=== PATIENT | male | born 1945 | race Caucasian/White ===

== ENCOUNTER → 2016-12-27 | Outpatient (CLI) | payer OTHER, MEDICARE ==
[~2016-12-27] MED LIST: ASPI325T45 PO; LISI2.5T5 PO; SIMV20TA2 PO; TPRSR/100 PO
--- NOTE | 2016-12-27 09:59 | DIAGNOSTIC IMAGING REPORT ---
CT OF THE CHEST WITHOUT IV CONTRAST CLINICAL HISTORY: Left lower lung mass. Lung nodule. COMPARISON STUDY: Chest CT May 11, 2016. CT DOSE: 497.86 mGycm TECHNIQUE: Axial images of the chest were obtained without IV contrast. Images were reviewed in the axial, sagittal, and coronal planes. IV contrast was not administered for this examination. FINDINGS: No enlarged axillary, mediastinal or hilar lymph nodes are present. A left subclavian pacer/AICD is in place. Mild cardiomegaly is unchanged. Extensive coronary artery calcification. Left ventricular apical calcification is unchanged and suggests an old infarct. The central airways are patent. There are several calcified and noncalcified pleural plaques within the chest. There is mild pleural thickening within each hemithorax which is unchanged. There is trace bilateral pleural fluid. A 4.6 x 3 cm subpleural left lower lobe mass-like opacity with a swirling appearance of the bronchi and volume loss is unchanged since exam of April 16, 2015. This is consistent with round atelectasis. No new nodules are present. Scattered additional subpleural opacity suggest atelectasis. The appearance of the chest is unchanged. The bony thorax is unremarkable. Several suspected hepatic cysts are again noted. These are unchanged. There are punctate bilateral renal calculi. IMPRESSION: 1. No change in the left lower lobe subpleural opacity with associated volume loss and pleural thickening. This is consistent with round atelectasis. 2. Multiple calcified and noncalcified pleural plaques. Stable mild pleural thickening and trace bilateral pleural effusions. No change in appearance of the chest. Electronically signed by: Bandar Jules M.D. 12/27/2016 9:58 AM Dictated Date/Time: 12/27/2016 9:48 AM
== END | disposition home or self-care (01) ==
LOC: C.CTS 09:33
PROVIDERS: ATTEND Internal Medicine Pulmonary Disease
DX: R91.1 Solitary pulmonary nodule (principal)

== ENCOUNTER → 2017-03-28 | Outpatient (CLI) | payer OTHER, MEDICARE ==
--- NOTE | 2017-03-28 14:14 | DIAGNOSTIC IMAGING REPORT ---
CHEST 2 VIEWS ROUTINE CLINICAL HISTORY: COUGH SOB dyspnea COMPARISON STUDY: 01/20/2016 FINDINGS: Unipolar cardiac pacemaker/fibrillator. Mild emphysematous change. Chronic interstitial change. No focal infiltrate. IMPRESSION: Chronic and postoperative change. No acute process. Electronically signed by: Anthony Martin M.D. 03/28/2017 2:13 PM Dictated Date/Time: 03/28/2017 2:10 PM
== END | disposition home or self-care (01) ==
LOC: C.RAD1850 13:58
PROVIDERS: ATTEND Physician Assistant Medical
DX: R06.02 Shortness of breath (principal); R05 Cough

== ENCOUNTER → 2017-04-18 | Outpatient (CLI) | payer OTHER, MEDICARE ==
--- NOTE | 2017-04-18 08:35 | DIAGNOSTIC IMAGING REPORT ---
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 FINDINGS: Within the left parotid gland there is a 3.2 x 2.1 x 1.9 cm hypoechoic mass. This is stable to slightly increased in size compared to the prior study. There are few subcentimeter lymph nodes within the left neck. Normal left submandibular gland. There may be a second smaller lesion adjacent to the mass which measures 1.5 x 0.6 cm. However, this could represent an adjacent lymph node. IMPRESSION: 1. Stable to slight increase in size in the 3.2 x 2.1 x 1.9 cm left parotid gland mass. This was previously biopsied. 2. There is also a similar-appearing hypoechoic lesion adjacent to this mass which measures 1.5 x 0.6 cm. This could represent an adjacent lymph node. Electronically signed by: Wiley Pereyra M.D. 04/18/2017 8:34 AM Dictated Date/Time: 04/18/2017 8:29 AM
[2017-04-18 09:50] LABS: ALKALINE PHOSPHATASE 78 U/L (45-117); ALT/SGPT 18 U/L (12-78); AST/SGOT 15 U/L (15-37)
== END | disposition home or self-care (01) ==
LOC: C.ULTR 07:39
DX: D49.0 Neoplasm of unspecified behavior of digestive system (principal); R91.1 Solitary pulmonary nodule

== ENCOUNTER → 2017-06-13 | Outpatient (CLI) | payer OTHER, MEDICARE ==
--- NOTE | 2017-06-13 07:20 | DIAGNOSTIC IMAGING REPORT ---
CHEST 2 VIEWS ROUTINE CLINICAL HISTORY: I49.9,Z01.818 dyspnea COMPARISON STUDY: 03/28/2017 FINDINGS: Permanent unipolar cardiac pacemaker/fibrillator. Lead is in good position. Mild stable cardiomegaly. Mild stable emphysematous change. Trace pleural fluid both lung bases unchanged from the prior exam. Chronic fullness pulmonary vasculature. IMPRESSION: Chronic and postoperative change. Chronic pulmonary venous congestion. The above report was generated using voice recognition software. It may contain grammatical, syntax or spelling errors. Electronically signed by: Anthony Martin M.D. 06/13/2017 7:19 AM Dictated Date/Time: 06/13/2017 7:18 AM
[2017-06-13 09:39] LABS: HEMATOCRIT 43.5 % (42-52); MEAN CELL VOLUME 97.3 fL (80-100); MEAN CORPUSCULAR HEMOGLOBIN 34.2 pg (25-34); MEAN CORPUSCULAR HGB CONC 35.2 g/dl (32-36); MEAN PLATELET VOLUME 8.8 fL (7.4-10.4); PLATELET COUNT 350 K/uL (130-400); RED BLOOD COUNT 4.47 M/uL (4.7-6.1); WHITE BLOOD COUNT 7.01 K/uL (4.8-10.8)
[2017-06-13 09:47] LABS: PARTIAL THROMBOPLASTIN RATIO 1.2; PROTHROMBIN TIME (PATIENT) 10.7 SECONDS (9.0-12.0)
[2017-06-13 09:57] LABS: BLOOD UREA NITROGEN 8 mg/dl (7-18); BUN/CREATININE RATIO 8.5 (10-20); CALCIUM 8.8 mg/dl (8.5-10.1); CARBON DIOXIDE 27 mmol/L (21-32); CHLORIDE 99 mmol/L (98-107); CREATININE 0.89 mg/dl (0.60-1.40); GLUCOSE 92 mg/dl (70-99); POTASSIUM 4.6 mmol/L (3.5-5.1); SODIUM 132 mmol/L (136-145)
== END | disposition home or self-care (01) ==
LOC: C.RAD 06:56
PROVIDERS: ATTEND Internal Medicine Cardiovascular Disease
DX: Z01.818 Encounter for other preprocedural examination (principal); I49.9 Cardiac arrhythmia, unspecified

== ENCOUNTER → 2017-09-24 | Outpatient (CLI) | payer OTHER, MEDICARE | END | disposition home or self-care (01) | LOC: C.RDSM 10:45 | PROVIDERS: ATTEND Physical Medicine & Rehabilitation Sports Medicine | DX: M17.11 Unilateral primary osteoarthritis, right knee (principal) ==

== ENCOUNTER → 2017-10-09 | Outpatient (CLI) | payer OTHER, MEDICARE ==
[2017-10-09 09:39] LABS: BASO % 0.3 %; BASO ABS # 0.02 K/uL (0-0.2); COMPLETE YES; EOS % 3.9 %; HEMATOCRIT 44.9 % (42-52); IG% 0.1 %; LYMPH % 22.3 %; LYMPH ABS # 1.56 K/uL (1.2-3.4); MEAN CELL VOLUME 97.6 fL (80-100); MEAN CORPUSCULAR HEMOGLOBIN 34.6 pg (25-34); MEAN CORPUSCULAR HGB CONC 35.4 g/dl (32-36); MEAN PLATELET VOLUME 8.6 fL (7.4-10.4); MONO % 10.6 %; NEUT % 62.8 %; PLATELET COUNT 396 K/uL (130-400)
[2017-10-09 09:58] LABS: ALT/SGPT 21 U/L (12-78); BLOOD UREA NITROGEN 10 mg/dl (7-18); BUN/CREATININE RATIO 11.1 (10-20); CALCIUM 8.6 mg/dl (8.5-10.1); CARBON DIOXIDE 26 mmol/L (21-32); CHLORIDE 98 mmol/L (98-107); CHOLESTEROL 156 mg/dl (0-200); GLUCOSE 95 mg/dl (70-99); MAGNESIUM 2.4 mg/dl (1.8-2.4); POTASSIUM 4.2 mmol/L (3.5-5.1); SODIUM 131 mmol/L (136-145); TRIGLYCERIDES 62 mg/dl (0-150); URIC ACID 4.6 mg/dl (2.6-7.2); VERY LOW DENSITY LIPOPROT CALC 12 mg/dl
[2017-10-09 10:08] LABS: ALB/GLOB RATIO 0.9 (0.9-2); ALKALINE PHOSPHATASE 80 U/L (45-117); AST/SGOT 17 U/L (15-37); CHOLESTEROL/HDL RATIO 2.2; HDL CHOLESTEROL 70 mg/dl; LDL CHOLESTEROL CALCULATED 74 mg/dl
[2017-10-09 10:30] LABS: LYME DISEASE AB IGG NEG (NEG); LYME DISEASE AB IGM NEG (NEG)
== END | disposition home or self-care (01) ==
LOC: C.LAB 07:09
PROVIDERS: ATTEND Nurse Practitioner Family
DX: I70.90 Unspecified atherosclerosis (principal); I42.9 Cardiomyopathy, unspecified; J44.9 Chronic obstructive pulmonary disease, unspecified; M79.643 Pain in unspecified hand

== ENCOUNTER → 2017-11-09 | Outpatient (CLI) | payer OTHER, MEDICARE ==
--- NOTE | 2017-11-09 13:45 | DIAGNOSTIC IMAGING REPORT ---
L-SPINE MIN 4 VIEWS ROUTINE CLINICAL HISTORY: M54.5 Lumbar [id number] COMPARISON STUDY: No previous studies for comparison. FINDINGS: There are multilevel degenerative changes. There is multilevel disc space narrowing. There is prominent osteophytic spurring. There is narrowing of the AP diameter spinal canal and underlying spinal stenosis is suspected. An MRI could be obtained in follow-up as deemed clinically necessary. IMPRESSION: 1. Moderate multilevel degenerative changes with suspected underlying spinal stenosis. 2. No acute fractures or traumatic subluxations identified Electronically signed by: Mark Fernando M.D. 11/09/2017 1:44 PM Dictated Date/Time: 11/09/2017 1:43 PM
== END | disposition home or self-care (01) ==
LOC: C.RAD 13:06
PROVIDERS: ATTEND Family Medicine
DX: M54.5 Low back pain (principal)

== ENCOUNTER → 2017-12-13 | Outpatient (CLI) | payer OTHER, MEDICARE ==
[~2017-12-13] MED LIST changes: +ATEN100T PO; +AZITTAB PO; +DEXTTAB PO; +FLUT0.15 NAE; +FURO-85 PO; -LISI2.5T5 PO; +OPTIRAY 320 IV PRN; +PRED20TA PO; +SACU1TAB PO; -TPRSR/100 PO
--- NOTE | 2017-12-13 11:32 | DIAGNOSTIC IMAGING REPORT ---
CHEST CT WITH CONTRAST CT DOSE: 412.23 mGy.cm HISTORY: Follow-up study in a patient with lung nodule R91.1 Lung nodule < 6cm on [id number] TECHNIQUE: Multiaxial CT images of the chest were performed following the intravenous administration of contrast. A dose lowering technique was utilized adhering to the principles of ALARA. COMPARISON: Chest CT 12/27/2016, 04/16/2017, PET CT 04/24/2015. FINDINGS: No dominant thyroid nodule identified. There are multiple scattered nonenlarged mediastinal lymph nodes are seen throughout including a 7 mm right paratracheal lymph node and 7 mm AP window lymph node which appears unchanged. No pathologically enlarged lymph nodes by CT size criteria. Cardiomegaly with left subclavian pacer/AICD with single lead overlying the right ventricle. Coronary arterial disease. Moderate mixed plaquing of the thoracic aorta without aneurysm or dissection. Partially 50% luminal narrowing involves the mid right subclavian artery as seen on image 45 of series 4. No vessel occlusion identified. There is mild dilation of the main pulmonary artery which may reflect underlying pulmonary arterial hypertension. Bilateral calcified and noncalcified pleural plaques redemonstrated. There is a masslike opacity again seen involving the posterior basal segment left lower lobe which measures 3.5 x 2.2 cm, previously 4.6 x 3.0 cm. There is associated linear pleural parenchymal opacities with swirling appearance of the adjacent lung parenchyma and bronchi, unchanged. Multifocal subsegmental linear areas of subpleural reticulation are again seen compatible with areas of pleural-parenchymal scarring. Scattered bronchovascular distribution of groundglass and nodular opacities are noted within a multilobar distribution bilaterally, notably within the lingula as seen on image 170 series 4. Mild centrilobular emphysema. No pneumothorax or pleural effusion. 9 mm low attenuating lesion of the subserosal left hepatic lobe is unchanged suggesting hepatic cyst. No acute abnormality of the imaged upper abdomen. Soft tissues are unremarkable. Bones appear intact. IMPRESSION: 1. 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 Multifocal multilobar areas of subpleural subsegmental pleural-parenchymal scarring is noted bilaterally. 2. Pleural-based ovoid consolidation of the posterior basal segment left lower lobe compatible with round atelectasis has decreased in size from comparison. 3. Patchy multilobar bronchovascular distribution of groundglass and nodular opacities suggests mild bronchopneumonia. 4. Mild centrilobular emphysema. 5. Cardiomegaly. Electronically signed by: Rafiq Mckeon M.D. 12/13/2017 11:30 AM Dictated Date/Time: 12/13/2017 11:18 AM
== END | disposition home or self-care (01) ==
LOC: C.CTS 11:02
PROVIDERS: ATTEND Physician Assistant
DX: R91.1 Solitary pulmonary nodule (principal)

== ENCOUNTER → 2017-12-15 | Outpatient (CLI) | payer OTHER, MEDICARE ==
[~2017-12-15] MED LIST changes: -OPTIRAY 320 IV PRN
--- NOTE | 2017-12-15 13:45 | DIAGNOSTIC IMAGING REPORT ---
CHEST 2 VIEWS ROUTINE CLINICAL HISTORY: 72 years-old Male presenting with FEVER,COUGH. TECHNIQUE: PA and lateral views of the chest were obtained. COMPARISON: 06/13/2017. FINDINGS: Left subclavian implanted cardiac defibrillator with single lead to the right ventricular apex. Atherosclerosis of aortic arch. Cardiac silhouette top normal in size. Hazy bibasilar opacities not significant changed since prior exam. Small bilateral pleural effusions. No pneumothorax. No new focal opacity. Lungs are hyperinflated. Degenerative changes of the thoracic spine. IMPRESSION: 1. Emphysema. 2. Bibasilar atelectasis or scarring. 3. Small bilateral pleural effusions. 4. The multilobular groundglass nodular opacities seen on CT are not radiographically apparent. 5. Calcified pleural plaques implying prior asbestos exposure also more evident on CT. Electronically signed by: Que Mcdaniels M.D. 12/15/2017 1:44 PM Dictated Date/Time: 12/15/2017 1:42 PM
== END | disposition home or self-care (01) ==
LOC: C.RAD 13:07
PROVIDERS: ATTEND Internal Medicine
DX: R50.9 Fever, unspecified (principal); R05 Cough; R09.89 Other specified symptoms and signs involving the circulatory and respiratory systems

== ENCOUNTER 2017-12-16 20:42 | Inpatient (IN) | payer OTHER, MEDICARE ==
[~2017-12-16] VITALS: Ht 172.7 cm; Wt 80.4 kg
[~2017-12-16 20:42] MED LIST changes: -AZITTAB PO; -DEXTTAB PO; -PRED20TA PO
[2017-12-16] MEDS ORDERED: ALBUT/IPRATROP 3MG/0.5MG NEB 3 ML VIAL INH STA (21:11)
[2017-12-16] MEDS ORDERED: CEFTRIAXONE SOD INJ 1 GM ADDVIAL IV STA (21:11)
[2017-12-16 21:54] LABS: BASO % 0.2 %; BASO ABS # 0.01 K/uL (0-0.2); HEMATOCRIT 43.6 % (42-52); HEMOGLOBIN 15.9 g/dL (14.0-18.0); IG# 0.01 K/uL (0.00-0.02); LYMPH ABS # 0.43 K/uL (1.2-3.4); MEAN CORPUSCULAR HEMOGLOBIN 34.3 pg (25-34); MEAN CORPUSCULAR HGB CONC 36.5 g/dl (32-36); MEAN PLATELET VOLUME 8.6 fL (7.4-10.4); MONO % 3.3 %; NEUT % 89.3 %; NEUT ABS # 5.47 K/uL (1.4-6.5); PLATELET COUNT 263 K/uL (130-400); RED CELL DISTRIBUTION WIDTH CV 12.4 % (11.5-14.5); RED CELL DISTRIBUTION WIDTH SD 42.8 fL (36.4-46.3); WHITE BLOOD COUNT 6.12 K/uL (4.8-10.8)
--- NOTE | 2017-12-16 21:59 | DIAGNOSTIC IMAGING REPORT ---
CHEST ONE VIEW PORTABLE CLINICAL HISTORY: EVALUATE RESPIRATORY DISTRESS.DYSPNEA COMPARISON STUDY: 12/15/2017 FINDINGS: Moderate cardiomegaly. Increased pulmonary vasculature compared to the prior study. Diaphragms are smooth. Slight blunting lateral calcific angles. IMPRESSION: Developing congestive heart failure. The above report was generated using voice recognition software. It may contain grammatical, syntax or spelling errors. Electronically signed by: Anthony Martin M.D. 12/16/2017 9:58 PM Dictated Date/Time: 12/16/2017 9:57 PM
[2017-12-16 22:06] LABS: PTT PATIENT 31.3 SECONDS (21.0-31.0)
[2017-12-16] MEDS ORDERED: AZITTAB PO (22:06)
[2017-12-16] MEDS ORDERED: DEXTTAB PO (22:06)
[2017-12-16] MEDS ORDERED: PRED20TA PO (22:06)
[2017-12-16 22:10] LABS: ALBUMIN 3.4 gm/dl (3.4-5.0); ALT/SGPT 31 U/L (12-78); BLOOD UREA NITROGEN 9 mg/dl (7-18); CALCIUM 8.4 mg/dl (8.5-10.1); CARBON DIOXIDE 22 mmol/L (21-32); GLUCOSE 135 mg/dl (70-99); POTASSIUM 4.2 mmol/L (3.5-5.1); SODIUM 128 mmol/L (136-145)
[2017-12-16 22:15] LABS: ALKALINE PHOSPHATASE 94 U/L (45-117); AST/SGOT 31 U/L (15-37); TOTAL PROTEIN 7.1 gm/dl (6.4-8.2)
[2017-12-16 23:07] LABS: INFLUENZA A PCR Neg for Influ A (NEG); INFLUENZA B PCR Neg for Influ B (NEG)
[2017-12-16] MEDS ORDERED: ALBUTEROL HFA 8 GM INHALER INH ONE (23:15)
--- NOTE | 2017-12-16 23:53 | EMERGENCY ROOM VISIT NOTE ---
History Report prepared by Keenan: Camille Fuentes Under the Supervision of: Dr. Curt Ritter M.D. First contact with patient: 21:07 Chief Complaint: SHORTNESS OF BREATH Stated Complaint: SOB History of Present Illness The patient is a 72 year old male who presents to the Emergency Room with complaints of worsening SOB starting 4 days ago. His SOB worsens with walking and talking. He has relief of his SOB with lying still. He has had diarrhea for the past 3 days. He has been coughing. He has had chills. His neck is stiff in the back. He denies any fever, sore throat, or rhinorrhea. He is on aspirin. He is not on any other blood thinners. He did have a flu shot this season. His was sick last week with similar symptoms. The patient had a chest CT 3 days ago which was unremarkable. He went to the clinic yesterday and had a chest X-ray which did not show pneumonia. He had a nebulizer treatment which did not help. He was started on prednisone and a Z nilo. He denies any history of COPD or lung disease. He has not had pneumonia before. He denies any history of blood clots. He has a history of IL. He has a defibrillator in place. Source of History: patient Onset: 4 days ago Position: other (global) Quality: other (SOB) Timing: worsening Modifying Factors (Worsening): movement, other (talking) Modifying Factors (Relieving): rest Associated Symptoms: + chills, + cough, + neck pain, + diarrhea, No fevers, No sorethroat Review of Systems See HPI for pertinent positives & negatives. A total of 10 systems reviewed and were otherwise negative. Past Medical & Surgical Medical Problems: (1) Cardiac defibrillator in place (2) IL (myocardial infarction) Surgical Problems: (1) S/P coronary artery stent placement Family History FHx: heart disease Social History Smoking Status: Current Every Day Smoker Alcohol Use: occasionally Drug Use: none Marital Status: Housing Status: lives with family Occupation Status: employed Current/Historical Medications Scheduled Aspirin (Aspirin), 325 MG PO QAM Atenolol (Tenormin), 100 MG PO QPM Azithromycin (Zithromax Z-Nilo), 250 MG PO UD Furosemide (Lasix), 20 MG PO QAM Prednisone (Prednisone), 40 MG PO DAILY Sacubitril-Valsartan (Entresto 24-26 mg), 1 TAB PO QAM Simvastatin (Zocor), 20 MG PO QPM Scheduled PRN Dextromethorphan-Guaifenesin (Mucus Relief Dm), 1 TAB PO Q12 PRN for Cough Fluticasone Propionate (Nasal) (Flonase Allergy Relief), 2 SPRAYS MARIE QAM PRN for Nasal Congestion Allergies Coded Allergies: Morphine (Verified Allergy, Mild, UNKNOWN, 12/07/17) Alcohol (Verified Allergy, Unknown, SMELL OF TOPICAL ALCOHOL -EMOTIONAL RESPONSE, PTSD, 12/07/17) BRINGS [employer]IES [employer] [place] Clopidogrel (Verified Allergy, Unknown, RASH, 12/07/17) Physical Exam Vital Signs Date Time Temp Pulse Resp B/P (MAP) Pulse Ox O2 Delivery O2 Flow Rate FiO2 12/17/17 00:41 95 Nasal Cannula 2.0 12/16/17 23:49 85 20 107/60 90 Room Air 12/16/17 23:35 86 Room Air 12/16/17 22:45 77 12/16/17 22:17 89 20 122/63 94 Room Air 12/16/17 21:41 94 Room Air 12/16/17 20:44 37.0 78 20 156/79 90 Room Air Physical Exam GENERAL: Patient is in no acute distress. HEENT: No acute trauma, normocephalic atraumatic, mucous membranes moist, no nasal congestion, no scleral icterus. NECK: No stridor, no adenopathy, no meningismus, trachea is midline. LUNGS: Decreased breath sounds bilaterally. Wheezing bilaterally. Occasional crackles heard. Seems SOB with speaking. Wet cough noted. HEART: Without murmurs gallops or rubs, regular rate and rhythm. ABDOMEN: Soft, nontender, bowel sounds positive, no hernias, no peritonitis. EXTREMITIES: No cyanosis or edema, full range of motion of all the joints without pain or difficulty, no signs for acute trauma. NEUROLOGIC: Oriented x 3, no acute motor or sensory deficits, no focal weakness. SKIN: No rash, no jaundice, no diaphoresis. Medical Decision & Procedures ER Provider Diagnostic Interpretation: X-ray results as stated below per interpretation by me and the radiologist: CHEST ONE VIEW PORTABLE CLINICAL HISTORY: EVALUATE RESPIRATORY DISTRESS.DYSPNEA COMPARISON STUDY: 12/15/2017 FINDINGS: Moderate cardiomegaly. Increased pulmonary vasculature compared to the prior study. Diaphragms are smooth. Slight blunting lateral calcific angles. IMPRESSION: Developing congestive heart failure. The above report was generated using voice recognition software. It may contain grammatical, syntax or spelling errors. Electronically signed by: Anthony Martin M.D. 12/16/2017 9:58 PM Dictated Date/Time: 12/16/2017 9:57 PM Laboratory Results 12/16/17 21:30 Red Blood Count 4.64, Mean Corpuscular Volume 94.0, Mean Corpuscular Hemoglobin 34.3, Mean Corpuscular Hemoglobin Concent 36.5, Mean Platelet Volume 8.6, Neutrophils (%) (Auto) 89.3, Lymphocytes (%) (Auto) 7.0, Monocytes (%) (Auto) 3.3, Eosinophils (%) (Auto) 0.0, Basophils (%) (Auto) 0.2, Neutrophils # (Auto) 5.47, Lymphocytes # (Auto) 0.43, Monocytes # (Auto) 0.20, Eosinophils # (Auto) 0.00, Basophils # (Auto) 0.01 12/16/17 21:30 Test 12/16/17 21:30 12/16/17 22:00 White Blood Count 6.12 K/uL (4.8-10.8) Red Blood Count 4.64 M/uL (4.7-6.1) Hemoglobin 15.9 g/dL (14.0-18.0) Hematocrit 43.6 % (42-52) Mean Corpuscular Volume 94.0 fL (80-100) Mean Corpuscular Hemoglobin 34.3 pg (25-34) Mean Corpuscular Hemoglobin Concent 36.5 g/dl (32-36) Platelet Count 263 K/uL (130-400) Mean Platelet Volume 8.6 fL (7.4-10.4) Neutrophils (%) (Auto) 89.3 % Lymphocytes (%) (Auto) 7.0 % Monocytes (%) (Auto) 3.3 % Eosinophils (%) (Auto) 0.0 % Basophils (%) (Auto) 0.2 % Neutrophils # (Auto) 5.47 K/uL (1.4-6.5) Lymphocytes # (Auto) 0.43 K/uL (1.2-3.4) Monocytes # (Auto) 0.20 K/uL (0.11-0.59) Eosinophils # (Auto) 0.00 K/uL (0-0.5) Basophils # (Auto) 0.01 K/uL (0-0.2) RDW Standard Deviation 42.8 fL (36.4-46.3) RDW Coefficient of Variation 12.4 % (11.5-14.5) Immature Granulocyte % (Auto) 0.2 % Immature Granulocyte # (Auto) 0.01 K/uL (0.00-0.02) Prothrombin Time 10.2 SECONDS (9.0-12.0) Prothromb Time International Ratio 1.0 (0.9-1.1) Activated Partial Thromboplast Time 31.3 SECONDS (21.0-31.0) Partial Thromboplastin Ratio 1.2 Anion Gap 10.0 mmol/L (3-11) Est Creatinine Clear Calc Drug Dose 89.3 ml/min Estimated GFR () 104.2 Estimated GFR (Non- 89.9 BUN/Creatinine Ratio 11.8 (10-20) Calcium Level 8.4 mg/dl (8.5-10.1) Total Bilirubin 0.2 mg/dl (0.2-1) Aspartate Amino Transf (AST/SGOT) 31 U/L (15-37) Alanine Aminotransferase (ALT/SGPT) 31 U/L (12-78) Alkaline Phosphatase 94 U/L (45-117) Troponin I < 0.015 ng/ml (0-0.045) Pro-B-Type Natriuretic Peptide 565 pg/ml (0-900) Total Protein 7.1 gm/dl (6.4-8.2) Albumin 3.4 gm/dl (3.4-5.0) Globulin 3.7 gm/dl (2.5-4.0) Albumin/Globulin Ratio 0.9 (0.9-2) Influenza Type A (RT-PCR) Neg for Influ A (NEG) Influenza Type B (RT-PCR) Neg for Influ B (NEG) Laboratory results reviewed by me. Medications Administered Medications (Trade) Dose Ordered Sig/Candie Route Start Time Stop Time Status Last Admin Dose Admin Albuterol/ Ipratropium (Duoneb) 3 ml NOW STAT INH 12/16/17 21:11 2/11/18 21:15 DC 12/16/17 21:11 3 ML Ceftriaxone Sodium (Rocephin Inj) 1 gm NOW STAT IV 12/16/17 21:11 12/16/17 21:15 DC 12/16/17 21:11 1 GM Albuterol (Ventolin Hfa Inhaler) 2 puffs NOW ONCE INH 12/16/17 23:15 12/16/17 23:16 DC 12/16/17 23:43 2 PUFFS ECG Indication: SOB/dyspnea Rate (beats per minute): 75 Rhythm: normal sinus Findings: other (old septal infarct, no PVC, no ST elevation) Change: Patient's electrocardiogram interpreted by me. ED Course 2107: The patient was evaluated in room B5. A complete history and physical exam was performed. 2110: Rocephin Inj 1 gm IV, Duoneb 3 ml INH. 2315: Albuterol 2 puffs INH. 2336: Upon reexamination the patient is stable. I discussed results and treatment plan with the patient. He verbalizes agreement and understanding. The patient will be evaluated for further management. 4: I discussed the patient's case Dr. Jimenes, [facility] hospitalist. The patient will be evaluated for further management. Medical Decision Differential diagnoses considered include influenza, flu like illness, pneumonia , bronchitis, CHF, cardiac ischemia, anemia. There is no leukocytosis or concerning anemia. No significant electrolyte abnormality, kidney failure or hepatitis. Chest film shows some congestion, mild CHF was a concern of the radiologist. There was no pneumonia. BNP returned negative. EKG shows a sinus rhythm with an old septal infarct, no acute ischemia. Cardiac enzyme testing 1 is not consistent with acute cardiac injury. Influenza testing was negative. Blood cultures are pending. The patient presents dyspneic. He seemed short of breath with speaking. He received a DuoNeb, IV ceftriaxone and albuterol via MDI. He felt better but when walked around in this ED, his O2 saturation dropped to 85 percent and he felt quite dyspneic. The patient is not in any condition to be discharged. He is hypoxic with exertion. He likely has a flulike illness with a bronchitis. He has failed outpatient treatment with Zithromax and prednisone. I spoke to the patient and to the home health care case manager. The on-call hospitalist was consulted. Medication Reconcilliation Current Medication List: was personally reviewed by me Blood Pressure Screening Patient's blood pressure: Elevated blood pressure Blood pressure disposition: Elevated BP felt to be situational Consults Time Called: 2330 Consulting Physician: Dr. Jimenes [facility] hospitalist Returned Call: [phone] Discussed the patient's case. The patient will be evaluated for further management. Impression Primary Impression: Hypoxia Additional Impressions: SOB (shortness of breath) Acute bronchitis Scribe Attestation The scribe's documentation has been prepared under my direction and personally reviewed by me in its entirety. I confirm that the note above accurately reflects all work, treatment, procedures, and medical decision making performed by me. Departure Information Dispostion Being Evaluated By Hospitalist Referrals Aquilino Silver III, CRNP (PCP) Patient Instructions My [facility] Problem Qualifiers
[2017-12-17] VITALS (9 sets, daily range): BP systolic 91–143; BP diastolic 49–73; PULSE 68–78; TEMP 36.5–36.6; O2SAT 92–98; Ht 172.7 cm; Wt 80.4 kg
[2017-12-17] MEDS ORDERED: ALUMINUM/MAGNESIUM/SIMETH (MAALOX MAX) 30 ML UDC PO PRN (01:30)
[2017-12-17] MEDS ORDERED: ONDANSETRON INJ 2 MG/ML 2 ML VIAL IV PRN (01:30)
[2017-12-17] MEDS ORDERED: MAGNESIUM HYDROXIDE SUSP 30 ML UDC PO PRN (01:30)
[2017-12-17] MEDS ORDERED: ACETAMINOPHEN 325 MG TAB PO PRN (01:30)
[2017-12-17] MEDS ORDERED: POLYETHYLENE (MIRALAX) 17 GM PACK PO PRN (01:30)
[2017-12-17] MEDS ORDERED: LEVOFLOXACIN / D5W 500 MG in PREMIXED IN D5W 100 ML IV SCH (03:00)
[2017-12-17] MEDS: METHYLPREDNISOLONE IV 40 MG in SYRINGE 0 ML IV SCH ×4 (03:07→20:16)
[2017-12-17] MEDS: ALBUT/IPRATROP 3MG/0.5MG NEB 3 ML VIAL INH SCH ×4 (07:39→19:42)
--- NOTE | 2017-12-17 08:08 | History and Physical ---
History & Physical Date & Time of Service: Dec 17, 2017 at 01:53 Chief Complaint: SOB Primary Care Physician: Aquilino Silver III, CRNP History of Present Illness Source: patient, family, clinic records, hospital records 68 yo M with h/o History Factor 5 Leiden , COPD , Cardiomyopathy presenting with increasing SOB, cough. On 12/13 he saw [facility] Setter ( ERIN Daugherty) for f/u appt. He had A CT showing patch y multilobar ground glass opacities. He was given nebulizer at office, did not feel better. He was given prescription for montelukast . He saw his PCP 2 days ago, and was treated for probable COPD exacerbation, started on Prednisone, Azithromycin. Currently complains of worsening SOB x 5 day, productive cough, generalized weakness, diarrhea x 3 days.Yesterday he was started on Z-pack, prednisone, has had 2 doses of each. no Chest pain, abdominal pain, n.v, fever, rhinorrhea, + chills. He did receive flu vaccine this year. 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 Home Medications Scheduled Aspirin (Aspirin), 325 MG PO QAM Atenolol (Tenormin), 100 MG PO QPM Azithromycin (Zithromax Z-Nilo), 250 MG PO UD Furosemide (Lasix), 20 MG PO QAM Prednisone (Prednisone), 40 MG PO DAILY Sacubitril-Valsartan (Entresto 24-26 mg), 1 TAB PO QAM Simvastatin (Zocor), 20 MG PO QPM Scheduled PRN Dextromethorphan-Guaifenesin (Mucus Relief Dm), 1 TAB PO Q12 PRN for Cough Fluticasone Propionate (Nasal) (Flonase Allergy Relief), 2 SPRAYS MARIE QAM PRN for Nasal Congestion Review of Systems Constitutional: + weakness Respiratory: + cough, + shortness of breath Cardiovascular: No chest pain, No palpitations Abdomen: No pain, No nausea, No vomiting Genitourinary - Male: No dysuria, No urinary frequency, No urinary urgency Integumentary: No rash, No itch Physical Exam Vital Signs Date Time Temp Pulse Resp B/P (MAP) Pulse Ox O2 Delivery O2 Flow Rate FiO2 12/17/17 00:41 95 Nasal Cannula 2.0 12/16/17 23:49 85 20 107/60 90 Room Air 12/16/17 23:35 86 Room Air 12/16/17 22:45 77 12/16/17 22:17 89 20 122/63 94 Room Air 12/16/17 21:41 94 Room Air 12/16/17 20:44 37.0 78 20 156/79 90 Room Air GENERAL: alert, no distress EYE EXAM: normal conjunctiva, PERRL and EOM's grossly intact OROPHARYNX: no exudate, no erythema, lips, buccal mucosa, and tongue normal and mucous membranes are moist NECK: supple, no nuchal rigidity, no adenopathy, non-tender LUNGS: scattered wheeze, rhonchi HEART: no murmurs, S1 normal and S2 normal ABDOMEN: abdomen soft, non-tender, normo-active bowel sounds, no masses, no rebound or guarding. UPPER EXTREMITIES: upper extremities are grossly normal. LOWER EXTREMITIES: No pitting edema. NEURO EXAM: AOx3, cranial nerves II-XII grossly intact, normal speech, Diagnostics Laboratory Results Results Past 24 Hours Test 12/16/17 21:30 12/16/17 22:00 Range/Units White Blood Count 6.12 4.8-10.8 K/uL Red Blood Count 4.64 4.7-6.1 M/uL Hemoglobin 15.9 14.0-18.0 g/dL Hematocrit 43.6 42-52 % Mean Corpuscular Volume 94.0 80-100 fL Mean Corpuscular Hemoglobin 34.3 25-34 pg Mean Corpuscular Hemoglobin Concent 36.5 32-36 g/dl Platelet Count 263 130-400 K/uL Mean Platelet Volume 8.6 7.4-10.4 fL Neutrophils (%) (Auto) 89.3 % Lymphocytes (%) (Auto) 7.0 % Monocytes (%) (Auto) 3.3 % Eosinophils (%) (Auto) 0.0 % Basophils (%) (Auto) 0.2 % Neutrophils # (Auto) 5.47 1.4-6.5 K/uL Lymphocytes # (Auto) 0.43 1.2-3.4 K/uL Monocytes # (Auto) 0.20 0.11-0.59 K/uL Eosinophils # (Auto) 0.00 0-0.5 K/uL Basophils # (Auto) 0.01 0-0.2 K/uL RDW Standard Deviation 42.8 36.4-46.3 fL RDW Coefficient of Variation 12.4 11.5-14.5 % Immature Granulocyte % (Auto) 0.2 % Immature Granulocyte # (Auto) 0.01 0.00-0.02 K/uL Prothrombin Time 10.2 9.0-12.0 SECONDS Prothromb Time International Ratio 1.0 0.9-1.1 Activated Partial Thromboplast Time 31.3 21.0-31.0 SECONDS Partial Thromboplastin Ratio 1.2 Sodium Level 128 136-145 mmol/L Potassium Level 4.2 3.5-5.1 mmol/L Chloride Level 96 98-107 mmol/L Carbon Dioxide Level 22 21-32 mmol/L Anion Gap 10.0 3-11 mmol/L Blood Urea Nitrogen 9 7-18 mg/dl Creatinine 0.80 0.60-1.40 mg/dl Est Creatinine Clear Calc Drug Dose 89.3 ml/min Estimated GFR () 104.2 Estimated GFR (Non- 89.9 BUN/Creatinine Ratio 11.8 10-20 Random Glucose 135 70-99 mg/dl Calcium Level 8.4 8.5-10.1 mg/dl Total Bilirubin 0.2 0.2-1 mg/dl Aspartate Amino Transf (AST/SGOT) 31 15-37 U/L Alanine Aminotransferase (ALT/SGPT) 31 12-78 U/L Alkaline Phosphatase 94 45-117 U/L Troponin I < 0.015 0-0.045 ng/ml Pro-B-Type Natriuretic Peptide 565 0-900 pg/ml Total Protein 7.1 6.4-8.2 gm/dl Albumin 3.4 3.4-5.0 gm/dl Globulin 3.7 2.5-4.0 gm/dl Albumin/Globulin Ratio 0.9 0.9-2 Influenza Type A (RT-PCR) Neg for Influ A NEG Influenza Type B (RT-PCR) Neg for Influ B NEG Microbiology Results 12/16/17 Blood Culture, Received Pending 12/16/17 Blood Culture, Received Pending Diagnostic Radiology CHEST ONE VIEW PORTABLE CLINICAL HISTORY: EVALUATE RESPIRATORY DISTRESS.DYSPNEA COMPARISON STUDY: 12/15/2017 FINDINGS: Moderate cardiomegaly. Increased pulmonary vasculature compared to the prior study. Diaphragms are smooth. Slight blunting lateral calcific angles. IMPRESSION: Developing congestive heart failure. Impression Assessment and Plan 68 yo M with h/o History Factor 5 Leiden , COPD , Cardiomyopathy presenting with increasing SOB, cough presenting after failure of outpatient treatment for COPD exacerbation with Prednisone, Azithromycin arriving in Acute Hypoxic Respiratory failure. Dyspnea, Cough, COPD , Acute Hypoxic Respiratory failure -s/p failure of outpatient treatment for COPD exacerbation with Prednisone, Azithromycin - given Albuterol in ED, showed improved in oxygen saturation, now on 2L - While CXR read as CHF by radiology , subjective findings in addition to exam findings suggest a more COPD and/or Pneumonia picture - Start IV Solumedrol 40 q6, Duonebs - Start Ceftriaxone , Levaquin -Cough: Start Guaifenesin, Benzonatate - Follow up Procalcitonin to rule out Pneumonia - Flu swab negative - F/u Sputum cx Cardiomyopathy, HTN, HLD - CM appears stable, Bp controlled - no evidence of fluid overload on exam despite CXR read as above - Restart home Atenolol , Sacubitril-Valsartan, ASA, Simvastatin History of Factor 5 Leiden , DV Prophylaxis - Lovenox Code Status - Full Resus Level of Care Med/Surg Resuscitation Status FULL RESUSCITATION VTE Prophylaxis VTE Risk Assessment Done? Y/N: Yes Risk Level: Moderate Given or contraindicated: Enoxaparin (Lovenox)SQ Social Service Consult None Apply Resident Tracking Resident Involvement: Resident Care Provided Care Provided: Adult Hospital Medicine
[2017-12-17] MEDS: ENOXAPARIN 40 MG/0.4 ML SYR SQ SCH (08:27)
[2017-12-17] MEDS: ASPIRIN 325 MG ECTAB PO SCH (08:28)
[2017-12-17] MEDS: SACUBITRIL-VALSARTAN 24-26 MG TAB PO SCH (08:28)
[2017-12-17] MEDS: GUAIFENESIN 600 MG TABCR PO SCH ×2 (08:28→20:18)
[2017-12-17] MEDS: BENZONATATE 100MG CAP PO PRN ×2 (08:28→16:55)
[2017-12-17 09:32] LABS: BASO % 0.3 %; BASO ABS # 0.01 K/uL (0-0.2); HEMATOCRIT 40.2 % (42-52); HEMOGLOBIN 14.7 g/dL (14.0-18.0); LYMPH % 12.1 %; LYMPH ABS # 0.44 K/uL (1.2-3.4); MEAN CELL VOLUME 93.7 fL (80-100); MEAN CORPUSCULAR HEMOGLOBIN 34.3 pg (25-34); MEAN CORPUSCULAR HGB CONC 36.6 g/dl (32-36); MEAN PLATELET VOLUME 8.4 fL (7.4-10.4); MONO ABS # 0.11 K/uL (0.11-0.59); NEUT % 84.6 %; NEUT ABS # 3.07 K/uL (1.4-6.5); PLATELET COUNT 257 K/uL (130-400); RED CELL DISTRIBUTION WIDTH CV 12.4 % (11.5-14.5); RED CELL DISTRIBUTION WIDTH SD 42.3 fL (36.4-46.3); WHITE BLOOD COUNT 3.63 K/uL (4.8-10.8)
[2017-12-17 10:02] LABS: CALCIUM 8.4 mg/dl (8.5-10.1); CREATININE 0.86 mg/dl (0.60-1.40); POTASSIUM 4.2 mmol/L (3.5-5.1)
[2017-12-17] MEDS: HYDROCODONE/HOMATROPINE SYRUP 5MG/1.5MG 5ML UDP PO PRN (16:53)
[2017-12-17] MEDS: DICLOFENAC SOD 1% GEL 100 GM TUBE EXT SCH ×2 (17:12→20:17)
[2017-12-17] MEDS: SIMVASTATIN 20 MG TAB PO SCH (20:18)
[2017-12-17] MEDS ORDERED: CEFTRIAXONE SOD INJ 1 GM in DEXTROSE 5% ADD-VANTAGE 50ML 50 ML IV SCH (21:00)
--- NOTE | 2017-12-17 23:39 | Family Medicine Progress Note ---
Progress Note Date of Service Dec 17, 2017. Subjective Pt evaluation today including: conversation w/ patient, physical exam, chart review, lab review, review of studies Pain: No pain reported this morning Voiding: no voiding problems, no incontinence Patient states that shortness of breath is improved from last night but still having mild dyspnea. Now can go 20-30 minutes without coughing. Constitutional: No fever, No chills, No sweats, No fatigue Respiratory: + cough, + sputum, + wheezing, + shortness of breath Cardiovascular: No chest pain, No palpitations Abdomen: No pain, No nausea, No vomiting, No diarrhea Medications Current Inpatient Medications Medications (Trade) Dose Ordered Sig/Candie Route Start Time Stop Time Status Last Admin Dose Admin Enoxaparin Sodium (Lovenox Inj) 40 mg Q24H SQ 12/17/17 08:00 01/16/18 07:59 12/17/17 08:27 40 MG Acetaminophen (Tylenol Tab) 650 mg Q4H PRN PO 12/17/17 01:30 01/16/18 01:29 Al Hydrox/Mg Hydrox/Simethicone (Maalox Max Susp) 15 ml Q4H PRN PO 12/17/17 01:30 01/16/18 01:29 Magnesium Hydroxide (Milk Of Magnesia Susp) 30 ml Q6H PRN PO 12/17/17 01:30 01/16/18 01:29 Polyethylene (Miralax Powder Packet) 17 gm DAILY PRN PO 12/17/17 01:30 01/16/18 01:29 Ondansetron HCl (Zofran Inj) 4 mg Q6H PRN IV 12/17/17 01:30 01/16/18 01:29 Aspirin (Ecotrin Tab) 325 mg QAM PO 12/17/17 08:00 01/16/18 08:59 12/17/17 08:28 325 MG Atenolol (Tenormin Tab) 100 mg QPM PO 12/17/17 21:00 01/16/18 20:59 12/17/17 20:19 100 MG Sacubitril/ Valsartan (Entresto 24-26 Mg) 1 tab QAM PO 12/17/17 08:00 01/16/18 08:59 12/17/17 08:28 1 TAB Simvastatin (Zocor Tab) 20 mg QPM PO 12/17/17 21:00 01/16/18 20:59 12/17/17 20:18 20 MG Albuterol/ Ipratropium (Duoneb) 3 ml QIDR INH 12/17/17 08:00 01/16/18 07:59 12/17/17 19:42 3 ML Guaifenesin (Mucinex Contr Rel Tab) 600 mg Q12 PO 12/17/17 09:00 01/16/18 08:59 12/17/17 20:18 600 MG Ceftriaxone Sodium 1 gm/ Dextrose 50 ml @ 100 mls/hr Q24H IV 12/17/17 21:00 12/22/17 21:29 12/17/17 20:17 100 MLS/HR Benzonatate (Tessalon Perles Cap) 100 mg 3XDQ4 PRN PO 12/17/17 02:00 01/16/18 01:59 12/17/17 16:55 100 MG Methylprednisolone Sodium Succinate 40 mg/Syringe 0.64 ml @ 1.5 mls/min Q6H IV 12/17/17 03:00 01/16/18 02:59 12/17/17 20:16 1.5 MLS/MIN Diclofenac Sodium (Voltaren 1% Top Gel) 1 appln TID EXT 12/17/17 20:00 01/16/18 19:59 12/17/17 20:17 1 APPLN Hydrocodone Bit/ Homatropine Methylb (Hycodan Syrup) 5 ml BID PRN PO 12/17/17 15:45 12/31/17 15:44 12/17/17 16:53 5 ML Objective Vital Signs Date Time Temp Pulse Resp B/P (MAP) Pulse Ox O2 Delivery O2 Flow Rate FiO2 12/17/17 20:15 71 128/71 (90) 12/17/17 19:42 72 16 93 Room Air 12/17/17 16:00 Room Air 12/17/17 15:32 70 16 94 Room Air 12/17/17 11:14 77 16 92 Room Air 12/17/17 08:00 97 Nasal Cannula 2.0 12/17/17 07:42 71 16 97 Nasal Cannula 2.0 12/17/17 07:18 36.6 76 20 122/68 (86) 95 Nasal Cannula 2.0 12/17/17 02:50 36.5 78 18 143/73 98 Nasal Cannula 2.0 12/17/17 02:04 72 12/17/17 01:40 70 16 129/64 96 Nasal Cannula 2.0 12/17/17 00:41 95 Nasal Cannula 2.0 12/16/17 23:49 85 20 107/60 90 Room Air Physical Exam General Appearance: WD/WN, no apparent distress Eyes: normal inspection, sclerae normal Neck: supple, no carotid bruits Respiratory/Chest: chest non-tender, no respiratory distress, + crackles, + wheezing Cardiovascular: regular rate, rhythm, no edema, no gallop Abdomen: non tender, soft Extremities: non-tender, no pedal edema Neurologic/Psychiatric: alert, normal mood/affect, oriented x 3 Laboratory Results Results Past 24 Hours Test 12/17/17 09:19 Range/Units White Blood Count 3.63 4.8-10.8 K/uL Red Blood Count 4.29 4.7-6.1 M/uL Hemoglobin 14.7 14.0-18.0 g/dL Hematocrit 40.2 42-52 % Mean Corpuscular Volume 93.7 80-100 fL Mean Corpuscular Hemoglobin 34.3 25-34 pg Mean Corpuscular Hemoglobin Concent 36.6 32-36 g/dl Platelet Count 257 130-400 K/uL Mean Platelet Volume 8.4 7.4-10.4 fL Neutrophils (%) (Auto) 84.6 % Lymphocytes (%) (Auto) 12.1 % Monocytes (%) (Auto) 3.0 % Eosinophils (%) (Auto) 0.0 % Basophils (%) (Auto) 0.3 % Neutrophils # (Auto) 3.07 1.4-6.5 K/uL Lymphocytes # (Auto) 0.44 1.2-3.4 K/uL Monocytes # (Auto) 0.11 0.11-0.59 K/uL Eosinophils # (Auto) 0.00 0-0.5 K/uL Basophils # (Auto) 0.01 0-0.2 K/uL RDW Standard Deviation 42.3 36.4-46.3 fL RDW Coefficient of Variation 12.4 11.5-14.5 % Immature Granulocyte % (Auto) 0.0 % Immature Granulocyte # (Auto) 0.00 0.00-0.02 K/uL Sodium Level 126 136-145 mmol/L Potassium Level 4.2 3.5-5.1 mmol/L Chloride Level 95 98-107 mmol/L Carbon Dioxide Level 21 21-32 mmol/L Anion Gap 10.0 3-11 mmol/L Blood Urea Nitrogen 10 7-18 mg/dl Creatinine 0.86 0.60-1.40 mg/dl Est Creatinine Clear Calc Drug Dose 76.2 ml/min Estimated GFR () 101.1 Estimated GFR (Non- 87.2 BUN/Creatinine Ratio 11.6 10-20 Random Glucose 160 70-99 mg/dl Calcium Level 8.4 8.5-10.1 mg/dl Assessment and Plan 68 yo M with h/o History Factor 5 Leiden , COPD , Cardiomyopathy presenting with increasing SOB, cough presenting after failure of outpatient treatment for COPD exacerbation with Prednisone, Azithromycin arriving in Acute Hypoxic Respiratory failure. Acute Hypoxic Respiratory Failure 2/2 COPD Exacerbation - Narrow antibiotic regimen to Levaquin --> Received dose of Rocephin in the ED - Outpatient treatment failure with Prednisone and Azithromycin - Solumedrol IV 40mg q6h - Duonebs - Mucinex - Hycodan - Mucinex, Tessalon Pearls - Flu Swab Negative - Sputum and Blood Cultures pending - CXR: No infiltrates Muscle Strain - Secondary to cough - Voltaren Gel - Tylenol as needed Alcohol Abuse - Patient reports drinking 6 beers per day - Ativan as needed with withdrawal symptoms - Thiamine, Folic Acid, Multivitamin qAM Cardiomyopathy, HTN, HLD - CM appears stable, BP controlled - No evidence of fluid overload on exam - Restart home Atenolol, Sacubitril-Valsartan, ASA, Simvastatin History of Factor 5 Leiden - Lovenox Code Status - Full Resuscitation
[2017-12-18] VITALS (11 sets, daily range): BP systolic 103–121; BP diastolic 61–71; PULSE 65–83; TEMP 36.3–36.9; O2SAT 91–97
[2017-12-18] MEDS: IBUPROFEN 200 MG TAB PO PRN ×3 (00:43→14:49)
[2017-12-18] MEDS: METHYLPREDNISOLONE IV 40 MG in SYRINGE 0 ML IV SCH ×3 (02:47→20:07)
[2017-12-18 06:40] LABS: BASO % 0.1 %; BASO ABS # 0.01 K/uL (0-0.2); HEMATOCRIT 39.6 % (42-52); HEMOGLOBIN 14.4 g/dL (14.0-18.0); IG# 0.02 K/uL (0.00-0.02); LYMPH % 7.3 %; LYMPH ABS # 0.81 K/uL (1.2-3.4); MEAN CELL VOLUME 93.4 fL (80-100); MEAN CORPUSCULAR HGB CONC 36.4 g/dl (32-36); MEAN PLATELET VOLUME 8.7 fL (7.4-10.4); MONO % 4.4 %; MONO ABS # 0.49 K/uL (0.11-0.59); NEUT ABS # 9.81 K/uL (1.4-6.5); PLATELET COUNT 269 K/uL (130-400); RED CELL DISTRIBUTION WIDTH CV 12.3 % (11.5-14.5); RED CELL DISTRIBUTION WIDTH SD 41.4 fL (36.4-46.3); WHITE BLOOD COUNT 11.14 K/uL (4.8-10.8)
[2017-12-18 07:09] LABS: CALCIUM 8.4 mg/dl (8.5-10.1); CREATININE 1.03 mg/dl (0.60-1.40); POTASSIUM 4.9 mmol/L (3.5-5.1)
--- NOTE | 2017-12-18 07:27 | Clinical Documentation Query ---
CLINICAL DOCUMENTATION QUERY 68 yo M with h/o History Factor 5 Leiden , COPD , Cardiomyopathy presenting with increasing SOB, cough presenting after failure of outpatient treatment for COPD exacerbation with Prednisone, Azithromycin arriving in Acute Hypoxic Respiratory failure. Initial Na 128 trending down to 126. In your clinical opinion is this patient being managed for: ( x ) Hyponatremia ( ) Not Agree ( ) Other explanation of clinical findings (Please Explain) ( ) Unable to determine (Please Define) ( ) Need to Discuss The medical record reflects the following clinical findings, treatment, and risk factors. Clinical Indicators: As above Treatment: Comprehensive metabolic panel Risk Factors: COPD, acute respiratory failure, pneumonia, age Please clarify and document your clinical opinion in the progress notes and discharge summary. Terms such as "probable", "suspected", "likely", "questionable", "possible", or "still to be ruled out" are acceptable. IF IN AGREEMENT, YOU MUST DOCUMENT ABOVE DIAGNOSTIC STATEMENT IN DAILY PROGRESS NOTES AND DISCHARGE SUMMARY. This document is not part of the patient's record. Thank You, Kylee Yuan RN [phone]
[2017-12-18] MEDS: ALBUT/IPRATROP 3MG/0.5MG NEB 3 ML VIAL INH SCH ×4 (07:34→19:38)
[2017-12-18] MEDS: MULTIVITAMIN TAB PO SCH (08:59)
[2017-12-18] MEDS: THIAMINE HCL 100 MG TAB PO SCH (09:00)
[2017-12-18] MEDS: ASPIRIN 325 MG ECTAB PO SCH (09:00)
[2017-12-18] MEDS: GUAIFENESIN 600 MG TABCR PO SCH ×2 (09:01→20:08)
[2017-12-18] MEDS: SACUBITRIL-VALSARTAN 24-26 MG TAB PO SCH (09:01)
[2017-12-18] MEDS: ENOXAPARIN 40 MG/0.4 ML SYR SQ SCH (09:01)
[2017-12-18] MEDS: DICLOFENAC SOD 1% GEL 100 GM TUBE EXT SCH ×3 (09:03→20:06)
[2017-12-18] MEDS: HYDROCODONE/HOMATROPINE SYRUP 5MG/1.5MG 5ML UDP PO PRN (09:05)
[2017-12-18] MEDS ORDERED: OPTIRAY 320 IV PRN (11:00)
[2017-12-18 11:29] LABS: ALBUMIN 3.2 gm/dl (3.4-5.0); ALT/SGPT 26 U/L (12-78); BLOOD UREA NITROGEN 17 mg/dl (7-18); CALCIUM 8.4 mg/dl (8.5-10.1); CARBON DIOXIDE 24 mmol/L (21-32); CREATININE 1.22 mg/dl (0.60-1.40); GLUCOSE 159 mg/dl (70-99); LIPASE 242 U/L (73-393); POTASSIUM 4.1 mmol/L (3.5-5.1); SODIUM 128 mmol/L (136-145)
[2017-12-18 11:33] LABS: ALKALINE PHOSPHATASE 76 U/L (45-117); AST/SGOT 31 U/L (15-37); TOTAL PROTEIN 6.7 gm/dl (6.4-8.2)
[2017-12-18] MEDS: BENZONATATE 100MG CAP PO PRN ×2 (12:01→20:09)
--- NOTE | 2017-12-18 13:12 | DIAGNOSTIC IMAGING REPORT ---
CT OF THE ABDOMEN AND PELVIS WITH CONTRAST CLINICAL HISTORY: Epigastric pain. History of alcohol use. Evaluate for pancreatitis. COMPARISON STUDY: PET/CT April 26, 2015 and abdominal ultrasound March 07, 2014. TECHNIQUE: Following IV administration of 117 mL of Optiray-320, axial images of the abdomen and pelvis were obtained from the lung bases to the proximal femurs. Images were reviewed in the axial, sagittal, and coronal planes. IV contrast was administered without complication. A dose lowering technique was utilized adhering to the principles of ALARA. CT DOSE: 429.58 mGy.cm FINDINGS: Visualized portions of the lower chest demonstrate multiple calcified pleural plaques as well as trace bilateral pleural effusions which are unchanged since PET/CT of April 26, 2015. These are likely chronic. Subpleural left lower lobe opacity is unchanged and likely reflects round atelectasis. A small hiatal hernia is present. There is mild cardiomegaly. There is evidence for an old left ventricular apical infarct with wall calcification. Pacer leads are partially imaged. No pneumatosis, free air or portal venous gas is present. A few hepatic cysts are unchanged. The spleen, adrenal glands, kidneys and pancreas are normal. There is no peripancreatic infiltration. There is no hydronephrosis. The caliber and wall thickness of small and large bowel are normal. There is no ascites. There is extensive atherosclerotic plaque of the abdominal aorta. There is no aneurysmal dilatation. No suspicious osseous lesions are present. IMPRESSION: 1. No acute process within the abdomen or pelvis. 2. Normal CT appearance of the pancreas. 3. Trace bilateral chronic pleural effusions and left lower lobe airspace opacity which is unchanged since prior PET/CT and is consistent with round atelectasis. 4. 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 Electronically signed by: Bandar Jules M.D. 12/18/2017 1:11 PM Dictated Date/Time: 12/18/2017 12:54 PM
[2017-12-18] MEDS ORDERED: BENZONATATE 100MG CAP PO ONE (14:30)
[2017-12-18] MEDS: SIMVASTATIN 20 MG TAB PO SCH (20:08)
[2017-12-18] MEDS: ACETAMINOPHEN 500 MG TAB PO SCH (21:11)
--- NOTE | 2017-12-18 22:25 | Family Medicine Progress Note ---
Progress Note Date of Service Dec 18, 2017. Subjective Pt evaluation today including: conversation w/ patient, physical exam, chart review, lab review, review of studies Pain: Patient complains of 3/10 abdominal pain at rest Voiding: no voiding problems, no incontinence Patient resting comfortably in bed this morning with no acute complaints overnight. The patient states he has continued epigastric/ abdominal wall pain that initially occurred after coughing. The pain is currently a 3-4/10 at rest this morning prior to receiving Voltaren gel and Ibuprofen. The pain is reproducible to touch and worsened with coughing. He has began wearing an abdominal binder that provides relief. He states that his presenting complaint of shortness of breath and cough has significantly improved. Additional Comments: See HPI for pertinent positives and negatives. A total of ten systems were reviewed and were otherwise negative. Medications Current Inpatient Medications Medications (Trade) Dose Ordered Sig/Candie Route Start Time Stop Time Status Last Admin Dose Admin Enoxaparin Sodium (Lovenox Inj) 40 mg Q24H SQ 12/17/17 08:00 01/16/18 07:59 12/18/17 09:01 40 MG Al Hydrox/Mg Hydrox/Simethicone (Maalox Max Susp) 15 ml Q4H PRN PO 12/17/17 01:30 01/16/18 01:29 Magnesium Hydroxide (Milk Of Magnesia Susp) 30 ml Q6H PRN PO 12/17/17 01:30 01/16/18 01:29 Polyethylene (Miralax Powder Packet) 17 gm DAILY PRN PO 12/17/17 01:30 01/16/18 01:29 Ondansetron HCl (Zofran Inj) 4 mg Q6H PRN IV 12/17/17 01:30 01/16/18 01:29 Aspirin (Ecotrin Tab) 325 mg QAM PO 12/17/17 08:00 01/16/18 08:59 12/18/17 09:00 325 MG Atenolol (Tenormin Tab) 100 mg QPM PO 12/17/17 21:00 01/16/18 20:59 12/18/17 20:09 100 MG Sacubitril/ Valsartan (Entresto 24-26 Mg) 1 tab QAM PO 12/17/17 08:00 01/16/18 08:59 12/18/17 09:01 1 TAB Simvastatin (Zocor Tab) 20 mg QPM PO 12/17/17 21:00 01/16/18 20:59 12/18/17 20:08 20 MG Albuterol/ Ipratropium (Duoneb) 3 ml QIDR INH 12/17/17 08:00 01/16/18 07:59 12/18/17 19:38 3 ML Guaifenesin (Mucinex Contr Rel Tab) 600 mg Q12 PO 12/17/17 09:00 01/16/18 08:59 12/18/17 20:08 600 MG Diclofenac Sodium (Voltaren 1% Top Gel) 1 appln TID EXT 12/17/17 20:00 01/16/18 19:59 12/18/17 20:06 1 APPLN Hydrocodone Bit/ Homatropine Methylb (Hycodan Syrup) 5 ml BID PRN PO 12/17/17 15:45 12/31/17 15:44 12/18/17 09:05 5 ML Ibuprofen (Advil Tab) 400 mg QID PRN PO 12/18/17 00:00 01/17/18 00:00 12/18/17 14:49 400 MG Thiamine HCl (Vitamin B-1 Tab) 100 mg QAM PO 12/18/17 08:00 01/17/18 07:59 12/18/17 09:00 100 MG Folic Acid (Folvite Tab) 1 mg QAM PO 12/18/17 08:00 01/17/18 07:59 12/18/17 08:59 1 MG Multivitamins (Multivitamin Tab) 1 tab QAM PO 12/18/17 08:00 01/17/18 07:59 12/18/17 08:59 1 TAB Methylprednisolone Sodium Succinate 40 mg/Syringe 0.64 ml @ 1.5 mls/min BID IV 12/18/17 20:00 01/16/18 02:59 12/18/17 20:07 1.5 MLS/MIN Ioversol (Optiray 320) 125 ml UD PRN IV 12/18/17 11:00 12/22/17 10:59 Acetaminophen (Tylenol Tab) 1,000 mg Q8 PO 12/18/17 22:00 01/17/18 21:59 12/18/17 21:11 1,000 MG Benzonatate (Tessalon Perles Cap) 200 mg TID PRN PO 12/18/17 20:00 01/16/18 01:59 12/18/17 20:09 200 MG Objective Vital Signs Date Time Temp Pulse Resp B/P (MAP) Pulse Ox O2 Delivery O2 Flow Rate FiO2 12/18/17 20:11 74 19 108/64 (79) 93 Room Air 12/18/17 19:38 68 16 92 Room Air 12/18/17 16:00 92 Room Air 12/18/17 15:41 36.3 65 18 103/63 (76) 92 Room Air 12/18/17 14:54 91 12/18/17 14:53 65 14 92 Room Air 12/18/17 11:35 79 14 91 Room Air 12/18/17 08:00 92 Room Air 12/18/17 07:39 74 14 93 Room Air 12/18/17 07:17 36.9 71 20 121/71 (88) 91 Room Air 12/18/17 00:00 Room Air 12/17/17 23:15 36.6 68 20 91/49 (63) 95 Room Air Physical Exam General Appearance: WD/WN, no apparent distress Eyes: normal inspection, sclerae normal Respiratory/Chest: no respiratory distress, no accessory muscle use, + wheezing Cardiovascular: regular rate, rhythm, no edema, no gallop Abdomen: normal bowel sounds, soft, + pertinent finding (Pain over the epigastric region below the lowest rib, tenderness to palpation, no visible hematoma, no palpable masses or hernias.) Neurologic/Psychiatric: alert, normal mood/affect, oriented x 3 Laboratory Results Results Past 24 Hours Test 12/18/17 05:58 12/18/17 10:55 Range/Units White Blood Count 11.14 4.8-10.8 K/uL Red Blood Count 4.24 4.7-6.1 M/uL Hemoglobin 14.4 14.0-18.0 g/dL Hematocrit 39.6 42-52 % Mean Corpuscular Volume 93.4 80-100 fL Mean Corpuscular Hemoglobin 34.0 25-34 pg Mean Corpuscular Hemoglobin Concent 36.4 32-36 g/dl Platelet Count 269 130-400 K/uL Mean Platelet Volume 8.7 7.4-10.4 fL Neutrophils (%) (Auto) 88.0 % Lymphocytes (%) (Auto) 7.3 % Monocytes (%) (Auto) 4.4 % Eosinophils (%) (Auto) 0.0 % Basophils (%) (Auto) 0.1 % Neutrophils # (Auto) 9.81 1.4-6.5 K/uL Lymphocytes # (Auto) 0.81 1.2-3.4 K/uL Monocytes # (Auto) 0.49 0.11-0.59 K/uL Eosinophils # (Auto) 0.00 0-0.5 K/uL Basophils # (Auto) 0.01 0-0.2 K/uL RDW Standard Deviation 41.4 36.4-46.3 fL RDW Coefficient of Variation 12.3 11.5-14.5 % Immature Granulocyte % (Auto) 0.2 % Immature Granulocyte # (Auto) 0.02 0.00-0.02 K/uL Sodium Level 128 128 136-145 mmol/L Potassium Level 4.9 4.1 3.5-5.1 mmol/L Chloride Level 97 95 98-107 mmol/L Carbon Dioxide Level 25 24 21-32 mmol/L Anion Gap 6.0 9.0 3-11 mmol/L Blood Urea Nitrogen 17 17 7-18 mg/dl Creatinine 1.03 1.22 0.60-1.40 mg/dl Est Creatinine Clear Calc Drug Dose 63.6 53.7 ml/min Estimated GFR () 84.3 68.7 Estimated GFR (Non- 72.7 59.3 BUN/Creatinine Ratio 16.3 14.3 10-20 Random Glucose 133 159 70-99 mg/dl Calcium Level 8.4 8.4 8.5-10.1 mg/dl Procalcitonin < 0.05 0-0.5 ng/ml Total Bilirubin 0.2 0.2-1 mg/dl Direct Bilirubin < 0.1 0-0.2 mg/dl Aspartate Amino Transf (AST/SGOT) 31 15-37 U/L Alanine Aminotransferase (ALT/SGPT) 26 12-78 U/L Alkaline Phosphatase 76 45-117 U/L Total Protein 6.7 6.4-8.2 gm/dl Albumin 3.2 3.4-5.0 gm/dl Amylase Level 69 25-115 U/L Lipase 242 73-393 U/L Assessment and Plan 68 yo M with h/o History Factor 5 Leiden , COPD , Cardiomyopathy presenting with increasing SOB, cough presenting after failure of outpatient treatment for COPD exacerbation with Prednisone, Azithromycin arriving in Acute Hypoxic Respiratory failure. Acute Hypoxic Respiratory Failure 2/2 COPD Exacerbation - Significant improvement in respiratory status --> No oxygen requirement at this time - [facility] Day #2--> Received dose of Rocephin in the ED - Outpatient treatment failure with Prednisone and Azithromycin - Solumedrol IV 40mg q6h --> Plan to transition to PO Prednisone tomorrow - Duonebs - Mucinex - Hycodan - Mucinex, Tessalon Pearls - Flu Swab Negative - Sputum and Blood Cultures pending - CXR: No infiltrates Muscle Strain - Secondary to cough - Benzonatate to help with cough - Voltaren Gel - Ibuprofen as needed - Abdominal Binder - Evaluated for other differentials including Pancreatitis, Lipase Negative - Reproducible to touch and denies any complaints of chest pain Alcohol Abuse - Patient reports drinking 6 beers per day - Ativan as needed with withdrawal symptoms - Thiamine, Folic Acid, Multivitamin qAM Cardiomyopathy, HTN, HLD - CM appears stable, BP controlled - No evidence of fluid overload on exam - Continue home Atenolol, Sacubitril-Valsartan, ASA, Simvastatin History of Factor 5 Leiden - Lovenox Code Status - Full Resuscitation Resident Tracking Resident Involvement: Resident Care Provided Care Provided: Adult Hospital Medicine
[2017-12-19] VITALS (10 sets, daily range): BP systolic 117–143; BP diastolic 62–75; PULSE 63–80; TEMP 36.4–36.7; O2SAT 92–96
[2017-12-19] MEDS: ACETAMINOPHEN 500 MG TAB PO SCH ×3 (05:34→22:14)
[2017-12-19 06:44] LABS: BASO % 0.1 %; BASO ABS # 0.01 K/uL (0-0.2); HEMATOCRIT 38.6 % (42-52); HEMOGLOBIN 14.1 g/dL (14.0-18.0); IG# 0.05 K/uL (0.00-0.02); LYMPH % 6.6 %; LYMPH ABS # 1.14 K/uL (1.2-3.4); MEAN CORPUSCULAR HGB CONC 36.5 g/dl (32-36); MEAN PLATELET VOLUME 8.8 fL (7.4-10.4); MONO % 4.5 %; MONO ABS # 0.78 K/uL (0.11-0.59); NEUT % 88.5 %; NEUT ABS # 15.31 K/uL (1.4-6.5); PLATELET COUNT 280 K/uL (130-400); RED CELL DISTRIBUTION WIDTH CV 12.4 % (11.5-14.5); RED CELL DISTRIBUTION WIDTH SD 42.2 fL (36.4-46.3); WHITE BLOOD COUNT 17.29 K/uL (4.8-10.8)
[2017-12-19] MEDS: ALBUT/IPRATROP 3MG/0.5MG NEB 3 ML VIAL INH SCH ×4 (07:05→18:43)
[2017-12-19 07:21] LABS: CALCIUM 8.3 mg/dl (8.5-10.1); CREATININE 0.97 mg/dl (0.60-1.40); POTASSIUM 4.6 mmol/L (3.5-5.1)
[2017-12-19] MEDS: BENZONATATE 100MG CAP PO PRN ×3 (08:17→20:07)
[2017-12-19] MEDS: SACUBITRIL-VALSARTAN 24-26 MG TAB PO SCH (08:18)
[2017-12-19] MEDS: GUAIFENESIN 600 MG TABCR PO SCH ×2 (08:18→20:06)
[2017-12-19] MEDS: MULTIVITAMIN TAB PO SCH (08:18)
[2017-12-19] MEDS: DICLOFENAC SOD 1% GEL 100 GM TUBE EXT SCH ×3 (08:18→20:06)
[2017-12-19] MEDS: THIAMINE HCL 100 MG TAB PO SCH (08:18)
[2017-12-19] MEDS: ASPIRIN 325 MG ECTAB PO SCH (08:19)
[2017-12-19] MEDS: METHYLPREDNISOLONE IV 40 MG in SYRINGE 0 ML IV SCH ×2 (08:20→20:06)
[2017-12-19] MEDS: ENOXAPARIN 40 MG/0.4 ML SYR SQ SCH (08:20)
--- NOTE | 2017-12-19 18:28 | Family Medicine Progress Note ---
Progress Note Date of Service Dec 19, 2017. Subjective Pt evaluation today including: conversation w/ patient, conversation w/ family , physical exam, chart review, lab review, review of studies Pain: 4/10 pain with cough Voiding: no voiding problems, no incontinence Patient resting comfortably in bed this morning with no acute complaints. He states that his pain has improved significantly overnight after adding a heating pad to his pain regimen. He also has been having coughing fits as well that appear to have prolonged. He is not short of breath at this time. Constitutional: + fatigue, No fever, No chills, No sweats Respiratory: + cough, + sputum, + wheezing, No shortness of breath Cardiovascular: No chest pain, No palpitations Abdomen: No pain, No nausea, No vomiting, No diarrhea, No constipation Musculoskeletal: + problem reported (Abdominal wall discomfort over left epigastric region) Medications Current Inpatient Medications Medications (Trade) Dose Ordered Sig/Candie Route Start Time Stop Time Status Last Admin Dose Admin Enoxaparin Sodium (Lovenox Inj) 40 mg Q24H SQ 12/17/17 08:00 01/16/18 07:59 12/19/17 08:20 40 MG Al Hydrox/Mg Hydrox/Simethicone (Maalox Max Susp) 15 ml Q4H PRN PO 12/17/17 01:30 01/16/18 01:29 Magnesium Hydroxide (Milk Of Magnesia Susp) 30 ml Q6H PRN PO 12/17/17 01:30 01/16/18 01:29 Polyethylene (Miralax Powder Packet) 17 gm DAILY PRN PO 12/17/17 01:30 01/16/18 01:29 Ondansetron HCl (Zofran Inj) 4 mg Q6H PRN IV 12/17/17 01:30 01/16/18 01:29 Aspirin (Ecotrin Tab) 325 mg QAM PO 12/17/17 08:00 01/16/18 08:59 12/19/17 08:19 325 MG Atenolol (Tenormin Tab) 100 mg QPM PO 12/17/17 21:00 01/16/18 20:59 12/18/17 20:09 100 MG Sacubitril/ Valsartan (Entresto 24-26 Mg) 1 tab QAM PO 12/17/17 08:00 01/16/18 08:59 12/19/17 08:18 1 TAB Simvastatin (Zocor Tab) 20 mg QPM PO 12/17/17 21:00 01/16/18 20:59 12/18/17 20:08 20 MG Albuterol/ Ipratropium (Duoneb) 3 ml QIDR INH 12/17/17 08:00 01/16/18 07:59 12/19/17 14:31 3 ML Guaifenesin (Mucinex Contr Rel Tab) 600 mg Q12 PO 12/17/17 09:00 01/16/18 08:59 12/19/17 08:18 600 MG Diclofenac Sodium (Voltaren 1% Top Gel) 1 appln TID EXT 12/17/17 20:00 01/16/18 19:59 12/19/17 14:20 1 APPLN Hydrocodone Bit/ Homatropine Methylb (Hycodan Syrup) 5 ml BID PRN PO 12/17/17 15:45 12/31/17 15:44 12/18/17 09:05 5 ML Ibuprofen (Advil Tab) 400 mg QID PRN PO 12/18/17 00:00 01/17/18 00:00 12/18/17 14:49 400 MG Thiamine HCl (Vitamin B-1 Tab) 100 mg QAM PO 12/18/17 08:00 01/17/18 07:59 12/19/17 08:18 100 MG Folic Acid (Folvite Tab) 1 mg QAM PO 12/18/17 08:00 01/17/18 07:59 12/19/17 08:18 1 MG Multivitamins (Multivitamin Tab) 1 tab QAM PO 12/18/17 08:00 01/17/18 07:59 12/19/17 08:18 1 TAB Methylprednisolone Sodium Succinate 40 mg/Syringe 0.64 ml @ 1.5 mls/min BID IV 12/18/17 20:00 01/16/18 02:59 12/19/17 08:20 1.5 MLS/MIN Ioversol (Optiray 320) 125 ml UD PRN IV 12/18/17 11:00 12/22/17 10:59 Acetaminophen (Tylenol Tab) 1,000 mg Q8 PO 12/18/17 22:00 01/17/18 21:59 12/19/17 14:22 1,000 MG Benzonatate (Tessalon Perles Cap) 200 mg TID PRN PO 12/18/17 20:00 01/16/18 01:59 12/19/17 14:27 200 MG Objective Vital Signs Date Time Temp Pulse Resp B/P (MAP) Pulse Ox O2 Delivery O2 Flow Rate FiO2 12/19/17 16:00 95 Room Air 12/19/17 15:40 36.5 75 18 143/75 (97) 95 12/19/17 14:31 80 16 95 Room Air 12/19/17 11:24 63 16 93 Room Air 12/19/17 08:25 92 Room Air 12/19/17 08:16 36.4 74 17 118/72 (87) 92 Room Air 12/19/17 08:00 96 Room Air 12/19/17 07:05 71 16 92 Room Air 12/19/17 00:00 Room Air 12/18/17 23:00 36.8 83 20 108/61 (77) 96 Room Air 12/18/17 20:11 74 19 108/64 (79) 93 Room Air 12/18/17 19:38 68 16 92 Room Air Physical Exam General Appearance: WD/WN, no apparent distress Eyes: normal inspection, sclerae normal Neck: supple, no carotid bruits Respiratory/Chest: no respiratory distress, no accessory muscle use, + crackles , + wheezing, + pertinent finding (Mild tenderness to palpation inferior to left 12th rib) Cardiovascular: regular rate, rhythm, no edema, no gallop Abdomen: normal bowel sounds, non tender, soft Neurologic/Psychiatric: alert, normal mood/affect, oriented x 3 Laboratory Results Results Past 24 Hours Test 12/19/17 06:16 Range/Units White Blood Count 17.29 4.8-10.8 K/uL Red Blood Count 4.15 4.7-6.1 M/uL Hemoglobin 14.1 14.0-18.0 g/dL Hematocrit 38.6 42-52 % Mean Corpuscular Volume 93.0 80-100 fL Mean Corpuscular Hemoglobin 34.0 25-34 pg Mean Corpuscular Hemoglobin Concent 36.5 32-36 g/dl Platelet Count 280 130-400 K/uL Mean Platelet Volume 8.8 7.4-10.4 fL Neutrophils (%) (Auto) 88.5 % Lymphocytes (%) (Auto) 6.6 % Monocytes (%) (Auto) 4.5 % Eosinophils (%) (Auto) 0.0 % Basophils (%) (Auto) 0.1 % Neutrophils # (Auto) 15.31 1.4-6.5 K/uL Lymphocytes # (Auto) 1.14 1.2-3.4 K/uL Monocytes # (Auto) 0.78 0.11-0.59 K/uL Eosinophils # (Auto) 0.00 0-0.5 K/uL Basophils # (Auto) 0.01 0-0.2 K/uL RDW Standard Deviation 42.2 36.4-46.3 fL RDW Coefficient of Variation 12.4 11.5-14.5 % Immature Granulocyte % (Auto) 0.3 % Immature Granulocyte # (Auto) 0.05 0.00-0.02 K/uL Sodium Level 127 136-145 mmol/L Potassium Level 4.6 3.5-5.1 mmol/L Chloride Level 96 98-107 mmol/L Carbon Dioxide Level 23 21-32 mmol/L Anion Gap 8.0 3-11 mmol/L Blood Urea Nitrogen 17 7-18 mg/dl Creatinine 0.97 0.60-1.40 mg/dl Est Creatinine Clear Calc Drug Dose 67.6 ml/min Estimated GFR () 90.7 Estimated GFR (Non- 78.2 BUN/Creatinine Ratio 17.0 10-20 Random Glucose 131 70-99 mg/dl Calcium Level 8.3 8.5-10.1 mg/dl Assessment and Plan 68 yo M with h/o History Factor 5 Leiden , COPD , Cardiomyopathy presenting with increasing SOB, cough presenting after failure of outpatient treatment for COPD exacerbation with Prednisone, Azithromycin arriving in Acute Hypoxic Respiratory failure. Acute Hypoxic Respiratory Failure 2/2 COPD Exacerbation - aquin Day #3--> Received dose of Rocephin in the ED - Outpatient treatment failure with Prednisone and Azithromycin - Prednisone 40mg PO Daily - Start Flonase - Duonebs - Mucinex - Hycodan - Mucinex, Tessalon Pearls - Flu Swab Negative - Sputum and Blood Cultures pending - CXR: No infiltrates - Follow up with Pulmonology on Discharge Muscle Strain - Secondary to cough - Heating Pad - Benzonatate to help with cough - Voltaren Gel - Ibuprofen as needed - Abdominal Binder - Evaluated for other differentials including Pancreatitis, Lipase Negative - Reproducible to touch and denies any complaints of chest pain Alcohol Abuse - Patient reports drinking 6 beers per day - Ativan as needed with withdrawal symptoms - Thiamine, Folic Acid, Multivitamin qAM Cardiomyopathy, HTN, HLD - CM appears stable, BP controlled - No evidence of fluid overload on exam - Continue home Atenolol, Sacubitril-Valsartan, ASA, Simvastatin History of Factor 5 Leiden - Lovenox Tobacco Use - Smoking Cessation Counselling Code Status - Full Resuscitation Resident Tracking Resident Involvement: Resident Care Provided Care Provided: Adult Hospital Medicine
[2017-12-19] MEDS: SIMVASTATIN 20 MG TAB PO SCH (20:07)
[2017-12-19] MEDS: FLUTICASONE PROPIONATE NA SPR 16 GM BTL NAE SCH (20:33)
[2017-12-20] MEDS: ACETAMINOPHEN 500 MG TAB PO SCH ×2 (05:25→15:15)
[2017-12-20 07:13] LABS: BASO % 0.1 %; BASO ABS # 0.01 K/uL (0-0.2); HEMATOCRIT 40.1 % (42-52); HEMOGLOBIN 14.5 g/dL (14.0-18.0); IG# 0.06 K/uL (0.00-0.02); LYMPH % 8.6 %; LYMPH ABS # 1.31 K/uL (1.2-3.4); MEAN CELL VOLUME 92.8 fL (80-100); MEAN CORPUSCULAR HEMOGLOBIN 33.6 pg (25-34); MEAN CORPUSCULAR HGB CONC 36.2 g/dl (32-36); MEAN PLATELET VOLUME 8.6 fL (7.4-10.4); MONO ABS # 0.45 K/uL (0.11-0.59); NEUT % 87.9 %; NEUT ABS # 13.33 K/uL (1.4-6.5); PLATELET COUNT 293 K/uL (130-400); RED CELL DISTRIBUTION WIDTH CV 12.4 % (11.5-14.5); RED CELL DISTRIBUTION WIDTH SD 42.4 fL (36.4-46.3); WHITE BLOOD COUNT 15.16 K/uL (4.8-10.8)
[2017-12-20 07:20] VITALS: BP 130/66; PULSE 75; TEMP 36.7; O2SAT 94
[2017-12-20 07:31] VITALS: PULSE 64; O2SAT 92
[2017-12-20] MEDS: ALBUT/IPRATROP 3MG/0.5MG NEB 3 ML VIAL INH SCH ×3 (07:31→15:50)
[2017-12-20 07:43] LABS: CALCIUM 8.3 mg/dl (8.5-10.1); CREATININE 0.93 mg/dl (0.60-1.40); POTASSIUM 4.6 mmol/L (3.5-5.1)
[2017-12-20 08:00] VITALS: O2SAT 96
[2017-12-20] MEDS: ENOXAPARIN 40 MG/0.4 ML SYR SQ SCH (08:45)
[2017-12-20] MEDS: THIAMINE HCL 100 MG TAB PO SCH (08:45)
[2017-12-20] MEDS: ASPIRIN 325 MG ECTAB PO SCH (08:46)
[2017-12-20] MEDS: SACUBITRIL-VALSARTAN 24-26 MG TAB PO SCH (08:46)
[2017-12-20] MEDS: MULTIVITAMIN TAB PO SCH (08:47)
[2017-12-20] MEDS: FLUTICASONE PROPIONATE NA SPR 16 GM BTL NAE SCH (08:47)
[2017-12-20] MEDS: GUAIFENESIN 600 MG TABCR PO SCH (08:48)
[2017-12-20] MEDS: DICLOFENAC SOD 1% GEL 100 GM TUBE EXT SCH ×2 (08:49→14:00)
[2017-12-20 11:46] VITALS: PULSE 76; O2SAT 91
[2017-12-20] MEDS ORDERED: SYMIN/8045 INH (14:03)
[2017-12-20] MEDS ORDERED: DICL1GEL12 TOP (14:03)
[2017-12-20] MEDS ORDERED: IPRA1AER2 INH (14:03)
[2017-12-20] MEDS ORDERED: LEVO1TAB35 PO (14:03)
[2017-12-20] MEDS ORDERED: PRED10TA PO (14:03)
--- NOTE | 2017-12-20 14:55 | Discharge Instructions ---
Discharge Instructions Date of Service Dec 20, 2017. Admission Reason for Admission: Acute Respiratory Failure With Hypoxia Discharge Discharge Diagnosis / Problem: COPD Exacerbation Discharge Goals Goal(s): Decrease discomfort, Improve function, Therapeutic intervention Activity Recommendations Activity Limitations: as noted below Lifting Limitations: gradually increase as tolerated Exercise/Sports Limitations: gradually increase as tolerated May Resume Sexual Activity: when tolerated Shower/Bathe: no limitations Driving or Machine Use: no limitations . Instructions / Follow-Up Instructions / Follow-Up You were treated in the hospital for cough and shortness of breath and treated with antibiotics, nebulizers and steroids. While your cough improved, you also developed a muscle strain and required pain control. On discharge your breathing has improved significantly and your pain has been much better controlled. - AT YOUR NEXT FAMILY DOCTORS APPOINTMENT PLEASE RECHECK YOUR SODIUM LEVEL Your Sodium level was low in the hospital and after further evaluation it appears that it is related to your chronic alcohol use. It is recommended that you abstain from Alcohol due to this condition in addition to other health risks including liver disease, esophageal disease, risk of falls, and other harmful medical conditions. It is also recommended that you stop smoking to prevent recurrent lung infections and progression of your ongoing lung disease. Medications - Continue all you previous home medications as prescribed - Levaquin 750mg Tablet - Take 1 tablet every morning for 3 days, your first dose being tomorrow morning - this is an antibiotic - Prednisone 10mg Tablet - Take 4 tablets every morning for the next 2 days ( Sunday and Sunday), Take 3 tablets every morning for the following 3 days ( Sunday, Sunday, and Sunday), Take 2 tablets every morning for the following 3 days (Sunday, , and Sunday) and take 1 tablet every morning for the following 3 days (Sunday, Sunday, and Sunday). Make sure to take with food as this can be hard on your stomach --> This medication is a steroid for your cough - Combivent Respimat - 1 Puff inhaled 4 times per day --> This inhaler is to help with your cough and shortness of breath - Symbicort Inhaler - 2 puffs inhaled twice daily --> This inhaler is to help with your cough and shortness of breath - Voltaren Gel --> Place Gel 4 times per day over the painful area where your muscle spasm occurred - Ibuprofen(Motrin, Advil) may be used for fever or pain. Use 600mg every six hours as needed. Take with food. Avoid using more than 2400mg in a 24 hour period. Do not use 2400mg per day for more than three consecutive days without physician direction. Prolonged inappropriate use can lead to stomach upset or ulcers. Follow Up Appointments: - Follow up with your primary physician in 2-3 days for a recheck of your current condition. - Follow up with Thor Snyder in the next 1-2 weeks - we will make an appointment for you but if you do not hear from his office in the next 2-3 days please give them a call Rest and drink plenty of fluids as tolerated. Continue current medications. Avoid strenuous activities and anything that worsens your pain. Resume normal activities once your symptoms resolve. Return to the ER immediately for worsening or persistent chest pain, abdominal pain, vomiting, fevers, chest pains, difficulty breathing, worsening of your condition, or as needed. Current Hospital Diet Patient's current hospital diet: Regular Diet, AHA Diet (Heart Healthy) Discharge Diet Recommended Diet: AHA Diet (Heart Healthy) Pending Studies Studies pending at discharge: no Laboratory Results Hemoglobin A1c Test 12/07/17 14:41 Range/Units Estimated Average Glucose 123 mg/dl Hemoglobin A1c 5.9 H 4.5-5.6 % Lipid Panel Test 10/09/17 07:12 Range/Units Triglycerides Level 62 0-150 mg/dl Cholesterol Level 156 0-200 mg/dl HDL Cholesterol 70 mg/dl Cholesterol/HDL Ratio 2.2 LDL Cholesterol, Calculated 74 mg/dl Medical Emergencies . Who to Call and When: Medical Emergencies: If at any time you feel your situation is an emergency, please call 911 immediately. . Non-Emergent Contact Non-Emergency issues call your: Primary Care Provider . . "Provider Documentation" section prepared by Miky Fam. . VTE Core Measure Inpt VTE Proph given/why not?: Enoxaparin (Lovenox)SQ
[2017-12-20 15:25] VITALS: BP 122/70; PULSE 79; TEMP 36.7; O2SAT 92
[2017-12-20 15:29] VITALS: BP 122/70; PULSE 79; TEMP 36.7; O2SAT 92
[2017-12-20] MEDS ORDERED: BENZ1CAP90 PO (15:30)
--- NOTE | 2017-12-20 19:32 | Discharge Summary ---
Discharge Summary Date of Service Dec 20, 2017. Discharge Summary Admission Date: Dec 17, 2017 at 01:51 Discharge Date: Dec 20, 2017 Discharge Disposition: Home Principal Diagnosis: COPD Exacerbation Problems/Secondary Diagnoses: Asthma, Alcoholism, Hypertension, Factor V Leiden Medication Reconciliation New Medications: Benzonatate (Tessalon Perles) 200 Mg Cap 200 MG PO TID for 6 Days, #20 CAP Budesonide/Formoterol Fumarate (Symbicort 80/4.5 Inhaler) Aero 2 PUFFS INH BID for 30 Days, #1 INHALER Diclofenac Sodium (Topical) (Voltaren 1% Top Gel) 1 % Gel 4 GM TOP QID for 4 Days, #20 GM Ipratropium-Albuterol (Combivent Respimat) 1 Aer Aer 1 PUFFS INH QID for 30 Days, #1 INHALER Levofloxacin (Levaquin) 750 Mg Tab 750 MG PO DAILY for 3 Days, #3 TAB Prednisone (Prednisone) 10 Mg Tab 10 MG PO DIRECTED for 11 Days, #26 TAB 4 tablets daily for 2 days, then 3 tablets daily for 3 days, 2 tablets daily for 3 days, 1 tablet daily for 3 days Continued Medications: Aspirin (Aspirin) 325 Mg Tab 325 MG PO QAM Atenolol (Tenormin) 100 Mg Tab 100 MG PO QPM, TAB Dextromethorphan-Guaifenesin (Mucus Relief Dm) 1 Tab Tab 1 TAB PO Q12 PRN for Cough Fluticasone Propionate (Nasal) (Flonase Allergy Relief) 50 Mcg/Act Spr 2 SPRAYS MARIE QAM PRN for Nasal Congestion Furosemide (Lasix) 20 Mg Tab 20 MG PO QAM, TAB Sacubitril-Valsartan (Entresto 24-26 mg) 1 Tab Tab 1 TAB PO QAM Simvastatin (Zocor) 20 Mg Tab 20 MG PO QPM Discontinued Medications: Azithromycin (Zithromax Z-Nilo) 250 Mg Tab 250 MG PO UD, #1 PKT PRESCRIBED 12/15/2017, TAKE 2 TABLETS DAY ONE THEN 1 TABLET DAILY UNTIL GONE Prednisone (Prednisone) 20 Mg Tab 40 MG PO DAILY for 5 Days, #10 TAB PRESCRIBED 12/15/2017, TAKE DIRECTED FOR 5 DAYS Discharge Exam Review of Systems: Constitutional: No fever, No chills ENT: No sore throat Respiratory: + cough, + sputum, + wheezing, No shortness of breath Cardiovascular: + chest pain, No palpitations (Upper abdominal/ Lower chest wall muscle strain secondary to cough) Abdomen: No pain, No nausea, No vomiting, No diarrhea, No constipation Musculoskeletal: + muscle pain Physical Exam: General Appearance: WD/WN, no apparent distress Eyes: normal inspection, sclerae normal Neck: supple, no carotid bruits Respiratory/Chest: chest non-tender, no respiratory distress, no accessory muscle use, + crackles, + wheezing Cardiovascular: regular rate, rhythm, no edema, no gallop Abdomen / GI: normal bowel sounds, non tender, soft Extremities: no calf tenderness, no pedal edema Neurologic/Psychiatric: alert, normal reflexes, oriented x 3 Hospital Course 68 yo M with h/o History Factor 5 Leiden , COPD , Cardiomyopathy presenting with increasing SOB, cough presenting after failure of outpatient treatment for COPD exacerbation with Prednisone, Azithromycin arriving in Acute Hypoxic Respiratory failure. Acute Hypoxic Respiratory Failure 2/2 COPD Exacerbation - Day #3 --> Received dose of Rocephin in the ED - Outpatient treatment failure with Prednisone and Azithromycin - Prednisone 40mg PO Daily --> Will taper by 10mg every 3 days - Prescribe Combivent and Symbicort - Start Flonase - Duonebs - Mucinex - Hycodan - Tessalon Pearls - Flu Swab Negative - Sputum and Blood Cultures pending - CXR: No infiltrates - Follow up with Pulmonology on Discharge Muscle Strain - Secondary to cough - Heating Pad - Benzonatate to help with cough - Voltaren Gel - Ibuprofen as needed - Abdominal Binder - Evaluated for other differentials including Pancreatitis, Lipase Negative - CT abdomen shows no acute abnormalities - Reproducible to touch and denies any complaints of chest pain Alcohol Abuse --> No withdrawal symptoms during admission - Patient reports drinking 6 beers per day - Ativan as needed with withdrawal symptoms - Thiamine, Folic Acid, Multivitamin qAM Cardiomyopathy, HTN, HLD - CM appears stable, BP controlled - No evidence of fluid overload on exam - Continue home Atenolol, Sacubitril-Valsartan, ASA, Simvastatin History of Factor 5 Leiden - Lovenox Tobacco Use - Smoking Cessation Counselling Code Status - Full Resuscitation Total Time Spent: Greater than 30 minutes This includes examination of the patient, discharge planning, medication reconciliation, and communication with other providers. Discharge Instructions Please refer to the electronic Patient Visit Report (Discharge Instructions) for additional information. Additional Copies To Aquilino Silver III, CRNP Resident Tracking Resident Involvement: Resident Care Provided Care Provided: [facility]
== END 2017-12-20 15:30 | disposition home or self-care (01) | DRG 189 ==
LOC: C.EDB 20:43 → EEVIPCON 12-17 01:51 → C.MS4W 12-17 01:51 → ENRESERV 12-17 02:09
PROVIDERS: ADMIT Hospitalist; ATTEND Hospitalist
DX: J96.01 Acute respiratory failure with hypoxia (principal); I42.9 Cardiomyopathy, unspecified; D68.51 Activated protein C resistance; J44.1 Chronic obstructive pulmonary disease with (acute) exacerbation; F10.230 Alcohol dependence with withdrawal, uncomplicated; S39.001A Unspecified injury of muscle, fascia and tendon of abdomen, initial encounter; Z95.810 Presence of automatic (implantable) cardiac defibrillator; I25.2 Old myocardial infarction; Z95.5 Presence of coronary angioplasty implant and graft; F17.200 Nicotine dependence, unspecified, uncomplicated; Z88.5 Allergy status to narcotic agent; Z88.8 Allergy status to other drugs, medicaments and biological substances; I11.0 Hypertensive heart disease with heart failure; E78.5 Hyperlipidemia, unspecified; X58.XXXA Exposure to other specified factors, initial encounter; Y92.009 Unspecified place in unspecified non-institutional (private) residence as the place of occurrence of the external cause

== ENCOUNTER 2018-01-21 04:51 | Inpatient (IN) | payer OTHER, MEDICARE ==
[2017-12-07 13:22] VITALS: BMI 28.0
--- NOTE | 2017-12-07 14:11 | PAT Medication Instructions ---
Service Date Dec 07, 2017. Current Home Medication List Aspirin (Aspirin), 325 MG PO QAM Atenolol (Tenormin), 100 MG PO QPM Fluticasone Propionate (Nasal) (Flonase Allergy Relief), 2 SPRAYS INTNAS QAM Furosemide (Lasix), 20 MG PO QAM Sacubitril-Valsartan (Entresto 24-26 mg), 1 TAB PO QAM Simvastatin (Zocor), 20 MG PO QPM Medication Instructions For Your Scheduled Surgery - Check with surgeon and machine filler shredder for instructions: Aspirin (Aspirin), 325 MG PO QAM - Hold the following medications the morning of surgery: Furosemide (Lasix), 20 MG PO QAM Sacubitril-Valsartan (Entresto 24-26 mg), 1 TAB PO QAM - Take the following medications the morning of surgery with a sip of water: Fluticasone Propionate (Nasal) (Flonase Allergy Relief), 2 SPRAYS INTNAS QAM - Take the following medications as scheduled the night before surgery: Simvastatin (Zocor), 20 MG PO QPM Atenolol (Tenormin), 100 MG PO QPM If you have any questions please call us at [phone] or [phone] or [phone]
[2017-12-07 15:19] LABS: BASO % 0.4 %; BASO ABS # 0.03 K/uL (0-0.2); EOS % 3.3 %; EOS ABS # 0.27 K/uL (0-0.5); HEMATOCRIT 43.7 % (42-52); HEMOGLOBIN 15.5 g/dL (14.0-18.0); IG# 0.02 K/uL (0.00-0.02); LYMPH ABS # 2.02 K/uL (1.2-3.4); MEAN CELL VOLUME 96.3 fL (80-100); MEAN CORPUSCULAR HEMOGLOBIN 34.1 pg (25-34); MEAN CORPUSCULAR HGB CONC 35.5 g/dl (32-36); MEAN PLATELET VOLUME 8.5 fL (7.4-10.4); MONO % 8.2 %; MONO ABS # 0.66 K/uL (0.11-0.59); NEUT % 62.9 %; NEUT ABS # 5.07 K/uL (1.4-6.5); PLATELET COUNT 320 K/uL (130-400); RED CELL DISTRIBUTION WIDTH CV 12.5 % (11.5-14.5); RED CELL DISTRIBUTION WIDTH SD 43.7 fL (36.4-46.3); WHITE BLOOD COUNT 8.07 K/uL (4.8-10.8)
[2017-12-07 15:29] LABS: ALBUMIN 3.3 gm/dl (3.4-5.0); CALCIUM 8.7 mg/dl (8.5-10.1); CREATININE 1.01 mg/dl (0.60-1.40); POTASSIUM 4.2 mmol/L (3.5-5.1)
[2017-12-07 15:35] LABS: PTT PATIENT 29.7 SECONDS (21.0-31.0)
[2017-12-07 15:41] LABS: HEMOGLOBIN A1C 5.9 % (4.5-5.6)
--- NOTE | 2018-01-20 22:32 | HISTORY & PHYSICAL EXAMINATION ---
DATE OF ADMISSION: 01/21/2018 CHIEF COMPLAINT: Chronic right knee pain. HISTORY OF PRESENT ILLNESS: This is a 72-year-old male patient of Dr. Tarango'sly complaining of chronic right knee pain, longstanding, now progressively getting worse. The patient has failed conservative treatment including anti-inflammatories, intraarticular injections and the use of a brace. The pain is increasing with weightbearing activities and his pain does interfere with his activities of daily living. PAST MEDICAL HISTORY: Heart attack in the year 1999, coronary artery disease. He has factor V Leiden and blood disorder. He has sciatica. SOCIAL HISTORY: Lifelong smoker. Occasional drinker. PAST SURGICAL HISTORY: Back surgery, stent placement and defibrillation. FAMILY HISTORY: Noncontributory. REVIEW OF SYSTEMS: The patient complains of chronic right knee pain, otherwise denies any shortness of breath, chest pain, nausea, vomiting or any other joint complaints. MEDICATIONS: Atenolol 100 mg daily, simvastatin 20 mg daily, nitroglycerin 0.4 mg sublingual tablet as needed, furosemide 20 mg daily, Flonase allergy 50 mcg 2 sprays nasally daily, Entresto 24/26 mg daily, and aspirin 325 mg enteric coated daily. ALLERGIES: INCLUDE MORPHINE AND PLAVIX. PHYSICAL EXAMINATION: GENERAL: Well-developed, well-nourished 72-year-old male in no acute distress. He is alert and oriented x3 and pleasant. HEENT: Normocephalic, atraumatic. Extraocular motions are intact. Pupils are equal and reactive to light. HEART: Regular rate and rhythm, no murmurs are appreciated. LUNGS: Clear. ABDOMEN: Soft and nontender. Bowel sounds present. EXTREMITIES: Right knee: He has medial joint line tenderness with a varus deformity. He has a limited range of motion of 0-125. The patient has a mild effusion. He has crepitation with passive range of motion. He has 5/5 strength. NEUROLOGIC: Neurovascularly he is intact in his right lower extremity. DIAGNOSES: Right knee end-stage osteoarthritis, coronary artery disease status post an myocardial infarction in 1999, factor V Leiden, blood disorder. PLAN: The patient was advised of his diagnosis. Indications, risks, benefits, postop course have all been reviewed. The patient wished to proceed with a right total knee arthroplasty. Necessary consent forms, preoperative testing and clearances will be obtained.
[~2018-01-21] VITALS: Ht 172.7 cm; Wt 83.0 kg
[2018-01-21] VITALS (10 sets, daily range): BP systolic 92–145; BP diastolic 42–77; PULSE 78–98; TEMP 36.5–36.8; O2SAT 93–98; Ht 172.7 cm; Wt 83.0 kg
[~2018-01-21 04:51] MED LIST changes: +ACETAMINOPHEN 500 MG TAB PO SCH; +CEFAZOLIN 2000MG IV PUSH 15 ML IV SCH; +CeleBREX 200 MG CAP PO SCH; +DEXAMETHASONE 4 MG TAB PO SCH; +DEXTTAB PO; +DICL1GEL12 TOP; +FAMOTIDINE 20 MG TAB PO SCH; +GABAPENTIN 300 MG CAP PO SCH; +LACTATED RINGER'S 1000ML 1,000 ML IV SCH; +LACTATED RINGER'S 1000ML 500 ML IV SCH; +METOCLOPRAMIDE HCL 10 MG TAB PO SCH; +ROPIVACAINE 5MG/ML 30 ML 150 MG, BUPIVACAINE 0.5% MPF INJ 30 ML, EpINEphrine HCL INJ 0.... INFIL SCH; +TRANEXAMIC ACID INJ 1,000 MG x 2 Bags IV SCH
[2018-01-21] MEDS ORDERED: symbicort INH (05:38)
[2018-01-21] MEDS ORDERED: DEXAMETHASONE 4 MG TAB PO SCH (06:00)
[2018-01-21] MEDS ORDERED: FAMOTIDINE 20 MG TAB PO SCH (06:00)
[2018-01-21] MEDS ORDERED: CeleBREX 200 MG CAP PO SCH (06:00)
[2018-01-21] MEDS ORDERED: ROPIVACAINE 5MG/ML 30 ML 150 MG, BUPIVACAINE 0.5% MPF INJ 30 ML, EpINEphrine HCL INJ 0.... INFIL SCH ×8 (06:00)
[2018-01-21] MEDS ORDERED: CEFAZOLIN 2000MG IV PUSH 15 ML IV SCH (06:00)
[2018-01-21] MEDS ORDERED: TRANEXAMIC ACID INJ 1,000 MG x 2 Bags IV SCH ×2 (06:00)
[2018-01-21] MEDS ORDERED: METOCLOPRAMIDE HCL 10 MG TAB PO SCH (06:00)
[2018-01-21] MEDS ORDERED: LACTATED RINGER'S 1000ML 500 ML IV SCH (06:00)
[2018-01-21] MEDS ORDERED: ACETAMINOPHEN 500 MG TAB PO SCH (06:00)
[2018-01-21] MEDS ORDERED: LACTATED RINGER'S 1000ML 1,000 ML IV SCH (06:00)
[2018-01-21] MEDS ORDERED: GABAPENTIN 300 MG CAP PO SCH (06:00)
[2018-01-21] MEDS ORDERED: BUPIVACAINE 0.5 % 5 MG/1 ML PF 10ML VIAL ONE (06:22)
[2018-01-21] MEDS ORDERED: BUPIVACAINE 0.25% 30 ML VIAL ONE (06:23)
[2018-01-21] MEDS ORDERED: BACITRACIN 50000 UNIT VIAL ONE (06:41)
[2018-01-21] MEDS ORDERED: ORTHO JOINT ANESTHETIC ONE (06:41)
[2018-01-21] MEDS ORDERED: POVIDONE-IODINE OP SOLN 30 ML BTL ONE (06:41)
[2018-01-21] MEDS ORDERED: MIDAZOLAM HCL 1 MG/ML 2ML VIAL ONE ×2 (06:42→07:50)
[2018-01-21] MEDS ORDERED: NURSING VERBAL MED ORDER STA (06:59)
--- NOTE | 2018-01-21 07:00 | History & Physical Bridge Note ---
H&P Re-Evaluation Bridge Note: I have examined the patient, reviewed the History & Physical and in the interval since the performance of the History & Physical I have noted the following changes of clinical significance: No changes noted
[2018-01-21] MEDS ORDERED: PHENYLEPHRINE 100MCG/ML 5ML SYR ONE (07:26)
[2018-01-21] MEDS ORDERED: EpHEDrine SULFATE 50MG/5ML SYR ONE (07:26)
[2018-01-21] MEDS ORDERED: PROPOFOL IV EMULSION 10 MG/ML 20 ML VIAL IV ONE (07:26)
[2018-01-21] MEDS ORDERED: LIDOCAINE HCL 2% 2 ML VIAL (20MG/ML) ONE (07:26)
[2018-01-21] MEDS ORDERED: NURSING VERBAL MED ORDER ONE ×2 (07:30→16:30)
[2018-01-21] MEDS ORDERED: PHENYLEPHRINE HCL INJ 10 MG/ML VIAL ONE (07:44)
[2018-01-21] MEDS ORDERED: SODIUM CHLORIDE 0.9% INJ 10 ML VIAL ONE (07:50)
[2018-01-21] MEDS ORDERED: KETAMINE HCL INJ 50 MG/ML 10 ML VIAL ONE (07:51)
[2018-01-21] MEDS ORDERED: ATROPINE SULFATE 0.1 MG/ML 5ML SYR IV PRN (08:30)
[2018-01-21] MEDS ORDERED: ONDANSETRON INJ 2 MG/ML 2 ML VIAL IV PRN ×2 (08:30→09:15)
[2018-01-21] MEDS ORDERED: HYDROmorphone INJ 2 MG/ML SYR/VIAL IV PRN (08:30)
[2018-01-21] MEDS ORDERED: EpHEDrine SULFATE INJ 50 MG/ML AMP IV PRN (08:30)
[2018-01-21] MEDS ORDERED: KETOROLAC TROMETHAMINE 30 MG/ML VIAL IV. PRN (08:30)
--- NOTE | 2018-01-21 09:00 | [facility] Post Operative Brief Note ---
Immediate Operative Summary Operative Date Jan 21, 2018. Pre-Operative Diagnosis Right knee end-stage osteoarthritis Post-Operative Diagnosis Right knee end-stage osteoarthritis Procedure(s) Performed Right Total Knee Arthroplasty Cemented Surgeon Dr Tarango Tower Helper Surgeon(s) Anthony Frost PA-C Estimated Blood Loss 3cc Findings Consistent with Post-Op Diagnosis Specimens As Per Surgeon A. Right Knee Bone and Tissue Drains 2 hemovac Anesthesia Type MAC Spinal Regional Complication(s) none Disposition Disposition: Recovery Room / PACU
[2018-01-21] MEDS ORDERED: BISACODYL 10 MG SUPP PR PRN (09:15)
[2018-01-21] MEDS ORDERED: SOD PHOSPHATE/SOD BIPHOSPHATE ENEMA 132 ML BTL PR PRN (09:15)
[2018-01-21] MEDS ORDERED: METOCLOPRAMIDE HCL INJ 5 MG/ML 2 ML VIAL IV PRN (09:15)
[2018-01-21] MEDS ORDERED: HYDROmorphone INJ 0.5 MG/0.5 ML SYR IV PRN (09:15)
[2018-01-21] MEDS ORDERED: FLUTICASONE PROPIONATE NA SPR 16 GM BTL NAE PRN (09:15)
[2018-01-21] MEDS ORDERED: ZOLPIDEM TARTRATE 5 MG TAB PO PRN (09:15)
[2018-01-21] MEDS ORDERED: MAGNESIUM HYDROXIDE SUSP 30 ML UDC PO PRN (09:15)
[2018-01-21] MEDS ORDERED: OXYCODONE HCL IR 5 MG TAB (IMMEDIATE RELEASE) PO PRN (09:15)
[2018-01-21] MEDS ORDERED: TRAMADOL HCL 50 MG TAB PO PRN (09:15)
[2018-01-21] MEDS: PHENYLEPHRINE 100MCG/ML 5ML SYR IV PRN ×2 (09:25→09:35)
[2018-01-21] MEDS ORDERED: NITROGLYCERIN 0.4 MG SL PER TAB CHARGE SL PRN (09:30)
--- NOTE | 2018-01-21 10:34 | DIAGNOSTIC IMAGING REPORT ---
RIGHT KNEE 2 VIEWS History: Right total knee arthroplasty. Degenerative arthritis. Postop. FINDINGS: The patient is status post a right total knee arthroplasty. The hardware is intact. No fracture or dislocation. Skin quentin and surgical drains are in place. IMPRESSION: Right total knee arthroplasty. No evidence for hardware complication. Electronically signed by: Wiley Pereyra M.D. 01/21/2018 10:33 AM Dictated Date/Time: 01/21/2018 10:33 AM
[2018-01-21] MEDS: D5W AND 1/2NSS + 20MEQ KCL 1,000 ML IV SCH ×2 (11:22→20:57)
--- NOTE | 2018-01-21 11:44 | Anesthesiology Progress Note ---
Anesthesia Post Op Note Date & Time Jan 21, 2018 at 11:43 Vital Signs Pain Intensity: 0 Vital Signs Past 12 Hours Date Time Temp Pulse Resp B/P (MAP) Pulse Ox O2 Delivery O2 Flow Rate FiO2 01/21/18 11:08 98 16 100/58 (72) 97 2.0 01/21/18 10:40 36.7 91 16 92/53 (66) 97 Nasal Cannula 2.0 01/21/18 10:40 97 Nasal Cannula 2.0 01/21/18 10:40 96 Nasal Cannula 2.0 01/21/18 10:30 36.5 94 14 93/53 97 Nasal Cannula 2 01/21/18 10:20 94 16 100/55 98 Nasal Cannula 2 01/21/18 10:10 92 18 98/55 99 Nasal Cannula 2 01/21/18 10:00 93 17 96/59 99 Nasal Cannula 2 01/21/18 09:50 92 17 108/59 98 Nasal Cannula 2 01/21/18 09:40 94 17 102/64 96 Nasal Cannula 2 01/21/18 09:30 90 17 108/59 100 Nasal Cannula 2 01/21/18 09:20 83 17 86/52 98 Nasal Cannula 2 01/21/18 09:14 36.5 90 15 71/44 94 Nasal Cannula 2 01/21/18 06:08 36.8 80 20 145/77 97 Room Air 01/21/18 05:44 36.8 80 20 145/77 (99) 97 Room Air Notes Mental Status: alert / awake / arousable, participated in evaluation Pt Amnestic to Procedure: Yes Nausea / Vomiting: adequately controlled Pain: adequately controlled Airway Patency, RR, SpO2: stable & adequate BP & HR: stable & adequate Hydration State: stable & adequate Anesthetic Complications: no major complications apparent
--- NOTE | 2018-01-21 11:58 | Medical Consult ---
History General Date of Service: Jan 21, 2018. Stated Complaint: Right Knee Degenerative Joint Disease HPI The patient is a 72 year old male who presents to [facility] with complaints of Right Knee Degenerative Joint Disease. The patient's primary care provider is Aquilino Silver III, CRNP. This pt was seen post operatively for medical problems of HTN, BLOWER INSULATOR( EF 25%) with AICD, COPD who currently smokes. he is doing well, good pain control we did discuss smoking, nicotine patch and his current daily alcohol use. Review of Systems Constitutional: denies: chills, diaphoresis, fever ENT: denies: ear pain, loss of hearing Cardiovascular: denies: chest pain, chest pressure Respiratory: denies: cough, orthopnea, shortness of breath Gastrointestinal: denies: constipation, diarrhea, nausea Genitourinary - Male: denies: dysuria, hematuria, hesitancy Musculoskeletal: reports: arthralgias, back pain, denies: no symptoms Integumentary: denies: no symptoms, rash Neurologic: denies: headache, dizziness, general weakness Psychiatric: denies: anxiety, depression Past Medical History Past Medical History: Medical Problems: (1) Acute respiratory failure with hypoxia (2) Cardiac defibrillator in place (3) EF 25% (4) NV (myocardial infarction) (5) Right knee DJD (6) COPD Surgical Problems: (1) S/P coronary artery stent placement Family History FHx: heart disease Parent: Heart Disease Social History Hx Tobacco Use In Past Year?: Yes (long sweets- 1 pack daily) Smoking Status: Current Every Day Smoker Marital status: Occupational Status: employed Immunizations History of Influenza Vaccine: Unknown History of Tetanus Vaccine?: Unknown History of Pneumococcal: Unknown History of Hepatitis B Vaccine: Unknown History of MDRO History of MDRO: No Allergies Coded Allergies: Morphine (Verified Allergy, Mild, UNKNOWN, 01/21/18) Clopidogrel (Verified Allergy, Unknown, RASH, 01/21/18) Uncoded Allergies: 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 Current Medications Reported Home Medications Medications Dose Route/Sig Max Daily Dose Days Date Category [symbicort] 2 Puff INH BID 01/21/18 Reported Voltaren 1% Top Gel (Diclofenac Sodium (Topical)) 1 % Gel 4 Gm TOP QID 4 12/20/17 Rx Mucus Relief Dm (Dextromethorphan-Guaifenesin) 1 Tab Tab 1 Tab PO Q12 PRN 12/16/17 Reported Flonase Allergy Relief (Fluticasone Propionate (Nasal)) 50 Mcg/Act Spr 2 Sprays MARIE QAM PRN 12/07/17 Reported Entresto 24-26 mg (Sacubitril-Valsartan) 1 Tab Tab 1 Tab PO QAM 12/07/17 Reported Lasix (Furosemide) 20 Mg Tab 20 Mg PO QAM 12/07/17 Reported Tenormin (Atenolol) 100 Mg Tab 100 Mg PO QPM 12/07/17 Reported Aspirin 325 Mg Tab 325 Mg PO QAM 03/06/14 Reported Zocor (Simvastatin) 20 Mg Tab 20 Mg PO QPM 09/11/09 Reported Physical Physical Exam Vital Signs: Date Time Temp Pulse Resp B/P (MAP) Pulse Ox O2 Delivery O2 Flow Rate FiO2 01/21/18 11:30 36.8 89 19 119/70 (86) 98 01/21/18 11:08 98 16 100/58 (72) 97 2.0 01/21/18 10:40 36.7 91 16 92/53 (66) 97 Nasal Cannula 2.0 01/21/18 10:40 97 Nasal Cannula 2.0 01/21/18 10:40 96 Nasal Cannula 2.0 01/21/18 10:30 36.5 94 14 93/53 97 Nasal Cannula 2 01/21/18 10:20 94 16 100/55 98 Nasal Cannula 2 01/21/18 10:10 92 18 98/55 99 Nasal Cannula 2 01/21/18 10:00 93 17 96/59 99 Nasal Cannula 2 01/21/18 09:50 92 17 108/59 98 Nasal Cannula 2 01/21/18 09:40 94 17 102/64 96 Nasal Cannula 2 01/21/18 09:30 90 17 108/59 100 Nasal Cannula 2 01/21/18 09:20 83 17 86/52 98 Nasal Cannula 2 01/21/18 09:14 36.5 90 15 71/44 94 Nasal Cannula 2 01/21/18 06:08 36.8 80 20 145/77 97 Room Air 01/21/18 05:44 36.8 80 20 145/77 (99) 97 Room Air General Appearance: WELL-APPEARING, WD/WN Head: NORMOCEPHALIC, ATRAUMATIC Neck: NO TENDERNESS, SUPPLE Respiratory: BREATH SOUNDS NORMAL, CLEAR TO AUSCULTATION, CLEAR TO PERCUSSION Cardiovasular: REGULAR RATE/RHYTHM, NORMAL S1S2 Abdomen: NON TENDER, NORMAL BOWEL SOUNDS, NO REBOUND Back: NORMAL INSPECTION, NO MIDLINE TENDERNESS, NO CVA TENDERNESS Upper Extremities: NO EDEMA, NORMAL ROM Neuro: ALERT, ORIENTED x 3 Diagnostics EKG Interpretation: NORMAL EKG (reviewed from 2013) Impression Assessment and Plan 72 M s/p R TKA CAD pt will be continued on atenolol and statin( zocor is low dose) Chronic Diastolic heart failure,last EF is low, will limit post op fluid administration to 1.5L, continue outpt lasix po, entresto COPD, is clinically stable, will continue symbicort and singulair DVT prevention, history of family factor 5 leiden, was transitioned to xarelto pre op and surgery will continue post op DVT Prophylaxis other
[2018-01-21] MEDS: NICOTINE 14 MG/24 HR TDSY TD SCH (12:41)
[2018-01-21] MEDS: ACETAMINOPHEN 500 MG TAB PO SCH ×2 (13:33→20:57)
[2018-01-21] MEDS: CEFAZOLIN IV 2,000 MG in SYRINGE 0 ML IV SCH ×2 (13:33→21:04)
--- NOTE | 2018-01-21 15:15 | OPERATIVE REPORT ---
DATE OF OPERATION: 01/21/2018 INDICATION FOR PROCEDURE: The patient is a 72-year-old male who presents with chronic progressive osteoarthritis in his right knee. He failed conservative management. He has a varus knee, [id number] medial compartment. PREOPERATIVE DIAGNOSIS: Osteoarthritis, right knee. POSTOPERATIVE DIAGNOSIS: Same. PROCEDURE: Right total knee arthroplasty. SURGEON: Dr. Tarango. KETTLE COORDINATOR: Anthony Frost PA-C. ANESTHESIA: Spinal sedation, adductor nerve block. OPERATIVE PROCEDURE: The patient was taken to the operating room, anesthetized under anesthesia as dictated. Pneumatic tourniquet was placed on his right upper thigh. Right lower extremity exam demonstrated he had a varus knee. No instability and knee had full range of motion. His right lower extremity was prepped and draped with ChloraPrep in usual sterile fashion. His leg was elevated, exsanguinated with Esmarch bandage. Pneumatic tourniquet was raised to 300 mmHg. An anterior incision made across the right knee. Skin incised sharply, subcutaneous flaps were elevated. He had some prepatellar bursitis that was resected. Incision was made through medial retinaculum and extended up in the mid third of the quadriceps tendon and extended down to the medial tibial tubercle. Intra-articular findings demonstrated that he had arthritis mainly in the medial compartment, which was bone on bone. He did have some moderate patellofemoral DJD. I used the [employer] triathlon total knee arthroplasty system for the procedure. We used conventional instrumentation. The knee was exposed by excising the patellar fat pad, excising the menisci, cruciate ligaments and the fat pad over the anterior femur for placement of the anterior flange of the component in that area. Lateral synovial bands were released. The femur was exposed. The intramedullary drill hole was drilled into the femoral canal. Distal femoral cutting block was adjusted to resect a 5-degree valgus cut at standard distal resection. The femur was then sized for a size 6 femoral component. The 4-in-1 cutting blocks were placed in 3 degrees of external rotation to match the epicondylar axis. The anterior, posterior and chamfer cuts were made. Then the knee was extended and subperiosteal peel lateral release was performed around the patella. Patella width was measured and width was reproduced using a freehand cut technique and a 36 x 10 mm patella. The excess lateral facet was bevelled off to prevent any impingement. All osteophytes were removed. Drill holes were made for the patellar component. Attention was taken to the tibia, which was subluxed and retractors placed and an external tibial cutting guide was adjusted to make a perpendicular cut to the long axis of the tibia below the most efficient medial side. The ligaments were balanced in extension and flexion. The tibia was exposed and this was sized for a 6 tibial component as well. The trial was externally rotated in line with the tibial tubercle, pinned in position. The punch for the stem was used. Then, the notch cutting device was used centered in appropriate position and the notch cutting devices were used to make a notch cut with the saw and osteotome. Then, the femoral trial was inserted and we used an 11-mm insert, which gave balanced ligaments through full range of motion and the patella tracked centrally. The trials were removed. The anesthetic cocktail was injected per protocol. The knee was copiously irrigated with pulsatile lavage antibiotic solution with bacitracin. The bony surfaces were dried appropriately. The final components were cemented. We used Simplex G cement. The final components were the triathlon size 6 posterior stabilized right femoral component, the size 6 tibial primary base plate, the 6 x 11 mm posterior stabilized X3 polyethylene insert for the tibia and the X3 symmetrical patella. While cement cured, the Betadine soak was used per protocol. The knee was copiously irrigated with pulsatile lavage antibiotic solution with bacitracin. Two drains bilaterally were connected to the Hemovac. Quadriceps tendon and medial retinaculum were closed with interrupted [id number] #1 Vicryl sutures. Subcutaneous tissues closed with interrupted 2-0 Vicryl sutures, skin closed with quentin. Silverlon sterile dressing was applied. The patient tolerated the procedure well. Anthony Frost PA-C, was my social human services assistants and functioned as social human services assistants for the entire procedure. He assisted in patient positioning, prepping, draping, leg positioning, soft tissue retraction, instrument management and performed the fascial, subcutaneous and skin closure and will participate in postoperative care of the patient. I attest to the content of the Intraoperative Record and any orders documented therein. Any exception s are noted below.
[2018-01-21] MEDS ORDERED: BEER 1 CAN PO SCH (17:00)
[2018-01-21] MEDS: DOCUSATE SODIUM 100 MG CAP PO SCH (20:56)
[2018-01-21] MEDS ORDERED: SENNA 8.6 MG TAB PO SCH (21:00)
[2018-01-21] MEDS ORDERED: SIMVASTATIN 20 MG TAB PO SCH (21:00)
[2018-01-21] MEDS: BUDESONIDE/FORMOTEROL FUMARATE 80/4.5 60 PUFFS/INHALER INH SCH (21:30)
[2018-01-22 00:05] VITALS: BP 116/66; PULSE 84; TEMP 36.6; O2SAT 97
[2018-01-22 03:15] VITALS: BP 102/60; PULSE 76; TEMP 36.6; O2SAT 96
[2018-01-22] MEDS: ACETAMINOPHEN 500 MG TAB PO SCH ×2 (05:46→14:45)
[2018-01-22 07:07] LABS: HEMATOCRIT 31.8 % (42-52); HEMOGLOBIN 11.1 g/dL (14.0-18.0); MEAN CELL VOLUME 94.4 fL (80-100); MEAN CORPUSCULAR HEMOGLOBIN 32.9 pg (25-34); MEAN CORPUSCULAR HGB CONC 34.9 g/dl (32-36); MEAN PLATELET VOLUME 8.2 fL (7.4-10.4); PLATELET COUNT 346 K/uL (130-400); RED CELL DISTRIBUTION WIDTH CV 12.5 % (11.5-14.5); RED CELL DISTRIBUTION WIDTH SD 43.1 fL (36.4-46.3); WHITE BLOOD COUNT 22.37 K/uL (4.8-10.8)
[2018-01-22 07:20] VITALS: BP 128/73; PULSE 69; TEMP 36.7; O2SAT 99
[2018-01-22 07:34] LABS: CALCIUM 8.1 mg/dl (8.5-10.1); CREATININE 0.95 mg/dl (0.60-1.40); POTASSIUM 4.8 mmol/L (3.5-5.1)
--- NOTE | 2018-01-22 07:57 | Anesthesiology Progress Note ---
Anesthesia Post Op Note Date & Time Jan 22, 2018 at 07:57 Vital Signs Pain Intensity: 0.0 Vital Signs Past 12 Hours Date Time Temp Pulse Resp B/P (MAP) Pulse Ox O2 Delivery O2 Flow Rate FiO2 01/22/18 07:20 36.7 69 16 128/73 (91) 99 Room Air 01/22/18 03:15 36.6 76 17 102/60 (74) 96 Room Air 01/22/18 00:05 36.6 84 16 116/66 (83) 97 Room Air 01/22/18 00:05 97 Room Air 01/21/18 23:13 36.6 88 16 96/42 (60) 97 Room Air 01/21/18 20:37 36.6 92 18 128/74 (92) 98 Room Air Notes Mental Status: alert / awake / arousable, participated in evaluation Pt Amnestic to Procedure: Yes Nausea / Vomiting: adequately controlled Pain: adequately controlled Airway Patency, RR, SpO2: stable & adequate BP & HR: stable & adequate Hydration State: stable & adequate Neuraxial Anesthesia: sensory block resolved Anesthetic Complications: no major complications apparent
--- NOTE | 2018-01-22 07:59 | Orthopedic Progress Note ---
Orthopedic Progress Note Date of Service Jan 22, 2018. Subjective Post OP Day: 1 Reports: feeling well, pain controlled w PO medications, Denies: complaints, chest pain, SOB, nausea / vomiting, light headedness, calf pain Additional Notes: Hemevac output 150cc Objective calves soft nontender, N/V intact, capillary refill less than 2 sec., dressing C /D/I, A&O x3, toes mobile Date Time Temp Pulse Resp B/P (MAP) Pulse Ox O2 Delivery O2 Flow Rate FiO2 01/22/18 07:20 36.7 69 16 128/73 (91) 99 Room Air 01/22/18 03:15 36.6 76 17 102/60 (74) 96 Room Air 01/22/18 00:05 36.6 84 16 116/66 (83) 97 Room Air 01/22/18 00:05 97 Room Air 01/21/18 23:13 36.6 88 16 96/42 (60) 97 Room Air 01/21/18 20:37 36.6 92 18 128/74 (92) 98 Room Air 01/21/18 15:19 36.5 78 18 110/67 (81) 97 Room Air 01/21/18 15:00 Room Air 01/21/18 13:41 36.5 90 16 105/62 (76) 95 Room Air 01/21/18 12:35 83 16 102/61 (75) 93 Room Air 01/21/18 11:30 36.8 89 19 119/70 (86) 98 01/21/18 11:08 98 16 100/58 (72) 97 2.0 01/21/18 10:40 36.7 91 16 92/53 (66) 97 Nasal Cannula 2.0 01/21/18 10:40 97 Nasal Cannula 2.0 01/21/18 10:40 96 Nasal Cannula 2.0 01/21/18 10:30 36.5 94 14 93/53 97 Nasal Cannula 2 01/21/18 10:20 94 16 100/55 98 Nasal Cannula 2 01/21/18 10:10 92 18 98/55 99 Nasal Cannula 2 01/21/18 10:00 93 17 96/59 99 Nasal Cannula 2 01/21/18 09:50 92 17 108/59 98 Nasal Cannula 2 01/21/18 09:40 94 17 102/64 96 Nasal Cannula 2 01/21/18 09:30 90 17 108/59 100 Nasal Cannula 2 01/21/18 09:20 83 17 86/52 98 Nasal Cannula 2 01/21/18 09:14 36.5 90 15 71/44 94 Nasal Cannula 2 Laboratory Results 24 Hours: Test 01/22/18 06:12 Hematocrit 31.8 % Hemoglobin 11.1 g/dL Assessment & Plan Assessment: POD #1, Right TKA Plan: PT/ OT DVT proph- Xarelto D/C planning- Home w OPPT As per medicine Inhouse Planning Pain Management: Ultram, Morphine, PO Tylenol, Oxy IR DVT Prophylaxis: TEDs, SCDs, Xarelto Discharge Planning Discharge Planning: home with oppt Pain Management: PO Tylenol, Oxy IR DVT Prophylaxis: TEDs, Xarelto Therapy: Physical Therapy, Occupational Therapy
[2018-01-22] MEDS ORDERED: XRL10 PO (08:03)
[2018-01-22] MEDS ORDERED: RXC5 PO (08:03)
[2018-01-22] MEDS ORDERED: ACET-24 PO (08:03)
--- NOTE | 2018-01-22 08:04 | Discharge Instructions ---
Discharge Instructions Date of Service Jan 22, 2018. Admission Reason for Admission: Right Knee Degenerative Joint Disease Discharge Discharge Diagnosis / Problem: Right TKA Discharge Goals Goal(s): Improve function Activity Recommendations Activity Limitations: as noted below . Instructions / Follow-Up Instructions / Follow-Up ACTIVITY RECOMMENDATIONS: SELF CARE INSTRUCTIONS AFTER TOTAL KNEE REPLACEMENT A. You may need to continue a physical therapy program after discharge from the hospital. There are several options available to you. Your doctor will assist you in selecting the best one for you. 1. An out-patient facility 2 to 3 times a week for therapy or home therapy. 2. Continue working on all exercises taught to you in the hospital. Your goals should be to increase bending of your knee to 90 degrees and beyond and to fully straighten your knee. B. You may progress at your own pace from walking with a walker or crutches to a cane; then to no assistive devices. C. Make walking a part of your daily routine. Be up as much as comfortable with rest periods throughout the day. Rest with leg elevation is very important. Use the ice wrap frequently for the first 3-4 weeks. D. There are no restrictions on activities. 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 E. Wear the long elastic stockings (KEENAN hose) 20 hours a day for 2 weeks after surgery. They can be removed several times a day for laundering and for a bath. F. You may shower, no tub baths until cleared by your doctor. SPECIAL CARE INSTRUCTIONS: VERY IMPORTANT TO READ AND REVIEW A. There are a few signs you need to watch for after you are home. Call [facility] if you notice any of the followin. Increased severe knee pain. Some pain is expected especially when you exercise. 2. Increased swelling in your leg or knee; pain or swelling of the calf muscle in either lower leg. 3. Any fluid drainage from the incision. 4. Shortness of breath or chest pain. B. Please call [facility] at if you have any concerns or questions about your operation or recovery. The doctor or his nurse will return your call promptly. C. You must take antibiotics before dental work, bladder, bowel or other surgery. Your doctor will provide you with a permanent care to carry describing this precaution. IMPORTANT: * REMEMBER TO TAKE ASPIRIN, 81 MG, TWICE DAILY FOR 4 WEEKS UNLESS OTHERWISE DIRECTED. THIS IS YOUR BLOOD THINNER. * HIGH RISK PATIENTS MAY BE PRESCRIBED A STRONGER BLOOD THINNER. THIS WILL BE PROVIDED AT DISCHARGE. * CALL IF INCREASED PAIN, REDNESS, DRAINAGE OR FEVER GREATER THAT 101. * WEAR KEENAN HOSE 20 HOURS PER DAY FOR 2 WEEKS. * YOU MAY HAVE A LARGE BAND-AID LIKE DRESSING (SILVERON). THIS WILL REMAIN ON YOUR INCISION FOR 7 DAYS, THEN CAN BE REMOVED. IF INCISION IS LEAKING THROUGH DRESSING, CALL THE OFFICE . FOLLOW UP VISIT: If appointment is not already scheduled: Please call [facility] to make a follow-up appointment for 2 weeks after your surgery at . Current Hospital Diet Patient's current hospital diet: AHA Diet (Heart Healthy) Discharge Diet Recommended Diet: Regular Diet Procedures Procedures Performed: Right Total Knee Arthroplasty Cemented Pending Studies Studies pending at discharge: no Laboratory Results Hemoglobin A1c Test 12/07/17 14:41 Range/Units Estimated Average Glucose 123 mg/dl Hemoglobin A1c 5.9 H 4.5-5.6 % Medical Emergencies . Who to Call and When: Medical Emergencies: If at any time you feel your situation is an emergency, please call 911 immediately. . Non-Emergent Contact Non-Emergency issues call your: Primary Care Provider . "Provider Documentation" section prepared by Anthony Frost. .
--- NOTE | 2018-01-22 08:11 | Clinical Documentation Query ---
CLINICAL DOCUMENTATION QUERY Dr. LEVINE, In your clinical opinion is this patient being managed for: See written reply on exact same query ( ) Acute blood loss anemia ( ) Not Agree ( ) Other explanation of clinical findings (Please Explain) ( ) Unable to determine (Please Define) ( ) Need to Discuss The medical record reflects the following clinical findings, treatment, and risk factors. Clinical Indicators: 72 yo male presenting with R knee DJD for a R TKA. Baseline Hgb 15.5, Hct 43.7 dropping to Hgb 11.1, Hct 31.8. EBL of 3cc with additional hemovac drainage of 820cc thus far Treatment: serial CBC's Risk Factors: R TKA with hemovac drainage Please clarify and document your clinical opinion in the progress notes and discharge summary. Terms such as "probable", "suspected", "likely", "questionable", "possible", or "still to be ruled out" are acceptable. IF IN AGREEMENT, YOU MUST DOCUMENT ABOVE DIAGNOSTIC STATEMENT IN DAILY PROGRESS NOTES AND DISCHARGE SUMMARY. This document is not part of the patient's record. Thank You, Karla Macario, DENEEN [phone]
--- NOTE | 2018-01-22 08:12 | Clinical Documentation Query ---
CLINICAL DOCUMENTATION QUERY Dr. VICK, In your clinical opinion is this patient being managed for: ( ) Acute blood loss anemia ( ) Not Agree ( ) Other explanation of clinical findings (Please Explain) ( ) Unable to determine (Please Define) ( ) Need to Discuss The medical record reflects the following clinical findings, treatment, and risk factors. Clinical Indicators: 72 yo male presenting with R knee DJD for a R TKA. Baseline Hgb 15.5, Hct 43.7 dropping to Hgb 11.1, Hct 31.8. EBL of 3cc with additional hemovac drainage of 820cc thus far Treatment: serial CBC's Risk Factors: R TKA with hemovac drainage Please clarify and document your clinical opinion in the progress notes and discharge summary. Terms such as "probable", "suspected", "likely", "questionable", "possible", or "still to be ruled out" are acceptable. IF IN AGREEMENT, YOU MUST DOCUMENT ABOVE DIAGNOSTIC STATEMENT IN DAILY PROGRESS NOTES AND DISCHARGE SUMMARY. This document is not part of the patient's record. Thank You, Karla Macario, DENEEN [phone]
[2018-01-22] MEDS: BUDESONIDE/FORMOTEROL FUMARATE 80/4.5 60 PUFFS/INHALER INH SCH (08:57)
[2018-01-22] MEDS: NICOTINE 14 MG/24 HR TDSY TD SCH (08:59)
[2018-01-22] MEDS: DOCUSATE SODIUM 100 MG CAP PO SCH (08:59)
[2018-01-22] MEDS ORDERED: FUROSEMIDE 20 MG TAB PO SCH (09:00)
[2018-01-22] MEDS ORDERED: PANTOprazole SOD 40 MG TAB PO SCH (09:00)
[2018-01-22] MEDS ORDERED: RIVAROXABAN 10 MG TAB PO SCH (09:00)
[2018-01-22] MEDS ORDERED: MULTIVITAMIN TAB PO SCH (09:00)
[2018-01-22] MEDS ORDERED: SACUBITRIL-VALSARTAN 24-26 MG TAB PO SCH (09:00)
[2018-01-22] MEDS ORDERED: MONTELUKAST SOD 10 MG TAB PO SCH (09:00)
[2018-01-22 13:03] VITALS: BP 128/73; PULSE 69; TEMP 36.7; O2SAT 99
== END 2018-01-22 15:45 | disposition home or self-care (01) | DRG 470 ==
LOC: C.ACU 04:51 → EEVIPCON 04:51 → C.3E 06:50 → ENRESERV 09:37
PROVIDERS: ADMIT Orthopaedic Surgery Sports Medicine; ATTEND Orthopaedic Surgery Sports Medicine
PROC: 0SRC0JZ Replacement of Right Knee Joint with Synthetic Substitute, Open Approach (ICD-10-PCS; principal; 2018-01-21 07:00)
DX: M17.11 Unilateral primary osteoarthritis, right knee (principal); D68.51 Activated protein C resistance; I50.32 Chronic diastolic (congestive) heart failure; I25.10 Atherosclerotic heart disease of native coronary artery without angina pectoris; M54.30 Sciatica, unspecified side; F17.200 Nicotine dependence, unspecified, uncomplicated; I10 Essential (primary) hypertension; J44.9 Chronic obstructive pulmonary disease, unspecified; Z88.5 Allergy status to narcotic agent; Z79.82 Long term (current) use of aspirin; Z95.810 Presence of automatic (implantable) cardiac defibrillator; I25.2 Old myocardial infarction

== ENCOUNTER 2022-03-02 03:19 | Inpatient (IN) ==
[2022-03-02] MEDS ORDERED: ALBUT/IPRATROP 3MG/0.5MG NEB 3 ML VIAL NEB STA (03:32)
[2022-03-02] MEDS ORDERED: methylPREDNISolone 125 MG/2 ML VIAL IV STA (03:32)
--- NOTE | 2022-03-02 03:35 | Emergency Department Note ---
Impression & Plan Hypoxia DC ED Provider Note HPI: The patient is a 76-year-old male with history of coronary artery disease, history of CHF with reduced ejection fraction 30% on echo in 2019, COPD, presents the emergency department with a chief complaint of shortness of breath that has worsened over the past several hours. Per patient, he has developed worsening shortness of breath over the past several days although this did acutely worsen just over the past several hours. He denies any chest pain. On arrival here to the ED he is noted to have oxygen saturations in the 80s on room air and is in moderate respiratory distress. He was taken immediately to his ED room, placed on nasal cannula oxygen at 5 L with good improvement to 97%. His work of breathing is now improved. Per report, patient states that his recently tested positive for COVID, patient was tested for COVID yesterday and upon chart review this test did return positive. According to the patient's d aughter at the bedside he has been fully vaccinated against COVID-19. ROS: -Pulmonary: Respiratory distress/increased work of breathing, recent COVID-19 positive status *10 point review systems was conducted and is otherwise negative unless stated above *Outpatient medications and allergy history reviewed PE: General: Alert, moderate increased work of breathing HEENT: Normocephalic, atraumatic Eyes: Extraocular eye movement is intact, no scleral erythema Pulmonary: Diminished air movement bilaterally, bilateral expiratory wheezing Cardio: Regular rate and rhythm GI: Abdomen is soft, nontender : No suprapubic tenderness MSK: No evidence of trauma or malformation of the extremities, no edema Skin: No evidence of rash Neuro: Alert, no focal deficits Psychiatric: Cooperative color television console monitor: - An order was placed for continuous cardiac monitoring - Patient was noted to be in sinus rhythm with rate of 100 Chest x-ray: Reviewed by myself, shows viral pattern of pneumonia EKG: Rate: 95 Rhythm: Atrial flutter with variable AV block Intervals: Within normal limits ST changes: No ST elevation Time: 0516 Medical Decision Making: The patient is a 76-year-old male with history of congestive heart failure with reduced ejection fraction, status post pacemaker, history of COPD, presents the emergency department in respiratory distress, noted to be recently positive for COVID-19. On my assessment the patient does have diminished breath sounds, wheezing, he was placed on nasal cannula oxygen with good improvement, placed on DuoNeb breathing treatment and given IV Solu-Medrol shortly after arrival. IV was established, lab work obtained, patient was placed on a athletic monitor. Chest x-ray shows a viral pattern of pneumonia, COVID-19 test is noted to be positive from yesterday therefore not repeated. Venous blood gas does not show any evidence of significant hypercarbia, pH is slightly acidotic at 7.34. Patient's lab work is otherwise largely unremarkable, no critical electrolyte abnormalities are noted, high-sensitivity troponin is slightly elevated in the 30s. Patient denies any chest pain. EKG shows atrial flutter pattern with controlled rate. Patient does have a history of paroxysmal atrial fibrillation and he is anticoagulated on apixaban. Given the patient's hypoxia, will admit to the hospitalist service for further management of COVID-19 pneumonia, hypoxia, wheezing/COPD exacerbation. Case was discussed with the on-call hospitalist, Dr. Mattson, and the patient was admitted in improved condition for further care. * CRITICAL CARE TIME: 35 minutes -Management of hypoxia with oxygen saturations less than 90% on room air requiring supplemental oxygen for stabilization, time spent at the bedside, in terpretation of diagnostic studies, discussion with other healthcare providers and arrangement of admission Diagnosis: 1. Hypoxia 2. COVID-19 pneumonia 3. COPD exacerbation/wheezing 4. History of CHF with reduced ejection fraction 5. Elevated high-sensitivity troponin level Disposition: Admission Anthony Liu DO Emergency Medicine Past Med/Surg History Medical History (Updated 03/02/22 @ 04:57 by Kranthi Mtz MD) CAD (coronary artery disease) s/p multiple cardiac stents (most recent 15+ years ago) Cough Factor V Leiden diagnosed due to family history- no personal hx of blood clots/bleeding iss ues History of heart attack 1999 Hyperlipidemia Nasal congestion Pacemaker PPM/ICD- Implanted 2008/[employer]/last check 06/2019 per patient Prostate cancer Surgical History History of appendectomy History of cardiac cath 1999 History of colonoscopy History of tonsillectomy History of total right knee replacement Previous back surgery Lumbar spine surgery Family History (Updated 02/21/22 @ 10:51 by SIA Bay III) Mother , in her 60s of unknown cause Alzheimer disease Father , in his 70s Prostate cancer Cardiac disease Glaucoma Alzheimer disease Brother Heart transplant recipient Brother No problems noted. Brother No problems noted. Brother No problems noted. Sister No problems noted. Sister No problems noted. Daughter No problems noted. Daughter No problems noted. 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 Feels Safe at Home: Yes Childhood Exposure to Second-Hand Smoke: Yes caffeine: Yes (3 mugs/day) during the past year weight has: remained stable Dental Care, Regularly: Yes Physical Activity Frequency: Does not Exercise Seatbelt Use: always Sunscreen Use: No Assistive Devices: Hearing Aid - Bilateral Allergies Allergies Allergy/AdvReac Type Severity Reaction Status Date / Time morphine Allergy Intermediate Swelling Verified 02/21/22 13:03 clopidogrel Allergy Unknown Unknown Verified 02/21/22 13:03 reaction fluticasone furoate AdvReac Intermediate Pain Verified 02/21/22 13:03 [From Trelegy Ellipta] behind the eyes umeclidinium AdvReac Intermediate Pain Verified 02/21/22 13:03 [From Trelegy Ellipta] behind the eyes vilanterol AdvReac Intermediate Pain Verified 02/21/22 13:03 [From Trelegy Ellipta] behind the eyes 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 (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 Allergy Severe SHORTNESS Uncoded 02/21/22 13:03 BASED) OF BREATH - SEE NOTES Home Meds Home Medications Medication Instructions Recorded Confirmed furosemide 20 mg tablet 20 mg PO QAM 06/13/19 02/21/22 sacubitril 24 mg-valsartan 26 mg 1 tab PO BID 06/13/19 02/21/22 tablet (Entresto) aspirin 81 mg chewable tablet 81 mg PO DAILY 08/12/19 02/21/22 nitroglycerin 0.4 mg sublingual 0.4 mg SL Q5M PRN 10/13/19 02/21/22 tablet atorvastatin 80 mg tablet 40 mg PO DAILY tab 10/27/19 02/21/22 atenolol 100 mg tablet 50 mg PO QAM tab 11/10/19 02/21/22 ibuprofen 200 mg tablet (Advil) 200 mg PO Q6H PRN 09/01/20 02/21/22 cholecalciferol (vitamin D3) 25 25 mcg PO DAILY 08/17/21 02/21/22 mcg (1,000 unit) capsule empagliflozin 10 mg tablet 10 mg PO DAILY 08/17/21 02/21/22 (Jardiance) budesonide-formoterol HFA 160 2 puff INHALATION BID 02/21/22 02/21/22 mcg-4.5 mcg/actuation aerosol inhaler (Symbicort) Previous Rx's Medication Instructions Recorded tamsulosin 0.4 mg capsule 0.4 mg PO DAILY #30 cap 07/27/20 apixaban 5 mg tablet 5 mg PO BID #60 tab 03/14/21 tadalafil 10 mg tablet (Cialis) 10 mg PO DAILY PRN #30 tab 04/22/21 ipratropium bromide 21 mcg (0.03 2 spray INTRANASAL BID #30 ml 07/15/21 %) nasal spray levalbuterol tartrate 45 2 inh INHALATION Q6H #15 g 08/17/21 mcg/actuation aerosol inhaler B6 0.85 mg-folic 200 1 tab PO DAILY #360 tab 02/21/22 [id number] oral chewable tablet (Neuriva Plus) Results & Data (ED) Vital Signs Vital Signs - 24 hr 03/02/22 03:30 03/02/22 03:33 03/02/22 03:34 Temperature 36.1 C L 36.1 C L Temperature Source Temporal Artery Scan Oral Pulse Rate 112 H 103 H Pulse Rate [Apical] 105 H Pulse Rhythm Regular Pulse Rhythm [Apical] Regular Pulse Strength [Apical] Normal Respiratory Rate 26 H 22 Respiratory Effort / Characteristics Labored Spontaneous Labored Respiratory Depth Normal Normal Respiratory Pattern Tachypnea Regular Blood Pressure 134/73 Blood Pressure [Right Arm] 128/108 H Blood Pressure Mean 93 Blood Pressure Mean [Right Arm] 114 Blood Pressure Position Sitting Blood Pressure Position [Right Arm] Lying Pulse Oximetry 83 L 83 L 99 Oxygen Delivery Method Room Air Oxymask Nasal Cannula Oxygen Flow Rate 0 6 Sepsis Recent Fever Within 48 Hours No Sepsis New/Unexplained Change in Mental Status N/A Sepsis Action Taken by Nursing Physician Notified Oxygen Flow Rate - Titration 4 Pulse Oximetry Post Tiitration 90 Laboratory Data Result diagrams: 03/02/22 04:15 03/02/22 04:15 Lab Results 03/02/22 03/02/22 03/02/22 Range/Units 04:15 04:15 04:15 WBC 9.20 (4.8-10.8) K/uL RBC 4.49 L (4.7-6.1) M/uL Hgb 16.3 (14.0-18.0) g/dL Hct 45.6 (42-52) % MCV 101.6 H (80-100) fL MCH 36.3 H (25-34) pg MCHC 35.7 (32-36) g/dL RDW Std Deviation 48.0 H (36.4-46.3) fL RDW Coeff of Marlyn 12.8 (11.5-14.5) % Plt Count 255 (130-400) K/uL MPV 8.8 (7.4-10.4) fL Immature Gran % (Auto) 0.2 % Neut % (Auto) 82.4 % Lymph % (Auto) 7.5 % Whitfield % (Auto) 9.2 % Eos % (Auto) 0.5 % Baso % (Auto) 0.2 % Neut # (Auto) 7.57 H (1.4-6.5) K/uL Lymph # (Auto) 0.69 L (1.2-3.4) K/uL Whitfield # (Auto) 0.85 H (0.11-0.59) K/uL Eos # (Auto) 0.05 (0-0.5) K/uL Baso # (Auto) 0.02 (0-0.2) K/uL Immature Gran # (Auto) 0.02 (0.00-0.02) K/uL PT 11.4 (9.0-12.0) Seconds INR 1.1 (0.9-1.1) APTT 37.4 H (21.0-31.0) Seconds PTT Ratio 1.4 VBG pH (7.36-7.41) VBG pCO2 (38-50) mmHg VBG pO2 mmHg VBG HCO3 mmol/L VBG O2 Saturation % VBG Base Excess mEq/L Sodium (136-145) mmol/L Potassium (3.5-5.1) mmol/L Chloride (98-107) mmol/L Carbon Dioxide (21-32) mmol/L Anion Gap (3-11) BUN (6-23) mg/dl Creatinine (0.6-1.4) mg/dl Est Cr Clr Drug Dosing ml/min Est GFR ( Amer) ml/min Est GFR (Non-Af Amer) ml/min BUN/Creatinine Ratio (10-20) Glucose (70-99(Fasting)) mg/dl Calcium (8.5-10.1) mg/dl Total Bilirubin (0.2-1.0) mg/dl AST (13-39) U/L ALT (7-52) U/L Alkaline Phosphatase (34-104) U/L Troponin I High Sens (0-20) pg/ml B-Natriuretic Peptide 979 H (0-100) pg/ml Total Protein (6.0-8.3) gm/dl Albumin (3.4-5.0) gm/dl Globulin (2.5-4.0) gm/dl Albumin/Globulin Ratio (0.9-2) 03/02/22 03/02/22 03/02/22 Range/Units 04:15 04:15 04:15 WBC (4.8-10.8) K/uL RBC (4.7-6.1) M/uL Hgb (14.0-18.0) g/dL Hct (42-52) % MCV (80-100) fL MCH (25-34) pg MCHC (32-36) g/dL RDW Std Deviation (36.4-46.3) fL RDW Coeff of Marlyn (11.5-14.5) % Plt Count (130-400) K/uL MPV (7.4-10.4) fL Immature Gran % (Auto) % Neut % (Auto) % Lymph % (Auto) % Whitfield % (Auto) % Eos % (Auto) % Baso % (Auto) % Neut # (Auto) (1.4-6.5) K/uL Lymph # (Auto) (1.2-3.4) K/uL Whitfield # (Auto) (0.11-0.59) K/uL Eos # (Auto) (0-0.5) K/uL Baso # (Auto) (0-0.2) K/uL Immature Gran # (Auto) (0.00-0.02) K/uL PT (9.0-12.0) Seconds INR (0.9-1.1) APTT (21.0-31.0) Seconds PTT Ratio VBG pH 7.34 L (7.36-7.41) VBG pCO2 48 (38-50) mmHg VBG pO2 20 mmHg VBG HCO3 25 mmol/L VBG O2 Saturation < 60.0 % VBG Base Excess -1.5 mEq/L Sodium 129 L (136-145) mmol/L Potassium 4.8 (3.5-5.1) mmol/L Chloride 100 (98-107) mmol/L Carbon Dioxide 24 (21-32) mmol/L Anion Gap 5 (3-11) BUN 11 (6-23) mg/dl Creatinine 0.68 (0.6-1.4) mg/dl Est Cr Clr Drug Dosing 90.8 ml/min Est GFR ( Amer) 108.3 ml/min Est GFR (Non-Af Amer) 93.4 ml/min BUN/Creatinine Ratio 16.2 (10-20) Glucose 112 H (70-99(Fasting)) mg/dl Calcium 8.9 (8.5-10.1) mg/dl Total Bilirubin 0.7 (0.2-1.0) mg/dl AST 29 (13-39) U/L ALT 21 (7-52) U/L Alkaline Phosphatase 90 (34-104) U/L Troponin I High Sens 32.4 H (0-20) pg/ml B-Natriuretic Peptide (0-100) pg/ml Total Protein 6.4 (6.0-8.3) gm/dl Albumin 3.7 (3.4-5.0) gm/dl Globulin 2.7 (2.5-4.0) gm/dl Albumin/Globulin Ratio 1.4 (0.9-2) Administered Medications Discontinued Medications Albuterol (Albut/Ipratrop 3mg/0.5mg Neb 3 Ml Vial) 3 ml NEB NOW STA; Protocol Stop: 03/02/22 03:33 Last Admin: 03/02/22 03:46 Dose: 3 ml Documented by: [id number] Methylprednisolone (Methylprednisolone 125 Mg/2 Ml Vial) 125 mg IV NOW STA Stop: 03/02/22 03:33 Last Admin: 03/02/22 03:47 Dose: 125 mg Documented by: [id number] Discharge Plan Visit Data Chief Complaint: Shortness of Breath/Dyspnea Stated Complaint: SOB ED Provider: Anthony Liu Discharge Problem: Hypoxia Forms Stand Alone Forms: [facility] Prescriptions Prescriptions: No Action aspirin 81 mg tablet,chewable 81 mg PO DAILY RF: 0 nitroglycerin 0.4 mg tablet, sublingual 0.4 mg SL Q5M PRNRF: 0 tamsulosin 0.4 mg capsule 0.4 mg PO DAILY Qty: 30 RF: 5 apixaban 5 mg tablet 5 mg PO BID Qty: 60 RF: 2 tadalafil [Cialis] 10 mg tablet 10 mg PO DAILY PRN (Reason: sexual activity) Qty: 30 RF: 0 ipratropium bromide 21 mcg (0.03 %) spray,non-aerosol 2 spray intranasal BID Qty: 30 RF: 5 ibuprofen [Advil] 200 mg tablet 200 mg PO Q6H PRNRF: 0 Neuriva Plus 0.85 mg-200 mcg-1.2 mcg tablet,chewable 1 tab PO DAILY Qty: 360 RF: 12 budesonide-formoterol [Symbicort] 160-4.5 mcg/actuation HFA aerosol inhaler 2 puff inhalation BID RF: 0 atorvastatin 80 mg tablet 40 mg PO DAILY RF: 0 Entresto 24-26 mg tablet 1 tab PO BID RF: 0 furosemide 20 mg tablet 20 mg PO QAM RF: 0 atenolol 100 mg tablet 50 mg PO QAM RF: 0 Jardiance 10 mg tablet 10 mg PO DAILY RF: 0 cholecalciferol (vitamin D3) 25 mcg (1,000 unit) capsule 25 mcg PO DAILY RF: 0 levalbuterol tartrate 45 mcg/actuation HFA aerosol inhaler 2 inh inhalation Q6H Qty: 15 RF: 5 Referrals Referrals: Aquilino Silver III, CRNP [Primary Care Provider] -
[2022-03-02 04:40] LABS: Basophils # (auto) 0.02 K/uL (0-0.2); Basophils % (auto) 0.2 %; Eosinophils # (auto) 0.05 K/uL (0-0.5); Eosinophils % (auto) 0.5 %; Hematocrit (blood only) 45.6 % (42-52); Hemoglobin 16.3 g/dL (14.0-18.0); Immature Granulocytes # (auto) 0.02 K/uL (0.00-0.02); Immature Granulocytes % (auto) 0.2 %; Lymphocytes # (auto) 0.69 K/uL (1.2-3.4); Lymphocytes % (auto) 7.5 %; Mean Corpuscular Hemoglobin 36.3 pg (25-34); Mean Corpuscular Hgb Conc 35.7 g/dL (32-36); Mean Corpuscular Volume 101.6 fL (80-100); Mean Platelet Volume 8.8 fL (7.4-10.4); Monocytes # (auto) 0.85 K/uL (0.11-0.59); Monocytes % (auto) 9.2 %; Neutrophils # (auto) 7.57 K/uL (1.4-6.5); Neutrophils % (auto) 82.4 %; Platelet Count 255 K/uL (130-400); RDW Coefficient of Variation 12.8 % (11.5-14.5); Red Blood Count 4.49 M/uL (4.7-6.1)
[2022-03-02 04:41] LABS: Base Excess VBG -1.5 mEq/L; HCO3 VBG 25 mmol/L; PCO2 VBG 48 mmHg (38-50); PO2 VBG 20 mmHg; pH VBG 7.34 (7.36-7.41)
[2022-03-02 04:42] LABS: Oxygen Saturation VBG < 60.0 %
[2022-03-02 04:51] LABS: INR 1.1 (0.9-1.1); Partial Thromboplastin Ratio 1.4; Partial Thromboplastin Time 37.4 Seconds (21.0-31.0); Prothrombin Time 11.4 Seconds (9.0-12.0)
--- NOTE | 2022-03-02 04:58 | History & Physical Report ---
Date of Service March 02, 2022 Assessment & Plan (1) COVID-19: Plan: This is a 76-year-old male with a notable history of COPD, CAD status post stenting in mid LAD in July 2000, ischemic HFrEF (EF 34% on stress testing 06/2020) with anteroapical wall motion abnormality status post Medtronic ICD placement, factor V Leiden, paroxysmal atrial fibrillation on Eliquis, parotid neoplasm, lung nodule, neurocognitive disorder who presented to [facility] for evaluation of shortness of breath, subsequently found to have acute hypoxic respiratory failure - suspected to be secondary to a positive COVID-19 test and findings on CXR concerning for bacterial superinfection in the R lung. 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 (many overlapping treatments regardless) Initiate COVID treatment: Dexamethasone 6 mg X 10 days, remdesivir per protocol Given present concerns for bacterial superinfection: Initiate Zosyn, vancomycin, azithromycin until clinical picture is clarified DuoNebs every 6 hours scheduled; decrease as needed Flutter valve ordered Obtain chest CT to clarify clinical picture Check CRP, procal, MRSA swab Consider pulmonary consultation to aid with advanced therapies (such as Tocilizumab/baricitinib) and other monoclonal options, if needed Maintain SPO2 between 88-92% in context of known COPD history -- increase O2 requirement as needed to HFNC Continue checking CMP with ongoing remdesivir therapy (2) Pneumonia: Plan: Suspect secondary to COVID-19 and possible bacterial superinfection Therapies as outlined above (3) CAD (coronary artery disease): Plan: History of CAD requiring mid LAD stenting in July 2000, complicated by ischemic HFrEF (EF 34% on stress testing 06/2020)continue aspirin, atorvastatin, atenolol, nitroglycerin as needed (4) Hyponatremia: Plan: On review of patient's record, he has a long-term history of hyponatremia ranging from [id number] On arrival, patient noted to have sodium 129 without other appreciable electrolyte abnormalities We will continue to monitor while here. If dropping, will obtain urine studies, can consider gentle rehydration. (5) Chronic congestive heart failure: Plan: CAD status post stenting in mid LAD in July 2000, ischemic HFrEF (EF 34% on stress testing 06/2020) with anteroapical wall motion abnormality status post Medtronic ICD placement Follows with [facility] cardiology Continue Entresto, Lasix, atenolol, aspirin, atorvastatin ; hold empagliflozin for now Appears euvolemic on exam at present. Gentle hydration if needed. Status post ICD placement (6) COPD, moderate: Plan: Patient with known and extensive history of COPD, tobacco use --follows with [facility] pulmonology (last visit 08/23/2021) Lower suspicion that COPD exacerbation is contributing to active presentation; however, on many cross covering therapies like steroids and duo nebs Continue Trelegy while here Hold home levalbuterol CAROL with scheduled duo nebs; can resume as appropriate DuoNebs/albuterol as needed Per pulmonology note, patient not interested in quitting smoking. Continued cessation will be required when appropriate here. Patient would likely benefit from pulmonary rehab following this stay (7) Atrial flutter: Plan: Has a known history of paroxysmal atrial fibrillation, however has reportedly been in sinus rhythm and recent history/as detailed in most recent cardiology note On arrival here, noted to have atrial flutter with variable AV conduction -- suspect due to physiologic stress of underlying illness at present Continue atenolol Continue apixaban Monitor on telemetry Maintain electrolytes - K>4, Mg > 2 Lopressor 5 mg IV as needed for rates over 110 (8) Factor V Leiden: Plan: Per daughter and review of chart, patient has reported history of factor V Leiden based on family history; however, he personally does not have any history of blood clots. It is possible that he may be a carrier, however do not have more information at this time Continue anticoagulation: Apixaban 5 mg twice daily Plan: CODE: Full code, confirmed by daughter at bedside DISPO: PCU, COVID Precautions PPX: Continue home therapeutic Eliquis - 5mg b.i.d. Diet: History of Present Illness Primary Care Provider: Aquilino Silver, EDGAR, SIA This is a 76-year-old male with a notable history of COPD, CAD status post stenting in mid LAD in July 2000, ischemic HFrEF (EF 34% on stress testing 06/2020) with anteroapical wall motion abnormality status post Medtronic ICD p lacement, paroxysmal atrial fibrillation, parotid neoplasm, lung nodule, neurocognitive disorder who presented to [facility] for evaluation of shortness of breath. History is provided by daughter given patient's hard of hearing and absence of hearing aids. Patient reportedly started feeling ill approximately 2-3 days ago. He progressively developed shortness of breath. He has had intermittent coughing and loss of appetite. No report of significant fevers, nausea, or vomiting. Patient's reportedly tested positive for COVID-19 on Sunday and was mildly symptomatic. He has received 3 COVID vaccines. In the ED, patient was found to be normotensive 130/70, tachycardic 112, respiratory rate 26 with oxygen saturation 83% on room air, temperature 36.1. He was put on 6 L nasal cannula and subsequently improved his oxygen saturation. His labs reveal a white count of 9.2 with neutrophilic predominance and relative lymphopenia, platelet 255, VBG demonstrating mild acidosis 7.34/PCO2 48/02 20/HCO3 25. Chest x-ray obtained in the ED demonstrates diffuse opacities within both the right and left lungs, with notable prominence within the right lower lobe, concerning for a mixed viral and possibly overlying bacterial PNA. In the ED, patient had EKG obtained that demonstrated atrial flutter with high- normal ventricular rate. He was given albuterol and methyl prednisolone 125mg x 1. 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 Severe SHORTNESS Uncoded 03/02/22 06:27 BASED) OF BREATH - SEE NOTES Home Medications Medication Instructions Recorded Confirmed Type furosemide 20 mg tablet 20 mg PO QAM 06/13/19 03/02/22 History sacubitril 24 mg-valsartan 26 mg 1 tab PO BID 06/13/19 03/02/22 History tablet (Entresto) nitroglycerin 0.4 mg sublingual 0.4 mg SL Q5M PRN 10/13/19 03/02/22 History tablet atorvastatin 80 mg tablet 40 mg PO HS tab 10/27/19 03/02/22 History atenolol 100 mg tablet 50 mg PO HS tab 11/10/19 03/02/22 History ibuprofen 200 mg tablet (Advil) 200 mg PO Q6H PRN 09/01/20 03/02/22 History apixaban 5 mg tablet 5 mg PO BID #60 tab 03/14/21 03/02/22 Rx tadalafil 10 mg tablet (Cialis) 10 mg PO DAILY PRN #30 tab 04/22/21 03/02/22 Rx ipratropium bromide 21 mcg (0.03 2 spray INTRANASAL BID #30 ml 07/15/21 03/02/22 Rx %) nasal spray cholecalciferol (vitamin D3) 25 25 mcg PO QAM 08/17/21 03/02/22 History mcg (1,000 unit) capsule empagliflozin 10 mg tablet 10 mg PO QAM 08/17/21 03/02/22 History (Jardiance) budesonide-formoterol HFA 160 2 puff INHALATION BID 02/21/22 03/02/22 History mcg-4.5 mcg/actuation aerosol inhaler (Symbicort) B6 0.85 mg-folic 200 1 tab PO QAM 03/02/22 03/02/22 History [id number] oral chewable tablet (Neuriva Plus) aspirin 81 mg tablet,delayed 81 mg PO QAM 03/02/22 03/02/22 History release tamsulosin 0.4 mg capsule 0.4 mg PO HS 03/02/22 03/02/22 History Past Med/Surg History Medical History (Updated 03/02/22 @ 06:09 by Kranthi Mtz MD) CAD (coronary artery disease) s/p multiple cardiac stents (most recent 15+ years ago) Cough Factor V Leiden diagnosed due to family history- no personal hx of blood clots/bleeding issues History of heart attack 1999 Hyperlipidemia Nasal congestion Pacemaker PPM/ICD- Implanted 2008/Medtronic/last check 06/2019 per patient Prostate cancer Surgical History History of appendectomy History of cardiac cath 1999 History of colonoscopy History of tonsillectomy History of total right knee replacement Previous back surgery Lumbar spine surgery Family History (Updated 02/21/22 @ 10:51 by SIA Bay III) Mother , in her 60s of unknown cause Alzheimer disease Father , in his 70s Prostate cancer Cardiac disease Glaucoma Alzheimer disease Brother Heart transplant recipient Brother No problems noted. Brother No problems noted. Brother No problems noted. Sister No problems noted. Sister No problems noted. Daughter No problems noted. Daughter No problems noted. Social History Smoking Status: Unknown if ever smoked Tobacco Type: Cigarettes and Cigars Age Started Using Tobacco: 21; Cigarettes Per Day: 1PPD; Second Hand Exposure: Yes; Do You Dip or Chew Tobacco: No; Tobacco Cessation Education Requested by Patient: No Hx Alcohol Use: Yes Alcohol type: beer Alcohol Intake Frequency: 4 or More x per/Week Hx Substance Use: No Preferred Language: Frisian Communication Ability: Effective Communication Ability Comment: difficult to hear Visual Impairment: No Limitations Hearing Ability: Normal Gallery Director Required: No Beliefs That Will Affect Care: None marital status: Current Living Situation: Spouse current occupational status: retired current occupation: [employer] Other Information That Helps Us Care for You: No Feels Safe at Home: Yes Safety Concerns: Feels Safe At This Time Childhood Exposure to Second-Hand Smoke: Yes caffeine: Yes (3 mugs/day) during the past year weight has: remained stable Dental Care, Regularly: Yes Physical Activity Frequency: Does not Exercise Seatbelt Use: always Sunscreen Use: No Assistive Devices: Glasses and Hearing Aid - Bilateral Assistive Devices Comment: glasses for reading, forgot hearing aids at home Review of Systems Review of Systems: as per HPI Physical Exam Physical Exam: General: Ill and tired appearing 76-year-old gentleman lying back in his hospital bed upon my arrival. He is easily alert, but is hard of hearing. HEENT: NCAT. - Eyes - Sclera are white, anicteric, and without injection. PERRL. - Mouth - MMM with no tonsillar edema or exudates. - Neck - supple and without LAD. No JVD. Cardiac: High-normal rate with irregular rhythm; S1 and S2 present with no murmurs, rubs, or gallops. Pulmonary: Mildly increased respiratory effort with symmetric expansion of chest. No use of accessory muscles. Lungs demonstrating diminished lung sounds in the bases bilaterally with scattered rhonchi throughout the right lower lung funk Abdominal: Normoactive bowel sounds. Abdomen was soft, nondistended, and non- tender to palpation. Extremities: Upper and lower extremities are warm and well perfused. No significant peripheral edema Results & Data Results & Data ([facility]) Vital Signs (Past 12 Hours) Vital Signs Temp Pulse Pulse Resp BP BP Pulse Ox 03/02/22 03:34 36.1 C L 103 H 105 H 22 128/108 H 99 03/02/22 03:33 83 L 03/02/22 03:30 36.1 C L 112 H 26 H 134/73 83 L Supervising Physician Co-Signing Physician Notes Attending addendum: I have physically seen this patient, have supervised the medical residents activities, and agree with the H&P unless as otherwise noted. Assessment and Plan: Acute respiratory failure with hypoxia/secondary bacterial pneumonia/COVID-19 infection/COPD- Symptom prodrome followed by an acute worsening of symptoms suggest an underlying mild COVID-19 infection with the development of acute secondary bacterial infection Initial Decadron 10 mg IV, followed by 6 mg IV daily Remdesivir IV per protocol Vancomycin IV per protocol Zosyn 4.5 g IV every 8 hours Azithromycin 500 mg IV daily Duonebs every 4 hours while awake and every 2 hours when necessary. Vitamin D 5000 international units p.o. daily Zinc sulfate 220 mg p.o. daily Oxygen, titrate to keep pulse ox 89-92% Tobacco cessation counseling Consult pulmonology. Patient's daughter had questions about use of antibody treatments that we discussed CAD/LAD stenting/HFrEF/status post AICD placement- Continue aspirin, atorvastatin, atenolol, Entresto, and as needed nitroglycerin sublingual Hyponatremia- Sodium 129 upon admission, with range 126-133 Follow serially Remaining orders and notations as noted Resident Activity Tracking Resident Involvement: Resident Care Provided Care Provided: Adult [facility]
[2022-03-02 05:00] LABS: Albumin Globulin Ratio 1.4 (0.9-2); Albumin Level 3.7 gm/dl (3.4-5.0); BUN Creatinine Ratio 16.2 (10-20); Bilirubin,Total 0.7 mg/dl (0.2-1.0); Calcium 8.9 mg/dl (8.5-10.1); Creatinine Clr Calc Pharmacy 90.8 ml/min; Est GFR (African American) 108.3 ml/min; Est GFR (Non-African American) 93.4 ml/min; Globulin 2.7 gm/dl (2.5-4.0); Potassium 4.8 mmol/L (3.5-5.1); Total Protein 6.4 gm/dl (6.0-8.3)
[2022-03-02] MEDS ORDERED: ACETAMINOPHEN 325 MG TAB PO PRN (05:14)
[2022-03-02] MEDS ORDERED: REMDESIVIR 200 MG in SODIUM CHLORIDE 0.9% 210 ML IV STA (05:31)
[2022-03-02] MEDS ORDERED: DEXTROSE 50% 50 ML SYRINGE IV PRN (05:33)
[2022-03-02] MEDS ORDERED: DC ALL PREVIOUSLY ORDERED DIABETES MEDS ONE (05:33)
[2022-03-02] MEDS ORDERED: GLUCOSE 40% GEL 15 GM TUBE PO PRN (05:33)
[2022-03-02] MEDS ORDERED: GLUCOSE 10 TABS/TUBE PO PRN (05:33)
[2022-03-02] MEDS ORDERED: CARBOHYDRATES FOR HYPOGLYCEMIA PO PRN (05:33)
[2022-03-02] MEDS ORDERED: GLUCAGON FOR INJ 1 MG VIAL SQ PRN (05:33)
[2022-03-02] MEDS ORDERED: INSULIN ASPART PER UNIT SC SCH (07:30)
--- NOTE | 2022-03-02 08:08 | XRay Report ---
XR chest 1V portable CLINICAL HISTORY: Dyspnea. COMPARISON STUDY: Chest radiograph August 22, 2019. FINDINGS: Left subclavian pacer/AICD is in place. There is no pneumothorax. There are trace bilateral pleural effusions. Cardiac megaly is noted. Interlobular septal thickening is noted. Perihilar and b ibasilar opacities are present. IMPRESSION: 1. Interstitial thickening consistent with interstitial pulmonary edema. Perihilar and bibasilar opac ities could reflect alveolar pulmonary edema or superimposed infectious process. 2. Trace bilateral pleural effusions. 3. Cardiomegaly. ACT 112: Negative or not required by law. Electronically signed by: Bandar Jules M.D. 03/02/2022 8:07 AM
--- NOTE | 2022-03-02 08:20 | CT Scan Report ---
CT OF THE CHEST WITHOUT IV CONTRAST CLINICAL HISTORY: hypoxia, COVID pos, suspect bacterial superinfex COMPARISON STUDY: Chest CT December 2017. Chest radiograph performed earlier today. CT DOSE: 368.13 mGy.cm TECHNIQUE: Axial images of the chest were obtained without IV contrast. Images were reviewed in the axial, sagittal, and coronal planes. IV contrast was not administered for this examination. Automat ed exposure control was utilized for the study. A dose lowering technique was utilized adhering to t he principles of ALARA. FINDINGS: A left subclavian pacer/AICD is in place. Moderate cardiomegaly is noted. Evidence for old left ventricular infarct is noted. There is no pericardial effusion. Trace bilateral pleural effusio ns. There is no pneumothorax. Calcified and noncalcified pleural plaques are again noted. 4 cm round masslike subpleural opacity within left lower lobe on axial image 190 of 331 is similar to chest CT F ebruary 2018. Subpleural right lower lobe opacity is unchanged. The findings favor round atelectasis. Interlobular septal thickening is noted. There is patchy airspace opacity within the posterior segme nt of the right upper lobe and superior segment of the right lower lobe. Moderate emphysema is presen t. Mildly enlarged mediastinal and right hilar lymph nodes are present. Index subcarinal lymph node m easures 1.5 cm in short axis diameter. These are slightly increased in size compared to prior CT. No acute fracture or suspicious lesion within the visualized bony thorax. Small bilateral renal calculi are incidentally noted. IMPRESSION: 1. Interlobular septal thickening consistent with interstitial pulmonary edema. Groundglass opacity w ithin the posterior segment of the right upper lobe and superior segment of the right lower lobe coul d reflect a superimposed infectious process or alveolar pulmonary edema. Trace bilateral pleural effu sions. 2. Moderate emphysema. 3. Mildly enlarged mediastinal and right hilar lymph nodes. These are likely reactive or related to p ulmonary edema. A follow-up chest CT in 6 months is recommended. 4. Subpleural left lower lobe opacity which is similar to prior exam. This represents round atelectas is. 5. 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 ACT 112: Negative or not required by law. Electronically signed by: Bandar Jules M.D. 03/02/2022 8:18 AM
[2022-03-02] MEDS ORDERED: NITROGLYCERIN SL 0.4 MG/TAB TAB SL PRN (08:44)
[2022-03-02] MEDS ORDERED: ALBUT/IPRATROP 3MG/0.5MG NEB 3 ML VIAL NEB SCH (08:44)
[2022-03-02] MEDS ORDERED: VANCOMYCIN CONSULT ACTIVE PRN (08:44)
[2022-03-02] MEDS ORDERED: PIPERACILL/TAZOBAC CONSULT ACTIVE PRN (08:44)
[2022-03-02] MEDS ORDERED: [UNRECOGNIZED DRUG - OTHER] PO SCH (09:00)
[2022-03-02] MEDS ORDERED: PIPERACILLIN/TAZOBACTAM 4.5 GM in DEXTROSE 5% 100 ML IV ONE (09:30)
[2022-03-02] MEDS ORDERED: VANCOMYCIN HCL 1,750 MG in SODIUM CHLORIDE 0.9% 500 ML IV ONE (10:00)
[2022-03-02] MEDS: TAMSULOSIN HCL 0.4 MG CAP PO SCH (10:11)
[2022-03-02] MEDS: CHOLECALCIFEROL 1,000 UNITS 25 MCG TAB PO SCH (10:11)
[2022-03-02] MEDS: FUROSEMIDE 20 MG TAB PO SCH (10:11)
[2022-03-02] MEDS: ATENOLOL 50 MG TABLET PO SCH (10:11)
[2022-03-02] MEDS: dexAMETHasone 6 MG in SYRINGE 0 ML IV SCH (10:11)
[2022-03-02] MEDS: ATORVASTATIN 40 MG TAB PO SCH (10:11)
[2022-03-02] MEDS: ASPIRIN 81 MG CHEW PO SCH (10:11)
[2022-03-02] MEDS: VALSARTAN/SACUBITRIL 26/24MG TAB PO SCH ×2 (10:11→20:44)
[2022-03-02] MEDS: AZITHROMYCIN 500 MG in DEXTROSE 5% 250 ML IV SCH (10:45)
[2022-03-02] MEDS: FLUTICASONE/VILANTEROL 100/25MCG 14 PUFFS/INHALER INH SCH (11:48)
[2022-03-02] MEDS: ALBUT/IPRATROP 3MG/0.5MG NEB 3 ML VIAL NEB SCH ×2 (13:42→19:36)
--- NOTE | 2022-03-02 14:28 | Pharmacy Report ---
Pharmacy Vanc AUC Short Note - Date of Service March 02, 2022 - Assessment & Plan Assessment * Mr Almeida is a 76 year old M receiving Vancomycin/Zosyn for treatment of COVID-19 with superimposed bacterial pneumonia. * Pertinent microbiologic data includes: MRSA Nasal Swab (ordered, but not yet collected) * PMH significant for COPD, CAD s/p stenting, HF, current smoker * Patient received one dose of Remdesivir in the ED. He is currently receiving IV dexamethasone daily. Plan Vancomycin * AUC/RIP is the preferred PK/PD target for vancomycin * AUC guided dosing is effective and associated with decreased risk of nephrotoxicity compared to traditional trough targets * Vancomycin 1750mg IV x1 dose, then: * Vanc 1gm IV q12h * This regimen is expected to produce a trough level of ~15.7 mcg/mL and is predicted to achieve target AUC/RIP of 400-600 mg/L.hr. It may be associated with an 11% risk of nephrotoxicity * Will check a vancomycin level closer to steady-state. Zosyn 4.5gm IV x1 dose, then 3.375gm IV q8h Azithromycin 500mg IV daily Pharmacy will continue to follow and will adjust dose/frequency as necessary. Thank you.
[2022-03-02] MEDS ORDERED: IPRATROPIUM BROMIDE NASAL SPRAY 0.06% 15ML NAE ONE (14:30)
[2022-03-02 15:36] LABS: Influenza A virus by PCR Negative (Neg); Influenza B virus by PCR Negative (Neg); RSV by PCR Negative (Neg)
[2022-03-02 15:46] LABS: SARS CoV2 RNA(COVID-19) InHosp POSITIVE (Negative)
[2022-03-02] MEDS: PIPERACILLIN/TAZOBACTAM 3.375 GM in DEXTROSE 5% 100 ML IV SCH (16:50)
[2022-03-02] MEDS ORDERED: VANCOMYCIN HCL 1,000 MG in SODIUM CHLORIDE 0.9% 250 ML IV SCH (20:00)
--- NOTE | 2022-03-02 20:36 | Communication Note ---
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 Still has a cough. No significant dyspnea. Notes that he was feeling much worse earlier in the day and yesterday, is a little worried because he notes that at the beginning of his course of illness he felt bad, then better than bad again. Really does not feel too bad right now. Later called to update. Answered all questions the best my ability. Tried to update daughter as wellbut the only contact information in the chart is her office which is currently closed Vitals noted, in general he is sitting up on the side of the bed playing solitaire in a hooded sweatshirt looking fairly bored off oxygen and in no distress. He does have occasional coughing fits of a deep dry cough. Cardio is distant without rubs murmurs or gallops. Lungs are quiet but clear without rales rhonchi or wheezes no accessory muscle use good effort. Skin without rashes pallor or icterus. Neuro without focal deficits. COVID-pneumoniaquestion of secondary bacterial overgrowthwas hypoxichence initiation of remdesivir and dexamethasonebut appears to be improving nicely. Continue for now. With the question of secondary bacterial overgrowthfollow into tomorrow, his CT was very reassuring to me. Repeat inflammatory markers in the morning but if things are continuing to look predominantly viral, can consider discontinuation of antibiotics. Alcohol dependencewife notes that he drinks 5-6 beers a night, and had concerns about alcohol withdrawalshe noted that whenever he is been in the hospital b efore he has been given a beer1 was ordered to protect against withdrawal. improving
[2022-03-02] MEDS: APIXABAN 5 MG TABLET PO SCH (20:44)
[2022-03-02] MEDS: IPRATROPIUM BROMIDE NASAL SPRAY 0.06% 15ML NAE SCH (20:45)
[2022-03-02] MEDS ORDERED: BEER 1 CAN PO SCH (21:00)
--- NOTE | 2022-03-02 23:21 | Electrocardiogram Report ---
Test Reason : Blood Pressure : / mmHG Vent. Rate : 095 BPM Atrial Rate : 357 BPM P-R Int : 000 ms QRS Dur : 088 ms QT Int : 376 ms P-R-T Axes : 244 005 016 degrees QTc Int : 472 ms Poor data quality, interpretation may be adversely affected Atrial fibrillation with premature ventricular or aberrantly conducted complexes Abnormal ECG When compared with ECG of 22-AUG-2019 14:42, Atrial fibrillation has replaced Sinus rhythm Questionable change in QRS axis Confirmed by Jorge A Mahmood ([id number]) on 03/02/2022 11:21:06 PM Referred By: REFERRED SELF Confirmed By:Jorge A Mahmood
[2022-03-03] MEDS: ALBUT/IPRATROP 3MG/0.5MG NEB 3 ML VIAL NEB SCH ×3 (00:23→13:10)
[2022-03-03] MEDS: PIPERACILLIN/TAZOBACTAM 3.375 GM in DEXTROSE 5% 100 ML IV SCH ×2 (00:30→08:37)
--- NOTE | 2022-03-03 02:17 | Billing Data ---
Date of Service March 03, 2022 Coding Level of Care Code 91628 Initial Inpt Care Lvl 3
[2022-03-03] MEDS ORDERED: METOPROLOL TARTRATE 1 MG/ML VIAL IV STA (04:00)
[2022-03-03 05:19] LABS: Appearance Urine Clear (Clear); Bacteria Urine Automated Negative (Negative); Bilirubin Urine Negative (Negative); Blood Urine Trace (Negative); Cast Urine Automated 0 /lpf (0-5); Color Urine Yellow; Glucose Urine UA 3+ (Negative); Ketones Urine 1+ (Negative); Leukocyte Esterase Urine Negative (Negative); Nitrite Urine Negative (Negative); Protein Urine Negative (Negative); RBC Urine Automated 0-4 /hpf (0-4); Specific Gravity Urine 1.027 (1.000-1.030); Urobilinogen Urine Negative (Negative)
[2022-03-03 08:06] LABS: Hematocrit (blood only) 41.1 % (42-52); Hemoglobin 14.2 g/dL (14.0-18.0); Immature Granulocytes # (auto) 0.02 K/uL (0.00-0.02); Immature Granulocytes % (auto) 0.1 %; Lymphocytes # (auto) 0.58 K/uL (1.2-3.4); Lymphocytes % (auto) 3.4 %; Mean Corpuscular Hemoglobin 35.9 pg (25-34); Mean Corpuscular Hgb Conc 34.5 g/dL (32-36); Mean Corpuscular Volume 104.1 fL (80-100); Mean Platelet Volume 8.8 fL (7.4-10.4); Monocytes # (auto) 0.75 K/uL (0.11-0.59); Monocytes % (auto) 4.5 %; Neutrophils # (auto) 15.49 K/uL (1.4-6.5); Platelet Count 268 K/uL (130-400); RDW Coefficient of Variation 12.9 % (11.5-14.5); RDW Standard Deviation 49.3 fL (36.4-46.3); Red Blood Count 3.95 M/uL (4.7-6.1); White Blood Count 16.84 K/uL (4.8-10.8)
[2022-03-03] MEDS: VALSARTAN/SACUBITRIL 26/24MG TAB PO SCH ×2 (08:08→20:58)
[2022-03-03] MEDS: CHOLECALCIFEROL 1,000 UNITS 25 MCG TAB PO SCH (08:09)
[2022-03-03] MEDS: MULTIVITAMIN TAB PO SCH (08:09)
[2022-03-03] MEDS: ASPIRIN 81 MG CHEW PO SCH (08:09)
[2022-03-03] MEDS: ATORVASTATIN 40 MG TAB PO SCH (08:09)
[2022-03-03] MEDS: FOLIC ACID 1 MG TAB PO SCH (08:09)
[2022-03-03] MEDS: THIAMINE HCL 100 MG TAB PO SCH (08:09)
[2022-03-03] MEDS: APIXABAN 5 MG TABLET PO SCH ×2 (08:09→20:58)
[2022-03-03] MEDS: ATENOLOL 50 MG TABLET PO SCH (08:09)
[2022-03-03] MEDS: FLUTICASONE/VILANTEROL 100/25MCG 14 PUFFS/INHALER INH SCH (08:10)
[2022-03-03] MEDS: TAMSULOSIN HCL 0.4 MG CAP PO SCH (08:10)
[2022-03-03] MEDS: IPRATROPIUM BROMIDE NASAL SPRAY 0.06% 15ML NAE SCH ×2 (08:10→20:58)
[2022-03-03] MEDS: FUROSEMIDE 20 MG TAB PO SCH (08:10)
[2022-03-03 08:15] LABS: Albumin Globulin Ratio 1.4 (0.9-2); Albumin Level 3.4 gm/dl (3.4-5.0); BUN Creatinine Ratio 18.6 (10-20); Bilirubin,Total 0.7 mg/dl (0.2-1.0); C Reactive Protein 8.68 mg/dl (0-0.5); Calcium 8.5 mg/dl (8.5-10.1); Creatinine Clr Calc Pharmacy 63.7 ml/min; Est GFR (African American) 88.1 ml/min; Est GFR (Non-African American) 76.1 ml/min; Globulin 2.5 gm/dl (2.5-4.0); Potassium 4.7 mmol/L (3.5-5.1); Total Protein 5.9 gm/dl (6.0-8.3)
[2022-03-03 08:35] LABS: Estimated Average Glucose 126 mg/dl
[2022-03-03] MEDS: dexAMETHasone 6 MG in SYRINGE 0 ML IV SCH (08:37)
[2022-03-03] MEDS ORDERED: IPRATROPIUM BROMIDE/ALBUTEROL respimat INH INH SCH (09:00)
[2022-03-03] MEDS ORDERED: ATENOLOL 25 MG TABLET PO ONE (09:00)
--- NOTE | 2022-03-03 09:46 | Hospitalist Progress Note ---
Date of Service March 03, 2022 Assessment & Plan (1) COVID-19: Plan: This is a 76-year-old male with a notable history of COPD, CAD status post stenting in mid LAD in July 2000, ischemic HFrEF (EF 34% on stress testing 06/2020) with anteroapical wall motion abnormality status post Medtronic ICD placement, factor V Leiden, paroxysmal atrial fibrillation on Eliquis; admitted for COVID-19 pneumonia in the initial setting of hypoxic respiratory failure. COVID-19 Pneumonia: -continue Dexamethasone 6 mg X 10 days, remdesivir per protocol -limited concerns for underlying bacterial super-infection as such will discontinue Zosyn -Continue azithromycin for COPD exacerbation benefits -continue pulm toilet with DuoNebs every 6 hours scheduled, and flutter valve -Maintain SPO2 between 88-92% in context of known COPD history -- increase O2 requirement as needed -Continue checking CMP with ongoing remdesivir therapy Acute Hypoxic Respiratory Failure (resolved) -Patient presenting with progressive shortness of breath after recently testing positive for COVID-19 -History is complicated by ischemic HFrEF, moderate COPD (follows with [facility] pul[place]ology) -Chest x-ray is concerning for mixed viral and bacterial superinfectionrelated pneumonia -Clinical examination is not consistent at this time with volume overload Hyponatremia: - On review of patient's record, he has a long-term history of hyponatremia ranging from [id number] - On arrival, patient noted to have sodium 129 without other appreciable electrolyte abnormalities H/o Congestive Heart Failure - CAD status post stenting in mid LAD in July 2000, ischemic HFrEF (EF 34% on stress testing 06/2020) with anteroapical wall motion abnormality status post Medtronic ICD placement - Follows with [facility] cardiology - Continue Entresto, Lasix, atenolol, aspirin, atorvastatin ; hold empagliflozin for now - Appears euvolemic on exam at present. Gentle hydration if needed. - Status post ICD placement COPD: - Patient with known and extensive history of COPD, tobacco use - Continue Trelegy while here - Hold home levalbuterol CAROL with scheduled duo nebs; can resume as appropriate - DuoNebs/albuterol as needed - Per pulmonology note, patient not interested in quitting smoking. Continued cessation will be required when appropriate here. - Patient has Pulmonology outpatient appointment on 03/[address] Ruff Atrial Flutter: - Has a known history of paroxysmal atrial fibrillation, however has reportedly been in sinus rhythm and recent history/as detailed in most recent cardiology note - suspect that his tachycardia is continuation of response to current physiologic stressors - Continue atenolol 50mg daily - Continue apixaban - Lopressor 5 mg IV as needed for rates over 110 Coronary Artery Disease: History of CAD requiring mid LAD stenting in July 2000, complicated by ischemic HFrEF (EF 34% on stress testing 06/2020)continue aspirin, atorvastatin, atenolol, nitroglycerin as needed Factor V Leiden: - Per daughter and review of chart, patient has reported history of factor V Le iden based on family history - he personally does not have any history of blood clots, so therefore may be a carrier - Continue anticoagulation: Apixaban 5 mg twice daily Diet: Heart healthy CODE: Full code DVT PPX: Continue home therapeutic Eliquis - 5mg b.i.d. (2) Pneumonia: (3) CAD (coronary artery disease): (4) Hyponatremia: (5) Chronic congestive heart failure: (6) COPD, moderate: (7) Atrial flutter: (8) Factor V Leiden: Admission and Anticipated Discharge Date Admission Date: March 02, 2022 Supervising Physician Co-Signing Physician Notes I personally examined the patient and verified all mathis points of history and exam, discussed case, and agree with decision making with Dr Schofield feeling better. still coughing but not as bad. desaturates and gets some dyspnea on exertion but overall doing better vitals noted nad heent nc at mmm lungs better air entry but maybe faint wheeze now, no accessory muscles no conversational dyspnea good effort. HR controlled. no focal neuro deficits COVID pneumonia/COPD exac -highly doubt secondary bacterial given CT findings and repeatedly reassurring procal -hypoxia has improved- fortunately more than a classic covid pneumonia, really is behaving more as a COPD exacerbation caused by covid -pulmonary toilet, decadron, zithromax EtOH abuse -beer to prevent withdrawal afib/RVR -rates doing better - almost certainly reactive to physiologic stress, continue beta blockers, and follow -anticoagulated Subjective Pt feels much improved this morning, overnight had a point when he was asleep that his oxygen concentrations dropped into the 80s but they quickly bounced up after he woke up and he did not require any supplemental oxygen after that time. Additionally had time this morning where he felt fatigued as he was up an walkin g around that resolved as he got back to sitting down and has been feeling well since that time. Called family to discuss, was able to speak with patient's and patient's daughter provided them with updates on his current condition and continued improvement. Review of Systems Review of Systems: All systems reviewed & are unremarkable except as noted in Subjective Physical Exam Constitutional: WD/WN, vitals as above Eyes: PERRL, conjunctivae normal, anicteric sclerae Respiratory: normal respiratory effort, lungs clear to auscultation Auscultation: + wheezes (b/l upper lobes); no crackles, no rales and no rhonchi (coarse along bibasilar lung funk) Cardiovascular: Rate/Rhythm: regular rate and regular rhythm Heart Sounds: no gallop, no murmur and no cardiac rub Vessels: normal peripheral pulses; no JVD Gastrointestinal (Abdomen): Inspection/Auscultation: normal bowel sounds; abdomen not distended Percussion/Palpation: abdomen soft; abdomen nontender and no guarding Skin: no rashes, warm and dry Neurologic: PERRL, EOMI, accommodation nl, no face palsy, no dysarthria CN's II-XI intact bilaterally and moves all extremities Psychiatric: Orientation: alert and oriented x 3 Results & Data Results & Data ([facility]) Vital Signs (Past 12 Hours) Vital Signs Temp Pulse Pulse Pulse Resp BP BP 03/03/22 08:18 36.5 C 125 H 16 100/63 03/03/22 07:32 74 20 03/03/22 05:29 36.7 C 116 H 16 112/80 03/03/22 04:00 132 H 03/03/22 00:23 18 03/03/22 00:00 60 03/02/22 23:51 36.7 C 103 H 16 111/68 Pulse Ox 03/03/22 08:18 88 L 03/03/22 07:32 94 03/03/22 05:29 98 03/03/22 04:00 03/03/22 00:23 95 03/03/22 00:00 03/02/22 23:51 93 Laboratory Results 03/03/22 03/03/22 03/03/22 Range/Units Unknown 07:34 07:34 WBC 16.84 H (4.8-10.8) K/uL RBC 3.95 L (4.7-6.1) M/uL Hgb 14.2 (14.0-18.0) g/dL Hct 41.1 L (42-52) % MCV 104.1 H (80-100) fL MCH 35.9 H (25-34) pg MCHC 34.5 (32-36) g/dL RDW Std Deviation 49.3 H (36.4-46.3) fL RDW Coeff of Marlyn 12.9 (11.5-14.5) % Plt Count 268 (130-400) K/uL MPV 8.8 (7.4-10.4) fL Immature Gran % (Auto) 0.1 % Neut % (Auto) 92.0 % Lymph % (Auto) 3.4 % Lipscomb % (Auto) 4.5 % Eos % (Auto) 0.0 % Baso % (Auto) 0.0 % Neut # (Auto) 15.49 H (1.4-6.5) K/uL Lymph # (Auto) 0.58 L (1.2-3.4) K/uL Lipscomb # (Auto) 0.75 H (0.11-0.59) K/uL Eos # (Auto) 0.00 (0-0.5) K/uL Baso # (Auto) 0.00 (0-0.2) K/uL Immature Gran # (Auto) 0.02 (0.00-0.02) K/uL Sodium (136-145) mmol/L Potassium (3.5-5.1) mmol/L Chloride (98-107) mmol/L Carbon Dioxide (21-32) mmol/L Anion Gap (3-11) BUN (6-23) mg/dl Creatinine (0.6-1.4) mg/dl Est Cr Clr Drug Dosing ml/min Est GFR ( Amer) ml/min Est GFR (Non-Af Amer) ml/min BUN/Creatinine Ratio (10-20) Glucose (70-99(Fasting)) mg/dl Estimat Average Glucose 126 mg/dl Hemoglobin A1c 6.0 H (4.5-5.6) % Calcium (8.5-10.1) mg/dl Total Bilirubin (0.2-1.0) mg/dl AST (13-39) U/L ALT (7-52) U/L Alkaline Phosphatase (34-104) U/L C-Reactive Protein (0-0.5) mg/dl Total Protein (6.0-8.3) gm/dl Albumin (3.4-5.0) gm/dl Globulin (2.5-4.0) gm/dl Albumin/Globulin Ratio (0.9-2) Procalcitonin (0-0.5) ng/ml Urine Color Yellow Urine Appearance Clear (Clear) Urine pH 5.0 (4.5-7.5) Ur Specific [place] 1.027 (1.000-1.030) Urine Protein Negative (Negative) Urine Glucose (UA) 3+ H (Negative) Urine Ketones 1+ H (Negative) Urine Blood Trace H (Negative) Urine Nitrite Negative (Negative) Urine Bilirubin Negative (Negative) Urine Urobilinogen Negative (Negative) Ur Leukocyte Esterase Negative (Negative) Urine WBC (Auto) 1-5 (0-5) /hpf Urine RBC (Auto) 0-4 (0-4) /hpf U Hyaline Cast (Auto) 0 (0-5) /lpf U Epithel Cells (Auto) 5-10 H (0-5) /lpf Urine Bacteria (Auto) Negative (Negative) 03/03/22 03/03/22 Range/Units 07:34 07:34 WBC (4.8-10.8) K/uL RBC (4.7-6.1) M/uL Hgb (14.0-18.0) g/dL Hct (42-52) % MCV (80-100) fL MCH (25-34) pg MCHC (32-36) g/dL RDW Std Deviation (36.4-46.3) fL RDW Coeff of Marlyn (11.5-14.5) % Plt Count (130-400) K/uL MPV (7.4-10.4) fL Immature Gran % (Auto) % Neut % (Auto) % Lymph % (Auto) % [place]comb % (Auto) % Eos % (Auto) % Baso % (Auto) % Neut # (Auto) (1.4-6.5) K/uL Lymph # (Auto) (1.2-3.4) K/uL [place]comb # (Auto) (0.11-0.59) K/uL Eos # (Auto) (0-0.5) K/uL Baso # (Auto) (0-0.2) K/uL Immature Gran # (Auto) (0.00-0.02) K/uL Sodium 128 L (136-145) mmol/L Potassium 4.7 (3.5-5.1) mmol/L Chloride 100 (98-107) mmol/L Carbon Dioxide 20 L (21-32) mmol/L Anion Gap 8 (3-11) BUN 18 (6-23) mg/dl Creatinine 0.97 (0.6-1.4) mg/dl Est Cr Clr Drug Dosing 63.7 ml/min Est GFR ( Amer) 88.1 ml/min Est GFR (Non-Af Amer) 76.1 ml/min BUN/Creatinine Ratio 18.6 (10-20) Glucose 139 H (70-99(Fasting)) mg/dl Estimat Average Glucose mg/dl Hemoglobin A1c (4.5-5.6) % Calcium 8.5 (8.5-10.1) mg/dl Total Bilirubin 0.7 (0.2-1.0) mg/dl AST 16 (13-39) U/L ALT 16 (7-52) U/L Alkaline Phosphatase 67 (34-104) U/L C-Reactive Protein 8.68 H (0-0.5) mg/dl Total Protein 5.9 L (6.0-8.3) gm/dl Albumin 3.4 (3.4-5.0) gm/dl Globulin 2.5 (2.5-4.0) gm/dl Albumin/Globulin Ratio 1.4 (0.9-2) Procalcitonin < 0.05 (0-0.5) ng/ml Urine Color Urine Appearance (Clear) Urine pH (4.5-7.5) Ur Specific [place] (1.000-1.030) Urine Protein (Negative) Urine Glucose (UA) (Negative) Urine Ketones (Negative) Urine Blood (Negative) Urine Nitrite (Negative) Urine Bilirubin (Negative) Urine Urobilinogen (Negative) Ur Leukocyte Esterase (Negative) Urine WBC (Auto) (0-5) /hpf Urine RBC (Auto) (0-4) /hpf U Hyaline Cast (Auto) (0-5) /lpf U Epithel Cells (Auto) (0-5) /lpf Urine Bacteria (Auto) (Negative) Medications Administered Current Inpatient Medications Acetaminophen (Acetaminophen 325 Mg Tab) 650 mg PO Q4H PRN PRN Reason: Pain or Fever Stop: 04/01/22 05:13 Albuterol (Albuterol Hfa 8 Gm Inhaler) 1 puffs INH QIDR CAROL Stop: 04/02/22 10:59 Last Admin: 03/03/22 15:40 Dose: 1 puffs Documented by: Albuterol (Albut/Ipratrop 3mg/0.5mg Neb 3 Ml Vial) 3 ml NEB Q6R PRN; Protocol PRN Reason: Shortness Of Breath Or Wheezing Stop: 04/01/22 13:27 Apixaban (Apixaban 5 Mg Tablet) 5 mg PO BID [facility] Stop: 04/01/22 20:59 Last Admin: 03/03/22 08:09 Dose: 5 mg Documented by: Aspirin (Aspirin 81 Mg Chew) 81 mg PO DAILY [facility] Stop: 04/01/22 08:59 Last Admin: 03/03/22 08:09 Dose: 81 mg Documented by: Atenolol (Atenolol 50 Mg Tablet) 50 mg PO QAM [facility] Stop: 04/01/22 08:59 Last Admin: 03/03/22 08:09 Dose: 50 mg Documented by: Atorvastatin Calcium (Atorvastatin 40 Mg Tab) 40 mg PO DAILY [facility] Stop: 04/01/22 08:59 Last Admin: 03/03/22 08:09 Dose: 40 mg Documented by: Dextrose (Dextrose 50% 50 Ml Syringe) 25 - 50 ml IV UD PRN; Protocol PRN Reason: Hypoglycemia Protocol Stop: 04/01/22 05:32 Fluticasone/Vilanterol (Fluticasone/Vilanterol 100/25mcg 14 Puffs/Inhaler) 1 puffs INH DAILY CAROL; Protocol Stop: 04/01/22 10:29 Last Admin: 03/03/22 08:10 Dose: 1 puffs Documented by: Folic Acid (Folic Acid 1 Mg Tab) 1 mg PO QAM [facility] Stop: 04/02/22 08:59 Last Admin: 03/03/22 08:09 Dose: 1 mg Documented by: Furosemide (Furosemide 20 Mg Tab) 20 mg PO QAM CAROL Stop: 04/01/22 08:59 Last Admin: 03/03/22 08:10 Dose: 20 mg Documented by: Glucagon (Glucagon For Inj 1 Mg Vial) 1 mg SQ UD PRN; Protocol PRN Reason: Hypoglycemia Protocol Stop: 04/01/22 05:32 Glucose (Glucose 10 Tabs/Tube) 4 - 8 tabs PO UD PRN; Protocol PRN Reason: Hypoglycemia Protocol Stop: 04/01/22 05:32 Glucose (Glucose 40% Gel 15 Gm Tube) 15 - 30 gm PO UD PRN; Protocol PRN Reason: Hypoglycemia Protocol Stop: 04/01/22 05:32 Azithromycin 500 mg/ Dextrose 255 mls @ 127.5 mls/hr IV Q24H CAROL Stop: 03/09/22 10:59 Last Infusion: 03/03/22 13:47 Dose: Infused Documented by: Dexamethasone 6 mg/ Syringe 1.5 mls @ 1 mls/min IV DAILY CAROL Stop: 04/01/22 09:14 Last Admin: 03/03/22 08:37 Dose: 1 mls/min Documented by: Ipratropium Page (Ipratropium Page Nasal [place] 0.06% 15ml) 1 sprays MARIE BID [facility] Stop: 04/01/22 20:59 Last Admin: 03/03/22 08:10 Dose: 1 sprays Documented by: Ipratropium Page (Ipratropium Page Hfa Inhaler) 1 puffs INH QIDR [facility] Stop: 04/02/22 10:59 Last Admin: 03/03/22 15:41 Dose: 1 puffs Documented by: Melatonin (Melatonin 3 Mg Tab) 3 mg PO HS PRN PRN Reason: Sleep Stop: 04/01/22 23:46 Last Admin: 03/03/22 00:00 Dose: 3 mg Documented by: Miscellaneous (Carbohydrates For Hypoglycemia ) 15 - 30 gm PO UD PRN PRN Reason: Hypoglycemia Protocol Stop: 04/01/22 05:32 Multivitamins (Multivitamin Tab) 1 tab PO QAM [facility] Stop: 04/02/22 08:59 Last Admin: 03/03/22 08:09 Dose: 1 tab Documented by: Nitroglycerin (Nitroglycerin Sl 0.4 Mg/Tab Tab) 0.4 mg SL Q5M PRN PRN Reason: chest pain Stop: 04/01/22 08:43 Non-Formulary Medication (Beer 1 Can) 1 can PO ACHS [facility] Stop: 04/02/22 11:29 Last Admin: 03/03/22 17:12 Dose: 1 can Documented by: Sacubitril/Valsartan (Valsartan/Sacubitril 26/24mg Tab) 1 tab PO BID CAROL Stop: 04/01/22 08:59 Last Admin: 03/03/22 08:08 Dose: 1 tab Documented by: Tamsulosin HCl (Tamsulosin Hcl 0.4 Mg Cap) 0.4 mg PO DAILY CAROL Stop: 04/01/22 08:59 Last Admin: 03/03/22 08:10 Dose: 0.4 mg Documented by: Thiamine HCl (Thiamine Hcl 100 Mg Tab) 100 mg PO QAM CAROL Stop: 04/02/22 08:59 Last Admin: 03/03/22 08:09 Dose: 100 mg Documented by: Vitamin D (Cholecalciferol 1,000 Units 25 Mcg Tab) 1,000 units PO DAILY CAROL Stop: 04/01/22 08:59 Last Admin: 03/03/22 08:09 Dose: 1,000 units Documented by: Resident Activity Tracking Resident Involvement: Resident Care Provided Care Provided: Adult Hospital Medicine
[2022-03-03] MEDS: AZITHROMYCIN 500 MG in DEXTROSE 5% 250 ML IV SCH (11:46)
[2022-03-03] MEDS: BEER 1 CAN PO SCH ×3 (11:46→20:58)
[2022-03-03] MEDS: ALBUTEROL HFA 8 GM INHALER INH SCH ×3 (12:59→19:43)
[2022-03-03] MEDS: IPRATROPIUM BROMIDE HFA INHALER INH SCH ×3 (13:00→19:43)
[2022-03-03] MEDS ORDERED: ALBUT/IPRATROP 3MG/0.5MG NEB 3 ML VIAL NEB PRN (13:28)
--- NOTE | 2022-03-03 17:07 | Billing Data ---
Date of Service March 03, 2022 Coding Level of Care Code 58087 Subseq Hosp Care Lvl 3
[2022-03-03] MEDS: MELATONIN 3 MG TAB PO PRN ×2 (20:57)
[2022-03-04 07:04] LABS: Hematocrit (blood only) 44.5 % (42-52); Hemoglobin 15.6 g/dL (14.0-18.0); Immature Granulocytes # (auto) 0.07 K/uL (0.00-0.02); Immature Granulocytes % (auto) 0.4 %; Lymphocytes # (auto) 0.64 K/uL (1.2-3.4); Lymphocytes % (auto) 3.9 %; Mean Corpuscular Hemoglobin 35.9 pg (25-34); Mean Corpuscular Hgb Conc 35.1 g/dL (32-36); Mean Corpuscular Volume 102.3 fL (80-100); Mean Platelet Volume 8.8 fL (7.4-10.4); Monocytes # (auto) 0.96 K/uL (0.11-0.59); Monocytes % (auto) 5.9 %; Neutrophils # (auto) 14.67 K/uL (1.4-6.5); Neutrophils % (auto) 89.8 %; Platelet Count 273 K/uL (130-400); RDW Standard Deviation 48.9 fL (36.4-46.3); Red Blood Count 4.35 M/uL (4.7-6.1); White Blood Count 16.34 K/uL (4.8-10.8)
[2022-03-04] MEDS: IPRATROPIUM BROMIDE HFA INHALER INH SCH ×2 (07:16→11:24)
[2022-03-04] MEDS: ALBUTEROL HFA 8 GM INHALER INH SCH ×2 (07:16→11:25)
[2022-03-04 08:04] LABS: Albumin Globulin Ratio 1.4 (0.9-2); Albumin Level 3.7 gm/dl (3.4-5.0); BUN Creatinine Ratio 23.1 (10-20); Bilirubin,Total 0.7 mg/dl (0.2-1.0); Creatinine Clr Calc Pharmacy 79.2 ml/min; Est GFR (African American) 102.3 ml/min; Est GFR (Non-African American) 88.3 ml/min; Globulin 2.7 gm/dl (2.5-4.0); Potassium 4.9 mmol/L (3.5-5.1); Total Protein 6.4 gm/dl (6.0-8.3)
[2022-03-04] MEDS: APIXABAN 5 MG TABLET PO SCH ×2 (08:48→21:29)
[2022-03-04] MEDS: THIAMINE HCL 100 MG TAB PO SCH (08:49)
[2022-03-04] MEDS: MULTIVITAMIN TAB PO SCH (08:49)
[2022-03-04] MEDS: ASPIRIN 81 MG CHEW PO SCH (08:49)
[2022-03-04] MEDS: FOLIC ACID 1 MG TAB PO SCH (08:49)
[2022-03-04] MEDS: CHOLECALCIFEROL 1,000 UNITS 25 MCG TAB PO SCH (08:49)
[2022-03-04] MEDS: TAMSULOSIN HCL 0.4 MG CAP PO SCH (08:49)
[2022-03-04] MEDS: ATORVASTATIN 40 MG TAB PO SCH (08:49)
[2022-03-04] MEDS: ATENOLOL 50 MG TABLET PO SCH ×2 (08:49→21:30)
[2022-03-04] MEDS: VALSARTAN/SACUBITRIL 26/24MG TAB PO SCH ×2 (08:49→21:29)
[2022-03-04] MEDS: FLUTICASONE/VILANTEROL 100/25MCG 14 PUFFS/INHALER INH SCH (08:50)
[2022-03-04] MEDS: BEER 1 CAN PO SCH ×4 (08:50→21:30)
[2022-03-04] MEDS: FUROSEMIDE 20 MG TAB PO SCH (08:50)
[2022-03-04] MEDS: IPRATROPIUM BROMIDE NASAL SPRAY 0.06% 15ML NAE SCH ×2 (08:51→21:30)
[2022-03-04] MEDS: dexAMETHasone 6 MG in SYRINGE 0 ML IV SCH (09:03)
[2022-03-04] MEDS ORDERED: ATENOLOL 25 MG TABLET PO STA (11:19)
[2022-03-04] MEDS: AZITHROMYCIN 500 MG in DEXTROSE 5% 250 ML IV SCH (12:26)
[2022-03-04] MEDS ORDERED: ALBUTEROL HFA 8 GM INHALER INH PRN (14:30)
[2022-03-04] MEDS ORDERED: IPRATROPIUM BROMIDE HFA INHALER INH PRN (14:30)
--- NOTE | 2022-03-04 15:10 | Hospitalist Progress Note ---
Date of Service March 04, 2022 Assessment & Plan (1) COVID-19: Plan: This is a 76-year-old male with a notable history of COPD, CAD status post stenting in mid LAD in July 2000, ischemic HFrEF (EF 34% on stress testing 06/2020) with anteroapical wall motion abnormality status post Medtronic ICD placement, factor V Leiden, paroxysmal atrial fibrillation on Eliquis; admitted for COVID-19 pneumonia in the initial setting of hypoxic respiratory failure. COVID-19 Pneumonia: -Dexamethasone 6 mg X 10 days, remdesivir per protocol -limited concerns for bacterial super-infection as procal negative; Zosyn discontinued -Continue azithromycin for anti-inflammatory benefit -continue pulm toilet with DuoNebs every 6 hours scheduled, and flutter valve -Maintain SPO2 between 88-92% in context of known COPD history ; O2 sats remained at goal with ambulation -isolation precautions Acute Hypoxic Respiratory Failure (resolved) - likely due to acute covid 19 illness - no evidence of volume overload on exam Hyponatremia: - On review of patient's record, he has a long-term history of hyponatremia ranging from [id number] - On arrival, patient noted to have sodium 129 without other appreciable electrolyte abnormalities - Na up to 131 H/o Congestive Heart Failure - CAD status post stenting in mid LAD in July 2000, ischemic HFrEF (EF 34% on stress testing 06/2020) with anteroapical wall motion abnormality status post Medtronic ICD placement - Follows with [facility] cardiology - Continue Entresto, Lasix, atenolol. It is unclear why he is not on metoprolol or carvedilol rather than atenolol COPD: - Continue home Trelegy inhaler - Hold home levalbuterol as he is getting scheduled duo nebs; can resume as appropriate - current smoker; per pulmonology note, patient not interested in quitting smoking. Continued motivational interviewing will be required when appropriate here. - Patient has Pulmonology outpatient appointment arranged on 03/[address] Bernadette Nur with RVR: - Has a known history of paroxysmal atrial fibrillation, however has reportedly been in sinus rhythm and recent history/as detailed in most recent cardiology note - Continue apixaban for reduction in stroke risk - suspect that his tachycardia is continuation of response to current physiologic stressors vs. underlying poor rate control. - Increase home dose atenolol from 50mg daily to BID for added rate control - Lopressor 5 mg IV as needed for rates over 110 Coronary Artery Disease: History of CAD requiring mid LAD stenting in July 2000 - continue aspirin, atorvastatin, atenolol, nitroglycerin as needed Factor V Leiden: - patient has reported history of factor V Leiden - he personally does not have any history of blood clots, so therefore may be a carrier - Continue anticoagulation: Apixaban 5 mg twice daily Prediabetes: - hold home jardiance - A1c 6.0 during hospitalization - carb consistent diet Alcohol use disorder - continue folate + thiamine - 1 beer ordered ACHS here to prevent withdrawal Diet: Heart healthy CODE: Full code DVT PPX: Continue home therapeutic Eliquis - 5mg b.i.d. Dispo: [facility] (2) Pneumonia: (3) CAD (coronary artery disease): (4) Hyponatremia: (5) Chronic congestive heart failure: (6) COPD, moderate: (7) Atrial flutter: (8) Factor V Leiden: Admission and Anticipated Discharge Date Admission Date: March 02, 2022 Supervising Physician Co-Signing Physician Notes I personally examined the patient and verified all mathis points of history and exam, discussed case, and agree with decision making with Dr Armando Still notes dyspnea on exertion. Notes that it is better than yesterday, but still fairly bad. Of note he desaturated on exertion yesterday but does not today. Tried to call daughter to updatecontact number listed in the chart is her office, contact number given to me by Dr. Schofield goes to a cell phonebut unfortunately went to voicemail which was not yet set up. Called patient's and updated extensively. vitals noted nad heent nc at mmm breathing unlabored, no accessory muscles no conversational dyspnea good effort. HR slightly fast. no focal neuro deficits COVID pneumonia/COPD exac -highly doubt secondary bacterial given CT findings and repeatedly reassuring procalcitonin -hypoxia has improved- fortunately more than a classic covid pneumonia, really is behaving more as a COPD exacerbation caused by covid -Continue pulmonary toilet, decadron, zithromax -Does show improvement. Discussed with patient quite frankly that with COVID we have seen a prolonged phase with dyspnea on exertion/desaturation on exertion, and the fact that while he still has dyspnea on exertion his desaturation has improved is extremely reassuring Tachycardia (A. fib/RVR) -While he has a physiologic response to being ill with COVID/COPD exacerbation as the nidus for the tachycardia, it seems inappropriately elevated relative to his degree of recoveryto that respect I suspect it is at this point functionally a mild degree of RVRincrease atenolol -Anticoagulated EtOH abuse -Continue beer to prevent withdrawal Subjective no acute events overnight. patient says he feels much better. Review of Systems Review of Systems: All systems reviewed & are unremarkable except as noted in HPI & below Physical Exam Constitutional: WD/WN, vitals as above cooperative; no acute distress Eyes: + anicteric sclerae ENMT: external ear and nose normal, oropharynx normal Neck: normal visual inspection and trachea midline Respiratory: normal respiratory effort, lungs clear to auscultation Cardiovascular: RRR, no murmur, no edema Heart Sounds: normal S1 and normal S2 Gastrointestinal (Abdomen): normal bowel sounds, soft, nontender, no hepatosplenomegaly Musculoskeletal: Head/Neck/Chest: normocephalic and head atraumatic Skin: no rashes, warm and dry Neurologic: moves all extremities Psychiatric: A+Ox3, euthymic affect Results & Data Results & Data ([facility]) Vital Signs (Past 12 Hours) Vital Signs Temp Pulse Pulse Pulse Resp BP BP 03/04/22 12:33 37.0 C 107 H 18 105/74 03/04/22 11:26 91 H 18 03/04/22 10:03 118 H 03/04/22 07:46 36.6 C 108 H 20 118/82 03/04/22 07:19 115 H 18 03/04/22 04:05 36.7 C 114 H 18 108/70 Pulse Ox 03/04/22 12:33 98 03/04/22 11:26 91 03/04/22 10:03 03/04/22 07:46 92 03/04/22 07:19 96 03/04/22 04:05 94
--- NOTE | 2022-03-04 18:24 | Billing Data ---
Date of Service March 04, 2022 Coding Level of Care Code 51125 Subseq Hosp Care Lvl 3
[2022-03-05] MEDS: dexAMETHasone 6 MG in SYRINGE 0 ML IV SCH (07:57)
[2022-03-05] MEDS: FLUTICASONE/VILANTEROL 100/25MCG 14 PUFFS/INHALER INH SCH (07:57)
[2022-03-05] MEDS: ATENOLOL 50 MG TABLET PO SCH (07:58)
[2022-03-05] MEDS: APIXABAN 5 MG TABLET PO SCH (07:58)
[2022-03-05] MEDS: VALSARTAN/SACUBITRIL 26/24MG TAB PO SCH (07:58)
[2022-03-05] MEDS: IPRATROPIUM BROMIDE NASAL SPRAY 0.06% 15ML NAE SCH (07:58)
[2022-03-05] MEDS: CHOLECALCIFEROL 1,000 UNITS 25 MCG TAB PO SCH (07:59)
[2022-03-05] MEDS: THIAMINE HCL 100 MG TAB PO SCH (07:59)
[2022-03-05] MEDS: ASPIRIN 81 MG CHEW PO SCH (07:59)
[2022-03-05] MEDS: ATORVASTATIN 40 MG TAB PO SCH (07:59)
[2022-03-05] MEDS: FUROSEMIDE 20 MG TAB PO SCH (07:59)
[2022-03-05] MEDS: FOLIC ACID 1 MG TAB PO SCH (07:59)
[2022-03-05] MEDS: MULTIVITAMIN TAB PO SCH (07:59)
[2022-03-05] MEDS: TAMSULOSIN HCL 0.4 MG CAP PO SCH (07:59)
[2022-03-05] MEDS ORDERED: METOPROLOL TARTRATE 25 MG TAB PO STA (09:43)
[2022-03-05 09:51] VITALS: O2SAT 94
--- NOTE | 2022-03-05 11:00 | Discharge Summary ---
Date of Service March 05, 2022 Admission HPI Per Admitting Provider This is a 76-year-old male with a notable history of COPD, CAD status post stenting in mid LAD in July 2000, ischemic HFrEF (EF 34% on stress testing 06/2020) with anteroapical wall motion abnormality status post Medtronic ICD placement, paroxysmal atrial fibrillation, parotid neoplasm, lung nodule, neurocognitive disorder who presented to [facility] for evaluation of shortness of breath. History is provided by daughter given patient's hard of hearing and absence of hearing aids. Patient reportedly started feeling ill approximately 2-3 days ago. He progressively developed shortness of breath. He has had intermittent coughing and loss of appetite. No report of significant fevers, nausea, or vomiting. Patient's reportedly tested positive for COVID-19 on Sunday and was mildly symptomatic. He has received 3 COVID vaccines. In the ED, patient was found to be normotensive 130/70, tachycardic 112, respiratory rate 26 with oxygen saturation 83% on room air, temperature 36.1. He was put on 6 L nasal cannula and subsequently improved his oxygen saturation. His labs reveal a white count of 9.2 with neutrophilic predominance and relative lymphopenia, platelet 255, VBG demonstrating mild acidosis 7.34/PCO2 48/02 20/HCO3 25. Chest x-ray obtained in the ED demonstrates diffuse opacities within both the right and left lungs, with notable prominence within the right lower lobe, concerning for a mixed viral and possibly overlying bacterial PNA. In the ED, patient had EKG obtained that demonstrated atrial flutter with high- normal ventricular rate. He was given albuterol and methyl prednisolone 125mg x 1. Admission Exam Per Admitting Provider General: Ill and tired appearing 76-year-old gentleman lying back in his hospital bed upon my arrival. He is easily alert, but is hard of hearing. HEENT: NCAT. - Eyes - Sclera are white, anicteric, and without injection. PERRL. - Mouth - MMM with no tonsillar edema or exudates. - Neck - supple and without LAD. No JVD. Cardiac: High-normal rate with irregular rhythm; S1 and S2 present with no murmurs, rubs, or gallops. Pulmonary: Mildly increased respiratory effort with symmetric expansion of chest. No use of accessory muscles. Lungs demonstrating diminished lung sounds in the bases bilaterally with scattered rhonchi throughout the right lower lung funk Abdominal: Normoactive bowel sounds. Abdomen was soft, nondistended, and non-t guy to palpation. Extremities: Upper and lower extremities are warm and well perfused. No significant peripheral edema Principal Diagnosis COVID-19 Discharge Exam Constitutional WD/WN, vitals as above cooperative; no acute distress Eyes + anicteric sclerae ENMT external ear and nose normal, oropharynx normal Neck normal visual inspection and trachea midline Respiratory normal respiratory effort, lungs clear to auscultation normal respiratory effort; no respiratory distress and no labored breathing Auscultation: + wheezes (on expiration ); no crackles, no rales and no rhonchi Cardiovascular RRR, no murmur, no edema Rate/Rhythm: + tachycardic; + abnormal rhythm Heart Sounds: normal S1 and normal S2 Extremities: no pedal edema Gastrointestinal (Abdomen) normal bowel sounds, soft, nontender, no hepatosplenomegaly Musculoskeletal Head/Neck/Chest: normocephalic and head atraumatic Skin no rashes, warm and dry Neurologic moves all extremities Psychiatric A+Ox3, euthymic affect Discharge Data Allergies Allergy/AdvReac Type Severity Reaction Status Date / Time morphine Allergy Intermediate Swelling Verified 03/02/22 06:27 clopidogrel Allergy Unknown Unknown Verified 03/02/22 06:27 reaction fluticasone furoate AdvReac Intermediate Pain Verified 03/02/22 06:27 [From Trelegy Ellipta] behind the eyes umeclidinium AdvReac Intermediate Pain Verified 03/02/22 06:27 [From Trelegy Ellipta] behind the eyes vilanterol AdvReac Intermediate Pain Verified 03/02/22 06:27 [From Trelegy Ellipta] behind the eyes 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 (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 Allergy Severe SHORTNESS Uncoded 03/02/22 06:27 BASED) OF BREATH - SEE NOTES Consultations 03/02/22 05:05 ED Decision to Admit Stat Ordered Studies 03/02/22 05:31 CT chest diagnostic wo con Urgent Hospital Course (1) COVID-19: This is a 76-year-old male with a notable history of COPD, CAD status post stenting in mid LAD in July 2000, ischemic HFrEF (EF 34% on stress testing 06/2020) with anteroapical wall motion abnormality status post Medtronic ICD placement, factor V Leiden, paroxysmal atrial fibrillation on Eliquis; admitted for COVID-19 pneumonia in the initial setting of hypoxic respiratory failure. COVID-19 Pneumonia: - tested positive on admission despite being fully immunized (ie two booster doses). Patient initially required supplemental O2 but was breathing well on room air by the time of discharge. - he was placed on isolation and started on Dexamethasone 6 mg, Duo-Nebs and Remdesivir per protocol. He was given a script for Dexamethasone 6mg daily for 6 days to complete 10 day steroid course upon discharge. - initially there were concerns for a bacterial super-infection, however empiric antibiotics were stopped when his procal returned negative. Azithromycin was given for 3 days for pulmonary anti-inflammatory benefit Acute Hypoxic Respiratory Failure (resolved by discharge) - likely due to acute covid 19 illness - no evidence of volume overload on exam Hyponatremia: - On review of patient's record, he has a long-term history of hyponatremia ranging from [id number] - On arrival, patient noted to have sodium 129 without other appreciable electrolyte abnormalities - Na up to 131 by discharge H/o Congestive Heart Failure - CAD status post stenting in mid LAD in July 2000, ischemic HFrEF (EF 34% on stress testing 06/2020) with anteroapical wall motion abnormality status post Medtronic ICD placement - Follows with [facility] cardiology and outside cafe associate Dr. Witt - Continue NoemistBlanca price, beta terra. Patient been on atenolol - but this was changed to metoprolol succinate 100mg daily upon discharge. COPD: - Continue home Trelegy and levalbuterol inhalers - current smoker; per pulmonology note, patient not interested in quitting smoking. Continued motivational interviewing will be required when appropriate here. - Patient has Pulmonology outpatient appointment arranged on 03/[address] Fleming Atrial Flutter with RVR: - Has a known history of paroxysmal atrial fibrillation and presented with elevated HR while inpatient - initially his tachycardia was thought to be due to current physiologic stress of COVID 19 illness, however persistent elevated HR became more concerning for underlying poor rate control. - His atenolol dose was initially increased from 50mg once daily to BID. However upon discharge, his beta blockade was changed to Metoprolol Succinate 100mg qam. - Continue apixaban for reduction in stroke risk Outpatient items to do: Please assess rate control on metoprolol succinate and adjust dose as necessary Coronary Artery Disease: History of CAD requiring mid LAD stenting in July 2000 - continue aspirin, atorvastatin, metoprolol, nitroglycerin as needed Factor V Leiden: - patient has reported history of factor V Leiden - he personally does not have any history of blood clots, so therefore may be a carrier - Continue anticoagulation: Apixaban 5 mg twice daily Prediabetes: - A1c 6.0 during hospitalization - continue home dose Jardiance - diabetic diet Alcohol use disorder - patient was ordered beers while inpatient to prevent withdrawal - recommend discussion of cessation/cutting back upon discharge (2) Pneumonia: (3) CAD (coronary artery disease): (4) Hyponatremia: (5) Chronic congestive heart failure: (6) COPD, moderate: (7) Atrial flutter: (8) Factor V Leiden: Total Time Total Time Spent Total Time Spent (In Minutes): see attending attestation Discharge Plan Discharge Items Patient Disposition: Home - Self-Care Reason For Visit: COVID, SECONDARY BACTERIAL PNA Discharge Diagnosis: Covid 19 Activity: Resume your previous activity Non-emergency contact: Primary Care Provider Call non-emergency contact if: your symptoms worsen Follow-up/Referrals: Aquilino Silver III, CRNP [Primary Care Provider] - Diet: Carb Consistent or DM2 and Heart Healthy Addtl Attending Provider Instructions: You were admitted to [facility] for evaluation of shortness of breath. On arrival, you tested positive for covid 19. Initially you required supplemental oxygen to maintain normal levels - however you were breathing well on your own by the time of your discharge. You were treated with IV steroids, Remdesivir (anti-viral agent designed to treat covid 19), and an antibiotic. Please continue Dexamethasone 6mg for the next 6 days after discharge starting on 03/06/22. While you were in the hospital, your heart rate was elevated about 100bpm. This is known as "Tachycardia." We would like to change one of your heart medications. Please discontinue atenolol and start taking metoprolol succinate 100mg once daily. A script was sent to your pharmacy for the metoprolol. Please follow up both with your primary care doctor and also your cafe associate, Dr. Delatorre after this hospital stay. Pending Studies at Discharge: No Stand-Alone Forms: My [facility] NewsFixed, Smoking Cessation Medications and DC Order Prescriptions: New dexamethasone 6 mg tablet 6 mg PO DAILY 6 Days Qty: 6 RF: 0 metoprolol succinate 100 mg tablet extended release 24 hr 100 mg PO DAILY 30 Days Qty: 30 RF: 0 Continued nitroglycerin 0.4 mg tablet, sublingual 0.4 mg SL Q5M PRN (Reason: Chest Pain) RF: 0 apixaban 5 mg tablet 5 mg PO BID Qty: 60 RF: 2 tadalafil [Cialis] 10 mg tablet 10 mg PO DAILY PRN (Reason: sexual activity) Qty: 30 RF: 0 ipratropium bromide 21 mcg (0.03 %) spray,non-aerosol 2 spray intranasal BID Qty: 30 RF: 5 ibuprofen [Advil] 200 mg tablet 200 mg PO Q6H PRN (Reason: Pain) RF: 0 budesonide-formoterol [Symbicort] 160-4.5 mcg/actuation HFA aerosol inhaler 2 puff inhalation BID RF: 0 atorvastatin 80 mg tablet 40 mg PO HS RF: 0 Entresto 24-26 mg tablet 1 tab PO BID RF: 0 furosemide 20 mg tablet 20 mg PO QAM RF: 0 Jardiance 10 mg tablet 10 mg PO QAM RF: 0 cholecalciferol (vitamin D3) 25 mcg (1,000 unit) capsule 25 mcg PO QAM RF: 0 aspirin 81 mg Tablet,Delayed Release (Dr/Ec) 81 mg PO QAM RF: 0 tamsulosin 0.4 mg capsule 0.4 mg PO HS RF: 0 Neuriva Plus 0.85 mg-200 mcg-1.2 mcg tablet,chewable 1 tab PO QAM RF: 0 Discontinued atenolol 100 mg tablet 50 mg PO HS RF: 0 Discharge Orders: Discharge Order (Routine); Ordered 03/05/22 Ordered By: Yaneth Bonilla/Other Patient Handouts: Prediabetes Admission Data Admit Date/Time: 03/02/22 05:16 Attending Provider: Kranthi Alcala Admit Provider: Kranthi Mtz Primary Care Provider: Aquilino Silver III Other Providers: Kavon Jimenes Other Interventions: Discharge Summary Assessment (RN) Last Done: 03/05/22 14:18 Supervising Physician Co-Signing Physician Notes I personally examined the patient and verified all mathis points of history and exam, discussed case, and agree with decision making with Dr Armando watson better, hr better, really wants to go home. updated dtr prior to seeing him, called later after dc - she noted after walking in driveway pulse ox was 98%, HR was 129 but slowed quickly with rest. vitals noted nad heent nc at mmm breathing unlabored, no accessory muscles no conversational dyspnea good effort. HR better. no focal neuro deficits COVID pneumonia/COPD exac -highly doubt secondary bacterial given CT findings and repeatedly reassuring procalcitonin -hypoxia has improved- fortunately more than a classic covid pneumonia, really is behaving more as a COPD exacerbation caused by covid - and improved -stable for home - finish steroids. Tachycardia (A. fib/RVR) -did much better with switch to metoprololwill send home on this instead. Is anticoagulated EtOH abuse -While admitted was on beer to prevent withdrawal -Thiamine and folate for home Resident Activity Tracking Resident Involvement: Resident Care Provided Care Provided: Adult Hospital Medicine
[2022-03-05] MEDS: BEER 1 CAN PO SCH ×2 (11:23→11:24)
[2022-03-05] MEDS: AZITHROMYCIN 500 MG in DEXTROSE 5% 250 ML IV SCH (11:24)
[2022-03-05 11:54] VITALS: BP 118/73; TEMP 98.1
[2022-03-05 14:22] VITALS: PULSE 108
--- NOTE | 2022-03-05 16:52 | Billing Data ---
Date of Service March 05, 2022 Coding Level of Care Code D/C DAY MANAGEMENT <30 MINS
== END 2022-03-05 15:21 | disposition home or self-care (01) | DRG 177 ==
LOC: ED 03:19 → 2S 05:16 → SUATTDRO 05:16 → 2S 08:36

== ENCOUNTER 2022-03-16 07:17 | Inpatient (IN) ==
[2022-03-16] MEDS ORDERED: SODIUM CHLORIDE 0.9% 500 ML IV STA (07:47)
[2022-03-16] MEDS ORDERED: dexAMETHasone**PF** 10 MG/ML VIAL IV ONE (07:47)
[2022-03-16] MEDS ORDERED: METOPROLOL TARTRATE 1 MG/ML VIAL IV STA (07:48)
[2022-03-16] MEDS ORDERED: ALBUT/IPRATROP 3MG/0.5MG NEB 3 ML VIAL NEB ONE (07:51)
[2022-03-16 08:11] LABS: Basophils # (auto) 0.01 K/uL (0-0.2); Basophils % (auto) 0.1 %; Eosinophils # (auto) 0.02 K/uL (0-0.5); Eosinophils % (auto) 0.1 %; Hemoglobin 14.9 g/dL (14.0-18.0); Immature Granulocytes # (auto) 0.08 K/uL (0.00-0.02); Immature Granulocytes % (auto) 0.5 %; Lymphocytes # (auto) 1.04 K/uL (1.2-3.4); Lymphocytes % (auto) 6.4 %; Mean Corpuscular Hemoglobin 36.3 pg (25-34); Mean Corpuscular Hgb Conc 35.5 g/dL (32-36); Mean Corpuscular Volume 102.2 fL (80-100); Mean Platelet Volume 8.7 fL (7.4-10.4); Monocytes # (auto) 0.89 K/uL (0.11-0.59); Monocytes % (auto) 5.5 %; Neutrophils # (auto) 14.11 K/uL (1.4-6.5); Neutrophils % (auto) 87.4 %; Platelet Count 293 K/uL (130-400); RDW Coefficient of Variation 12.5 % (11.5-14.5); Red Blood Count 4.11 M/uL (4.7-6.1); White Blood Count 16.15 K/uL (4.8-10.8)
[2022-03-16 08:27] LABS: INR 1.1 (0.9-1.1); Partial Thromboplastin Ratio 1.3; Partial Thromboplastin Time 34.4 Seconds (21.0-31.0); Prothrombin Time 11.7 Seconds (9.0-12.0)
[2022-03-16 08:27] LABS: Base Excess VBG -4.8 mEq/L; HCO3 VBG 21 mmol/L; PCO2 VBG 42 mmHg (38-50); PO2 VBG 25 mmHg; pH VBG 7.32 (7.36-7.41)
[2022-03-16 08:33] LABS: Oxygen Saturation VBG < 60.0 %
[2022-03-16 08:41] LABS: Albumin Globulin Ratio 1.3 (0.9-2); Albumin Level 3.5 gm/dl (3.4-5.0); Calcium 8.7 mg/dl (8.5-10.1); Creatinine Clr Calc Pharmacy 82.3 ml/min; Est GFR (Non-African American) 89.7 ml/min; Globulin 2.7 gm/dl (2.5-4.0); Magnesium 2.2 mg/dl (1.7-2.4); Potassium 4.3 mmol/L (3.5-5.1); Total Protein 6.2 gm/dl (6.0-8.3)
--- NOTE | 2022-03-16 09:01 | XRay Report ---
SINGLE VIEW CHEST CLINICAL HISTORY: Dyspnea. FINDINGS: An AP, portable, upright chest radiograph is compared to study dated 03/02/2022 and correlat ed with chest CT dated 03/02/2022. A single lead cardiac AICD is unchanged in position and partially o bscures the left upper chest. The heart is enlarged noting atherosclerotic calcification of the thora cic aorta. There is pulmonary vascular congestion and interstitial edema. Images and edematous change is noted. There are small pleural effusions with bibasilar consolidation. No pneumothorax is seen. T he skeletal structures are osteopenic. The bony thorax is grossly intact. IMPRESSION: 1. Cardiomegaly and AICD with evidence of congestive failure and pulmonary edema. 2. Emphysema. 3. Small pleural effusions with bibasilar consolidation. ACT 112: Negative or not required by law. Electronically signed by: Curt Foy M.D. 03/16/2022 8:59 AM
[2022-03-16 09:10] LABS: Troponin I High Sensitivity 537.3 pg/ml (0-20)
[2022-03-16] MEDS ORDERED: Heparin IV Adult Wt-Based Low-Dose *NO* Bolus Protocol IV ONE (09:11)
[2022-03-16] MEDS ORDERED: ASPIRIN 81 MG CHEW PO STA (09:11)
[2022-03-16] MEDS ORDERED: FUROSEMIDE 40 MG/4 ML VIAL IV ONE (09:12)
[2022-03-16] MEDS ORDERED: dilTIAZem HCl 5 MG/ML 5 ML VIAL IV STA (09:14)
[2022-03-16] MEDS ORDERED: STAT IV Infusion **Titration per Protocol STA ×2 (09:14→11:18)
[2022-03-16] MEDS ORDERED: dilTIAZem HCL 125 MG in DEXTROSE 5% 100 ML IV SCH (09:15)
--- NOTE | 2022-03-16 09:29 | Emergency Department Note ---
Impression & Plan Atrial fibrillation with rapid ventricular response, Congestive heart failure, Respiratory failure with hypoxia, COVID-19 ED Provider Note CHIEF COMPLAINT: Shortness of breath, confusion HISTORY OF PRESENT ILLNESS: This 76-year-old male patient presents to the emergency department with via EMS. Patient was recently admitted to the hospital 2 weeks ago with diagnosed with COVID. Patient was recently discharged and noticed him to be confused today. He entered the room and stated he did not know where he was. He was unable to answer questions appropriately. called 911 and the patient was noted to be hypoxic into the 80s. He did recover with supplemental oxygen and DuoNeb treatments. Patient seems to be answering questions a bit more reliably at this time. He does have a history of alcohol dependency, atrial fibrillation, cardiomyopathy and a pacemaker. There is no known fall or head injury recently. Patient is chronically anticoagulated. REVIEW OF SYSTEMS: A review of systems was performed with positives and pertinent negatives listed in the history of present illness. 10 systems were reviewed and are otherwise negative. ALLERGIES: see below MEDICATIONS: see below PMH: see below SOCIAL HISTORY: see below DDx: Infection, hypoglycemia, electrolyte abnormalities, overdose, toxicologic, cardiac sources, intracerebral event, neurologic, trauma, as well as other pathologies. PHYSICAL EXAM: Vital signs reviewed. General: Chronically ill-appearing 76-year-old male HEENT: No scleral icterus, PERRLA, neck supple. Atraumatic. Cardiovascular: Tachycardic and irregular rhythm, no extra sounds. Pulmonary: Coarse breath sounds to auscultation bilaterally, increased work of breathing on nasal cannula oxygen-> bipap in ED Abdomen: Soft, nontender, nondistended, positive bowel sounds. Musculoskeletal: Atraumatic, no peripheral edema. Neuro: Answers most questions appropriately, speech is mumbled but interpretable on bipap Skin: Warm, dry, no rash EMERGENCY DEPARTMENT COURSE/MDM: This patient was evaluated and appeared to be ill but in no distress. IV access was obtained and laboratory work was drawn. The patient was on nasal cannula oxygen and saturating well however he had significant increased work of breathing and is in a rapid atrial fibrillation. Patient was placed on BiPAP. He was given a 5 mg IV metoprolol bolus which did significantly drop his blood pressure. Patient was noted to be in pulmonary edema on chest x-ray. Once his blood pressure had recovered slightly, Cardizem drip was started. CT imaging of the head and chest was performed due to his history of factor V Leiden. Please see read below. There is no evidence of intracranial hemorrhage or PE. Patient was medicated with IV Lasix. Hospitalist service was consulted for admission. There was some discussion of discontinuing the Cardizem drip due to his EF of 30% on his last echo 2 years ago. The hospitalist PA would be consulting with cardiology at this time and further orders have been deferred to their care. Patient and are aware of the plan and agreed. Patient is still testing positive for COVID-19. MONITORING: An order for cardiac monitoring was placed and the patient is noted to be in a rapid atrial fibrillation at 113 beats per minute. RADIOLOGY: See below EKG: Atrial fibrillation with RVR at [address] and T wave abnormalities. QTc is 382. Poor quality baseline for interpretation. When compared to March 02, 2022, T wave inversions are now evident in the anterior lateral leads. DISPOSITION: Admit I have personally spent 40 minutes of critical care time in the direct management of this patient. This was a life/limb threatening event. This 40 minutes is in excess of all separately billable procedures. Past Med/Surg History Medical History Acute on chronic systolic CHF (congestive heart failure) Alcohol abuse CAD (coronary artery disease) Cardiac defibrillator in place Cardiomyopathy Cough Factor V Leiden diagnosed due to family history- no personal hx of blood clots/bleeding issues History of heart attack 1999 Hyperlipidemia Hyponatremia IA (myocardial infarction) Nasal congestion Pacemaker PPM/ICD- Implanted 2008/[employer]/last check 06/2019 per patient Paroxysmal atrial fibrillation Prostate cancer Tobacco abuse Surgical History History of appendectomy History of cardiac cath 1999 History of colonoscopy History of tonsillectomy History of total right knee replacement Previous back surgery Lumbar spine surgery S/P coronary artery stent placement Family History Mother , in her 60s of unknown cause Alzheimer disease Father , in his 70s Prostate cancer Cardiac disease Glaucoma Alzheimer disease Brother Heart transplant recipient Brother No problems noted. Brother No problems noted. Brother No problems noted. Sister No problems noted. Sister No problems noted. Daughter No problems noted. Daughter No problems noted. 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 Feels Safe at Home: Yes Childhood Exposure to Second-Hand Smoke: Yes caffeine: Yes (3 mugs/day) during the past year weight has: remained stable Dental Care, Regularly: Yes Physical Activity Frequency: Does not Exercise Seatbelt Use: always Sunscreen Use: No Assistive Devices: Hearing Aid - Bilateral Allergies Allergies Allergy/AdvReac Type Severity Reaction Status Date / Time morphine Allergy Intermediate Swelling Verified 03/02/22 06:27 clopidogrel Allergy Unknown Unknown Verified 03/02/22 06:27 reaction fluticasone furoate AdvReac Intermediate Pain Verified 03/02/22 06:27 [From Trelegy Ellipta] behind the eyes umeclidinium AdvReac Intermediate Pain Verified 03/02/22 06:27 [From Trelegy Ellipta] behind the eyes vilanterol AdvReac Intermediate Pain Verified 03/02/22 06:27 [From Trelegy Ellipta] behind the eyes HAND BIOMEDICAL EQUIPMENT TECH (ALCOHOL Allergy Severe SHORTNESS Uncoded 03/02/22 06:27 BASED) OF BREATH - SEE NOTES Home Meds Home Medications Medication Instructions Recorded Confirmed furosemide 20 mg tablet 20 mg PO QAM 06/13/19 03/02/22 sacubitril 24 mg-valsartan 26 mg 1 tab PO BID 06/13/19 03/02/22 tablet (Entresto) nitroglycerin 0.4 mg sublingual 0.4 mg SL Q5M PRN 10/13/19 03/02/22 tablet atorvastatin 80 mg tablet 40 mg PO HS tab 10/27/19 03/02/22 ibuprofen 200 mg tablet (Advil) 200 mg PO Q6H PRN 10/28/20 04/28/22 cholecalciferol (vitamin D3) 25 25 mcg PO QAM 08/17/21 03/02/22 mcg (1,000 unit) capsule empagliflozin 10 mg tablet 10 mg PO QAM 08/17/21 03/02/22 (Jardiance) budesonide-formoterol HFA 160 2 puff INHALATION BID 02/21/22 03/02/22 mcg-4.5 mcg/actuation aerosol inhaler (Symbicort) B6 0.85 mg-folic 200 1 tab PO QAM 03/02/22 03/02/22 [id number] oral chewable tablet (Neuriva Plus) aspirin 81 mg tablet,delayed 81 mg PO QAM 03/02/22 03/02/22 release tamsulosin 0.4 mg capsule 0.4 mg PO HS 03/02/22 03/02/22 Previous Rx's Medication Instructions Recorded apixaban 5 mg tablet 5 mg PO BID #60 tab 03/14/21 tadalafil 10 mg tablet (Cialis) 10 mg PO DAILY PRN #30 tab 04/22/21 ipratropium bromide 21 mcg (0.03 2 spray INTRANASAL BID #30 ml 07/15/21 %) nasal spray folic acid 1 mg tablet 1 mg PO DAILY #30 tab 03/05/22 metoprolol succinate 100 mg 100 mg PO DAILY 30 Days #30 tab 03/05/22 tablet,extended release 24 hr thiamine HCl (vitamin B1) 100 mg 100 mg PO DAILY #30 tab 03/05/22 tablet Results & Data (ED) Vital Signs Vital Signs - 24 hr 03/16/22 07:28 03/16/22 07:45 03/16/22 07:47 Temperature 37.1 C 37.1 C Temperature Source Oral Oral Pulse Rate 103 H Pulse Rate [Right Finger] 119 H Pulse Rhythm Irregular Pulse Rhythm [Right Finger] Irregular Pulse Strength Normal Pulse Strength [Right Finger] Normal Respiratory Rate 26 H 26 H Respiratory Effort / Characteristics Accessory Muscle Use Accessory Muscle Use Respiratory Depth Shallow Shallow Respiratory Pattern Tachypnea Tachypnea Blood Pressure 113/67 Blood Pressure [Right Arm] 113/67 Blood Pressure Mean 82 Blood Pressure Mean [Right Arm] 82 Blood Pressure Position Lying Blood Pressure Position [Right Arm] Lying Pulse Oximetry 97 95 Oxygen Delivery Method Nasal Cannula Nasal Cannula Nasal Cannula Oxygen Flow Rate 3 3 2 Fraction of Inspired Oxygen Sepsis Recent Fever Within 48 Hours No Sepsis New/Unexplained Change in Mental Status No Sepsis Action Taken by Nursing Physician Notified Pulse Oximetry Post Tiitration 92 03/16/22 07:50 03/16/22 08:03 03/16/22 08:12 Temperature Temperature Source Pulse Rate 116 H 105 H Pulse Rate [Right Finger] 105 H Pulse Rhythm Irregular Pulse Rhythm [Right Finger] Pulse Strength Pulse Strength [Right Finger] Respiratory Rate 26 H 21 21 Respiratory Effort / Characteristics Spontaneous Spontaneous Respiratory Depth Normal Respiratory Pattern Regular Blood Pressure Blood Pressure [Right Arm] Blood Pressure Mean Blood Pressure Mean [Right Arm] Blood Pressure Position Blood Pressure Position [Right Arm] Pulse Oximetry 97 100 100 Oxygen Delivery Method Nasal Cannula BiPAP Oxygen Flow Rate 3 Fraction of Inspired Oxygen 25 25 Sepsis Recent Fever Within 48 Hours Sepsis New/Unexplained Change in Mental Status Sepsis Action Taken by Nursing Pulse Oximetry Post Tiitration 03/16/22 08:22 03/16/22 08:39 03/16/22 09:00 Temperature Temperature Source Pulse Rate Pulse Rate [Right Finger] 112 H 115 H 132 H Pulse Rhythm Pulse Rhythm [Right Finger] Irregular Irregular Irregular Pulse Strength Pulse Strength [Right Finger] Normal Normal Normal Respiratory Rate 21 12 17 Respiratory Effort / Characteristics Non-Labored Spontaneous Non-Labored Spontaneous Non-Labored Spontaneous Respiratory Depth Normal Normal Normal Respiratory Pattern Blood Pressure Blood Pressure [Right Arm] 102/62 117/72 95/61 L Blood Pressure Mean Blood Pressure Mean [Right Arm] 75 87 72 Blood Pressure Position Blood Pressure Position [Right Arm] Lying Lying Lying Pulse Oximetry 98 100 99 Oxygen Delivery Method BiPAP BiPAP BiPAP Oxygen Flow Rate Fraction of Inspired Oxygen Sepsis Recent Fever Within 48 Hours Sepsis New/Unexplained Change in Mental Status Sepsis Action Taken by Nursing Pulse Oximetry Post Tiitration Home Medications Current Medication List: was personally reviewed by me Laboratory Data Attestation: I reviewed the patient's lab results. Result diagrams: 03/24/22 05:47 03/24/22 05:47 Lab Results 03/16/22 03/16/22 03/16/22 Range/Units 07:36 07:36 07:36 WBC 16.15 H (4.8-10.8) K/uL RBC 4.11 L (4.7-6.1) M/uL Hgb 14.9 (14.0-18.0) g/dL Hct 42.0 (42-52) % MCV 102.2 H (80-100) fL MCH 36.3 H (25-34) pg MCHC 35.5 (32-36) g/dL RDW Std Deviation 47.0 H (36.4-46.3) fL RDW Coeff of Marlyn 12.5 (11.5-14.5) % Plt Count 293 (130-400) K/uL MPV 8.7 (7.4-10.4) fL Immature Gran % (Auto) 0.5 % Neut % (Auto) 87.4 % Lymph % (Auto) 6.4 % Levy % (Auto) 5.5 % Eos % (Auto) 0.1 % Baso % (Auto) 0.1 % Neut # (Auto) 14.11 H (1.4-6.5) K/uL Lymph # (Auto) 1.04 L (1.2-3.4) K/uL Levy # (Auto) 0.89 H (0.11-0.59) K/uL Eos # (Auto) 0.02 (0-0.5) K/uL Baso # (Auto) 0.01 (0-0.2) K/uL Immature Gran # (Auto) 0.08 H (0.00-0.02) K/uL PT 11.7 (9.0-12.0) Seconds INR 1.1 (0.9-1.1) APTT 34.4 H (21.0-31.0) Seconds PTT Ratio 1.3 VBG pH (7.36-7.41) VBG pCO2 (38-50) mmHg VBG pO2 mmHg VBG HCO3 mmol/L VBG O2 Saturation % VBG Base Excess mEq/L Barometric Pressure mm/Hg Sodium 129 L (136-145) mmol/L Potassium 4.3 (3.5-5.1) mmol/L Chloride 97 L (98-107) mmol/L Carbon Dioxide 23 (21-32) mmol/L Anion Gap 9 (3-11) BUN 15 (6-23) mg/dl Creatinine 0.75 (0.6-1.4) mg/dl Est Cr Clr Drug Dosing 82.3 ml/min Est GFR ( Amer) 104.0 ml/min Est GFR (Non-Af Amer) 89.7 ml/min BUN/Creatinine Ratio 20.0 (10-20) Glucose 92 (70-99(Fasting)) mg/dl Lactate (0.4-2.0) mmol/L Calcium 8.7 (8.5-10.1) mg/dl Magnesium 2.2 (1.7-2.4) mg/dl Total Bilirubin 2.0 H (0.2-1.0) mg/dl AST 57 H (13-39) U/L ALT 66 H (7-52) U/L Alkaline Phosphatase 68 (34-104) U/L Troponin I High Sens 537.3 H* D (0-20) pg/ml Total Protein 6.2 (6.0-8.3) gm/dl Albumin 3.5 (3.4-5.0) gm/dl Globulin 2.7 (2.5-4.0) gm/dl Albumin/Globulin Ratio 1.3 (0.9-2) Ethyl Alcohol mg/dL (<10.0) mg/dl SARS-CoV-2 (PCR) (Negative) Influenza Type A (PCR) (Neg) Influenza Type B (PCR) (Neg) RSV (RT-PCR) (Neg) 03/16/22 03/16/22 03/16/22 Range/Units 07:36 08:01 08:01 WBC (4.8-10.8) K/uL RBC (4.7-6.1) M/uL Hgb (14.0-18.0) g/dL Hct (42-52) % MCV (80-100) fL MCH (25-34) pg MCHC (32-36) g/dL RDW Std Deviation (36.4-46.3) fL RDW Coeff of Marlyn (11.5-14.5) % Plt Count (130-400) K/uL MPV (7.4-10.4) fL Immature Gran % (Auto) % Neut % (Auto) % Lymph % (Auto) % Levy % (Auto) % Eos % (Auto) % Baso % (Auto) % Neut # (Auto) (1.4-6.5) K/uL Lymph # (Auto) (1.2-3.4) K/uL Levy # (Auto) (0.11-0.59) K/uL Eos # (Auto) (0-0.5) K/uL Baso # (Auto) (0-0.2) K/uL Immature Gran # (Auto) (0.00-0.02) K/uL PT (9.0-12.0) Seconds INR (0.9-1.1) APTT (21.0-31.0) Seconds PTT Ratio VBG pH 7.32 L (7.36-7.41) VBG pCO2 42 (38-50) mmHg VBG pO2 25 mmHg VBG HCO3 21 mmol/L VBG O2 Saturation < 60.0 % VBG Base Excess -4.8 mEq/L Barometric Pressure 739.6 mm/Hg Sodium (136-145) mmol/L Potassium (3.5-5.1) mmol/L Chloride (98-107) mmol/L Carbon Dioxide (21-32) mmol/L Anion Gap (3-11) BUN (6-23) mg/dl Creatinine (0.6-1.4) mg/dl Est Cr Clr Drug Dosing ml/min Est GFR ( Amer) ml/min Est GFR (Non-Af Amer) ml/min BUN/Creatinine Ratio (10-20) Glucose (70-99(Fasting)) mg/dl Lactate 0.9 (0.4-2.0) mmol/L Calcium (8.5-10.1) mg/dl Magnesium (1.7-2.4) mg/dl Total Bilirubin (0.2-1.0) mg/dl AST (13-39) U/L ALT (7-52) U/L Alkaline Phosphatase (34-104) U/L Troponin I High Sens (0-20) pg/ml Total Protein (6.0-8.3) gm/dl Albumin (3.4-5.0) gm/dl Globulin (2.5-4.0) gm/dl Albumin/Globulin Ratio (0.9-2) Ethyl Alcohol mg/dL < 10.0 (<10.0) mg/dl SARS-CoV-2 (PCR) (Negative) Influenza Type A (PCR) (Neg) Influenza Type B (PCR) (Neg) RSV (RT-PCR) (Neg) 03/16/22 Range/Units 08:13 WBC (4.8-10.8) K/uL RBC (4.7-6.1) M/uL Hgb (14.0-18.0) g/dL Hct (42-52) % MCV (80-100) fL MCH (25-34) pg MCHC (32-36) g/dL RDW Std Deviation (36.4-46.3) fL RDW Coeff of Marlyn (11.5-14.5) % Plt Count (130-400) K/uL MPV (7.4-10.4) fL Immature Gran % (Auto) % Neut % (Auto) % Lymph % (Auto) % Levy % (Auto) % Eos % (Auto) % Baso % (Auto) % Neut # (Auto) (1.4-6.5) K/uL Lymph # (Auto) (1.2-3.4) K/uL Levy # (Auto) (0.11-0.59) K/uL Eos # (Auto) (0-0.5) K/uL Baso # (Auto) (0-0.2) K/uL Immature Gran # (Auto) (0.00-0.02) K/uL PT (9.0-12.0) Seconds INR (0.9-1.1) APTT (21.0-31.0) Seconds PTT Ratio VBG pH (7.36-7.41) VBG pCO2 (38-50) mmHg VBG pO2 mmHg VBG HCO3 mmol/L VBG O2 Saturation % VBG Base Excess mEq/L Barometric Pressure mm/Hg Sodium (136-145) mmol/L Potassium (3.5-5.1) mmol/L Chloride (98-107) mmol/L Carbon Dioxide (21-32) mmol/L Anion Gap (3-11) BUN (6-23) mg/dl Creatinine (0.6-1.4) mg/dl Est Cr Clr Drug Dosing ml/min Est GFR ( Amer) ml/min Est GFR (Non-Af Amer) ml/min BUN/Creatinine Ratio (10-20) Glucose (70-99(Fasting)) mg/dl Lactate (0.4-2.0) mmol/L Calcium (8.5-10.1) mg/dl Magnesium (1.7-2.4) mg/dl Total Bilirubin (0.2-1.0) mg/dl AST (13-39) U/L ALT (7-52) U/L Alkaline Phosphatase (34-104) U/L Troponin I High Sens (0-20) pg/ml Total Protein (6.0-8.3) gm/dl Albumin (3.4-5.0) gm/dl Globulin (2.5-4.0) gm/dl Albumin/Globulin Ratio (0.9-2) Ethyl Alcohol mg/dL (<10.0) mg/dl SARS-CoV-2 (PCR) POSITIVE A* (Negative) Influenza Type A (PCR) Negative (Neg) Influenza Type B (PCR) Negative (Neg) RSV (RT-PCR) Negative (Neg) Administered Medications Amiodar[facility] ([facility] 200 Mg Tab) [facility]: 04/17/22 16:59 Last Admin: 03/23/22 17:55 Dose: 400 mg Documented by: [id number] Admin: 03/23/22 08:21 Dose: 400 mg Documented by: [id number] Admin: 03/22/22 18:03 Dose: 400 mg Documented by: [id number] Admin: 03/22/22 08:05 Dose: 400 mg Documented by: [id number] Admin: 03/21/22 16:41 Dose: 400 mg Documented by: [id number] Admin: 03/21/22 07:27 Dose: 400 mg Documented by: [id number] Admin: 03/20/22 18:48 Dose: 400 mg Documented by: [id number] Admin: 03/20/22 08:11 Dose: 400 mg Documented by: [id number] Admin: 03/19/22 15:59 Dose: 400 mg Documented by: [id number] Admin: 03/19/22 09:46 Dose: 400 mg Documented by: [id number] Admin: 03/18/22 17:10 Dose: 400 mg Documented by: [id number] Aspirin (Aspirin 81 Mg Ectab) [facility]: 04/16/22 08:59 Last Admin: 03/23/22 08:21 Dose: 81 mg Documented by: [id number] Admin: 03/22/22 08:05 Dose: 81 mg Documented by: [id number] Admin: 03/21/22 09:50 Dose: 81 mg Documented by: [id number] Admin: 03/20/22 08:11 Dose: 81 mg Documented by: [id number] Admin: 03/19/22 09:48 Dose: 81 mg Documented by: [id number] Admin: 03/18/22 08:21 Dose: 81 mg Documented by: [id number] Admin: 03/17/22 09:25 Dose: 81 mg Documented by: [id number] Benzonatate (Benzonatate 100 Mg Capsule) 100 mg PO TID CAROL Stop: 04/17/22 13:01 Last Admin: 03/23/22 20:31 Dose: 100 mg Documented by: [id number] Admin: 03/23/22 13:19 Dose: Not Given Documented by: [id number] Admin: 03/23/22 08:22 Dose: 100 mg Documented by: [id number] Admin: 03/22/22 20:34 Dose: 100 mg Documented by: [id number] Admin: 03/22/22 14:27 Dose: 100 mg Documented by: [id number] Admin: 03/22/22 08:05 Dose: 100 mg Documented by: [id number] Admin: 03/21/22 20:45 Dose: 100 mg Documented by: [id number] Admin: 03/21/22 14:21 Dose: 100 mg Documented by: [id number] Admin: 03/21/22 09:50 Dose: 100 mg Documented by: [id number] Admin: 03/20/22 20:25 Dose: 100 mg Documented by: [id number] Admin: 03/20/22 15:11 Dose: 100 mg Documented by: [id number] Admin: 03/20/22 08:08 Dose: 100 mg Documented by: [id number] Admin: 03/19/22 22:15 Dose: 100 mg Documented by: [id number] Admin: 03/19/22 14:11 Dose: 100 mg Documented by: [id number] Admin: 03/19/22 09:49 Dose: 100 mg Documented by: [id number] Admin: 03/18/22 20:09 Dose: 100 mg Documented by: [id number] Admin: 03/18/22 13:08 Dose: 100 mg Documented by: [id number] Digoxin (Digoxin 0.125 Mg Tab) 0.125 mg PO DAILY CAROL Stop: 04/22/22 10:14 Last Admin: 03/23/22 11:25 Dose: 0.125 mg Documented by: [id number] Fluticasone/Vilanterol (Fluticasone/Vilanterol 200/25mcg 14 Puffs/Inhaler) 1 puffs INH DAILY CAROL Stop: 04/16/22 08:59 Last Admin: 03/23/22 08:22 Dose: 1 puffs Documented by: [id number] Admin: 03/22/22 10:46 Dose: 1 puffs Documented by: [id number] Admin: 03/21/22 09:51 Dose: 1 puffs Documented by: [id number] Admin: 03/20/22 08:12 Dose: 1 puffs Documented by: [id number] Admin: 03/19/22 09:50 Dose: 1 puffs Documented by: [id number] Admin: 03/18/22 08:22 Dose: 1 puffs Documented by: [id number] Admin: 03/17/22 09:27 Dose: 1 puffs Documented by: [id number] Folic Acid (Folic Acid 1 Mg Tab) 1 mg PO QAM CAROL Stop: 04/16/22 08:59 Last Admin: 03/23/22 08:23 Dose: 1 mg Documented by: [id number] Admin: 03/22/22 08:05 Dose: 1 mg Documented by: [id number] Admin: 03/21/22 09:51 Dose: 1 mg Documented by: [id number] Admin: 03/20/22 08:11 Dose: 1 mg Documented by: [id number] Admin: 03/19/22 09:51 Dose: 1 mg Documented by: [id number] Admin: 03/18/22 08:22 Dose: 1 mg Documented by: [id number] Admin: 03/17/22 09:27 Dose: 1 mg Documented by: [id number] Furosemide (Furosemide 40 Mg/4 Ml Vial) 40 mg IV TID CAROL Stop: 04/21/22 13:59 Last Admin: 03/23/22 20:30 Dose: 40 mg Documented by: [id number] Admin: 03/23/22 13:19 Dose: 40 mg Documented by: [id number] Admin: 03/23/22 08:23 Dose: 40 mg Documented by: [id number] Admin: 03/22/22 20:37 Dose: 40 mg Documented by: [id number] Admin: 03/22/22 14:27 Dose: 40 mg Documented by: [id number] Guaifenesin (Guaifenesin 600 Mg Tabcr) 600 mg PO Q12 [facility]OL Stop: 04/19/22 20:59 Last Admin: 03/23/22 20:32 Dose: 600 mg Documented by: [id number] Admin: 03/23/22 08:24 Dose: 600 mg Documented by: [id number] Admin: 03/22/22 20:36 Dose: 600 mg Documented by: [id number] Admin: 03/22/22 08:05 Dose: 600 mg Documented by: [id number] Admin: 03/21/22 20:46 Dose: 600 mg Documented by: [id number] Admin: 03/21/22 09:51 Dose: 600 mg Documented by: [id number] Admin: 03/20/22 20:26 Dose: 600 mg Documented by: [id number] Piperacillin Sod/Tazobactam (Sod 3.375 gm/ Dextrose) 115 mls @ 28.75 mls/hr IV Q8H [facility]; Protocol Stop: 03/28/22 00:00 Last Infusion: 03/24/22 03:15 Dose: 0 mls/hr Documented by: [id number] Admin: 03/23/22 23:07 Dose: 28.8 mls/hr Documented by: [id number] Infusion: 03/23/22 19:30 Dose: 0 mls/hr Documented by: [id number] Admin: 03/23/22 15:27 Dose: 28.8 mls/hr Documented by: [id number] Infusion: 03/23/22 12:42 Dose: 0 mls/hr Documented by: [id number] Admin: 03/23/22 08:14 Dose: 28.8 mls/hr Documented by: [id number] Infusion: 03/23/22 05:31 Dose: 0 mls/hr Documented by: [id number] Admin: 03/23/22 00:53 Dose: 28.8 mls/hr Documented by: [id number] Infusion: 03/22/22 22:19 Dose: 0 mls/hr Documented by: [id number] Admin: 03/22/22 18:02 Dose: 28.8 mls/hr Documented by: [id number] Infusion: 03/22/22 12:56 Dose: 0 mls/hr Documented by: [id number] Admin: 03/22/22 08:40 Dose: 28.8 mls/hr Documented by: [id number] Infusion: 03/22/22 04:34 Dose: 0 mls/hr Documented by: [id number] Admin: 03/21/22 23:57 Dose: 28.8 mls/hr Documented by: [id number] Infusion: 03/21/22 20:27 Dose: 0 mls/hr Documented by: [id number] Admin: 03/21/22 15:04 Dose: 28.8 mls/hr Documented by: [id number] Infusion: 03/21/22 11:29 Dose: 0 mls/hr Documented by: [id number] Admin: 03/21/22 07:26 Dose: 28.8 mls/hr Documented by: [id number] Infusion: 03/21/22 04:06 Dose: 0 mls/hr Documented by: [id number] Admin: 03/21/22 00:21 Dose: 28.8 mls/hr Documented by: [id number] Ipratropium [place] (Ipratropium [place] Neb Soln 0.02% 2.5 Ml Vial) 0.5 mg INH Q6R PRN PRN Reason: Wheezing Stop: 04/19/22 12:59 Last Admin: 03/22/22 05:42 Dose: 0.5 mg Documented by: [id number] Levalbuterol HCl (Levalbuterol Hcl 0.63 Mg/3 Ml Neb) 0.63 mg NEB Q6R PRN PRN Reason: Wheezing Stop: 04/19/22 12:59 Last Admin: 03/22/22 05:43 Dose: 0.63 mg Documented by: [id number] Metoprolol Succinate (Metoprolol Succ 50mg Ext Rel Tab) 100 mg PO QAM CAROL Stop: 04/16/22 08:59 Last Admin: 03/17/22 09:27 Dose: 100 mg Documented by: [id number] Metoprolol Tartrate (Metoprolol Tartrate 25 Mg Tab) 25 mg PO BID CAROL Stop: 04/19/22 20:59 Last Admin: 03/23/22 20:30 Dose: 25 mg Documented by: [id number] Admin: 03/23/22 08:38 Dose: Not Given Documented by: [id number] Admin: 03/22/22 20:37 Dose: 25 mg Documented by: [id number] Admin: 03/22/22 08:05 Dose: 25 mg Documented by: [id number] Admin: 03/21/22 20:46 Dose: 25 mg Documented by: [id number] Admin: 03/21/22 09:52 Dose: 25 mg Documented by: [id number] Admin: 03/20/22 20:25 Dose: 25 mg Documented by: [id number] Miscellaneous (Remove Nicoderm Patch) 1 ea N/A DAILY@[id number] [facility] Stop: 04/18/22 08:58 Last Admin: 03/23/22 08:25 Dose: Not Given Documented by: [id number] Admin: 03/22/22 08:05 Dose: 1 ea Documented by: [id number] Admin: 03/21/22 07:28 Dose: Not Given Documented by: [id number] Admin: 03/20/22 08:17 Dose: Not Given Documented by: [id number] Admin: 03/19/22 09:47 Dose: Not Given Documented by: [id number] Nicotine (Nicotine 21 Mg/24 Hr Tdsy) 21 mg TD QAM [facility] Stop: 04/17/22 13:29 Last Admin: 03/23/22 08:25 Dose: Not Given Documented by: [id number] Admin: 03/22/22 08:05 Dose: 21 mg Documented by: [id number] Admin: 03/21/22 09:53 Dose: Not Given Documented by: [id number] Admin: 03/20/22 08:17 Dose: Not Given Documented by: [id number] Admin: 03/19/22 09:51 Dose: Not Given Documented by: [id number] Admin: 03/18/22 15:34 Dose: Not Given Documented by: [id number] Non-Formulary Medication (Beer 1 Can) 1 can PO AC [facility] Stop: 04/15/22 22:29 Last Admin: 03/23/22 18:29 Dose: 1 can Documented by: [id number] Admin: 03/23/22 11:28 Dose: 1 can Documented by: [id number] Admin: 03/23/22 08:20 Dose: 1 can Documented by: [id number] Admin: 03/22/22 16:50 Dose: 1 can Documented by: [id number] Admin: 03/22/22 12:56 Dose: Not Given Documented by: [id number] Admin: 03/22/22 07:40 Dose: Not Given Documented by: [id number] Admin: 03/21/22 16:04 Dose: 1 can Documented by: [id number] Admin: 03/21/22 11:20 Dose: 1 can Documented by: [id number] Admin: 03/21/22 07:23 Dose: 1 can Documented by: [id number] Admin: 03/20/22 20:24 Dose: 1 can Documented by: [id number] Admin: 03/20/22 12:22 Dose: 1 can Documented by: [id number] Admin: 03/20/22 08:12 Dose: 1 can Documented by: [id number] Admin: 03/19/22 15:59 Dose: 1 can Documented by: [id number] Admin: 03/19/22 11:34 Dose: 1 can Documented by: [id number] Admin: 03/19/22 07:22 Dose: 1 can Documented by: [id number] Admin: 03/18/22 17:09 Dose: 1 can Documented by: [id number] Admin: 03/18/22 12:06 Dose: 1 can Documented by: [id number] Admin: 03/18/22 07:34 Dose: 1 can Documented by: [id number] Admin: 03/17/22 16:42 Dose: 1 can Documented by: [id number] Admin: 03/17/22 13:12 Dose: 1 can Documented by: [id number] Admin: 03/17/22 08:29 Dose: 1 can Documented by: [id number] Admin: 03/16/22 22:34 Dose: 1 can Documented by: [id number] Spironolactone (Sp[facility]actone 25 Mg Tab) [facility] Stop: 04/16/22 08:59 Last Admin: 03/18/22 08:23 Dose: 25 mg Documented by: [id number] Admin: 03/17/22 09:28 Dose: 25 mg Documented by: [id number] Tamsulosin HCl (Tamsulosin Hcl 0.4 Mg Cap) 0.4 mg PO [facility] Stop: 04/15/22 20:59 Last Admin: 03/23/22 20:31 Dose: 0.4 mg Documented by: [id number] Admin: 03/22/22 20:36 Dose: 0.4 mg Documented by: [id number] Admin: 03/21/22 20:45 Dose: 0.4 mg Documented by: [id number] Admin: 03/20/22 23:16 Dose: 0.4 mg Documented by: [id number] Admin: 03/17/22 21:37 Dose: 0.4 mg Documented by: [id number] Admin: 03/16/22 20:43 Dose: 0.4 mg Documented by: [id number] Thiamine HCl (Thiamine Hcl 100 Mg Tab) 100 mg PO QAM CAROL Stop: 04/16/22 08:59 Last Admin: 03/23/22 08:26 Dose: 100 mg Documented by: [id number] Admin: 03/22/22 08:05 Dose: 100 mg Documented by: [id number] Admin: 03/21/22 09:52 Dose: 100 mg Documented by: [id number] Admin: 03/20/22 08:11 Dose: 100 mg Documented by: [id number] Admin: 03/19/22 09:52 Dose: 100 mg Documented by: [id number] Admin: 03/18/22 08:23 Dose: 100 mg Documented by: [id number] Admin: 03/17/22 09:29 Dose: 100 mg Documented by: [id number] Discontinued Medications Albuterol (Albut/Ipratrop 3mg/0.5mg Neb 3 Ml Vial) 12 ml NEB ONE ONE; Protocol Stop: 03/16/22 07:52 Last Admin: 03/16/22 08:00 Dose: 12 ml Documented by: [id number] Albuterol (Albut/Ipratrop 3mg/0.5mg Neb 3 Ml Vial) 3 ml NEB NOW STA; Protocol Stop: 03/20/22 17:05 Last Admin: 03/20/22 17:08 Dose: 3 ml Documented by: [id number] Amiodarone HCl (Amiodarone Iv Bolus & Drip) 1 ea IV NOW STA; Protocol Stop: 03/16/22 11:19 Last Admin: 03/16/22 14:46 Dose: Not Given Documented by: [id number] Apixaban (Apixaban 5 Mg Tablet) 5 mg PO BID [facility] Stop: 04/16/22 08:59 Last Admin: 03/23/22 08:21 Dose: 5 mg Documented by: [id number] Admin: 03/22/22 20:36 Dose: 5 mg Documented by: [id number] Admin: 03/22/22 08:05 Dose: 5 mg Documented by: [id number] Admin: 03/21/22 20:44 Dose: 5 mg Documented by: [id number] Admin: 03/21/22 09:49 Dose: 5 mg Documented by: [id number] Admin: 03/20/22 20:26 Dose: 5 mg Documented by: [id number] Admin: 03/20/22 08:08 Dose: 5 mg Documented by: [id number] Admin: 03/19/22 22:15 Dose: 5 mg Documented by: [id number] Admin: 03/19/22 09:48 Dose: 5 mg Documented by: [id number] Admin: 03/18/22 20:10 Dose: 5 mg Documented by: [id number] Admin: 03/18/22 08:20 Dose: 5 mg Documented by: [id number] Admin: 03/17/22 21:34 Dose: 5 mg Documented by: [id number] Admin: 03/17/22 09:25 Dose: 5 mg Documented by: [id number] Aspirin (Aspirin 81 Mg Chew) 324 mg PO NOW STA Stop: 03/16/22 09:12 Last Admin: 03/16/22 09:26 Dose: 324 mg Documented by: [id number] Atorvastatin Calcium (Atorvastatin 40 Mg Tab) 40 mg PO HS CAROL Stop: 04/15/22 20:59 Last Admin: 03/17/22 21:37 Dose: 40 mg Documented by: [id number] Admin: 03/16/22 20:43 Dose: 40 mg Documented by: [id number] Cefdinir (Cefdinir 300 Mg Cap) 300 mg PO BID [facility] Stop: 03/27/22 08:59 Last Admin: 03/20/22 08:11 Dose: 300 mg Documented by: [id number] Dexamethasone Sodium Phosphate (DexamethasonePf 10 Mg/Ml Vial) 6 mg IV NOW ONE Stop: 03/16/22 07:48 Last Admin: 03/16/22 08:14 Dose: 6 mg Documented by: [id number] Diltiazem HCl (Diltiazem Hcl 5 Mg/Ml 5 Ml Vial) 10 mg IV NOW STA Stop: 03/16/22 09:15 Last Admin: 03/16/22 09:26 Dose: 10 mg Documented by: [id number] Cosigned by: [id number] Furosemide (Furosemide 40 Mg/4 Ml Vial) 40 mg IV ONE ONE Stop: 03/16/22 09:13 Last Admin: 03/16/22 11:16 Dose: 40 mg Documented by: [id number] Furosemide (Furosemide 40 Mg/4 Ml Vial) 40 mg IV ONE ONE Stop: 03/17/22 10:42 Last Admin: 03/17/22 11:22 Dose: Not Given Documented by: [id number] Furosemide (Furosemide Inj 20 Mg/2 Ml Vial) 20 mg IV ONE ONE Stop: 03/18/22 14:16 Last Admin: 03/18/22 15:35 Dose: 20 mg Documented by: [id number] Furosemide (Furosemide 40 Mg/4 Ml Vial) 40 mg IV ONE ONE Stop: 03/20/22 16:22 Last Admin: 03/20/22 16:28 Dose: 40 mg Documented by: [id number] Furosemide (Furosemide 40 Mg/4 Ml Vial) 40 mg IV ONE ONE Stop: 03/20/22 18:07 Last Admin: 03/20/22 18:19 Dose: 40 mg Documented by: [id number] Furosemide (Furosemide 40 Mg/4 Ml Vial) 40 mg IV ONE ONE Stop: 03/22/22 05:58 Last Admin: 03/22/22 06:03 Dose: 40 mg Documented by: [id number] Heparin Sodium/Dextrose (Heparin Iv Adult Wt-Based Low-Dose *No* Bolus Protocol) 1 ea IV ONE ONE; Protocol Stop: 03/16/22 09:12 Last Admin: 03/16/22 09:41 Dose: 1 ea Documented by: [id number] Sodium Chloride (Nss) 500 mls @ 999 mls/hr IV .Q31M STA Stop: 03/16/22 08:17 Last Infusion: 03/16/22 13:50 Dose: 0 mls/hr Documented by: [id number] Admin: 03/16/22 08:00 Dose: 999 mls/hr Documented by: [id number] Heparin Sodium/Dextrose (Heparin Sodium/Dextrose) 25,000 units in 500 mls @ 18 mls/hr IV .Q24H CAROL; Protocol Stop: 03/17/22 10:00 Last Titration: 03/17/22 10:26 Dose: 0 units/hr, 0 mls/hr Documented by: [id number] Cosigned by: [id number] Admin: 03/17/22 09:24 Dose: Not Given Documented by: [id number] Titration: 03/16/22 20:20 Dose: 900 units/hr, 18 mls/hr Documented by: [id number] Cosigned by: [id number] Titration: 03/16/22 19:02 Dose: 900 units/hr, 18 mls/hr Documented by: [id number] Cosigned by: [id number] Titration: 03/16/22 14:06 Dose: 900 units/hr, 18 mls/hr Documented by: [id number] Cosigned by: [id number] Admin: 03/16/22 10:23 Dose: 900 units/hr, 18 mls/hr Documented by: [id number] Cosigned by: [id number] Diltiazem HCl 125 mg/ Dextrose 125 mls @ 5 mls/hr IV .Q24H CAROL; Protocol Stop: 04/15/22 09:14 Last Titration: 03/16/22 14:05 Dose: 0 mg/hr, 0 mls/hr Documented by: [id number] Cosigned by: [id number] Admin: 03/16/22 10:24 Dose: 5 mg/hr, 5 mls/hr Documented by: [id number] Cosigned by: [id number] Amiodarone HCl/Dextrose (Nexterone / D5w) 360 mg in 200 mls @ 33.333 mls/hr IV .Q6H CAROL Stop: 03/16/22 20:39 Last Infusion: 03/17/22 07:17 Dose: 0 mg/min, 0 mls/hr Documented by: [id number] Cosigned by: [id number] Admin: 03/16/22 14:40 Dose: 1 mg/min, 33.3 mls/hr Documented by: [id number] Cosigned by: [id number] Amiodarone HCl/Dextrose (Nexterone / D5w) 360 mg in 200 mls @ 16.667 mls/hr IV .Q12H CAROL Stop: 04/15/22 18:14 Last Admin: 03/18/22 10:29 Dose: Not Given Documented by: [id number] Infusion: 03/18/22 10:17 Dose: 0 mg/min, 0 mls/hr Documented by: [id number] Cosigned by: [id number] Admin: 03/17/22 21:24 Dose: 0.5 mg/min, 16.7 mls/hr Documented by: [id number] Cosigned by: [id number] Infusion: 03/17/22 21:19 Dose: 0.5 mg/min, 16.7 mls/hr Documented by: [id number] Cosigned by: [id number] Admin: 03/17/22 09:20 Dose: 0.5 mg/min, 16.7 mls/hr Documented by: [id number] Cosigned by: [id number] Infusion: 03/17/22 08:40 Dose: 0.5 mg/min, 16.7 mls/hr Documented by: [id number] Cosigned by: [id number] Admin: 03/16/22 20:41 Dose: 0.5 mg/min, 16.7 mls/hr Documented by: [id number] Cosigned by: [id number] Amiodarone HCl/Dextrose (Nexterone / D5w) 360 mg in 200 mls @ 33.333 mls/hr IV ONE ONE Stop: 03/16/22 18:49 Last Admin: 03/16/22 14:51 Dose: Not Given Documented by: [id number] Amiodarone HCl/Dextrose (Nexterone / D5w) 150 mg in 100 mls @ 600 mls/hr IV NOW STA Stop: 03/16/22 14:10 Last Infusion: 03/16/22 14:45 Dose: 0 mls/hr Documented by: [id number] Cosigned by: [id number] Admin: 03/16/22 14:26 Dose: 600 mls/hr Documented by: [id number] Cosigned by: [id number] Piperacillin Sod/Tazobactam (Sod 4.5 gm/ Dextrose) 120 mls @ 30 mls/hr IV Q8H CAROL; Protocol Stop: 03/20/22 02:00 Last Infusion: 03/20/22 05:00 Dose: 0 mls/hr Documented by: [id number] Admin: 03/20/22 00:53 Dose: 30 mls/hr Documented by: [id number] Infusion: 03/19/22 20:00 Dose: 0 mls/hr Documented by: [id number] Admin: 03/19/22 15:58 Dose: 30 mls/hr Documented by: [id number] Infusion: 03/19/22 11:29 Dose: 0 mls/hr Documented by: [id number] Admin: 03/19/22 07:22 Dose: 30 mls/hr Documented by: [id number] Infusion: 03/19/22 04:04 Dose: 0 mls/hr Documented by: [id number] Admin: 03/19/22 00:02 Dose: 30 mls/hr Documented by: [id number] Infusion: 03/18/22 18:29 Dose: 0 mls/hr Documented by: [id number] Admin: 03/18/22 15:37 Dose: 30 mls/hr Documented by: [id number] Digoxin 500 mcg/ Syringe 2 mls @ 2 mls/min IV ONE ONE Stop: 03/18/22 09:08 Last Admin: 03/18/22 10:14 Dose: 2 mls/min Documented by: [id number] Digoxin 250 mcg/ Syringe 10 mls @ 2 mls/min IV Q6H CAROL Stop: 03/18/22 21:04 Last Admin: 03/18/22 20:10 Dose: 2 mls/min Documented by: [id number] Admin: 03/18/22 15:36 Dose: 2 mls/min Documented by: [id number] Piperacillin Sod/Tazobactam (Sod 4.5 gm/ Dextrose) 120 mls @ 200 mls/hr IV NOW ONE; Protocol Stop: 03/18/22 09:50 Last Infusion: 03/18/22 11:13 Dose: 0 mls/hr Documented by: [id number] Admin: 03/18/22 10:15 Dose: 200 mls/hr Documented by: [id number] Methylprednisolone 125 mg/ (Syringe) 2 mls @ 1.5 mls/min IV NOW STA Stop: 03/20/22 09:50 Last Admin: 03/20/22 10:37 Dose: 1.5 mls/min Documented by: [id number] Piperacillin Sod/Tazobactam (Sod 4.5 gm/ Dextrose) 120 mls @ 240 mls/hr IV NOW ONE; Protocol Stop: 03/20/22 18:14 Last Infusion: 03/20/22 19:20 Dose: 0 mls/hr Documented by: [id number] Admin: 03/20/22 18:19 Dose: 240 mls/hr Documented by: [id number] Ioversol (Optiray 320 125ml) 120 ml IV ONCE ONE Stop: 03/16/22 10:02 Last Admin: 03/16/22 10:02 Dose: 120 ml Documented by: [id number] Ipratropium [place] (Ipratropium [place] Neb Soln 0.02% 2.5 Ml Vial) 0.5 mg INH Q6R CARLO Stop: 04/19/22 12:59 Last Admin: 03/21/22 13:02 Dose: 0.5 mg Documented by: [id number] Admin: 03/21/22 07:08 Dose: 0.5 mg Documented by: [id number] Admin: 03/21/22 00:10 Dose: 0.5 mg Documented by: [id number] Admin: 03/20/22 19:38 Dose: 0.5 mg Documented by: [id number] Admin: 03/20/22 15:14 Dose: 0.5 mg Documented by: [id number] Admin: 03/20/22 13:36 Dose: Not Given Documented by: [id number] Levalbuterol HCl (Levalbuterol Hcl 0.63 Mg/3 Ml Neb) 0.63 mg NEB Q6R CAROL Stop: 04/19/22 12:59 Last Admin: 03/21/22 13:02 Dose: 0.63 mg Documented by: [id number] Admin: 03/21/22 07:08 Dose: 0.63 mg Documented by: [id number] Admin: 03/21/22 00:10 Dose: 0.63 mg Documented by: [id number] Admin: 03/20/22 19:39 Dose: 0.63 mg Documented by: [id number] Admin: 03/20/22 15:14 Dose: 0.63 mg Documented by: [id number] Admin: 03/20/22 13:36 Dose: Not Given Documented by: [id number] Metoprolol Tartrate (Metoprolol Tartrate 1 Mg/Ml Vial) 5 mg IV NOW STA Stop: 03/16/22 07:49 Last Admin: 03/16/22 08:01 Dose: 5 mg Documented by: [id number] Metoprolol Tartrate (Metoprolol Tartrate 25 Mg Tab) 12.5 mg PO BID [facility] Stop: 04/18/22 11:29 Last Admin: 03/20/22 08:09 Dose: 12.5 mg Documented by: [id number] Admin: 03/19/22 22:15 Dose: 12.5 mg Documented by: [id number] Admin: 03/19/22 12:15 Dose: 12.5 mg Documented by: [id number] Metoprolol Tartrate (Metoprolol Tartrate 25 Mg Tab) 12.5 mg PO ONE ONE Stop: 03/20/22 10:01 Last Admin: 03/20/22 10:36 Dose: 12.5 mg Documented by: [id number] Miscellaneous (Stat Iv Infusion Titration Per Protocol) 1 ea N/A NOW STA Stop: 03/16/22 09:15 Last Admin: 03/16/22 13:56 Dose: Not Given Documented by: [id number] Miscellaneous (Stat Iv Infusion Titration Per Protocol) 1 ea N/A NOW STA Stop: 03/16/22 11:19 Last Admin: 03/16/22 14:50 Dose: Not Given Documented by: [id number] Miscellaneous (Stop Order) 1 ea N/A ONE ONE Stop: 03/17/22 09:01 Last Admin: 03/17/22 09:24 Dose: 1 ea Documented by: [id number] Nitroglycerin (Nitroglycerin 2% Ointment 30gm Tube) 0.5 inch EXT Q6H [facility] Stop: 04/19/22 17:29 Last Admin: 03/21/22 05:39 Dose: 0.5 inch Documented by: [id number] Admin: 03/21/22 00:18 Dose: 0.5 inch Documented by: [id number] Admin: 03/20/22 18:17 Dose: 0.5 inch Documented by: [id number] Sacubitril/Valsartan (Valsartan/Sacubitril 26/24mg Tab) 1 tab PO BID [facility] Stop: 04/15/22 20:59 Last Admin: 03/17/22 09:29 Dose: 1 tab Documented by: [id number] Admin: 03/16/22 20:43 Dose: 1 tab Documented by: [id number] Sodium Chloride (Sodium Chloride 1 Gm Tablet) 1 gm PO BID [facility] Stop: 03/19/22 09:01 Last Admin: 03/19/22 09:51 Dose: 1 gm Documented by: [id number] Admin: 03/18/22 20:11 Dose: 1 gm Documented by: [id number] Admin: 03/18/22 10:14 Dose: 1 gm Documented by: [id number] Imaging Data Radiologist's Impression: Chest X-Ray 03/16/22 07:47 SINGLE VIEW CHEST CLINICAL HISTORY: Dyspnea. FINDINGS: An AP, portable, upright chest radiograph is compared to study dated 03/02/2022 and correlated with chest CT dated 03/02/2022. A single lead cardiac AICD is unchanged in position and partially obscures the left upper chest. The heart is enlarged noting atherosclerotic calcification of the thoracic aorta. There is pulmonary vascular congestion and interstitial edema. Images and edematous change is noted. There are small pleural effusions with bibasilar consolidation. No pneumothorax is seen. The skeletal structures are osteopenic. The bony thorax is grossly intact. IMPRESSION: 1. Cardiomegaly and AICD with evidence of congestive failure and pulmonary edema. 2. Emphysema. 3. Small pleural effusions with bibasilar consolidation. ACT 112: Negative or not required by law. Electronically signed by: Curt Foy M.D. 03/16/2022 8:[address] head/brain wo con CLINICAL HISTORY: 76 years-old Male with AMS. Acutely altered mental status TECHNIQUE: Multiple axial CT images of the head were obtained without contrast. A dose lowering technique was utilized adhering to the principles of ALARA. CT DOSE: 1277.12 mGycm COMPARISON: Head CT 09/11/2009 FINDINGS: No acute intracranial hemorrhage, midline shift, intracranial mass, hydroc ephalus, territorial ischemia or abnormal extra-axial collection. Motion degraded exam. Involutional changes with white matter hypodensities suggestive of chronic microvascular ischemic disease. Cerebral vascular calcifications. Encephalomalacia of the bilateral temporal parietal and left frontal lobes are new from the prior study. Senescent calcifications of the lentiform nuclei. The head is only partially imaged, superior portion is outside the [id number]. The calvarium is intact. The paranasal sinuses, mastoid air cells, and middle ear cavities are clear. IMPRESSION: 1. Limited exam as above. No acute intracranial abnormality identified. 2. 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 ACT 112: Negative or not required by law. The above report was generated using voice recognition software. It may contain grammatical, syntax or spelling errors. Electronically signed by: Miky Mckeon M.D. 03/16/2022 10:20 AM Dictated:03/16/22 1012 Transcribed: 03/16/[address] ANGIOGRAM OF THE CHEST CLINICAL HISTORY: Dyspnea. COMPARISON STUDY: Chest x-ray dated 03/16/2022. Chest CT dated 03/02/2022. TECHNIQUE: Following the IV administration of 120 cc of Optiray 320, CT angiogram of the chest was performed from the upper abdomen to the thoracic inlet utilizing the pulmonary embolus protocol. Images are reviewed in the axial, sagittal, and coronal planes. 3-D MIPS images are created and assessed. IV contrast was administered without complication. A dose lowering technique was utilized adhering to the principles of ALARA. The examination is degraded by motion artifact. There is streak artifact from the arms which could not be elevated above the chest. CT DOSE: 579.05 mGycm FINDINGS: Thyroid: Imaged portions of the thyroid gland are normal in size and atte nuation. Thoracic aorta: The thoracic aorta is normal in caliber and demonstrates standard 3-vessel arch anatomy. No dissection is seen. Pulmonary vasculature: The pulmonary trunk is normal in caliber. There are no filling defects identified in main, lobar, or segmental pulmonary branches to suggest pulmonary embolus. Heart: A cardiac pacemaker is present in the left chest wall. The heart is en larged and without pericardial effusion. The coronary arteries are densely calcified. Lungs and pleural spaces: Calcified pleural plaques are seen bilaterally, right greater than left. This suggests asbestos related pleural disease. There are trace pleural effusions with dependent scarring/atelectasis. A 4.6 cm focus of round atelectasis is again seen at the left lung base measuring 105. A 2.2 cm focus of round atelectasis is seen in the left lower lobe on image #142. There is diffuse intralobular septal thickening. Mild groundglass change is seen throughout both lungs and likely represents pulmonary edema. The trachea and central airways appear clear. Diffuse peribronchial thickening is observed Mediastinum: There are numerous mildly enlarged mediastinal lymph nodes which measure up to 11 mm in short axis. Rhonda: Mildly enlarged hilar nodes measure up to 12 mm in short axis. Axillae: There is no axillary lymphadenopathy. Upper abdomen: There is a small hiatal hernia. Partially visualized upper abdominal viscera is otherwise grossly unremarkable. Skeletal structures: The skeletal structures are osteopenic. Degenerative changes noted in the shoulders and thoracic spine. No lytic or blastic bony lesions are seen. Soft tissues: There is mild body wall edema. IMPRESSION: 1. There is no evidence of pulmonary embolus in the main, lobar, or segmental pulmonary arteries. 2. Cardiomegaly and cardiac pacemaker with evidence of congestive failure. 3. Trace pleural effusions. 4. Mild patchy groundglass change likely represents pulmonary edema. Correlate clinically for evidence of a superimposed infectious/inflammatory pneumonitis. 5. 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 6. Mildly enlarged mediastinal and hilar nodes are nonspecific and may be reactive. 7. Additional findings as above. ACT 112: Negative or not required by law. Electronically signed by: Curt Foy M.D. 03/16/2022 10:25 AM Dictated:03/16/22 1008 Transcribed: 03/16/22 1008 Blood Pressure Blood Pressure Findings: Low blood pressure Blood Pressure Disposition: further management by hospitalist Discharge Plan Visit Data Chief Complaint: Shortness of Breath/Dyspnea Stated Complaint: SOB ED Provider: Michelle Ralph Discharge Problem: Atrial fibrillation with rapid ventricular response, Congestive heart failure, Respiratory failure with hypoxia, COVID-19 Patient Disposition: Admitted As Inpatient Discharge Instructions Interventions: ED Discharge Assessment Last Done: 03/16/22 11:37 Discharge Problem: Congestive heart failure Qualifiers: Heart failure type: unspecified Heart failure chronicity: acute on chronic Qualified Code(s): I50.9 - Heart failure, unspecified Respiratory failure with hypoxia Qualifiers: Chronicity: acute on chronic Qualified Code(s): J96.21 - Acute and chronic respiratory failure with hypoxia
[2022-03-16 09:55] LABS: Influenza A virus by PCR Negative (Neg); Influenza B virus by PCR Negative (Neg); RSV by PCR Negative (Neg)
[2022-03-16] MEDS ORDERED: OPTIRAY 320 125ml IV ONE (10:01)
[2022-03-16 10:20] LABS: SARS CoV2 RNA(COVID-19) InHosp POSITIVE (Negative)
--- NOTE | 2022-03-16 10:22 | CT Scan Report ---
CT head/brain wo con CLINICAL HISTORY: 76 years-old Male with AMS. Acutely altered mental status TECHNIQUE: Multiple axial CT images of the head were obtained without contrast. A dose lowering tech nique was utilized adhering to the principles of ALARA. CT DOSE: 1277.12 mGycm COMPARISON: Head CT 09/11/2009 FINDINGS: No acute intracranial hemorrhage, midline shift, intracranial mass, hydrocephalus, territorial ischem ia or abnormal extra-axial collection. Motion degraded exam. Involutional changes with white matter h ypodensities suggestive of chronic microvascular ischemic disease. Cerebral vascular calcifications. Encephalomalacia of the bilateral temporal parietal and left frontal lobes are new from the prior geeta dy. Senescent calcifications of the lentiform nuclei. The head is only partially imaged, superior por tion is outside the [id number]. The calvarium is intact. The paranasal sinuses, mastoid air cells, and middle ear cavities are clear . IMPRESSION: 1. Limited exam as above. No acute intracranial abnormality identified. 2. 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 ACT 112: Negative or not required by law. The above report was generated using voice recognition software. It may contain grammatical, syntax o r spelling errors. Electronically signed by: Miky Mckeon M.D. 03/16/2022 10:20 AM
[2022-03-16] MEDS: HEPARIN SODIUM/DEXTROSE 25,000 UNITS/500 ML BAG IV SCH (10:23)
--- NOTE | 2022-03-16 10:26 | CT Scan Report ---
CT ANGIOGRAM OF THE CHEST CLINICAL HISTORY: Dyspnea. COMPARISON STUDY: Chest x-ray dated 03/16/2022. Chest CT dated 03/02/2022. TECHNIQUE: Following the IV administration of 120 cc of Optiray 320, CT angiogram of the chest was pe rformed from the upper abdomen to the thoracic inlet utilizing the pulmonary embolus protocol. Images are reviewed in the axial, sagittal, and coronal planes. 3-D MIPS images are created and assessed. I V contrast was administered without complication. A dose lowering technique was utilized adhering to the principles of ALARA. The examination is degraded by motion artifact. There is streak artifact fr om the arms which could not be elevated above the chest. CT DOSE: 579.05 mGycm FINDINGS: Thyroid: Imaged portions of the thyroid gland are normal in size and attenuation. Thoracic aorta: The thoracic aorta is normal in caliber and demonstrates standard 3-vessel arch anato my. No dissection is seen. Pulmonary vasculature: The pulmonary trunk is normal in caliber. There are no filling defects identif ied in main, lobar, or segmental pulmonary branches to suggest pulmonary embolus. Heart: A cardiac pacemaker is present in the left chest wall. The heart is enlarged and without peric ardial effusion. The coronary arteries are densely calcified. Lungs and pleural spaces: Calcified pleural plaques are seen bilaterally, right greater than left. Th is suggests asbestos related pleural disease. There are trace pleural effusions with dependent scarri ng/atelectasis. A 4.6 cm focus of round atelectasis is again seen at the left lung base measuring 105 . A 2.2 cm focus of round atelectasis is seen in the left lower lobe on image #142. There is diffuse intralobular septal thickening. Mild groundglass change is seen throughout both lungs and likely repr esents pulmonary edema. The trachea and central airways appear clear. Diffuse peribronchial thickenin g is observed Mediastinum: There are numerous mildly enlarged mediastinal lymph nodes which measure up to 11 mm in short axis. Rhonda: Mildly enlarged hilar nodes measure up to 12 mm in short axis. Axillae: There is no axillary lymphadenopathy. Upper abdomen: There is a small hiatal hernia. Partially visualized upper abdominal viscera is otherw ise grossly unremarkable. Skeletal structures: The skeletal structures are osteopenic. Degenerative changes noted in the should ers and thoracic spine. No lytic or blastic bony lesions are seen. Soft tissues: There is mild body wall edema. IMPRESSION: 1. There is no evidence of pulmonary embolus in the main, lobar, or segmental pulmonary arteries. 2. Cardiomegaly and cardiac pacemaker with evidence of congestive failure. 3. Trace pleural effusions. 4. Mild patchy groundglass change likely represents pulmonary edema. Correlate clinically for evidenc e of a superimposed infectious/inflammatory pneumonitis. 5. 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 6. Mildly enlarged mediastinal and hilar nodes are nonspecific and may be reactive. 7. Additional findings as above. ACT 112: Negative or not required by law. Electronically signed by: Curt Foy M.D. 03/16/2022 10:25 AM
[2022-03-16] MEDS ORDERED: AMIODARONE IV BOLUS & DRIP IV STA (11:18)
[2022-03-16] MEDS ORDERED: AMIODARONE / D5W 150 MG/100 ML BAG IV STA ×2 (11:18→14:01)
--- NOTE | 2022-03-16 11:24 | History & Physical Report ---
Date of Service March 16, 2022 Assessment & Plan (1) Atrial fibrillation with RVR: Plan: - Full admit to PCU - Diltiazem gtt not indicated it patient's with known systolic dysfunction, thus stopped - Will initiate Amiodarone with bolus and gtt per protocol to achieve HR control - Maintain ACT, currently on Heparin gtt, will transition back to Eliquis or switch to Lovenox (1mg/kg) q12h this evening - Hold oral Metoprolol for now - Update echo - Cardiology consulted, d/w Dr. Mahmood who agreed with utilizing Amio, appreciate assistance (2) Acute on chronic systolic CHF (congestive heart failure): Plan: - Last echo from 2019, EF 30-35% - Update echo - Currently on BiPAP which will provide benefit of mobilizing fluid via increased intrathoracic pressure - Diurese as able, dose of IV Lasix 40mg x1 given in ED, will monitor response - Currently NPO d/t BiPAP mask, can order diet and transition off BiPAP when more awake/alert - Fluid restrict at 1800 cc per day, monitor I/O q shift and daily weights - Will resume Entresto when able (3) Hypoxia: Plan: - Due to volume overload d/t a/c systolic chf - Diurese, BiPAP - Transition to NC when more awake/alert (4) Elevated troponin: Plan: - Suspect type II NSTEMI - Currently on Heparin, which will leave for now but transition to Lovenox tonight - Cardiology consulted, appreciate recommendations - Update echo - Resume ASA, statin when off BiPAP (5) Leukocytosis: Plan: - Uncertain etiology, no obvious PNA or UTI - No PE - ?Reactive v residual from recent steroid use (6) COVID-19: Plan: - First positive 03/02, vaxx'd and boosted x2 - Does NOT need airborne isolation per infection control, but does need private room until he has been 21 days from date of first positive test * This was discussed with Kelsi Quiroga (7) Hyponatremia: Plan: - Chronic and within baseline range of 126-133, suspect could be related to his chronic ETOH use - Currently could be dilutional d/t hypervolemia (8) Emphysema lung: Plan: - chronic, does not appear to have an acute exacerbation at this time (9) Alcohol abuse: Plan: - Could be what tripped him into rapid afib - Per , drinks 6-8 beers every night - Usually 2 beers/night ordered when requires hospitalization - Can consider this when patient is more awake/alert (10) Transaminitis: Plan: - Repeat labs in AM - Could consider RUQ ultrasound Plan: Admit VTE covered w/ Heparin gtt and can transition to Lovenox this evening Repeat labs in AM Patient's requests full code status Above to be d/w Dr. Hamilton with additional orders as warranted. History of Present Illness Chief Complaint: confusion and low O2 Primary Care Provider: Aquilino Silver III, SIA Mr. Almeida is a 76 yo WM with a pmhx of CAD and [employer] s/p stenting over 15 years ago and a last documented LVEF of 30-35% (via echo and stress test), as well as COPD, chronic systolic CHF, paroxysmal afib on chronic ACT with Eliquis, factor V Leiden mutation, alcohol dependency, and prostate cancer who presented to the ER via EMS due to confusion. Onset of symptoms, per patient's , was around 0700 this morning when patient told his that he was confused and didn't know where he was. She subsequently immediately called EMS. Pt was recently hospitalized here at [facility] 03/02-03/05 for COVID pneumonia and respiratory failure. He returned home with his on 03/05 and completed a course of steroids as well as Zithromax. Pt had been doing well up until this morning. His has been frequently checking his pulse ox at home and it has been above 90%. Upon EMS arrival, pt was noted to have a pulse ox in the 80's. He was placed on supplemental O2 and was treated with Duoneb(s) prehospital. When he arrived in ED, pt was noted to be in rapid afib with HR in the 130s. BP 110s systolic. He was medicated with a dose of IV Lopressor 5mg x1 with a drop in HR into the 80s but also respective drop in systolic BP into the 90s. WBC elevated at 16 with neutrophil predominance. Na 129, of which he has a long standing history of chronic hyponatremia ranging 126-133. HR rebounded back up into the 120s, and ER ordered Diltiazem bolus and gtt. HS troponin also came back elevated at 537. Pt placed on BiPAP and dose of Lasix ordered. CTA chest and CT head ordered-- no PE or obvious evidence of PNA noted on chest. Findings c/w CHF. CT head w/o acute findings. COVID test is positive but date of first positive was 03/02 and pt has been fully vaccinated and boosted x2. Pt has been referred to hospitalists for admission for further evaluation and treatment. Allergies Allergy/AdvReac Type Severity Reaction Status Date / Time morphine Allergy Intermediate Swelling Verified 03/02/22 06:27 clopidogrel Allergy Unknown Unknown Verified 03/02/22 06:27 reaction fluticasone furoate AdvReac Intermediate Pain Verified 03/02/22 06:27 [From Trelegy Ellipta] behind the eyes umeclidinium AdvReac Intermediate Pain Verified 03/02/22 06:27 [From Trelegy Ellipta] behind the eyes vilanterol AdvReac Intermediate Pain Verified 03/02/22 06:27 [From Trelegy Ellipta] behind the eyes HAND EMBLEM DRAWER IN (ALCOHOL Allergy Severe SHORTNESS Uncoded 03/02/22 06:27 BASED) OF BREATH - SEE NOTES Home Medications Medication Instructions Recorded Confirmed Type furosemide 20 mg tablet 20 mg PO QAM 06/13/19 03/02/22 History sacubitril 24 mg-valsartan 26 mg 1 tab PO BID 06/13/19 03/02/22 History tablet (Entresto) nitroglycerin 0.4 mg sublingual 0.4 mg SL Q5M PRN 10/13/19 03/02/22 History tablet atorvastatin 80 mg tablet 40 mg PO HS tab 10/27/19 03/02/22 History ibuprofen 200 mg tablet (Advil) 200 mg PO Q6H PRN 09/01/20 03/02/22 History apixaban 5 mg tablet 5 mg PO BID #60 tab 03/14/21 03/02/22 Rx tadalafil 10 mg tablet (Cialis) 10 mg PO DAILY PRN #30 tab 04/22/21 03/02/22 Rx ipratropium bromide 21 mcg (0.03 2 spray INTRANASAL BID #30 ml 07/15/21 03/02/22 Rx %) nasal spray cholecalciferol (vitamin D3) 25 25 mcg PO QAM 08/17/21 03/02/22 History mcg (1,000 unit) capsule empagliflozin 10 mg tablet 10 mg PO QAM 08/17/21 03/02/22 History (Jardiance) budesonide-formoterol HFA 160 2 puff INHALATION BID 02/21/22 03/02/22 History mcg-4.5 mcg/actuation aerosol inhaler (Symbicort) B6 0.85 mg-folic 200 1 tab PO QAM 03/02/22 03/02/22 History [id number] oral chewable tablet (Neuriva Plus) aspirin 81 mg tablet,delayed 81 mg PO QAM 03/02/22 03/02/22 History release tamsulosin 0.4 mg capsule 0.4 mg PO HS 03/02/22 03/02/22 History folic acid 1 mg tablet 1 mg PO DAILY #30 tab 03/05/22 Rx metoprolol succinate 100 mg 100 mg PO DAILY 30 Days #30 tab 03/05/22 Rx tablet,extended release 24 hr thiamine HCl (vitamin B1) 100 mg 100 mg PO DAILY #30 tab 03/05/22 Rx tablet Past Med/Surg History Medical History (Updated 03/17/22 @ 00:08 by Vijaya Evans) Acute on chronic systolic CHF (congestive heart failure) Alcohol abuse CAD (coronary artery disease) Cardiac defibrillator in place Cardiomyopathy Cough Factor V Leiden diagnosed due to family history- no personal hx of blood clots/bleeding issues History of heart attack 1999 Hyperlipidemia Hyponatremia [place] (myocardial infarction) Nasal congestion Pacemaker PPM/ICD- Implanted 2008/[employer]/last check 06/2019 per patient Paroxysmal atrial fibrillation Prostate cancer Tobacco abuse Surgical History (Updated 03/16/22 @ 17:55 by Jorge A Mahmood MD) History of appendectomy History of cardiac cath 1999 History of colonoscopy History of tonsillectomy History of total right knee replacement Previous back surgery Lumbar spine surgery S/P coronary artery stent placement Family History (Updated 02/21/22 @ 10:51 by SIA Bay III) Mother , in her 60s of unknown cause Alzheimer disease Father , in his 70s Prostate cancer Cardiac disease Glaucoma Alzheimer disease Brother Heart transplant recipient Brother No problems noted. Brother No problems noted. Brother No problems noted. Sister No problems noted. Sister No problems noted. Daughter No problems noted. Daughter No problems noted. Social History Smoking Status: Current every day smoker Tobacco Type: Cigars Age Started Using Tobacco: 21; Cigarettes Per Day: 1PPD; Second Hand Exposure: No; Do You Dip or Chew Tobacco: No; Tobacco Cessation Education Requested by Patient: No Hx Alcohol Use: Yes Alcohol type: beer Alcohol Intake Frequency: 4 or More x per/Week Hx Substance Use: No Preferred Language: Cuban Communication Ability: Effective Visual Impairment: No Limitations Hearing Ability: Normal Return To Vendor Required: No Beliefs That Will Affect Care: None marital status: Current Living Situation: Spouse current occupational status: retired current occupation: [employer] Other Information That Helps Us Care for You: No Feels Safe at Home: Yes Childhood Exposure to Second-Hand Smoke: Yes caffeine: Yes (3 mugs/day) during the past year weight has: remained stable Dental Care, Regularly: Yes Physical Activity Frequency: Does not Exercise Seatbelt Use: always Sunscreen Use: No Assistive Devices: Hearing Aid - Bilateral Review of Systems Review of Systems: Unobtainable at this time as pt is confused Physical Exam Physical Exam: GENERAL: 76 yo well-developed, well-nourished elderly WM. NAD. LUNGS: Difficult to assess but diminished in bases CARDIOVASCULAR: Irregular rate and rhythm ABDOMEN: Soft, non-tender and non-distended. BS normal x 4 quad. EXTREMITIES: No edema. Non-tender. Peripheral pulses +2/4. NEUROLOGIC: Responds but is confused PSYCHIATRIC: Cooperative. SKIN: Warm, dry, intact. No rashes or lesions. Results & Data Results & Data ([facility]) Vital Signs (Past 12 Hours) Vital Signs Temp Pulse Pulse Resp BP BP Pulse Ox 03/16/22 10:30 134 H 19 107/92 94 03/16/22 10:15 138 H 22 99 03/16/22 09:34 122 H 22 101/68 95 03/16/22 09:00 132 H 17 95/61 L 99 03/16/22 08:39 115 H 12 117/72 100 03/16/22 08:22 112 H 21 102/62 98 03/16/22 08:12 105 H 21 100 03/16/22 08:03 105 H 21 100 03/16/22 07:50 116 H 26 H 97 03/16/22 07:45 37.1 C 119 H 26 H 113/67 95 05/12/22 07:28 37.1 C 103 H 26 H 113/67 97 Laboratory Results 03/16/22 07:36 03/16/22 07:36 TB=2.0, AST=57, ALT=66 HS yctc=739.3 VBG: pH=7.32, pCO2=42, pO2=25, HCO3=21 Diagnostic Findings Chest CTA 03/16/22 07:47 CT ANGIOGRAM OF THE CHEST CLINICAL HISTORY: Dyspnea. COMPARISON STUDY: Chest x-ray dated 03/16/2022. Chest CT dated 03/02/2022. TECHNIQUE: Following the IV administration of 120 cc of Optiray 320, CT angiogram of the chest was performed from the upper abdomen to the thoracic inlet utilizing the pulmonary embolus protocol. Images are reviewed in the axial, sagittal, and coronal planes. 3-D MIPS images are created and assessed. IV contrast was administered without complication. A dose lowering technique was utilized adhering to the principles of ALARA. The examination is degraded by motion artifact. There is streak artifact from the arms which could not be elevated above the chest. CT DOSE: 579.05 mGycm FINDINGS: Thyroid: Imaged portions of the thyroid gland are normal in size and attenuation. Thoracic aorta: The thoracic aorta is normal in caliber and demonstrates standa rd 3-vessel arch anatomy. No dissection is seen. Pulmonary vasculature: The pulmonary trunk is normal in caliber. There are no filling defects identified in main, lobar, or segmental pulmonary branches to suggest pulmonary embolus. Heart: A cardiac pacemaker is present in the left chest wall. The heart is enlarged and without pericardial effusion. The coronary arteries are densely calcified. Lungs and pleural spaces: Calcified pleural plaques are seen bilaterally, right greater than left. This suggests asbestos related pleural disease. There are trace pleural effusions with dependent scarring/atelectasis. A 4.6 cm focus of round atelectasis is again seen at the left lung base measuring 105. A 2.2 cm focus of round atelectasis is seen in the left lower lobe on image #142. There is diffuse intralobular septal thickening. Mild groundglass change is seen throughout both lungs and likely represents pulmonary edema. The trachea and central airways appear clear. Diffuse peribronchial thickening is observed Mediastinum: There are numerous mildly enlarged mediastinal lymph nodes which measure up to 11 mm in short axis. Rhonda: Mildly enlarged hilar nodes measure up to 12 mm in short axis. Axillae: There is no axillary lymphadenopathy. Upper abdomen: There is a small hiatal hernia. Partially visualized upper abdominal viscera is otherwise grossly unremarkable. Skeletal structures: The skeletal structures are osteopenic. Degenerative changes noted in the shoulders and thoracic spine. No lytic or blastic bony lesions are seen. Soft tissues: There is mild body wall edema. IMPRESSION: 1. There is no evidence of pulmonary embolus in the main, lobar, or segmental pu lmonary arteries. 2. Cardiomegaly and cardiac pacemaker with evidence of congestive failure. 3. Trace pleural effusions. 4. Mild patchy groundglass change likely represents pulmonary edema. Correlate clinically for evidence of a superimposed infectious/inflammatory pneumonitis. 5. 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 6. Mildly enlarged mediastinal and hilar nodes are nonspecific and may be reactive. 7. Additional findings as above. ACT 112: Negative or not required by law. Electronically signed by: Curt Foy M.D. 03/16/2022 10:25 AM Chest X-Ray 03/16/22 07:47 SINGLE VIEW CHEST CLINICAL HISTORY: Dyspnea. FINDINGS: An AP, portable, upright chest radiograph is compared to study dated 03/02/2022 and correlated with chest CT dated 03/02/2022. A single lead cardiac AICD is unchanged in position and partially obscures the left upper chest. The heart is enlarged noting atherosclerotic calcification of the thoracic aorta. There is pulmonary vascular congestion and interstitial edema. Images and edematous change is noted. There are small pleural effusions with bibasilar consolidation. No pneumothorax is seen. The skeletal structures are osteopenic. The bony thorax is grossly intact. IMPRESSION: 1. Cardiomegaly and AICD with evidence of congestive failure and pulmonary edema. 2. Emphysema. 3. Small pleural effusions with bibasilar consolidation. ACT 112: Negative or not required by law. Electronically signed by: Curt Foy M.D. 03/16/2022 8:[address] 03/16/22 09:29 CT head/brain wo con CLINICAL HISTORY: 76 years-old Male with AMS. Acutely altered mental status TECHNIQUE: Multiple axial CT images of the head were obtained without contrast. A dose lowering technique was utilized adhering to the principles of ALARA. CT DOSE: 1277.12 mGycm COMPARISON: Head CT 09/11/2009 FINDINGS: No acute intracranial hemorrhage, midline shift, intracranial mass, hydrocephalus, territorial ischemia or abnormal extra-axial collection. Motion degraded exam. Involutional changes with white matter hypodensities suggestive of chronic microvascular ischemic disease. Cerebral vascular calcifications. Encephalomalacia of the bilateral temporal parietal and left frontal lobes are new from the prior study. Senescent calcifications of the lentiform nuclei. The head is only partially imaged, superior portion is outside the [id number]. The calvarium is intact. The paranasal sinuses, mastoid air cells, and middle ear cavities are clear. IMPRESSION: 1. Limited exam as above. No acute intracranial abnormality identified. 2. 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 ACT 112: Negative or not required by law. The above report was generated using voice recognition software. It may contain grammatical, syntax or spelling errors. Electronically signed by: Miky Mckeon M.D. 03/16/2022 10:20 AM ECG Additional Comments: Afib w/ rvr 120s w/ occasional PVC Code Status & VTE Plan VTE Prophylaxis Plan VTE Prophylaxis will be ordered: Yes Supervising Physician Co-Signing Physician Notes Pt seen and examined, case discussed with JULIA Justin. Subjective limited by sedation/BiPAP. On revisit patient more alert, reports he feels "fine I guess "endorses some shortness of breath coming in, none at rest. Thompson in place. Without questions or concerns. Heart rate irregular and mildly tachycardic, symmetrical chest rise with diminished lung sounds and crackles at the bases . history ofCAD and distant PCI, HFrEF 35% w/ ICD, COPD, PAfib on Eliquis, FVL, EtoH abuse, recent COVID19 who presents w/ confusion, afib RVR, and AoC CHF. Initial Cardizem discontinued as contraindicated with rEF. Amio load + bolus as above, fluid management as above w/ lasix. COntinue 40mg daily, follow I$O and Cr. Trop elevated wiuthout chest pain, suspect demand ischemia, EKG Afib RVR. TTE pending. Eliquis --> heparin as noted. Cardiology consulted, case discussed w/ cardiology by PA on admission. AoC HFrEF 35% - ICD in place - Entresto, MTP succinate 100mg daily - +Spironolactone 25mg - Lasix 40mg daily, follow uop and net weight. Continue diuresis - ASA daily Afib RVR - tx acute HF as above - Dilt gtt discontinued, amiodarone load + drip - MTP 5mg IV PRN if needed for rate - Continue heparin gtt EtoH Dependency - No interest in quitting - Ordered for 1 beer AC to prevent withdrawal - Thiamine daily PG Care Time/CCT Total # of Minutes Spent Total Time Spent with Patient: Total time spent is greater than 50% in coordination of care (as documented) at patient's floor/unit and/or counseling patient: Coding Level of Care Code 91179 Initial Inpt Care Lvl 3 Diagnoses Atrial fibrillation with RVR I48.91 Leukocytosis D72.829 Elevated troponin R77.8 COVID-19 U07.1 Hyponatremia E87.1 Emphysema lung J43.9 Acute on chronic systolic CHF (congestive heart failure) I50.23 Hypoxia R09.02 Alcohol abuse F10.10 Transaminitis R74.01
[2022-03-16 11:52] LABS: Appearance Urine Clear (Clear); Bacteria Urine Automated Negative (Negative); Bilirubin Urine Negative (Negative); Blood Urine 2+ (Negative); Cast Urine Automated 0 /lpf (0-5); Color Urine Yellow; Glucose Urine UA 3+ (Negative); Ketones Urine 3+ (Negative); Leukocyte Esterase Urine Negative (Negative); Nitrite Urine Negative (Negative); Protein Urine Negative (Negative); Specific Gravity Urine > 1.045 (1.000-1.030); Urobilinogen Urine Negative (Negative)
[2022-03-16] MEDS ORDERED: AMIODARONE / D5W 360 MG/200 ML BAG IV SCH ×2 (12:15→17:15)
[2022-03-16] MEDS ORDERED: 0.2 MICRON FILTER SET 1 EA IV ONE ×2 (12:15→12:50)
[2022-03-16] MEDS ORDERED: AMIODARONE / D5W 360 MG/200 ML BAG IV ONE (12:50)
[2022-03-16] MEDS ORDERED: ONDANSETRON INJ 2 MG/ML 2 ML VIAL IV PRN (12:50)
[2022-03-16] MEDS ORDERED: Heparin IV Adult Wt-Based Low-Dose *NO* Bolus Protocol IV SCH (13:00)
--- NOTE | 2022-03-16 17:50 | Cardiology Consultation ---
Date of Consultation March 16, 2022 Assessment & Plan (1) Atrial fibrillation with RVR: (2) Acute on chronic systolic CHF (congestive heart failure): (3) CAD (coronary artery disease): (4) S/P coronary artery stent placement: (5) Alcohol abuse: (6) Cardiomyopathy: (7) Tobacco abuse: ASSESSMENT/PLAN: 1. Acute on chronic heart failure with reduced EF: Formal echo read pending. Appears hypervolemic. Has received 40 mg of IV Lasix. Would try to achieve net negative fluid balance today. Strict I&Os. Can re-dose Lasix 40 mg IV if necessary. Reassess tomorrow morning but will likely require further intravenous diuretic. Start spironolactone and continue if EF remains severely reduced. On ST LT 2 inhibitor at home and would resume on discharge or allow for him to take year if he has the medication with him. Continue metoprolol succinate and Entresto. 2. Atrial fibrillation with RVR: History of paroxysmal AFib. Heart rates elevated. Was placed on amiodarone given hypotension after receiving intravenous metoprolol and diltiazem. Monitor TSH in transaminase levels while on amiodarone, especially if capped long-term. Duration of use to be determined by his primary cardiology team. Continue anticoagulation for stroke risk reduction. His states that he has not missed any dose of his Eliquis in the past several weeks. 3. CAD s/p LAD PCI: No angina. Troponin elevated, likely due to demand ischemia in the setting of hypoxia and AFib with RVR. Trend troponin levels. Continue beta-terra, high-intensity statin therapy, aspirin 81 mg daily. 4. Alcohol abuse: Recommended that he stop consuming alcohol. He is not interested. His requests beer while here which was related to the primary hospitalist service. 5. Tobacco abuse: Recommended that he stop smoking. 6. Cardiomyopathy: Reportedly ischemic cardiomyopathy. Echo performed and form al interpretation is pending. ICD in place. 7. Disposition: Plan of care communicated with primary hospitalist service. Dr. Delatorre, his primary local laborer cutting tool, will resume his care tomorrow. [facility] [place] [facility]. Highly complex medical issues. Thank you for allowing me to participate in the care of your patient. Please call for any other questions or concerns. Sincerely, Dashawn Mahmood M.D. History of Present Illness Reason for Consultation: "AFib with RVR, CHF, NSTEMI" Requesting Physician: Tri Justin Attending Physician: Que Hamilton MD History of Present Illness Mr. Almeida is a 76-year-old gentleman with a history significant for CAD s/p LAD [place] and PCI, ischemic cardiomyopathy, heart failure with reduced EF, ICD, paroxysmal atrial fibrillation, hypertension, dyslipidemia, factor 5 Leiden, tobacco abuse, and alcohol abuse. His primary laborer cutting tool locally is Dr. Delatorre. He also follows regularly with Dr. Witt in the [place] area (has followed with chronically). He was admitted on 03/16/2022 after presenting with confusion. His had noted that he was confused at approximately 7:00 a.m. this morning and she called for EMS. He was also notably short of breath per his . He was recently hospitalized at [facility] on 03/02/2022 until 03/05/2022 for COVID pneumonia and respiratory failure. He was noted to be hypoxic with a pulse ox in the 80s and was placed on supplemental oxygen and eventually BiPAP. His heart rate was in the 130s in AFib. In the emergency department he received intravenous metoprolol 5 mg IV x1 which improved his heart rate and lowered his systolic blood pressure into the 90s. Heart rate once again became tachycardic and he was given diltiazem bolus and drip in the emergency department. When evaluated this afternoon, his breathing was much improved. He denied current confusion but admits that he did not remember how he came to the hospital. He denies chest pain, syncope, near-syncope, palpitations, bleeding, or edema, however his acknowledge that he has had edema. His requests that he has 1-2 beers while hospitalized to help prevent withdrawal. Review of systems: As above. Review of systems otherwise negative/unremarkable. Family history: Brother reportedly had heart transplant. Social history: Smokes cigars daily. Consumes 5-6 beers daily. Lives with his , who was present at the bedside. 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 (ALCOHOL Allergy Severe SHORTNESS Uncoded 03/02/22 06:27 BASED) OF BREATH - SEE NOTES Home Medications Medication Instructions Recorded Confirmed Type furosemide 20 mg tablet 20 mg PO QAM 06/13/19 03/02/22 History sacubitril 24 mg-valsartan 26 mg 1 tab PO BID 06/13/19 03/02/22 History tablet (Entresto) nitroglycerin 0.4 mg sublingual 0.4 mg SL Q5M PRN 10/13/19 03/02/22 History tablet atorvastatin 80 mg tablet 40 mg PO HS tab 10/27/19 03/02/22 History ibuprofen 200 mg tablet (Advil) 200 mg PO Q6H PRN 09/01/20 03/02/22 History apixaban 5 mg tablet 5 mg PO BID #60 tab 03/14/21 03/02/22 Rx tadalafil 10 mg tablet (Cialis) 10 mg PO DAILY PRN #30 tab 04/22/21 03/02/22 Rx ipratropium bromide 21 mcg (0.03 2 spray INTRANASAL BID #30 ml 07/15/21 03/02/22 Rx %) nasal spray cholecalciferol (vitamin D3) 25 25 mcg PO QAM 08/17/21 03/02/22 History mcg (1,000 unit) capsule empagliflozin 10 mg tablet 10 mg PO QAM 08/17/21 03/02/22 History (Jardiance) budesonide-formoterol HFA 160 2 puff INHALATION BID 02/21/22 03/02/22 History mcg-4.5 mcg/actuation aerosol inhaler (Symbicort) B6 0.85 mg-folic 200 1 tab PO QAM 03/02/22 03/02/22 History [id number] oral chewable tablet (Neuriva Plus) aspirin 81 mg tablet,delayed 81 mg PO QAM 03/02/22 03/02/22 History release tamsulosin 0.4 mg capsule 0.4 mg PO HS 03/02/22 03/02/22 History folic acid 1 mg tablet 1 mg PO DAILY #30 tab 03/05/22 Rx metoprolol succinate 100 mg 100 mg PO DAILY 30 Days #30 tab 03/05/22 Rx tablet,extended release 24 hr thiamine HCl (vitamin B1) 100 mg 100 mg PO DAILY #30 tab 03/05/22 Rx tablet Patient History Medical History (Updated 03/16/22 @ 17:55 by Jorge A Mahmood MD) Acute on chronic systolic CHF (congestive heart failure) Alcohol abuse CAD (coronary artery disease) Cardiac defibrillator in place Cardiomyopathy Cough Factor V Leiden diagnosed due to family history- no personal hx of blood clots/bleeding issues History of heart attack 1999 Hyperlipidemia Hyponatremia [place] (myocardial infarction) Nasal congestion Pacemaker PPM/ICD- Implanted 2008/[employer]/last check 06/2019 per patient Paroxysmal atrial fibrillation Prostate cancer Tobacco abuse Surgical History (Updated 03/16/22 @ 17:55 by Jorge A Mahmood MD) History of appendectomy History of cardiac cath 1999 History of colonoscopy History of tonsillectomy History of total right knee replacement Previous back surgery Lumbar spine surgery S/P coronary artery stent placement Family History (Updated 02/21/22 @ 10:51 by SIA Bay III) Mother , in her 60s of unknown cause Alzheimer disease Father , in his 70s Prostate cancer Cardiac disease Glaucoma Alzheimer disease Brother Heart transplant recipient Brother No problems noted. Brother No problems noted. Brother No problems noted. Sister No problems noted. Sister No problems noted. Daughter No problems noted. Daughter No problems noted. Social History Smoking Status: Current every day smoker Tobacco Type: Cigars Age Started Using Tobacco: 21; Cigarettes Per Day: 1PPD; Second Hand Exposure: No; Do You Dip or Chew Tobacco: No; Tobacco Cessation Education Requested by Patient: No Hx Alcohol Use: Yes Alcohol type: beer Alcohol Intake Frequency: 4 or More x per/Week Hx Substance Use: No Preferred Language: Bhutanese Communication Ability: Effective Visual Impairment: No Limitations Hearing Ability: Normal Ledge Man Required: No Beliefs That Will Affect Care: None marital status: Current Living Situation: Spouse current occupational status: 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 Alert. HEENT: Anicteric sclera. Neck: Elevated JVD. No bruits. Normal carotid upstrokes bilaterally. Cardiac: PMI was nonpalpable. No ventricular heave. Irregularly irregular in the low 100s. Normal S1-S2. 1/6 systolic murmur. Pulmonary: Bibasilar rales. Abdomen: Soft, nontender, nondistended, with normoactive bowel sounds. No bruits noted. Extremities: 1+ radial pulses bilaterally. 1+ posterior tibialis pulses bilaterally. Good 1+ bilateral lower extremity edema. No cyanosis. Results & Data ([facility]) Vital Signs (Past 12 Hours) Vital Signs Temp Pulse Pulse Resp BP BP Pulse Ox 03/16/22 12:51 36.6 C 126 H 16 105/72 98 03/16/22 12:50 03/16/22 11:37 128 H 16 102/76 03/16/22 11:19 128 H 14 108/68 94 03/16/22 10:30 134 H 19 107/92 94 03/16/22 10:15 138 H 22 99 03/16/22 09:34 122 H 22 101/68 95 03/16/22 09:00 132 H 17 95/61 L 99 03/16/22 08:39 115 H 12 117/72 100 03/16/22 08:22 112 H 21 102/62 98 03/16/22 08:12 105 H 21 100 03/16/22 08:03 105 H 21 100 03/16/22 07:50 116 H 26 H 97 03/16/22 07:45 37.1 C 119 H 26 H 113/67 95 03/16/22 07:28 37.1 C 103 H 26 H 113/67 97 Pulse Ox 03/16/22 12:51 03/16/22 12:50 98 03/16/22 11:37 03/16/22 11:19 03/16/22 10:30 03/16/22 10:15 03/16/22 09:34 03/16/22 09:00 03/16/22 08:39 03/16/22 08:22 03/16/22 08:12 03/16/22 08:03 03/16/22 07:50 03/16/22 07:45 03/16/22 07:28 Intake & Output 03/14/22 03/15/22 03/16/22 03/17/22 06:59 06:59 06:59 06:59 Intake Total 685.317 / 685.317 Balance 685.317 / 685.317 Weight 179 lb 7.3 oz Laboratory Results Laboratory Results - last 24 hr 03/16/22 03/16/22 03/16/22 07:36 07:36 07:36 WBC 16.15 H RBC 4.11 L Hgb 14.9 Hct 42.0 MCV 102.2 H MCH 36.3 H MCHC 35.5 RDW Std Deviation 47.0 H RDW Coeff of Marlyn 12.5 Plt Count 293 MPV 8.7 Immature Gran % (Auto) 0.5 Neut % (Auto) 87.4 Lymph % (Auto) 6.4 Terry % (Auto) 5.5 Eos % (Auto) 0.1 Baso % (Auto) 0.1 Neut # (Auto) 14.11 H Lymph # (Auto) 1.04 L Terry # (Auto) 0.89 H Eos # (Auto) 0.02 Baso # (Auto) 0.01 Immature Gran # (Auto) 0.08 H PT 11.7 INR 1.1 APTT 34.4 H PTT Ratio 1.3 VBG pH VBG pCO2 VBG pO2 VBG HCO3 VBG O2 Saturation VBG Base Excess Barometric Pressure Sodium 129 L Potassium 4.3 Chloride 97 L Carbon Dioxide 23 Anion Gap 9 BUN 15 Creatinine 0.75 Est Cr Clr Drug Dosing 82.3 Est GFR ( Amer) 104.0 Est GFR (Non-Af Amer) 89.7 BUN/Creatinine Ratio 20.0 Glucose 92 Lactate Calcium 8.7 Magnesium 2.2 Total Bilirubin 2.0 H AST 57 H ALT 66 H Alkaline Phosphatase 68 Troponin I High Sens 537.3 H* D Total Protein 6.2 Albumin 3.5 Globulin 2.7 Albumin/Globulin Ratio 1.3 Urine Color Urine Appearance Urine pH Ur Specific [place] Urine Protein Urine Glucose (UA) Urine Ketones Urine Blood Urine Nitrite Urine Bilirubin Urine Urobilinogen Ur Leukocyte Esterase Urine WBC (Auto) Urine RBC (Auto) U Hyaline Cast (Auto) U Epithel Cells (Auto) Urine Bacteria (Auto) Ethyl Alcohol mg/dL SARS-CoV-2 (PCR) Influenza Type A (PCR) Influenza Type B (PCR) RSV (RT-PCR) 03/16/22 03/16/22 03/16/22 07:36 08:01 08:01 WBC RBC Hgb Hct MCV MCH MCHC RDW Std Deviation RDW Coeff of Marlyn Plt Count MPV Immature Gran % (Auto) Neut % (Auto) Lymph % (Auto) Terry % (Auto) Eos % (Auto) Baso % (Auto) Neut # (Auto) Lymph # (Auto) Terry # (Auto) Eos # (Auto) Baso # (Auto) Immature Gran # (Auto) PT INR APTT PTT Ratio VBG pH 7.32 L VBG pCO2 42 VBG pO2 25 VBG HCO3 21 VBG O2 Saturation < 60.0 VBG Base Excess -4.8 Barometric Pressure 739.6 Sodium Potassium Chloride Carbon Dioxide Anion Gap BUN Creatinine Est Cr Clr Drug Dosing Est GFR ( Amer) Est GFR (Non-Af Amer) BUN/Creatinine Ratio Glucose Lactate 0.9 Calcium Magnesium Total Bilirubin AST ALT Alkaline Phosphatase Troponin I High Sens Total Protein Albumin Globulin Albumin/Globulin Ratio Urine Color Urine Appearance Urine pH Ur Specific [place] Urine Protein Urine Glucose (UA) Urine Ketones Urine Blood Urine Nitrite Urine Bilirubin Urine Urobilinogen Ur Leukocyte Esterase Urine WBC (Auto) Urine RBC (Auto) U Hyaline Cast (Auto) U Epithel Cells (Auto) Urine Bacteria (Auto) Ethyl Alcohol mg/dL < 10.0 SARS-CoV-2 (PCR) Influenza Type A (PCR) Influenza Type B (PCR) RSV (RT-PCR) 03/16/22 03/16/22 03/16/22 08:13 11:23 14:45 WBC RBC Hgb Hct MCV MCH MCHC RDW Std Deviation RDW Coeff of Marlyn Plt Count MPV Immature Gran % (Auto) Neut % (Auto) Lymph % (Auto) Terry % (Auto) Eos % (Auto) Baso % (Auto) Neut # (Auto) Lymph # (Auto) Terry # (Auto) Eos # (Auto) Baso # (Auto) Immature Gran # (Auto) PT INR APTT PTT Ratio VBG pH VBG pCO2 VBG pO2 VBG HCO3 VBG O2 Saturation VBG Base Excess Barometric Pressure Sodium Potassium Chloride Carbon Dioxide Anion Gap BUN Creatinine Est Cr Clr Drug Dosing Est GFR ( Amer) Est GFR (Non-Af Amer) BUN/Creatinine Ratio Glucose Lactate Calcium Magnesium Total Bilirubin AST ALT Alkaline Phosphatase Troponin I High Sens 1608.1 H* D Total Protein Albumin Globulin Albumin/Globulin Ratio Urine Color Yellow Urine Appearance Clear Urine pH 5.0 Ur Specific [place] > 1.045 H Urine Protein Negative Urine Glucose (UA) 3+ H Urine Ketones 3+ H Urine Blood 2+ H Urine Nitrite Negative Urine Bilirubin Negative Urine Urobilinogen Negative Ur Leukocyte Esterase Negative Urine WBC (Auto) 1-5 Urine RBC (Auto) 10-30 H U Hyaline Cast (Auto) 0 U Epithel Cells (Auto) 10-20 H Urine Bacteria (Auto) Negative Ethyl Alcohol mg/dL SARS-CoV-2 (PCR) POSITIVE A* Influenza Type A (PCR) Negative Influenza Type B (PCR) Negative RSV (RT-PCR) Negative Diagnostic Findings Telemetry personally reviewed: AFib with RVR. ECG personally reviewed from 03/16/2022 at 7:23 a.m.: AFib with RVR 119 beats per minute. PVC versus aberrantly conducted complexes. Nonspecific ST/T-wave abnormality. CTA chest 03/16/2022: No PE. CHF suggested by Radiology. Trace pleural effusions. Head CT 03/16/2022: No acute abnormality. 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 Medications Administered Current Inpatient Medications Aspirin (Aspirin 81 Mg Ectab) 81 mg PO QAM CAROL Stop: 04/16/22 08:59 Atorvastatin Calcium (Atorvastatin 40 Mg Tab) 40 mg PO HS CAROL Stop: 04/15/22 20:59 Fluticasone/Vilanterol (Fluticasone/Vilanterol 200/25mcg 14 Puffs/Inhaler) 1 puffs INH DAILY CAROL Stop: 04/16/22 08:59 Folic Acid (Folic Acid 1 Mg Tab) 1 mg PO QAM CAROL Stop: 04/16/22 08:59 Heparin Sodium/Dextrose (Heparin Sodium/Dextrose) 25,000 units in 500 mls @ 18 mls/hr IV .Q24H CAROL; Protocol Stop: 04/15/22 09:29 Last Titration: 03/16/22 14:06 Dose: 900 units/hr, 18 mls/hr Documented by: Amiodarone HCl/Dextrose (Nexterone / D5w) 360 mg in 200 mls @ 33.333 mls/hr IV .Q6H CAROL Stop: 03/16/22 20:39 Last Admin: 03/16/22 14:40 Dose: 1 mg/min, 33.3 mls/hr Documented by: Amiodarone HCl/Dextrose (Nexterone / D5w) 360 mg in 200 mls @ 16.667 mls/hr IV .Q12H CAROL Stop: 04/15/22 18:14 Ondansetron HCl (Ondansetron Inj 2 Mg/Ml 2 Ml Vial) 4 mg IV Q6H PRN PRN Reason: Nausea Stop: 04/15/22 12:49 Tamsulosin HCl (Tamsulosin Hcl 0.4 Mg Cap) 0.4 mg PO HS CAROL Stop: 04/15/22 20:59 Thiamine HCl (Thiamine Hcl 100 Mg Tab) 100 mg PO QAM CAROL Stop: 04/16/22 08:59 PG Care Time/CCT Total # of Minutes Spent Total Time Spent with Patient: Total time spent is greater than 50% in coordination of care (as documented) at patient's floor/unit and/or counseling patient: Coding Level of Care Code 57787 Initial Inpt Care Lvl 3 Diagnoses Atrial fibrillation with RVR I48.91 Acute on chronic systolic CHF (congestive heart failure) I50.23 CAD (coronary artery disease) I25.10 S/P coronary artery stent placement Z95.5 Alcohol abuse F10.10 Cardiomyopathy I42.9 Tobacco abuse Z72.0
[2022-03-16 20:10] LABS: Partial Thromboplastin Ratio 1.9
[2022-03-16] MEDS: AMIODARONE / D5W 360 MG/200 ML BAG IV SCH (20:41)
[2022-03-16] MEDS: VALSARTAN/SACUBITRIL 26/24MG TAB PO SCH (20:43)
[2022-03-16] MEDS: TAMSULOSIN HCL 0.4 MG CAP PO SCH (20:43)
[2022-03-16] MEDS: ATORVASTATIN 40 MG TAB PO SCH (20:43)
[2022-03-16] MEDS: BEER 1 CAN PO SCH (22:34)
[2022-03-17 06:51] LABS: Basophils # (auto) 0.01 K/uL (0-0.2); Basophils % (auto) 0.1 %; Hematocrit (blood only) 36.5 % (42-52); Hemoglobin 12.8 g/dL (14.0-18.0); Immature Granulocytes # (auto) 0.05 K/uL (0.00-0.02); Immature Granulocytes % (auto) 0.3 %; Lymphocytes # (auto) 0.44 K/uL (1.2-3.4); Lymphocytes % (auto) 2.5 %; Mean Corpuscular Hemoglobin 35.3 pg (25-34); Mean Corpuscular Hgb Conc 35.1 g/dL (32-36); Mean Corpuscular Volume 100.6 fL (80-100); Mean Platelet Volume 8.4 fL (7.4-10.4); Monocytes # (auto) 1.21 K/uL (0.11-0.59); Monocytes % (auto) 6.8 %; Neutrophils # (auto) 16.18 K/uL (1.4-6.5); Neutrophils % (auto) 90.3 %; Platelet Count 257 K/uL (130-400); RDW Coefficient of Variation 12.9 % (11.5-14.5); RDW Standard Deviation 47.1 fL (36.4-46.3); Red Blood Count 3.63 M/uL (4.7-6.1); White Blood Count 17.89 K/uL (4.8-10.8)
[2022-03-17 07:27] LABS: Partial Thromboplastin Ratio 2.1
[2022-03-17] MEDS ORDERED: BEER 1 CAN PO SCH (07:30)
[2022-03-17 07:33] LABS: Partial Thromboplastin Time 56.4 Seconds (21.0-31.0)
[2022-03-17 07:40] LABS: Albumin Globulin Ratio 1.3 (0.9-2); Albumin Level 3.1 gm/dl (3.4-5.0); Bilirubin,Total 0.6 mg/dl (0.2-1.0); Calcium 8.3 mg/dl (8.5-10.1); Creatinine Clr Calc Pharmacy 75.3 ml/min; Est GFR (African American) 100.3 ml/min; Est GFR (Non-African American) 86.5 ml/min; Globulin 2.4 gm/dl (2.5-4.0); Magnesium 2.2 mg/dl (1.7-2.4); Potassium 4.1 mmol/L (3.5-5.1); Total Protein 5.5 gm/dl (6.0-8.3)
[2022-03-17] MEDS: BEER 1 CAN PO SCH ×4 (08:29→16:42)
--- NOTE | 2022-03-17 08:52 | XRay Report ---
XR chest 1V portable CLINICAL HISTORY: f/u chf TECHNIQUE: Single frontal radiograph of the chest was obtained. Comparison: Comparison is made to chest radiograph 03/16/2022 FINDINGS: Pacemaker defibrillator is seen. Cardiomegaly is noted. Calcified aortic arch is seen. There are smal l bilateral pleural effusions. Previously noted interstitial edema has improved, however pulmonary va scular congestion persists. Atelectasis is noted left greater than right lung. IMPRESSION: Mild pulmonary edema. This represents an improvement from prior exam. ACT 112: Negative or not required by law. Electronically signed by: Ashok Jovel M.D. 03/17/2022 8:51 AM
[2022-03-17] MEDS ORDERED: METOPROLOL SUCC 50MG EXT REL TAB PO SCH (09:00)
[2022-03-17] MEDS: AMIODARONE / D5W 360 MG/200 ML BAG IV SCH ×2 (09:20→21:24)
[2022-03-17] MEDS: HEPARIN SODIUM/DEXTROSE 25,000 UNITS/500 ML BAG IV SCH (09:24)
[2022-03-17] MEDS: ASPIRIN 81 MG ECTAB PO SCH (09:25)
[2022-03-17] MEDS: APIXABAN 5 MG TABLET PO SCH ×2 (09:25→21:34)
[2022-03-17] MEDS: FOLIC ACID 1 MG TAB PO SCH (09:27)
[2022-03-17] MEDS: FLUTICASONE/VILANTEROL 200/25MCG 14 PUFFS/INHALER INH SCH (09:27)
[2022-03-17] MEDS: SPIRONOLACTONE 25 MG TAB PO SCH (09:28)
[2022-03-17] MEDS: VALSARTAN/SACUBITRIL 26/24MG TAB PO SCH (09:29)
[2022-03-17] MEDS: THIAMINE HCL 100 MG TAB PO SCH (09:29)
[2022-03-17] MEDS ORDERED: FUROSEMIDE 40 MG/4 ML VIAL IV ONE (10:41)
--- NOTE | 2022-03-17 11:02 | Hospitalist Progress Note ---
Date of Service March 17, 2022 Assessment & Plan (1) Atrial fibrillation with RVR: Plan: - Remains in afib w/ improved rate in the 100s - Remains on Amiodarone gtt per protocol to achieve HR control - Heparin gtt initiated in ED yesterday and continued overnight, transitioned back to Eliquis this AM and gtt d/c'd - Toprol XL was initially held on admission d/t soft pressures, resumed yesterday afternoon - Echo updated on 03/16, waiting for report to be loaded into pt's chart - Cardiology consulted, case d/w Dr. Mahmood who agreed with utilizing Amio, appreciate cardiology assistance (2) Acute on chronic systolic CHF (congestive heart failure): Plan: - Last echo from 2019, LVEF 30-35% - Echo updated - Initially on BiPAP upfront and also medicated with a dose of IV Lasix 40mg x1 on 03/16 - Had excellent diuresis with dose of Lasix given, still appears decompensated, additional dose of IV Lasix ordered - Maintain fluid restriction at 1800 cc per day, monitor I/O q shift and daily weights - Entresto resumed by cardiology yesterday evening and also added Spironolactone (3) Hypoxia: Plan: - Due to volume overload d/t a/c systolic chf, now RESOLVED (4) Elevated troponin: Plan: - Suspect type II NSTEMI d/t supply/demand mismatch, HS trop peaked at 2418.1, downtrending this AM to 1103.7 - Medicated with Heparin gtt on 03/16 which was d/c'd this AM - Cardiology consulted, appreciate recommendations - Echo updated - Resumed ASA and Atorvastatin (5) Leukocytosis: Plan: - Uncertain etiology, no obvious PNA or UTI - No PE - ?Reactive v residual from recent steroid use - This AM, wbc up from 16 to 17.89, was given a dose of IV Decadron in ED on 03/16, believe that this is steroid driven (6) COVID-19: Plan: - First positive 03/02, vaxx'd and boosted x2 - Does NOT need airborne isolation per infection control, but does need private room until he has been 21 days from date of first positive test * This was discussed with Kelsi Quiroga (7) Hyponatremia: Plan: - Chronic and within baseline range of 126-133, suspect could be related to his chronic EtOH abuse - Currently suspect component of dilution d/t hypervolemia (8) Emphysema lung: Plan: - chronic, does not appear to have an acute exacerbation at this time (9) Alcohol abuse: Plan: - Could be what tripped him into rapid afib - Per , drinks 6-8 beers every night - Usually given beer during hospitalizations to prevent w/d which was ordered evening of 03/16 (10) Transaminitis: Plan: - Mildly elevated TB, AST and ALT - Repeat levels trending down, elevated TB and AST normalized Plan: Interventions as outlined above Repeat labs in AM Patient's requests full code status PT/OT eval Above to be d/w Dr. Hamilton with additional orders as warranted. Admission and Anticipated Discharge Date Admission Date: March 16, 2022 Subjective Patient seen on daily rounds this morning. He is resting in bed, offers no new complaints/concerns. Review of Systems Review of Systems: All systems reviewed and are unremarkable except as noted in HPI and below. Denies fever, chills, fatigue, headache, nasal congestion, sore throat, cough, chest pain, shortness of breath, palpitations, orthopnea, PND, abdominal pain, n/v/d, constipation, dysuria, hematuria, frequency, back pain, joint pain or swelling, easy bruising or bleeding, skin lesions or rashes. Physical Exam Physical Exam: GENERAL: 76 yo well-developed, well-nourished elderly WM. NAD. LUNGS: Bibasilar crackles with few end exp wheezes noted, no rhonchi appreciated CARDIOVASCULAR: +JVD. Irregular rate and rhythm ABDOMEN: Soft, non-tender and non-distended. BS normal x 4 quad. EXTREMITIES: Trace edema b/l LE. Non-tender. Peripheral pulses +2/4. NEUROLOGIC: A&Ox3 PSYCHIATRIC: Cooperative. Flat affect. SKIN: Warm, dry, intact. No rashes or lesions. Results & Data Results & Data ([facility]) Vital Signs (Past 12 Hours) Vital Signs Temp Pulse Resp BP Pulse Ox 03/16/22 23:23 36.5 C 103 H 18 112/66 94 Laboratory Results 03/17/22 06:37 03/17/22 06:37 Diagnostic Findings Chest X-Ray 03/17/22 08:12 XR chest 1V portable CLINICAL HISTORY: f/u chf TECHNIQUE: Single frontal radiograph of the chest was obtained. Comparison: Comparison is made to chest radiograph 03/16/2022 FINDINGS: Pacemaker defibrillator is seen. Cardiomegaly is noted. Calcified aortic arch is seen. There are small bilateral pleural effusions. Previously noted interstitial edema has improved, however pulmonary vascular congestion persists. Atelectasis is noted left greater than right lung. IMPRESSION: Mild pulmonary edema. This represents an improvement from prior exam. ACT 112: Negative or not required by law. Electronically signed by: Ashok Jovel M.D. 03/17/2022 8:51 AM PG Care Time/CCT Total # of Minutes Spent Total Time Spent with Patient: Total time spent is greater than 50% in coordination of care (as documented) at patient's floor/unit and/or counseling patient: Coding Level of Care Code 90115 Subseq Hosp Care Lvl 3 Diagnoses Atrial fibrillation with RVR I48.91 Acute on chronic systolic CHF (congestive heart failure) I50.23 Hypoxia R09.02 Elevated troponin R77.8 Leukocytosis D72.829 COVID-19 U07.1 Hyponatremia E87.1 Emphysema lung J43.9 Alcohol abuse F10.10 Transaminitis R74.01
--- NOTE | 2022-03-17 11:12 | XCELERA ---
[id number]
--- NOTE | 2022-03-17 14:17 | Cardiology Progress Note ---
Date of Service March 17, 2022 Assessment & Plan (1) Atrial fibrillation with RVR: Plan: -agree with intravenous amiodarone and heparin. -continue metoprolol succinate. -consider addition of intravenous digoxin if necessary. -continue Eliquis. (2) Acute on chronic systolic CHF (congestive heart failure): Plan: -receiving p.r.n. intravenous Lasix. -seems compensated at this time. -continue metoprolol, Entresto, and spironolactone. -restart empagliflozin when able. (3) CAD (coronary artery disease): Plan: -s/p anterior NM, July 2000. -stent placed in the proximal LAD at that time. -quiescent on medical management. (4) Cardiomyopathy: Plan: -ejection fraction 40-45% on current echocardiogram. -multiple wall motion abnormalities. -continue medical management. Admission and Anticipated Discharge Date Admission Date: March 16, 2022 Subjective The patient is resting comfortably in bed without complaints of chest pain, dyspnea, or palpitations. Claims to be confused. Physical Exam Physical Exam: In general is well-developed well-nourished white male in no acute distress. HEENT exam is negative. Neck is supple with full carotid upstrokes. There are no carotid bruits. Jugular is pressure is flat at 90. There is no thyromegaly. Cardiovascular exam reveals an irregularly irregular rhythm with distant heart sounds. No obvious murmurs. Chest reveals a palpable device in the left subclavicular region. Lungs are clear without rales, rhonchi, or wheezes. Abdomen is soft and nontender without bruits. Extremities reveal intact radial artery pulses bilaterally. There is no peripheral edema. Results & Data ([facility]) Vital Signs (Past 12 Hours) Vital Signs Temp Pulse Resp BP Pulse Ox 03/17/22 11:09 37.0 C 93 H 18 85/53 L 96 03/17/22 07:40 36.8 C 102 H 18 104/62 94 Diagnostic Findings quality assurance monitor chassis notes atrial fibrillation with a ventricular response of 100- 110 beats per minute. PG Care Time/CCT Total # of Minutes Spent Total Time Spent with Patient: Total time spent is greater than 50% in coordination of care (as documented) at patient's floor/unit and/or counseling patient: Coding Level of Care Code 64636 Subseq Hosp Care Lvl 3 Diagnoses Atrial fibrillation with RVR I48.91 Acute on chronic systolic CHF (congestive heart failure) I50.23 CAD (coronary artery disease) I25.10 Cardiomyopathy I42.9
--- NOTE | 2022-03-17 17:50 | Electrocardiogram Report ---
Test Reason : Blood Pressure : / mmHG Vent. Rate : 119 BPM Atrial Rate : 000 BPM P-R Int : 000 ms QRS Dur : 090 ms QT Int : 272 ms P-R-T Axes : 000 061 269 degrees QTc Int : 382 ms Atrial fibrillation with rapid ventricular response with premature ventricular or aberrantly conducte d complexes Nonspecific ST and T wave abnormality Abnormal ECG When compared with ECG of 02-MAR-2022 05:16, T wave inversion now evident in Anterolateral leads Confirmed by Jorge A Mahmood ([id number]) on 03/17/2022 5:49:59 PM Referred By: REFERRED SELF Confirmed By:Jorge A Mahmood
[2022-03-17] MEDS: ATORVASTATIN 40 MG TAB PO SCH (21:37)
[2022-03-17] MEDS: TAMSULOSIN HCL 0.4 MG CAP PO SCH (21:37)
--- NOTE | 2022-03-17 21:52 | Electrocardiogram Report ---
Test Reason : Blood Pressure : / mmHG Vent. Rate : 092 BPM Atrial Rate : 441 BPM P-R Int : 000 ms QRS Dur : 084 ms QT Int : 352 ms P-R-T Axes : 000 139 008 degrees QTc Int : 435 ms Suspect arm lead reversal, interpretation assumes no reversal Atrial fibrillation Low voltage QRS Septal infarct , age undetermined Lateral infarct , age undetermined Nonspecific T wave abnormality Abnormal ECG When compared with ECG of 16-MAR-2022 07:23, QRS axis Shifted right Septal infarct is now Present Lateral infarct is now Present Confirmed by Jorge A Mahmood ([id number]) on 03/17/2022 9:52:30 PM Referred By: REFERRED SELF Confirmed By:Jorge A Mahmood
[2022-03-18 06:14] LABS: Eosinophils # (auto) 0.06 K/uL (0-0.5); Eosinophils % (auto) 0.4 %; Hematocrit (blood only) 36.7 % (42-52); Hemoglobin 12.9 g/dL (14.0-18.0); Immature Granulocytes # (auto) 0.06 K/uL (0.00-0.02); Immature Granulocytes % (auto) 0.4 %; Lymphocytes % (auto) 5.3 %; Mean Corpuscular Hemoglobin 35.6 pg (25-34); Mean Corpuscular Hgb Conc 35.1 g/dL (32-36); Mean Corpuscular Volume 101.4 fL (80-100); Mean Platelet Volume 8.4 fL (7.4-10.4); Monocytes # (auto) 1.15 K/uL (0.11-0.59); Monocytes % (auto) 7.6 %; Neutrophils # (auto) 13.06 K/uL (1.4-6.5); Neutrophils % (auto) 86.3 %; Platelet Count 253 K/uL (130-400); RDW Coefficient of Variation 12.7 % (11.5-14.5); RDW Standard Deviation 47.3 fL (36.4-46.3); Red Blood Count 3.62 M/uL (4.7-6.1); White Blood Count 15.13 K/uL (4.8-10.8)
[2022-03-18 06:29] LABS: Albumin Globulin Ratio 1.2 (0.9-2); Albumin Level 3.1 gm/dl (3.4-5.0); BUN Creatinine Ratio 21.6 (10-20); Bilirubin,Total 0.7 mg/dl (0.2-1.0); Calcium 8.2 mg/dl (8.5-10.1); Creatinine Clr Calc Pharmacy 83.4 ml/min; Est GFR (African American) 104.6 ml/min; Est GFR (Non-African American) 90.2 ml/min; Globulin 2.5 gm/dl (2.5-4.0); Total Protein 5.6 gm/dl (6.0-8.3)
[2022-03-18] MEDS: BEER 1 CAN PO SCH ×3 (07:34→17:09)
[2022-03-18] MEDS: APIXABAN 5 MG TABLET PO SCH ×2 (08:20→20:10)
[2022-03-18] MEDS: ASPIRIN 81 MG ECTAB PO SCH (08:21)
[2022-03-18] MEDS: FLUTICASONE/VILANTEROL 200/25MCG 14 PUFFS/INHALER INH SCH (08:22)
[2022-03-18] MEDS: FOLIC ACID 1 MG TAB PO SCH (08:22)
[2022-03-18] MEDS: THIAMINE HCL 100 MG TAB PO SCH (08:23)
[2022-03-18] MEDS: SPIRONOLACTONE 25 MG TAB PO SCH (08:23)
[2022-03-18] MEDS ORDERED: PIPERACILL/TAZOBAC CONSULT ACTIVE PRN (08:58)
--- NOTE | 2022-03-18 08:59 | Hospitalist Progress Note ---
Date of Service March 18, 2022 Assessment & Plan (1) Atrial fibrillation with RVR: Plan: - A.Fib NOT new diagnoses - likely in RVR given underlying ETOH abuse and catecholamine release from recent covid + concern for secondary bacterial infection - potassium/mag levels WNL - TSH WNL - on Amiodarone gtt since admission. Rates improved but remain variable - convert IV to oral amiodarone (400mg BID x 1 week then 200mg BID) - given variable rate control and inability to give oral BB this am given marginal hypotension (98/64), will digitalize (0.5mg now followed by 0.25mg q6hx2 doses). Additional oral dig can be started tomorrow if needed - holding Entresto (given low BP) in hopes that BB can be resumed - Continue - Echo updated: EF 40-45% - cardiology on board-- appreciate assistance. (2) Acute on chronic systolic CHF (congestive heart failure): Plan: - Initially on BiPAP - received IV lasix with Net FB of -1.4L - FU CXR showing improved PVC - has since been transitioned to NC - still slightly volume overloaded but Lasix held this am given marginal hypotension - hold Entresto for now in hopes for improved BP and added diuresis - in addition, aldactone added but uncertain if BP will allow for this. Hold for now. (3) Hypoxia: Plan: - likely from CHF but not convinced that he doesn't have a superimposed PNA - pt recent hospitalized for COVID - off steroids since 03/11 but with persistent leukocytosis - CT of chest suggesting groundglass opacities-- I suspect most of this was pulmonary edema but in the setting of leukocytosis with Left shift, will start empiric abx therapy (Zosyn for HAP) (4) Leukocytosis: Plan: - WBC elevated since admission (with ongoing left shift) - CT on arrival showed bibasilar groundglass opacities. Likely consistent with pulmonary edema; however, underlying infectious process cannot be ruled out - Patient recently hospitalized with COVID. It is possible that he has a secondary bacterial infection at this point which may be contributing to his tachycardia - given recent hospitalization, will cover for hospital-acquired pneumonia and start Zosyn (5) Elevated troponin: Plan: - Peaked at 2418. - Suspect type II NSTEMI secondary to A. fib with RVR - Initially on heparin which has since been transitioned to Eliquis - Cardiology consulted, appreciate recommendations - Resumes ASA, and statin therapy - TTE: No regional wall motion abnormalities (6) COVID-19: Plan: - First positive 03/02, vaxx'd and boosted x2 - Does NOT need airborne isolation per infection control, but does need private room until he has been 21 days from date of first positive test * This was discussed with Kelsi Quiroga (7) Hyponatremia: Plan: - Chronic and within baseline range of 126-133, suspect could be related to his chronic ETOH use - Urine osmolality obtained in the past and elevated at 465 with a serum osmolality of 275 at that time. - Suspect beer Potomania from poor solute intake exacerbated by volume overload (hypervolemic hyponatremia) - Resume Lasix today if BP improves - likely contributing to confusion. Since symptomatic, will given Sodium Chloride tablet today with FU BMP this afternoon - NEED TO MAINTAIN FLUID RESTRICTED DIET (1200mL/Day). D/W patient and his - add boost supplement TID (8) AMS (altered mental status): Plan: - In speaking with patient's , started roughly around the time of his COVID diagnosis. COVID in addition to Decadron likely be contributing factor - Again, may have superimposed bacterial infection. This could be contributing to his altered mental status - Patient is hyponatremic which is likely contributing - Patient answers all questions appropriately but admits to being confused. reports not back to baseline but showing favorable response (9) Emphysema lung: Plan: - chronic, does not appear to have an acute exacerbation at this time (10) Alcohol abuse: Plan: - Per , drinks 6-8 beers every night - Patient has no desire to quit drinking - using 3 beers/night ordered when requires hospitalization to prevent Acute W/D (11) Transaminitis: Plan: - Likely due to ongoing alcohol abuse and in part passive venous congestion from CHF - in addition, recent COVID diagnosis may be contributing - Follow-up labs in the a.m. to trend Plan: Plan of care D/W Dr. Luong notified and updated on 03/18 Admission and Anticipated Discharge Date Admission Date: March 16, 2022 Subjective Patient seen on daily rounds today. He is a questionable historian. Hospitalized with atrial fibrillation (not a new onset) with RVR. Recently hospitalized 03/02 through 03/05 with COVID. Discharged with Decadron which concluded on 03/11. Atenolol transitioned to metoprolol during that hospital [facility]. Returned to the emergency department on 03/16 complaining of shortness of breath. Found to be in rapid response. Started on an amiodarone drip with continued oral metoprolol. Heart rate improved but remains variable (low 100s as high as 117 with limited exertion such as leaning forward). Has been receiving IV diuresis. Unable to get lasix today given marginal BP (98/58). Patient is c/o a cough. dry. No fevers but reports chills. When asked if he has to pro the head of his bead up at night to sleep, he isn't able to answer- states "I don't know. Ask my ". Admits to feeling confused. Spoke to the who reports that he has been very confused since his covid diagnosis but this seems to be improving. Review of Systems Review of Systems: questionable All systems reviewed and are unremarkable except as noted in HPI and below Denies fevers, chills, headache, nasal congestion, sore throat, chest pain, shortness of breath, palpitations, orthopnea, PND, abdominal pain, nausea, vomiting, diarrhea, constipation, dysuria, hematuria, frequency, back pain, joint pain or swelling, easy bruising or bleeding, skin lesions or rashes. Physical Exam Physical Exam: General: Resting comfortably in his hospital bed. NAD. HEENT: Head is AT/NC. Buccal mucosa is moist and pink Neck: + JVD. + HJR Cardiac: Irregularly irregular with a rate of 117 Lungs: Bibasilar rales Abdomen: Normoactive X4. Soft and nontender in all quadrants. Extremities: Trace to +1 pitting edema of the bilateral lower extremities Neuro: Answers all questions appropriately. O X4. Cranial nerves II through XII are grossly intact. No focal neuro deficits Skin: No obvious skin lesions or rashes Psych:Slightly agitated but easily redirected and is cooperative Results & Data Results & Data ([facility]) Vital Signs (Past 12 Hours) Vital Signs Temp Pulse Pulse Resp BP Pulse Ox 03/18/22 07:38 36.4 C L 112 H 20 97/66 L 90 03/18/22 05:04 36.4 C L 102 H 18 100/64 91 03/18/22 01:03 36.8 C 96 H 20 97/60 L 88 L Laboratory Results 03/18/22 05:51 03/18/22 05:51 PG Care Time/CCT Total # of Minutes Spent Total Time Spent with Patient: Total time spent is greater than 50% in coordination of care (as documented) at patient's floor/unit and/or counseling patient: Coding Level of Care Code 64147 Subseq Hosp Care Lvl 3 Diagnoses Atrial fibrillation with RVR I48.91 Acute on chronic systolic CHF (congestive heart failure) I50.23 Hypoxia R09.02 Elevated troponin R77.8 COVID-19 U07.1 Hyponatremia E87.1 Emphysema lung J43.9 Alcohol abuse F10.10 Transaminitis R74.01 Leukocytosis D72.829 AMS (altered mental status) R41.82
[2022-03-18] MEDS ORDERED: DIGOXIN 500 MCG in SYRINGE 0 ML IV ONE (09:07)
[2022-03-18] MEDS ORDERED: PIPERACILLIN/TAZOBACTAM 4.5 GM in DEXTROSE 5% 100 ML IV ONE (09:15)
[2022-03-18] MEDS: SODIUM CHLORIDE 1 GM TABLET PO SCH ×2 (10:14→20:11)
[2022-03-18] MEDS: AMIODARONE / D5W 360 MG/200 ML BAG IV SCH (10:29)
[2022-03-18] MEDS: BENZONATATE 100 MG CAPSULE PO SCH ×2 (13:08→20:09)
[2022-03-18] MEDS ORDERED: FUROSEMIDE INJ 20 MG/2 ML VIAL IV ONE (14:15)
[2022-03-18 14:36] LABS: BUN Creatinine Ratio 20.5 (10-20); Calcium 8.1 mg/dl (8.5-10.1); Creatinine Clr Calc Pharmacy 79.2 ml/min; Est GFR (African American) 102.3 ml/min; Est GFR (Non-African American) 88.3 ml/min; Potassium 4.5 mmol/L (3.5-5.1)
[2022-03-18] MEDS: NICOTINE 21 MG/24 HR TDSY TD SCH (15:34)
[2022-03-18] MEDS: DIGOXIN 250 MCG in SYRINGE 9 ML IV SCH ×2 (15:36→20:10)
[2022-03-18] MEDS: PIPERACILLIN/TAZOBACTAM 4.5 GM in DEXTROSE 5% 100 ML IV SCH (15:37)
[2022-03-18] MEDS: AMIODARONE 200 MG TAB PO SCH (17:10)
[2022-03-19] MEDS: PIPERACILLIN/TAZOBACTAM 4.5 GM in DEXTROSE 5% 100 ML IV SCH ×3 (00:02→15:58)
[2022-03-19 06:11] LABS: Eosinophils # (auto) 0.07 K/uL (0-0.5); Eosinophils % (auto) 0.7 %; Hematocrit (blood only) 36.3 % (42-52); Hemoglobin 12.7 g/dL (14.0-18.0); Immature Granulocytes # (auto) 0.02 K/uL (0.00-0.02); Immature Granulocytes % (auto) 0.2 %; Lymphocytes # (auto) 0.87 K/uL (1.2-3.4); Lymphocytes % (auto) 9.2 %; Mean Corpuscular Hemoglobin 35.7 pg (25-34); Mean Platelet Volume 8.4 fL (7.4-10.4); Monocytes % (auto) 4.2 %; Neutrophils # (auto) 8.08 K/uL (1.4-6.5); Neutrophils % (auto) 85.7 %; Platelet Count 230 K/uL (130-400); RDW Coefficient of Variation 12.5 % (11.5-14.5); RDW Standard Deviation 46.9 fL (36.4-46.3); Red Blood Count 3.56 M/uL (4.7-6.1); White Blood Count 9.44 K/uL (4.8-10.8)
[2022-03-19 06:32] LABS: Albumin Globulin Ratio 1.2 (0.9-2); Albumin Level 2.9 gm/dl (3.4-5.0); BUN Creatinine Ratio 17.1 (10-20); Bilirubin,Total 1.6 mg/dl (0.2-1.0); Calcium 8.1 mg/dl (8.5-10.1); Creatinine Clr Calc Pharmacy 88.2 ml/min; Est GFR (Non-African American) 92.3 ml/min; Globulin 2.4 gm/dl (2.5-4.0); Magnesium 1.8 mg/dl (1.7-2.4); Potassium 4.2 mmol/L (3.5-5.1); Total Protein 5.3 gm/dl (6.0-8.3)
[2022-03-19] MEDS: BEER 1 CAN PO SCH ×3 (07:22→15:59)
[2022-03-19] MEDS: AMIODARONE 200 MG TAB PO SCH ×2 (09:46→15:59)
[2022-03-19] MEDS: ASPIRIN 81 MG ECTAB PO SCH (09:48)
[2022-03-19] MEDS: APIXABAN 5 MG TABLET PO SCH ×2 (09:48→22:15)
[2022-03-19] MEDS: BENZONATATE 100 MG CAPSULE PO SCH ×3 (09:49→22:15)
[2022-03-19] MEDS: FLUTICASONE/VILANTEROL 200/25MCG 14 PUFFS/INHALER INH SCH (09:50)
[2022-03-19] MEDS: NICOTINE 21 MG/24 HR TDSY TD SCH (09:51)
[2022-03-19] MEDS: SODIUM CHLORIDE 1 GM TABLET PO SCH (09:51)
[2022-03-19] MEDS: FOLIC ACID 1 MG TAB PO SCH (09:51)
[2022-03-19] MEDS: THIAMINE HCL 100 MG TAB PO SCH (09:52)
--- NOTE | 2022-03-19 10:06 | Electrocardiogram Report ---
Test Reason : Blood Pressure : / mmHG Vent. Rate : 105 BPM Atrial Rate : 122 BPM P-R Int : 000 ms QRS Dur : 090 ms QT Int : 346 ms P-R-T Axes : 000 053 -74 degrees QTc Int : 457 ms Atrial fibrillation with rapid ventricular response with premature ventricular or aberrantly conducte d complexes Low voltage QRS Nonspecific T wave abnormality Abnormal ECG When compared with ECG of 16-MAR-2022 20:20, Criteria for Septal infarct are no longer Present Criteria for Lateral infarct are no longer Present Nonspecific T wave abnormality, improved in Lateral leads Confirmed by Juvencio Bailey ([id number]) on 03/19/2022 10:06:30 AM Referred By: REFERRED SELF Confirmed By:Juvencio Bailey
--- NOTE | 2022-03-19 11:48 | Hospitalist Progress Note ---
Date of Service March 19, 2022 Assessment & Plan (1) Atrial fibrillation with RVR: Plan: - A.Fib NOT new diagnoses - likely in RVR given underlying ETOH abuse and catecholamine release from recent covid + concern for secondary bacterial infection - potassium/mag levels WNL - TSH WNL - on Amiodarone gtt since admission. Rates improved but remain variable - converted IV to oral amiodarone on 03/18 (400mg BID x 1 week then 200mg BID) - given variable rate control and inability to give oral BB this am given marginal hypotension (98/64), was Digoxin loaded (0.5mg now followed by 0.25mg q6hx2 doses) - holding Entresto (given low BP) - Resume low dose Lopressor 12.5mg BID and monitor BP/HR - Continue Eliquis - Echo updated: EF 40-45% - cardiology on board-- appreciate assistance. (2) Acute on chronic systolic CHF (congestive heart failure): Plan: - Initially on BiPAP - received IV lasix with Net FB of -1.4L - FU CXR showing improved PVC - has since been transitioned to NC and then off NC to room air - Suspect he's close to his dry weight - hold Entresto for now in hopes for improved BP and added diuresis - in addition, cardiology added aldactone but uncertain if BP will allow for this and subsequently placed on hold (3) Hypoxia: Plan: - likely from CHF but not convinced that he doesn't have a superimposed PNA - pt recent hospitalized for COVID - off steroids since 03/11 but with persistent leukocytosis - CT of chest suggesting groundglass opacities-- likely more pulmonary edema but d/t leukocytosis w/ L shift, empiric abx started (Zosyn for HAP) (4) Leukocytosis: Plan: - WBC elevated since admission (with ongoing left shift) - CT on arrival showed bibasilar groundglass opacities. Likely consistent with pulmonary edema; however, underlying infectious process cannot be ruled out - Patient recently hospitalized with COVID. It is possible that he has a secondary bacterial infection at this point which may be contributing to his tachycardia * of note, he was on Decadron up until 03/11 but also received a dose by ED on day of admit (03/16) - given recent hospitalization, will cover for hospital-acquired pneumonia and start Zosyn (5) Elevated troponin: Plan: - Peaked at 2418. - Suspect type II NSTEMI secondary to A. fib with RVR + hypoxia - Initially on heparin which has since been transitioned to Eliquis - Cardiology consulted, appreciate recommendations - Resumes ASA, and statin therapy - TTE: No regional wall motion abnormalities (6) COVID-19: Plan: - First positive 03/02, vaxx'd and boosted x2 - Does NOT need airborne isolation per infection control, but does need private room until he has been 21 days from date of first positive test * This was discussed with Kelsi Quiroga (7) Hyponatremia: Plan: - Chronic and within baseline range of 126-133, suspect could be related to his chronic ETOH use - Urine osmolality obtained in the past and elevated at 465 with a serum osmolality of 275 at that time. - Suspect beer potomania from poor solute intake exacerbated by volume overload (hypervolemic hyponatremia) - Resume Lasix today if BP improves - likely contributing to confusion. Since symptomatic, will given Sodium Chlo ride tablet today with FU BMP this afternoon - NEED TO MAINTAIN FLUID RESTRICTED DIET (1200mL/Day). D/W patient and his - add boost supplement TID (8) AMS (altered mental status): Plan: - In speaking with patient's , started roughly around the time of his COVID diagnosis. COVID in addition to Decadron likely be contributing factor - Again, may have superimposed bacterial infection. This could be contributing to his altered mental status - Patient is hyponatremic which is likely contributing - Patient answers all questions appropriately but admits to being confused. reports not back to baseline but showing favorable response (9) Emphysema lung: Plan: - chronic, does not appear to have an acute exacerbation at this time (10) Alcohol abuse: Plan: - Per , drinks 6-8 beers every night - Patient has no desire to quit drinking - using 3 beers/day when requires hospitalization to prevent Acute W/D (11) Transaminitis: Plan: - Likely due to ongoing alcohol abuse and in part passive venous congestion from CHF - in addition, recent COVID diagnosis may be contributing - Improved on AM labs Plan: D/C castellanos catheter PT/OT eval Repeat labs in AM Will provide update to this afternoon Above plan has been d/w Dr. Luong Admission and Anticipated Discharge Date Admission Date: March 16, 2022 Subjective Patient seen on daily rounds today. He is a questionable historian. Hospitalized with atrial fibrillation (not a new onset) with RVR. Recently hospitalized 03/02 through 03/05 with COVID. Discharged with Decadron which concluded on 03/11. Atenolol transitioned to metoprolol during that hospital stay. Returned to the emergency department on 03/16 complaining of shortness of breath. Found to be in rapid response. Started on an amiodarone drip due to marginal BP. Cardiology attempted to resume Toprol and Entresto w/ subsequent drop in BP, thus both of these meds have been held. Heart rate improved but remains variable (low 100s as high as 117 with limited exertion such as leaning forward) and subsequently underwent Digoxin load on 03/18. Patient is c/o a cough which he reports is unchanged, nonproductive. No fevers but reports chills. Denies cp. Feels that breathing is "fine." No issues repo rted by RN. Review of Systems Review of Systems: All systems reviewed and are unremarkable except as noted in HPI and below Denies fevers, chills, headache, nasal congestion, sore throat, chest pain, shortness of breath, palpitations, orthopnea, PND, abdominal pain, nausea, vomiting, diarrhea, constipation, dysuria, hematuria, frequency, back pain, joint pain or swelling, easy bruising or bleeding, skin lesions or rashes. Physical Exam Physical Exam: GENERAL: 76 yo well-developed, well-nourished elderly WM. NAD. LUNGS: R sided fine crackles otherwise CTAB CARDIOVASCULAR: Irregular rate and rhythm w/ /6 DESTINEE noted ABDOMEN: Soft, non-tender and non-distended. BS normal x 4 quad. : csatellanos in place, clear/yellow urine noted EXTREMITIES: No LE edema. Non-tender. Peripheral pulses +2/4. NEUROLOGIC: A&Ox3 PSYCHIATRIC: Cooperative. Flat affect. SKIN: Warm, dry, intact. No rashes or lesions. Results & Data Results & Data ([facility]) Vital Signs (Past 12 Hours) Vital Signs Temp Pulse Resp BP Pulse Ox 03/19/22 08:33 36.4 C L 81 18 112/55 L 94 03/19/22 04:30 36.9 C 105 H 22 98/56 L 92 03/18/22 23:57 37.0 C 86 20 111/63 92 Laboratory Results 03/19/22 05:56 03/19/22 05:56 PG Care Time/CCT Total # of Minutes Spent Total Time Spent with Patient: Total time spent is greater than 50% in coordination of care (as documented) at patient's floor/unit and/or counseling patient: Coding Level of Care Code 74672 Subseq Hosp Care Lvl 3 Diagnoses Atrial fibrillation with RVR I48.91 Acute on chronic systolic CHF (congestive heart failure) I50.23 Hypoxia R09.02 Leukocytosis D72.829 Elevated troponin R77.8 COVID-19 U07.1 Hyponatremia E87.1 AMS (altered mental status) R41.82 Emphysema lung J43.9 Alcohol abuse F10.10 Transaminitis R74.01
[2022-03-19] MEDS: METOPROLOL TARTRATE 25 MG TAB PO SCH ×2 (12:15→22:15)
[2022-03-20] MEDS: PIPERACILLIN/TAZOBACTAM 4.5 GM in DEXTROSE 5% 100 ML IV SCH (00:53)
[2022-03-20 06:27] LABS: Eosinophils # (auto) 0.09 K/uL (0-0.5); Eosinophils % (auto) 0.9 %; Hematocrit (blood only) 36.6 % (42-52); Hemoglobin 12.8 g/dL (14.0-18.0); Immature Granulocytes # (auto) 0.02 K/uL (0.00-0.02); Immature Granulocytes % (auto) 0.2 %; Lymphocytes # (auto) 0.58 K/uL (1.2-3.4); Lymphocytes % (auto) 5.9 %; Mean Corpuscular Volume 102.8 fL (80-100); Mean Platelet Volume 8.4 fL (7.4-10.4); Monocytes # (auto) 0.61 K/uL (0.11-0.59); Monocytes % (auto) 6.2 %; Neutrophils # (auto) 8.59 K/uL (1.4-6.5); Neutrophils % (auto) 86.8 %; Platelet Count 237 K/uL (130-400); RDW Coefficient of Variation 12.6 % (11.5-14.5); RDW Standard Deviation 47.8 fL (36.4-46.3); Red Blood Count 3.56 M/uL (4.7-6.1); White Blood Count 9.89 K/uL (4.8-10.8)
[2022-03-20 06:51] LABS: BUN Creatinine Ratio 17.6 (10-20); Bilirubin Direct 0.3 mg/dl (0-0.2); Bilirubin,Total 1.3 mg/dl (0.2-1.0); Calcium 8.2 mg/dl (8.5-10.1); Creatinine Clr Calc Pharmacy 83.4 ml/min; Est GFR (African American) 104.6 ml/min; Est GFR (Non-African American) 90.2 ml/min; Magnesium 1.8 mg/dl (1.7-2.4); Total Protein 5.5 gm/dl (6.0-8.3)
[2022-03-20] MEDS: APIXABAN 5 MG TABLET PO SCH ×2 (08:08→20:26)
[2022-03-20] MEDS: BENZONATATE 100 MG CAPSULE PO SCH ×3 (08:08→20:25)
[2022-03-20] MEDS: METOPROLOL TARTRATE 25 MG TAB PO SCH ×2 (08:09→20:25)
[2022-03-20] MEDS: FOLIC ACID 1 MG TAB PO SCH (08:11)
[2022-03-20] MEDS: THIAMINE HCL 100 MG TAB PO SCH (08:11)
[2022-03-20] MEDS: AMIODARONE 200 MG TAB PO SCH ×2 (08:11→18:48)
[2022-03-20] MEDS: ASPIRIN 81 MG ECTAB PO SCH (08:11)
[2022-03-20] MEDS: BEER 1 CAN PO SCH ×3 (08:12→20:24)
[2022-03-20] MEDS: FLUTICASONE/VILANTEROL 200/25MCG 14 PUFFS/INHALER INH SCH (08:12)
[2022-03-20] MEDS: NICOTINE 21 MG/24 HR TDSY TD SCH (08:17)
[2022-03-20] MEDS ORDERED: CEFDINIR 300 MG CAP PO SCH (09:00)
[2022-03-20] MEDS ORDERED: methylPREDNISolone 125 MG in SYRINGE 0 ML IV STA (09:49)
[2022-03-20] MEDS ORDERED: METOPROLOL TARTRATE 25 MG TAB PO ONE (10:00)
--- NOTE | 2022-03-20 12:01 | Hospitalist Progress Note ---
Date of Service March 20, 2022 Assessment & Plan (1) Atrial fibrillation with RVR: Plan: - A.Fib NOT new diagnoses - likely in RVR given underlying ETOH abuse and catecholamine release from recent covid + concern for secondary bacterial infection - potassium/mag levels WNL - TSH WNL - on Amiodarone gtt since admission. Rates improved but remain variable - converted IV to oral amiodarone on 03/18 (400mg BID x 1 week then 200mg BID) - given variable rate control and inability to give oral BB this am given marginal hypotension (98/64), was Digoxin loaded (0.5mg now followed by 0.25mg q6hx2 doses) - holding Entresto (given low BP) - Resumed Lopressor @ 12.5mg BID on 03/19, BP tolerating, will uptitrate to achieve better HR control - Continue Eliquis - Echo updated: EF 40-45% - cardiology on board-- appreciate assistance. (2) Acute on chronic systolic CHF (congestive heart failure): Plan: - Initially on BiPAP - received IV lasix with Net FB of -1.4L - FU CXR showing improved PVC - has since been transitioned to NC and then off NC to room air - Suspect he's close to his dry weight - hold Entresto for now in hopes for improved BP and added diuresis - in addition, cardiology added aldactone but uncertain if BP will allow for this and subsequently placed on hold (3) Hypoxia: Plan: - likely from CHF but not convinced that he doesn't have a superimposed PNA - pt recent hospitalized for COVID - off steroids since 03/11 but with persistent leukocytosis - CT of chest suggesting groundglass opacities-- likely more pulmonary edema but d/t leukocytosis w/ L shift, empiric abx started Zosyn x 48 hrs for HAP, transitioned to Cefdinir 03/20 (4) Leukocytosis: Plan: RESOLVED - WBC elevated since admission (with ongoing left shift) - CT on arrival showed bibasilar groundglass opacities. Likely consistent with pulmonary edema; however, underlying infectious process cannot be ruled out - Patient recently hospitalized with COVID. It is possible that he has a secondary bacterial infection at this point which may be contributing to his tachycardia * of note, he was on Decadron up until 03/11 but also received a dose by ED on day of admit (03/16) - given recent hospitalization, covered for hospital-acquired pneumonia w/ Zosyn which was transitioned to oral Cefdinir on 03/20 (5) Elevated troponin: Plan: - Peaked at 2418. - Suspect type II NSTEMI secondary to A. fib with RVR + hypoxia - Initially on heparin which has since been transitioned to Eliquis - Cardiology consulted, appreciate recommendations - Resumes ASA, and statin therapy - TTE: No regional wall motion abnormalities (6) COVID-19: Plan: - First positive 03/02, vaxx'd and boosted x2 - Does NOT need airborne isolation per infection control, but does need private room until he has been 21 days from date of first positive test * This was discussed with Kelsi Quiroga (7) Hyponatremia: Plan: - Chronic and within baseline range of 126-133, suspect could be related to his chronic ETOH use - Urine osmolality obtained in the past and elevated at 465 with a serum osmolality of 275 at that time. - Suspect beer potomania from poor solute intake exacerbated by volume overload (hypervolemic hyponatremia) - Resume Lasix today if BP improves - likely contributing to confusion. Since symptomatic, will given Sodium Chloride tablet today with FU BMP this afternoon - NEED TO MAINTAIN FLUID RESTRICTED DIET (1200mL/Day). D/W patient and his - add boost supplement TID (8) AMS (altered mental status): Plan: - In speaking with patient's , started roughly around the time of his COVID diagnosis. COVID in addition to Decadron likely be contributing factor - Again, may have superimposed bacterial infection. This could be contributing to his altered mental status - Patient is hyponatremic which is likely contributing - Patient answers all questions appropriately but admits to being confused. reports not back to baseline but showing favorable response (9) Emphysema lung: Plan: - may have a component of acute exacerbation at this point - given a dose of IV Solumedrol on 03/20, added Xopenex/Atrovent scheduled neb treatments - Add mucinex, continue tessalon prn - will reassess lungs this afternoon - supplemental O2 to be utilized for pulse ox <89% (goal is NO HIGHER than 92%) (10) Alcohol abuse: Plan: - Per , drinks 6-8 beers every night - Patient has no desire to quit drinking - using 3 beers/day when requires hospitalization to prevent Acute W/D (11) Transaminitis: Plan: - Likely due to ongoing alcohol abuse and in part passive venous congestion from CHF - in addition, recent COVID diagnosis may be contributing - Resolved Plan: PT/OT --> home w/ HH vs rehab. PT recommending rehab if O2 sat doesn't improve and would require O2 upon d/c (doubt he would agree to that) Hopeful that with uptitration of BB and treatment for mild COPD exac, pt will be clinically improved and ready for d/c 03/21 Update provided to patient's and daughter at bedside on 03/20, will update during visiting hours today Above plan has been d/w Dr. Luong Admission and Anticipated Discharge Date Admission Date: March 16, 2022 Subjective Patient seen on daily rounds today. Patient is c/o a cough which he reports is unchanged, nonproductive and no change in his breathing. Denies fevers/chills. Denies cp. No issues reported by nursing. Review of Systems Review of Systems: All systems reviewed and are unremarkable except as noted in HPI and below Denies fevers, chills, headache, nasal congestion, sore throat, chest pain, shortness of breath, palpitations, orthopnea, PND, abdominal pain, nausea, vomiting, diarrhea, constipation, dysuria, hematuria, frequency, back pain, joint pain or swelling, easy bruising or bleeding, skin lesions or rashes. Physical Exam Physical Exam: GENERAL: 76 yo well-developed, well-nourished elderly WM. NAD. LUNGS: Scattered expiratory wheezes and rhonchi R>L CARDIOVASCULAR: Irregular rhythm w/ controlled rate (80s-100s) w/ 1/6 DESTINEE noted ABDOMEN: Soft, non-tender and non-distended. BS normal x 4 quad. EXTREMITIES: No LE edema. Non-tender. Peripheral pulses +2/4. NEUROLOGIC: A&Ox3 PSYCHIATRIC: Cooperative. Flat affect. SKIN: Warm, dry, intact. No rashes or lesions. Results & Data Results & Data ([facility]) Vital Signs (Past 12 Hours) Vital Signs Temp Pulse Pulse Resp BP Pulse Ox 03/20/22 10:37 92 H 135/78 03/20/22 08:16 36.5 C 20 90 05/16/22 08:05 103 H 118/76 05/16/22 07:31 92 H 03/20/22 03:54 36.6 C 106 H 20 145/72 H 90 Laboratory Results 03/20/22 06:11 03/20/22 06:11 PG Care Time/CCT Total # of Minutes Spent Total Time Spent with Patient: Total time spent is greater than 50% in coordination of care (as documented) at patient's floor/unit and/or counseling patient: Coding Level of Care Code 63172 Subseq Hosp Care Lvl 2 Diagnoses Atrial fibrillation with RVR I48.91 Acute on chronic systolic CHF (congestive heart failure) I50.23 Hypoxia R09.02 Leukocytosis D72.829 Elevated troponin R77.8 COVID-19 U07.1 Hyponatremia E87.1 AMS (altered mental status) R41.82 Emphysema lung J43.9 Alcohol abuse F10.10 Transaminitis R74.01
[2022-03-20] MEDS ORDERED: XOPENEX/ATROVENT 0.63mg/0.5MG NEB COMBO NEB SCH (13:00)
[2022-03-20] MEDS: LEVALBUTEROL HCL 0.63 MG/3 ML NEB NEB SCH ×3 (13:36→19:39)
[2022-03-20] MEDS: IPRATROPIUM BROMIDE NEB SOLN 0.02% 2.5 ML VIAL INH SCH ×3 (13:36→19:38)
[2022-03-20] MEDS ORDERED: FUROSEMIDE 40 MG/4 ML VIAL IV ONE ×2 (16:21→18:06)
[2022-03-20] MEDS ORDERED: ALBUT/IPRATROP 3MG/0.5MG NEB 3 ML VIAL NEB STA (17:04)
--- NOTE | 2022-03-20 17:10 | XRay Report ---
XR chest 1V portable CLINICAL HISTORY: change in condition TECHNIQUE: Single frontal radiograph of the chest was obtained. Comparison: Comparison is made to chest radiograph 03/17/2022 FINDINGS: Pacemaker defibrillator is seen. Calcified aortic knob is seen. Cardiomegaly is seen. There is promin ence and cephalization of the vasculature with Gilberto B lines seen. Airspace opacities are seen in th e bilateral lower lungs. Small bilateral pleural effusions are seen. IMPRESSION: 1. Moderate pulmonary edema. 2. Airspace opacities in the lower lungs compatible with aspiration, atelectasis, and/or pneumonia. 3. Small bilateral pleural effusions. ACT 112: Negative or not required by law. Electronically signed by: Ashok Jovle M.D. 03/20/2022 5:09 PM
[2022-03-20 17:11] LABS: Basophils # (auto) 0.01 K/uL (0-0.2); Basophils % (auto) 0.1 %; Eosinophils # (auto) 0.01 K/uL (0-0.5); Eosinophils % (auto) 0.1 %; Hematocrit (blood only) 42.3 % (42-52); Hemoglobin 14.7 g/dL (14.0-18.0); Immature Granulocytes # (auto) 0.05 K/uL (0.00-0.02); Immature Granulocytes % (auto) 0.4 %; Lymphocytes # (auto) 0.41 K/uL (1.2-3.4); Lymphocytes % (auto) 3.5 %; Mean Corpuscular Hemoglobin 35.7 pg (25-34); Mean Corpuscular Volume 102.7 fL (80-100); Mean Platelet Volume 8.8 fL (7.4-10.4); Monocytes # (auto) 0.14 K/uL (0.11-0.59); Monocytes % (auto) 1.2 %; Neutrophils # (auto) 11.04 K/uL (1.4-6.5); Neutrophils % (auto) 94.7 %; Platelet Count 265 K/uL (130-400); RDW Coefficient of Variation 12.8 % (11.5-14.5); RDW Standard Deviation 48.2 fL (36.4-46.3); Red Blood Count 4.12 M/uL (4.7-6.1); White Blood Count 11.66 K/uL (4.8-10.8)
[2022-03-20 17:13] LABS: iSTAT Allen Test Pass; iSTAT Arterial Blood Gas HCO3 23 meg/L (19-24); iSTAT Arterial Blood Gas pCO2 48 mmHg (35-46); iSTAT Arterial Blood Gas pH 7.29 (7.35-7.45); iSTAT Arterial Blood Gas pO2 304 mmHg (80-95); iSTAT Carbon Dioxide 24 mmol/L (24-31); iSTAT Site R Radial
[2022-03-20 17:16] LABS: Mean Corpuscular Hgb Conc 34.8 g/dL (32-36)
[2022-03-20] MEDS ORDERED: PIPERACILL/TAZOBAC CONSULT ACTIVE PRN (17:26)
[2022-03-20] MEDS ORDERED: PIPERACILLIN/TAZOBACTAM 4.5 GM in DEXTROSE 5% 100 ML IV ONE (17:45)
[2022-03-20] MEDS: NITROGLYCERIN 2% OINTMENT 30GM TUBE EXT SCH (18:17)
[2022-03-20 18:48] LABS: Albumin Globulin Ratio 1.1 (0.9-2); Albumin Level 3.6 gm/dl (3.4-5.0); Bilirubin,Total 0.9 mg/dl (0.2-1.0); Calcium 9.1 mg/dl (8.5-10.1); Creatinine Clr Calc Pharmacy 72.6 ml/min; Est GFR (African American) 98.8 ml/min; Est GFR (Non-African American) 85.2 ml/min; Globulin 3.3 gm/dl (2.5-4.0); Potassium 4.2 mmol/L (3.5-5.1); Total Protein 6.9 gm/dl (6.0-8.3)
[2022-03-20] MEDS: guaiFENesin 600 MG TABCR PO SCH (20:26)
[2022-03-20] MEDS: TAMSULOSIN HCL 0.4 MG CAP PO SCH (23:16)
[2022-03-21] MEDS: IPRATROPIUM BROMIDE NEB SOLN 0.02% 2.5 ML VIAL INH SCH ×3 (00:10→13:02)
[2022-03-21] MEDS: LEVALBUTEROL HCL 0.63 MG/3 ML NEB NEB SCH ×3 (00:10→13:02)
[2022-03-21] MEDS: NITROGLYCERIN 2% OINTMENT 30GM TUBE EXT SCH ×2 (00:18→05:39)
[2022-03-21] MEDS: PIPERACILLIN/TAZOBACTAM 3.375 GM in DEXTROSE 5% 100 ML IV SCH ×4 (00:21→23:57)
[2022-03-21] MEDS: BEER 1 CAN PO SCH ×3 (07:23→16:04)
[2022-03-21] MEDS: AMIODARONE 200 MG TAB PO SCH ×2 (07:27→16:41)
[2022-03-21 08:55] LABS: Hematocrit (blood only) 38.2 % (42-52); Hemoglobin 13.4 g/dL (14.0-18.0); Immature Granulocytes # (auto) 0.05 K/uL (0.00-0.02); Immature Granulocytes % (auto) 0.3 %; Lymphocytes # (auto) 0.33 K/uL (1.2-3.4); Lymphocytes % (auto) 2.2 %; Mean Corpuscular Hemoglobin 35.4 pg (25-34); Mean Corpuscular Volume 100.8 fL (80-100); Mean Platelet Volume 8.6 fL (7.4-10.4); Monocytes # (auto) 0.32 K/uL (0.11-0.59); Monocytes % (auto) 2.2 %; Neutrophils # (auto) 14.18 K/uL (1.4-6.5); Neutrophils % (auto) 95.3 %; Platelet Count 255 K/uL (130-400); RDW Coefficient of Variation 12.5 % (11.5-14.5); Red Blood Count 3.79 M/uL (4.7-6.1); White Blood Count 14.88 K/uL (4.8-10.8)
[2022-03-21 08:58] LABS: Mean Corpuscular Hgb Conc 35.1 g/dL (32-36)
[2022-03-21 09:22] LABS: BUN Creatinine Ratio 19.8 (10-20); Calcium 8.8 mg/dl (8.5-10.1); Creatinine Clr Calc Pharmacy 67.9 ml/min; Est GFR (African American) 95.2 ml/min; Est GFR (Non-African American) 82.2 ml/min; Potassium 3.9 mmol/L (3.5-5.1)
[2022-03-21] MEDS: APIXABAN 5 MG TABLET PO SCH ×2 (09:49→20:44)
[2022-03-21] MEDS: ASPIRIN 81 MG ECTAB PO SCH (09:50)
[2022-03-21] MEDS: BENZONATATE 100 MG CAPSULE PO SCH ×3 (09:50→20:45)
[2022-03-21] MEDS: FOLIC ACID 1 MG TAB PO SCH (09:51)
[2022-03-21] MEDS: FLUTICASONE/VILANTEROL 200/25MCG 14 PUFFS/INHALER INH SCH (09:51)
[2022-03-21] MEDS: guaiFENesin 600 MG TABCR PO SCH ×2 (09:51→20:46)
[2022-03-21] MEDS: METOPROLOL TARTRATE 25 MG TAB PO SCH ×2 (09:52→20:46)
[2022-03-21] MEDS: THIAMINE HCL 100 MG TAB PO SCH (09:52)
[2022-03-21] MEDS: NICOTINE 21 MG/24 HR TDSY TD SCH (09:53)
--- NOTE | 2022-03-21 10:02 | Electrocardiogram Report ---
Test Reason : Blood Pressure : / mmHG Vent. Rate : 107 BPM Atrial Rate : 344 BPM P-R Int : 000 ms QRS Dur : 094 ms QT Int : 316 ms P-R-T Axes : 000 076 116 degrees QTc Int : 421 ms Atrial fibrillation some aberrant conduction Low voltage QRS Abnormal ECG When compared with ECG of 20-MAR-2022 16:44, (unconfirmed) ST no longer depressed in Inferior leads ST no longer elevated in Anterior leads T wave inversion no longer evident in Inferior leads Confirmed by Donato Mark ([id number]) on 03/21/2022 10:01:53 AM Referred By: REFERRED SELF Confirmed By:Ernie Mark
[2022-03-21] MEDS ORDERED: LEVALBUTEROL HCL 0.63 MG/3 ML NEB NEB PRN (13:18)
[2022-03-21] MEDS ORDERED: IPRATROPIUM BROMIDE NEB SOLN 0.02% 2.5 ML VIAL INH PRN (13:19)
--- NOTE | 2022-03-21 13:37 | Hospitalist Progress Note ---
Date of Service March 21, 2022 Assessment & Plan (1) Acute on chronic systolic CHF (congestive heart failure): Plan: - Pt initially hospitalized with afib w/ rvr and decompensated (a/c systolic CHF) and hypoxic respiratory failure d/t CHF - Treated with BiPAP, diuresed and transitioned from CT to room air - On 03/20: pt got up to use restroom, became increasingly SOB and required uptitration of O2 to 5L, he was made a code purple d/t acute change in respiratory status * Placed back on BiPAP * Castellanos placed * IV Lasix 40mg x 2 doses given * CXR showing pulmonary edema + bilateral infiltrates * HS trop 308 and trending down upon repeat at 287 * BNP markedly elevated at 1949 * Topical nitropaste added 1/2 inch q6h * Resumed Zosyn to provide coverage for hospital acquired-PNA - Total net neg FB over last 24 hours is -3200 mL - Transitioned from CT back to room air - Azra Salvador PA-C with the HF program will follow this patient (2) Atrial fibrillation with RVR: Plan: - A.Fib NOT new diagnoses - likely in RVR given underlying ETOH abuse and catecholamine release from recent covid + concern for secondary bacterial infection - potassium/mag levels WNL and TSH WNL - Amiodarone gtt ordered upon admission. Rates improved but remain variable - converted IV to oral amiodarone on 03/18 (400mg BID x 1 week then 200mg BID) - given variable rate control and inability to give oral BB this am given cisco nal hypotension (98/64), was Digoxin loaded (0.5mg now followed by 0.25mg q6hx2 doses) on 03/18 - holding Entresto (given low BP) - Resumed Lopressor @ 12.5mg BID on 03/19, BP tolerating, was uptitrated to 25mg BID on 03/20 - Continue Eliquis - Echo updated: LVEF 40-45% - cardiology consulted, saw at the beginning of his hospitalization but not seen since 03/17 (follows routinely with Dr. Delatorre) (3) Pneumonia: Plan: - Empirically started on Zosyn on 03/18 for possible PNA - Treated for 48 hours and then transitioned to Cefdinir 300mg BID on 03/20 to get ready for d/c - Given acute change in respiratory status, changed back to Zosyn on 03/20 - Was given a dose of Solumedrol 125mg IV on 03/20 after AM rounds for acute bronchospasm and also started on Xopenex/Atrovent nebs - Will transition nebs to PRN - Continue Tessalon perles and mucolytics (4) Leukocytosis: Plan: - WBC elevated since admission (with ongoing left shift) - CT on arrival showed bibasilar groundglass opacities. Likely consistent with pulmonary edema; however, underlying infectious process cannot be ruled out - Patient recently hospitalized with COVID. It is possible that he has a secon david bacterial infection at this point which may be contributing to his tachycardia * of note, he was on Decadron up until 03/11 but also received a dose by ED on day of admit (03/16) - given recent hospitalization, covered for hospital-acquired pneumonia w/ Zosyn which was started on 03/18, transitioned to oral Cefdinir on 03/20 - Given change in resp status, put back on Zosyn on 03/20 (5) Elevated troponin: Plan: - Peaked at 2418. - Suspect type II NSTEMI secondary to A. fib with RVR + hypoxia - Initially on heparin which has since been transitioned to Eliquis - Cardiology consulted, appreciate recommendations - Resumes ASA, and statin therapy - TTE: No regional wall motion abnormalities (6) COVID-19: Plan: - First positive 03/02, vaxx'd and boosted x2 - Does NOT need airborne isolation per infection control, but does need private room until he has been 21 days from date of first positive test * This was discussed with Kelsi Quiroga (7) Hyponatremia: Plan: - Chronic and within baseline range of 126-133, suspect could be related to his chronic ETOH use - Urine osmolality obtained in the past and elevated at 465 with a serum osmolality of 275 at that time. - Suspect beer potomania from poor solute intake exacerbated by volume overload (hypervolemic hyponatremia) - Resume Lasix today if BP improves - likely contributing to confusion. Since symptomatic, will given Sodium Chloride tablet today with FU BMP this afternoon - NEED TO MAINTAIN FLUID RESTRICTED DIET (1200mL/Day). D/W patient and his - add boost supplement TID (8) AMS (altered mental status): Plan: - In speaking with patient's , started roughly around the time of his COVID diagnosis. COVID in addition to Decadron likely be contributing factor - Again, may have superimposed bacterial infection. This could be contributing to his altered mental status - Patient answers all questions appropriately but admits to being confused. reports not back to baseline but showing favorable response (9) Emphysema lung: Plan: - may have a component of acute exacerbation at this point - given a dose of IV Solumedrol on 03/20, added Xopenex/Atrovent scheduled neb treatments - Add mucinex, continue tessalon prn - will reassess lungs this afternoon - supplemental O2 to be utilized for pulse ox <89% (goal is NO HIGHER than 92%) (10) Alcohol abuse: Plan: - Per , drinks 6-8 beers every night - Patient has no desire to quit drinking - using 3 beers/day when requires hospitalization to prevent Acute W/D (11) Transaminitis: Plan: - Likely due to ongoing alcohol abuse and in part passive venous congestion from CHF - in addition, recent COVID diagnosis may be contributing Plan: Interventions as outlined above Repeat labs in the morning PT/OT D/C planning Above plan has been d/w Dr. Luong Admission and Anticipated Discharge Date Admission Date: March 16, 2022 Subjective Patient seen on daily rounds today. Pt was made a code purple yesterday afternoon and was stabilized on bipap. He has since been weaned back to nasal cannula and now is on room air. He reports feeling better. Continues to have cough but it is "no better, no worse." Denies shortness of breath at rest. Had a total net neg fluid balance since yesterday of -3200 mL. Review of Systems Review of Systems: All systems reviewed and are unremarkable except as noted in HPI and below Denies fevers, chills, headache, nasal congestion, sore throat, chest pain, shortness of breath, palpitations, orthopnea, PND, abdominal pain, nausea, vomiting, diarrhea, constipation, dysuria, hematuria, frequency, back pain, joint pain or swelling, easy bruising or bleeding, skin lesions or rashes. Physical Exam Physical Exam: GENERAL: 76 yo well-developed, well-nourished elderly WM. NAD. LUNGS: Fine bibasilar crackles, no wheezes or rhonchi CARDIOVASCULAR: Irregular rhythm w/ controlled rate (80s-100s) w/ 1/6 DESTINEE noted ABDOMEN: Soft, non-tender and non-distended. BS normal x 4 quad. : castellanos in place EXTREMITIES: No LE edema. Non-tender. Peripheral pulses +2/4. NEUROLOGIC: A&Ox3 PSYCHIATRIC: Cooperative. Flat affect. SKIN: Warm, dry, intact. No rashes or lesions. Results & Data Results & Data ([facility]) Vital Signs (Past 12 Hours) Vital Signs Temp Pulse Pulse Pulse Resp BP Pulse Ox 03/21/22 13:03 82 16 99 03/21/22 11:38 37.7 C H 88 16 101/54 L 95 03/21/22 10:31 95 H 03/21/22 07:41 36.9 C 102 H 18 113/61 93 03/21/22 07:08 98 H 18 89 L 03/21/22 04:05 98 H 03/21/22 03:27 36.9 C 92 H 18 114/71 96 Laboratory Results 03/21/22 08:36 03/21/22 08:36 PG Care Time/CCT Total # of Minutes Spent Total Time Spent with Patient: Total time spent is greater than 50% in coordination of care (as documented) at patient's floor/unit and/or counseling patient: Coding Level of Care Code 98011 Subseq Hosp Care Lvl 3 Diagnoses Atrial fibrillation with RVR I48.91 Acute on chronic systolic CHF (congestive heart failure) I50.23 Leukocytosis D72.829 Elevated troponin R77.8 COVID-19 U07.1 Hyponatremia E87.1 AMS (altered mental status) R41.82 Emphysema lung J43.9 Alcohol abuse F10.10 Transaminitis R74.01 Pneumonia J18.9
[2022-03-21] MEDS: TAMSULOSIN HCL 0.4 MG CAP PO SCH (20:45)
[2022-03-22] MEDS ORDERED: FUROSEMIDE 40 MG/4 ML VIAL IV ONE (05:57)
--- NOTE | 2022-03-22 06:03 | Communication Note ---
Date of Service: March 22, 2022 Notified by nursing staff at ~0515 that patient was reporting increased SOB and he sounded more wet. Also noted that he was on RA yesterday afternoon but r equired 2L overnight and acutely required increase to 4L. Vitals as follows: BP 139/94, HR 100, O2 94% on 4L, temp 36.4, RR 25. Respiratory therapy starting prn Xopenex treatment at bedside. Patient complaining of SOB and increased work of breathing but denies CP. On exam he is diaphoretic, tachycardic, hypertensive, and has visible increased work of breathing with accessory muscle use. Lungs on auscultation were tight with scattered expiratory wheezing, poor air movement, slight crackles bilateral lower lobes, R>L. Morning CBC, BMP, and mag already being completed. Ordered CXR, ABG, and 40mg IV Lasix. ABG: pH 7.35, pCO2 44, pO2 95, HCO3 24 CXR with pulmonary edema Patient complaining of fatigue secondary to increased work of breathing. Due to patients respiratory effort, placed patient back on BiPap. Will update day team. Resident Activity Tracking Resident Involvement: Resident Care Provided Care Provided: Adult [facility]
[2022-03-22 06:06] LABS: Eosinophils # (auto) 0.08 K/uL (0-0.5); Eosinophils % (auto) 0.6 %; Hemoglobin 13.1 g/dL (14.0-18.0); Immature Granulocytes # (auto) 0.06 K/uL (0.00-0.02); Immature Granulocytes % (auto) 0.4 %; Lymphocytes # (auto) 0.78 K/uL (1.2-3.4); Lymphocytes % (auto) 5.4 %; Mean Corpuscular Hemoglobin 35.9 pg (25-34); Mean Corpuscular Hgb Conc 34.5 g/dL (32-36); Mean Corpuscular Volume 104.1 fL (80-100); Mean Platelet Volume 8.7 fL (7.4-10.4); Monocytes # (auto) 0.71 K/uL (0.11-0.59); Neutrophils % (auto) 88.6 %; Platelet Count 271 K/uL (130-400); RDW Coefficient of Variation 12.5 % (11.5-14.5); RDW Standard Deviation 47.9 fL (36.4-46.3); Red Blood Count 3.65 M/uL (4.7-6.1); White Blood Count 14.33 K/uL (4.8-10.8)
[2022-03-22 06:22] LABS: iSTAT Allen Test Pass; iSTAT Arterial Blood Gas HCO3 24 meg/L (19-24); iSTAT Arterial Blood Gas pCO2 44 mmHg (35-46); iSTAT Arterial Blood Gas pH 7.35 (7.35-7.45); iSTAT Arterial Blood Gas pO2 95 mmHg (80-95); iSTAT Carbon Dioxide 26 mmol/L (24-31); iSTAT Site R Radial
[2022-03-22 06:24] LABS: BUN Creatinine Ratio 23.9 (10-20); Calcium 8.9 mg/dl (8.5-10.1); Creatinine Clr Calc Pharmacy 67.1 ml/min; Est GFR (Non-African American) 81.1 ml/min; Magnesium 1.8 mg/dl (1.7-2.4); Potassium 4.3 mmol/L (3.5-5.1)
--- NOTE | 2022-03-22 07:30 | XRay Report ---
XR chest 1V portable CLINICAL HISTORY: increased SOB and O2 requirement. COMPARISON STUDY: 03/20/2022 TECHNIQUE: 1 view of the chest FINDINGS: Single frontal view of the chest demonstrates the heart to again be enlarged with ICD pacer in place. Compared to the previous examination, there is worsening interstitial and alveolar edema characteris tic of cardiac decompensation. No definite confluent alveolar opacities or air bronchograms are seen. There are again small bilateral pleural effusions , right greater than left. There is no acute osseo us pathology. IMPRESSION: 1. Compared to previous examination, there is worsening interstitial and alveolar edema most characte ristic of congestive heart failure. 2. Slight increase in bilateral pleural effusions, right greater than left. ACT 112: Negative or not required by law. Electronically signed by: Bennie Rosales M.D. 03/22/2022 7:29 AM
[2022-03-22] MEDS: BEER 1 CAN PO SCH ×3 (07:40→16:50)
[2022-03-22] MEDS: NICOTINE 21 MG/24 HR TDSY TD SCH (08:05)
[2022-03-22] MEDS: APIXABAN 5 MG TABLET PO SCH ×2 (08:05→20:36)
[2022-03-22] MEDS: ASPIRIN 81 MG ECTAB PO SCH (08:05)
[2022-03-22] MEDS: METOPROLOL TARTRATE 25 MG TAB PO SCH ×2 (08:05→20:37)
[2022-03-22] MEDS: FOLIC ACID 1 MG TAB PO SCH (08:05)
[2022-03-22] MEDS: AMIODARONE 200 MG TAB PO SCH ×2 (08:05→18:03)
[2022-03-22] MEDS: BENZONATATE 100 MG CAPSULE PO SCH ×3 (08:05→20:34)
[2022-03-22] MEDS: THIAMINE HCL 100 MG TAB PO SCH (08:05)
[2022-03-22] MEDS: guaiFENesin 600 MG TABCR PO SCH ×2 (08:05→20:36)
[2022-03-22] MEDS: PIPERACILLIN/TAZOBACTAM 3.375 GM in DEXTROSE 5% 100 ML IV SCH ×2 (08:40→18:02)
--- NOTE | 2022-03-22 10:41 | Hospitalist Progress Note ---
Date of Service March 22, 2022 Assessment & Plan (1) Acute on chronic systolic CHF (congestive heart failure): Plan: - Pt initially hospitalized with afib w/ rvr and decompensated (a/c systolic CHF) and hypoxic respiratory failure d/t CHF - Treated with BiPAP, diuresed and transitioned from WA to room air - On 03/20: pt got up to use restroom, became increasingly SOB and required uptitration of O2 to 5L, he was made a code purple d/t acute change in respiratory status * Placed back on BiPAP * Castellanos placed * IV Lasix 40mg x 2 doses given * CXR showing pulmonary edema + bilateral infiltrates * HS trop 308 and trending down upon repeat at 287 * BNP markedly elevated at 1949 * Topical nitropaste ordered * Resumed Zosyn to provide coverage for hospital acquired-PNA - Total net neg FB over last 24 hours is -3200 mL - Transitioned from WA back to room air - Azra Salvador PA-C with the HF program will follow this patient - Unfortunately, pt with another episode similar to 03/20 this AM - Will continue aggressively diurese in order to really dry him out as much as possible, even to the point of mild REE to ensure he will not decompensate so easily - Dose of IV Lasix given this AM by overnight resident, will plan for another dose at noon and possibly even a third later this afternoon if BP will allow - Continue to trend daily chemistries to follow renal function - Maintain BiPAP for now (decreasing FiO2 to maintain a sat >90%) with plans to wean off to supplemental O2 this afternoon (2) Atrial fibrillation with RVR: Plan: - A.Fib NOT a new diagnosis - likely in RVR given underlying ETOH abuse and catecholamine release from recent covid + concern for secondary bacterial infection - potassium/mag levels WNL and TSH WNL - Amiodarone gtt ordered upon admission. Rates improved but remain variable - converted IV to oral amiodarone on 03/18 (400mg BID x 1 week then 200mg BID) - given variable rate control and inability to give oral BB this am given marginal hypotension (98/64), was Digoxin loaded (0.5mg now followed by 0.25mg q6hx2 doses) on 03/18 - holding Entresto (given low BP) - Resumed Lopressor @ 12.5mg BID on 03/19, BP tolerating, was uptitrated to 25mg BID on 03/20 - Continue Eliquis - Echo updated: LVEF 40-45% - cardiology consulted, saw at the beginning of his hospitalization but not seen since 03/17 (follows routinely with Dr. Delatorre) (3) Pneumonia: Plan: - Empirically started on Zosyn on 03/18 for possible PNA - Treated for 48 hours and then transitioned to Cefdinir 300mg BID on 03/20 to get ready for d/c - Given acute change in respiratory status, changed back to Zosyn on 03/20 - Was given a dose of Solumedrol 125mg IV on 03/20 after AM rounds for acute bronchospasm and also started on Xopenex/Atrovent nebs - Will transition nebs to PRN - Continue Tessalon perles and mucolytics (4) Leukocytosis: Plan: - WBC elevated since admission (with ongoing left shift) - CT on arrival showed bibasilar groundglass opacities. Likely consistent with pulmonary edema; however, underlying infectious process cannot be ruled out - Patient recently hospitalized with COVID. It is possible that he has a secondary bacterial infection at this point which may be contributing to his tachycardia * of note, he was on Decadron up until 03/11 but also received a dose by ED on day of admit (03/16) - given recent hospitalization, covered for hospital-acquired pneumonia w/ Zosyn which was started on 03/18, transitioned to oral Cefdinir on 03/20 - Given change in resp status, put back on Zosyn on 03/20 - Still has persistent leukocytosis, unclear if this is reactive or if he needs broadened abx coverage (5) Elevated troponin: Plan: - Peaked at 2418. - Suspect type II NSTEMI secondary to A. fib with RVR + hypoxia - Initially on heparin which has since been transitioned to Eliquis - Cardiology consulted, appreciate recommendations - Resumes ASA, and statin therapy - TTE: No regional wall motion abnormalities (6) COVID-19: Plan: - First positive 03/02, vaxx'd and boosted x2 - Does NOT need airborne isolation per infection control, but does need private room until he has been 21 days from date of first positive test * This was discussed with Kelsi Quiroga (7) Hyponatremia: Plan: - Chronic and within baseline range of 126-133, suspect could be related to his chronic ETOH use - Urine osmolality obtained in the past and elevated at 465 with a serum osmolality of 275 at that time. 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 Since symptomatic, will given Sodium Chloride tablet today with FU BMP this afternoon - NEED TO MAINTAIN FLUID RESTRICTED DIET (1200mL/Day). D/W patient and his - add boost supplement TID (8) AMS (altered mental status): Plan: - In speaking with patient's , started roughly around the time of his COVID diagnosis. COVID in addition to Decadron likely be contributing factor - Again, may have superimposed bacterial infection. This could be contributing to his altered mental status - Patient answers all questions appropriately but admits to being confused. reports not back to baseline but showing favorable response (9) Emphysema lung: Plan: - may have a component of acute exacerbation at this point - given a dose of IV Solumedrol on 03/20, added Xopenex/Atrovent scheduled neb treatments - Add mucinex, continue tessalon prn - will reassess lungs this afternoon - supplemental O2 to be utilized for pulse ox <89% (goal is NO HIGHER than 92%) (10) Alcohol abuse: Plan: - Per , drinks 6-8 beers every night - Patient has no desire to quit drinking - using 3 beers/day when requires hospitalization to prevent Acute W/D (11) Transaminitis: Plan: - Likely due to ongoing alcohol abuse and in part passive venous congestion from CHF - in addition, recent COVID diagnosis may be contributing Plan: Interventions as outlined above Repeat labs in the morning Needs to work with PT/OT when respiratory status improves Maintain PCU level of care Had a lengthy discussion with patient this morning about code status--he verbalized that he DOES NOT wish to be intubated and placed on ventilatory support. He is agreeable to "one round" of resuscitation with CPR and defibrillation only. I did explain to him that without intubation, simply doing compressions or defibrillating would not make for a successful resuscitation. Will discuss again this afternoon when is here during visiting hours to confirm. Above plan has been d/w Dr. Luong Admission and Anticipated Discharge Date Admission Date: March 16, 2022 Subjective Patient seen on daily rounds today. Notified by overnight resident that patient had increased work of breathing this morning around 5 AM, in addition was hypertensive and tachycardic. A dose of IV Lasix was given and patient was placed back on BiPAP. Currently, patient is much more comfortable. He admits this morning that he "thought he was going to . " He is no longer short of breath. Currently has 1200 cc of pink urine in Castellanos bag. He denies chest pain. Review of Systems Review of Systems: All systems reviewed and are unremarkable except as noted in HPI and below Denies fevers, chills, headache, nasal congestion, sore throat, chest pain, palpitations, orthopnea, PND, abdominal pain, nausea, vomiting, diarrhea, constipation, dysuria, hematuria, frequency, back pain, joint pain or swelling, easy bruising or bleeding, skin lesions or rashes. Physical Exam Physical Exam: GENERAL: 76 yo well-developed, well-nourished elderly WM. NAD. LUNGS: Diminished in bases bilaterally CARDIOVASCULAR: Irregular rhythm w/ rate in low 100s. 1/6 DESTINEE noted ABDOMEN: Soft, non-tender and non-distended. BS normal x 4 quad. : castellanos in place with pink to light red urine in bag EXTREMITIES: No LE edema. Non-tender. Peripheral pulses +2/4. NEUROLOGIC: A&Ox3 PSYCHIATRIC: Cooperative. Flat affect. SKIN: Warm, dry, intact. No rashes or lesions. Results & Data Results & Data ([facility]) Vital Signs (Past 12 Hours) Vital Signs Temp Pulse Pulse Pulse Resp BP Pulse Ox 03/22/22 08:03 36.6 C 101 H 18 113/73 100 03/22/22 07:48 102 H 25 H 100 03/22/22 06:34 152/92 H 03/22/22 06:24 159/86 H 03/22/22 06:15 109 H 23 99 03/22/22 06:14 162/103 H 03/22/22 06:00 164/95 H 03/22/22 05:44 100 H 28 H 97 03/22/22 05:21 36.4 C L 100 H 25 H 139/94 94 03/22/22 03:03 36.7 C 90 18 128/76 91 03/22/22 00:32 93 03/21/22 23:16 36.7 C 83 18 108/59 L 93 Laboratory Results 03/22/22 05:21 03/22/22 05:21 PG Care Time/CCT Total # of Minutes Spent Total Time Spent with Patient: Total time spent is greater than 50% in coordination of care (as documented) at patient's floor/unit and/or counseling patient: Coding Level of Care Code 67148 Subseq Hosp Care Lvl 3 Diagnoses Acute on chronic systolic CHF (congestive heart failure) I50.23 Atrial fibrillation with RVR I48.91 Pneumonia J18.9 Leukocytosis D72.829 Elevated troponin R77.8 COVID-19 U07.1 Hyponatremia E87.1 AMS (altered mental status) R41.82 Emphysema lung J43.9 Alcohol abuse F10.10 Transaminitis R74.01
[2022-03-22] MEDS: FLUTICASONE/VILANTEROL 200/25MCG 14 PUFFS/INHALER INH SCH (10:46)
[2022-03-22] MEDS: FUROSEMIDE 40 MG/4 ML VIAL IV SCH ×2 (14:27→20:37)
[2022-03-22] MEDS: TAMSULOSIN HCL 0.4 MG CAP PO SCH (20:36)
[2022-03-23] MEDS: PIPERACILLIN/TAZOBACTAM 3.375 GM in DEXTROSE 5% 100 ML IV SCH ×4 (00:53→23:07)
[2022-03-23 06:48] LABS: Eosinophils # (auto) 0.12 K/uL (0-0.5); Eosinophils % (auto) 1.4 %; Hematocrit (blood only) 36.4 % (42-52); Hemoglobin 12.6 g/dL (14.0-18.0); Immature Granulocytes # (auto) 0.05 K/uL (0.00-0.02); Immature Granulocytes % (auto) 0.6 %; Lymphocytes # (auto) 0.75 K/uL (1.2-3.4); Lymphocytes % (auto) 8.6 %; Mean Corpuscular Hemoglobin 34.8 pg (25-34); Mean Corpuscular Hgb Conc 34.6 g/dL (32-36); Mean Corpuscular Volume 100.6 fL (80-100); Mean Platelet Volume 8.5 fL (7.4-10.4); Monocytes % (auto) 6.9 %; Neutrophils # (auto) 7.23 K/uL (1.4-6.5); Neutrophils % (auto) 82.5 %; Platelet Count 254 K/uL (130-400); RDW Coefficient of Variation 12.7 % (11.5-14.5); RDW Standard Deviation 47.2 fL (36.4-46.3); Red Blood Count 3.62 M/uL (4.7-6.1); White Blood Count 8.75 K/uL (4.8-10.8)
[2022-03-23 07:07] LABS: Albumin Globulin Ratio 1.2 (0.9-2); BUN Creatinine Ratio 26.4 (10-20); Bilirubin,Total 0.8 mg/dl (0.2-1.0); Calcium 8.3 mg/dl (8.5-10.1); Creatinine Clr Calc Pharmacy 67.9 ml/min; Est GFR (African American) 95.2 ml/min; Est GFR (Non-African American) 82.2 ml/min; Globulin 2.6 gm/dl (2.5-4.0); Magnesium 1.6 mg/dl (1.7-2.4); Potassium 3.6 mmol/L (3.5-5.1); Total Protein 5.6 gm/dl (6.0-8.3)
[2022-03-23] MEDS: BEER 1 CAN PO SCH ×3 (08:20→18:29)
[2022-03-23] MEDS: ASPIRIN 81 MG ECTAB PO SCH (08:21)
[2022-03-23] MEDS: AMIODARONE 200 MG TAB PO SCH ×2 (08:21→17:55)
[2022-03-23] MEDS: APIXABAN 5 MG TABLET PO SCH (08:21)
[2022-03-23] MEDS: BENZONATATE 100 MG CAPSULE PO SCH ×3 (08:22→20:31)
[2022-03-23] MEDS: FLUTICASONE/VILANTEROL 200/25MCG 14 PUFFS/INHALER INH SCH (08:22)
[2022-03-23] MEDS: FUROSEMIDE 40 MG/4 ML VIAL IV SCH ×3 (08:23→20:30)
[2022-03-23] MEDS: FOLIC ACID 1 MG TAB PO SCH (08:23)
[2022-03-23] MEDS: guaiFENesin 600 MG TABCR PO SCH ×2 (08:24→20:32)
[2022-03-23] MEDS: NICOTINE 21 MG/24 HR TDSY TD SCH (08:25)
[2022-03-23] MEDS: THIAMINE HCL 100 MG TAB PO SCH (08:26)
[2022-03-23] MEDS: METOPROLOL TARTRATE 25 MG TAB PO SCH ×2 (08:38→20:30)
--- NOTE | 2022-03-23 09:38 | Hospitalist Progress Note ---
Date of Service March 23, 2022 Assessment & Plan (1) Acute on chronic systolic CHF (congestive heart failure): Plan: - Pt initially hospitalized with afib w/ rvr and decompensated (a/c systolic CHF) and hypoxic respiratory failure d/t CHF - Treated with BiPAP, diuresed and transitioned from NC to room air - Fluid balance net -11.7 L to date and patient is down 10 pounds - Despite favorable response to diuresis, has had multiple meqh-pr-pfbl rapid responses (flash pulmonary edema). Does not appear to have an exacerbation of COPD. Is being treated with antibiotic for secondary bacterial pneumonia - at this point, plan is for cardiac catheterization on 03/23. Again, family requesting transfer to [place] but patient favors to have this done here. Family is agreeable - continue beta-blockade, IV Lasix, and now digoxin. BP intolerant to ANTHONY inhibitor/nitrates. - Plan is to diuresis to the point of REE given these continued episodes of flash pulmonary edema (2) Atrial fibrillation with RVR: Plan: - A.Fib NOT a new diagnosis - likely in RVR given underlying ETOH abuse and catecholamine release from recent covid + concern for secondary bacterial infection - potassium/mag levels WNL and TSH WNL - Amiodarone gtt ordered upon admission. Rates improved but remain variable - converted IV to oral amiodarone on 03/18 (400mg BID x 1 week then 200mg BID) - given variable rate control and inability to give oral BB this am given marginal hypotension (98/64), was Digoxin loaded (0.5mg now followed by 0.25mg q6hx2 doses) on 03/18. Still with variable rates thus add oral digoxin - holding Entresto (given low BP) - Resumed Lopressor. Give when BP will allow - Continue Eliquis - Echo updated: LVEF 40-45% - cardiology consulted, appreciate recommendations. Follows Dr. Delatorre routinely (3) Pneumonia: Plan: - Empirically started on Zosyn on 03/18 for possible PNA - Continue neb treatments and supplemental oxygen to maintain a pulse ox of 90 to 92% - Again, has had multiple obpk-yk-inde rapid responses (that appear more related to flash pulmonary edemasee above) (4) Leukocytosis: Plan: - WBC elevated since admission (with ongoing left shift) - CT on arrival showed bibasilar groundglass opacities. Likely consistent with pulmonary edema; however, underlying infectious process cannot be ruled out - Patient recently hospitalized with COVID. It is possible that he has a secondary bacterial infection at this point which may be contributing to his tachycardia * of note, he was on Decadron up until 03/11 but also received a dose by ED on day of admit (03/16) - given recent hospitalization, covered for hospital-acquired pneumonia w/ Zosyn which was started on 03/18 (5) Elevated troponin: Plan: - Peaked at 2418. - Suspect type II NSTEMI secondary to A. fib with RVR + hypoxia - Initially on heparin which has since been transitioned to Eliquis - Cardiology consulted, appreciate recommendations - Resumes ASA, and statin therapy - TTE: No regional wall motion abnormalities - Since back to back flash pulmonary edema, plan is for cardiac catheterization on 03/24 (6) COVID-19: Plan: - First positive 03/02, vaxx'd and boosted x2 - Does NOT need airborne isolation per infection control, but does need private room until he has been 21 days from date of first positive test * This was discussed with Kelsi Quiroga (7) Hyponatremia: Plan: - Chronic and within baseline range of 126-133, suspect could be related to his chronic ETOH use - Urine osmolality obtained in the past and elevated at 465 with a serum osmolality of 275 at that time. 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 Since symptomatic, will given Sodium Chloride tablet today with FU BMP this afternoon - NEED TO MAINTAIN FLUID RESTRICTED DIET (1200mL/Day). D/W patient and his - add boost supplement TID (8) AMS (altered mental status): Plan: - In speaking with patient's , started roughly around the time of his COVID diagnosis. COVID in addition to Decadron likely be contributing factor - Again, may have superimposed bacterial infection. This could be contributing to his altered mental status - Patient answers all questions appropriately but admits to being confused. reports not back to baseline but showing favorable response (9) Emphysema lung: Plan: - 1 dose of IV Solu-Medrol given on 03/20 with rapid response but none since. Does not appear to be in an acute exacerbation. - Would avoid from giving additional steroids as this can cause added fluid retention (10) Alcohol abuse: Plan: - Per , drinks 6-8 beers every night - Patient has no desire to quit drinking - using 3 beers/day when requires hospitalization to prevent Acute W/D (11) Transaminitis: Plan: - Likely due to ongoing alcohol abuse and in part passive venous congestion from CHF - in addition, recent COVID diagnosis may be contributing Plan: Prior provider had a lengthy (and multiple discussions) with patient regarding his CODE STATUS and given his rprv-dj-orps rapid responses requiring BiPAP. He voiced at that time that he did not wish to be on ventilatory support/intubated. He agreed to "1 round" of CPR and defibrillation. It was discussed that without intubation, simply doing compressions or defibrillating would likely not make for successful resuscitation. He was adamant that he did not wish to be intubated. The above has created significant waves amongst family and patient. For the most part, he answers all questions appropriately but seems to have periods of confusion. When seen on 03/23, he seems very coached in his responses. For example, when I asked him to reiterate the date/year, his response was "awake. I know I need to look at the white board". He was able to look at the white board where the date and month were written and he answered appropriately. In addition, he had a very scripted piece of paper that did noted he wanted to be a full code so he could "get better and moved to [place]". He explained that his daughter discussed with him in great detail that he could be intubated and i mprove and moved to [place]. I explained to him that in the event that he would require ventilatory support, it is possible (and quite likely) that extubation would be difficult. He has known LV dysfunction and COPD. I explained that while intubated, he could have subsequent acute medical conditions that would significantly affect his quality of life (such as requiring trach, feeding tube or may become BiPAP dependent). That being said,he continues to do note that "his daughter told him that he could get better and go back to [place]. I did explain to him that it is possible he potentially may get better should he require ventilatory support. He did notes he would like to be a full code. In addition, I did find a copy of his advance directive that clearly outlines he would like full and aggressive measures including intubation/ventilatory support and CPR. In addition, I have reached out to psychiatry to help determine his ability/capacity to make medical decisions regarding CODE STATUS. Per psychiatry, he wants everything done but has no ability to speak to why he came to that decision so this decision would go to his power of deputy prosecuting attorney (whom is the daughterCathy). Patient discussed with (in great detail) and seen by Dr. Pond. Admission and Anticipated Discharge Date Admission Date: March 16, 2022 Subjective Patient seen on daily rounds today. His rate remains variable. Unfortunately, his metoprolol has been held multiple times given marginal hypotension. He has had multiple episodes of flash pulmonary edema. In review of his quality assurance monitor final, he does have tachycardia up to 130 which may be contributing. Has since been seen by cardiology who would like to do a cardiac catheterization tomorrow. Patient is agreeable to have this here although his 2 daughters would like him transferred to [facility]. They were made aware that at this point, we could initiate the transfer but a cardiac catheterization would unlikely be done tomorrow as it is late in the afternoon. Patient would like to have the procedure done here tomorrow and his family is okay with this plan. Prior provider did talk with patient at length yesterday regarding his CODE STATUS given these [id number]-li-[id number] episodes of flash pulmonary edema requiring BiPAP. He denoted that he did not want ventilatory support or CPR resuscitation. His daughter (who is the power of deputy prosecuting attorney) was unhappy with this and demanded he be changed back to a full code. Patient has been mostly awake but his mental status is questionable. Uncertain if he he has capacity to make medical decisions surrounding these concerns. Last, there seems to be some discord between patient's (with whom he lives) and his daughter (the power of deputy prosecuting attorney). Per the , the daughter does not want patient discharged with her as she is not vaccinated. She believes that this is posing significant risk to the patient to get COVID a second time. Otherwise, patient vocalizes no complaints or concerns. He denies fevers, chills, chest pain, shortness of breath, abdominal pain, nausea or vomiting. Review of Systems Review of Systems: All systems reviewed and are unremarkable except as noted in HPI and below Denies fevers, chills, headache, nasal congestion, sore throat, cough, chest pain, shortness of breath, palpitations, orthopnea, PND, abdominal pain, nausea, vomiting, diarrhea, constipation, dysuria, hematuria, frequency, back pain, joint pain or swelling, easy bruising or bleeding, skin lesions or rashes. Physical Exam Physical Exam: General: Resting comfortably in his hospital bed. NAD. HEENT: Head is AT/NC. Buccal mucosa is moist and pink Neck: No JVD. Negative hepatojugular reflex Cardiac: Irregularly irregular Lungs: Breathing comfortably on ambient air. No accessory muscle use. Scattered rhonchi that mobilizes with coughing. Abdomen: Normoactive X4. Soft and nontender in all quadrants. Extremities: No peripheral clubbing cyanosis or edema Neuro: Oriented to self, place, and somewhat to situation. Cranial nerves II through XII are grossly intact. No focal neuro deficits Skin: No obvious skin lesions or rashes Psych: Appropriate affect. Pleasant and cooperative Results & Data Results & Data ([facility] [place]) Vital Signs (Past 12 Hours) Vital Signs Temp Pulse Pulse Resp BP Pulse Ox 03/23/22 08:34 93/48 L 03/23/22 07:49 36.4 C L 95 H 16 86/54 L 92 03/23/22 03:07 36.4 C L 88 22 117/69 95 03/22/22 22:20 79 03/22/22 22:06 36.7 C 80 22 97/52 L 95 Laboratory Results 03/23/22 05:51 03/23/22 05:51 Diagnostic Findings quality assurance monitor final: Atrial fibrillation with variable rates (83-112) PG Care Time/CCT Total # of Minutes Spent Total Time Spent with Patient: Total time spent is greater than 50% in coordination of care (as documented) at patient's floor/unit and/or counseling patient: Coding Level of Care Code 23073 Subseq Hosp Care Lvl 3 Diagnoses Acute on chronic systolic CHF (congestive heart failure) I50.23 Atrial fibrillation with RVR I48.91 Pneumonia J18.9 Leukocytosis D72.829 Elevated troponin R77.8 COVID-19 U07.1 Hyponatremia E87.1 AMS (altered mental status) R41.82 Emphysema lung J43.9 Alcohol abuse F10.10 Transaminitis R74.01
[2022-03-23] MEDS: DIGOXIN 0.125 MG TAB PO SCH (11:25)
--- NOTE | 2022-03-23 13:18 | Cardiology Progress Note ---
Date of Service March 23, 2022 Assessment & Plan (1) Atrial fibrillation with RVR: Plan: -rate now adequately controlled. -continue amiodarone, metoprolol succinate, and digoxin. -continue Eliquis. (2) Acute on chronic systolic CHF (congestive heart failure): Plan: -receiving intravenous Lasix. -seems compensated at this time. -has had 2 recent episodes of flash pulmonary edema. -would proceed with a cardiac catheterization tomorrow morning. -continue metoprolol, Entresto, and spironolactone. -restart empagliflozin when able. (3) CAD (coronary artery disease): Plan: -s/p anterior AK, July 2000. -stent placed in the proximal LAD at that time. -quiescent on medical management. (4) Cardiomyopathy: Plan: -ejection fraction 40-45% on current echocardiogram. -multiple wall motion abnormalities. -continue medical management. Admission and Anticipated Discharge Date Admission Date: March 16, 2022 Subjective The patient is resting comfortably in bed without complaints of chest pain or dyspnea. We have discussed need to proceed with a cardiac catheterization tomorrow. Physical Exam Physical Exam: In general is well-developed well-nourished white male in no acute distress. HEENT exam is negative. Neck is supple with full carotid upstrokes. There are no carotid bruits. Jugular is pressure is flat at 90. There is no thyromegaly. Cardiovascular exam reveals an irregularly irregular rhythm with distant heart sounds. No obvious murmurs. Chest reveals a palpable device in the left subclavicular region. Lungs are clear without rales, rhonchi, or wheezes. Abdomen is soft and nontender without bruits. Extremities reveal intact radial artery pulses bilaterally. There is no peripheral edema. Results & Data ([facility]) Vital Signs (Past 12 Hours) Vital Signs Temp Pulse Pulse Resp BP Pulse Ox 03/23/22 11:51 36.5 C 103 H 18 112/74 97 03/23/22 11:25 98 H 03/23/22 08:34 93/48 L 03/23/22 07:49 36.4 C L 95 H 16 86/54 L 92 03/23/22 03:07 36.4 C L 88 22 117/69 95 Diagnostic Findings desk monitor notes atrial fibrillation with heart rates varying from 70s to 90s beats per minute PG Care Time/CCT Total # of Minutes Spent Total Time Spent with Patient: Total time spent is greater than 50% in coordination of care (as documented) at patient's floor/unit and/or counseling patient: Coding Level of Care Code 78602 Subseq Hosp Care Lvl 3 Diagnoses Atrial fibrillation with RVR I48.91 Acute on chronic systolic CHF (congestive heart failure) I50.23 CAD (coronary artery disease) I25.10 Cardiomyopathy I42.9
--- NOTE | 2022-03-23 16:39 | Psychiatric Consultation ---
Date of Consultation March 23, 2022 Impression / Recommendations Impression 76 yo man with multiple medical conditions including recent COVID infection and now admitted for worsening CHF and afib. Psychiatry was consulted for decision making capacity regarding disposition decisions about potential transfer for a cardiac procedure and decision making capacity regarding code status. He does have decision making capacity regarding disposition options and is agreeable with current plan for cardiac cath procedure at [facility] tomorrow afternoon which his daughter and are in support of. He does not have decision making capacity regarding code status as he struggles to describe what code status means even when reframed and rephrased multiple times. He can however confirm that he wants life saving measures and can speak to this being a change from his previous wishes. Additionally in cases where a patient lacks decision making capacity and there is no clear indication of substituted decision maker we go off of surrogate decision maker which in [place] goes first to the spouse. Encouragingly both his statements regarding wanting all lifesaving medical interventions and his 's confirmation that he would want to be full code are in concordance. Reminder that decision making capacity is decision specific and time specific and can change if confusion improves over time and he is better able to describe reasons for his decision regarding code status. If at some point he changed his mind regarding his code status and was able to provide a rationale for why and this was at odd's with his 's sense of what he would want would recommend re-assessing for decision making capacity and considering involvement of clinical ethics. (1) Encounter for assessment of healthcare decision-making capacity: (2) Chronic congestive heart failure: -Full code, he does not have decision making capacity but his , as surrogate, can make these decisions as no clear indication of alternative POA for healthcare nor completed living will -Plan for cardic cath procedure at [facility] tomorrow -Discussed recommendations with Azra Dolan Psych History Identifying Data 76 yo man admitted medically for afib with RVR, CHF and confusion. Psychiatry was consulted for decision making capacity. Chief Complaint "I don't know". History of Present Illness Alfredo is oriented to place, city, month (initially states maybe [place] but corrects to March) and year. His , who he identifies, is bedside. He knows he is being treated for cardiac issues and understands the plan is for a cardiac cath procedure. He states his desire to have this done at [facility] because "it's a bigger hospital and I know Dr. Witt is there". However he also states that his other priority is to have it done "within the next day" and thus if the procedure cannot occur at [facility] then he would like to have it done tomorrow at [facility]. His daughter stops in to briefly update him that she spoke with medical team and [facility] until Sunday so he could have it done tomorrow afternoon at [facility] and he agrees with this. He cannot tell me the risks or benefits of this procedure but his family-his and daughter are in support of procedure occurring at [facility] tomorrow. We also discuss his code status as he previously made varying statements to different providers regarding his wishes. He points to a letter he states his sister wrote yesterday based on 'what I told her to write" in which he expresses a desire to be full code with of goal of getting better eventually and being able to visit [place] in the fall. However, he is not able to directly state what he means by what is written in the letter and states multiple times "I don't understand what you're asking". His , Violeta, is able to rephrase a few questions and he expresses that "I hope they do everything to keep me alive" and confirms that he would want cardiac compressions, CPR, and to intubated and mechanically ventilated if he stopped breathing or if his heart stopped. We review his incomplete living will paperwork he and Violeta completed in Sep 2021 which states the opposite that he would not want any living saving measures. We review this change and he states his reason as "I'm allowed to change my mind" and notes "I had a long time to think about it". He cannot speak to why he changed his mind stating "I don't know why" though can say "I want a chance to get better" but cannot repeat back what being "full code" means even after multiple descriptions by his and by me. However he does confirm he wants everything done to save him even if we were unsure what it would offer in terms of quality of life. His of 8 years, Violeta, confirms that he has been consistently desiring full code over the last few months and that this decision is consistent with what she knows of what he would want. 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 Severe SHORTNESS Uncoded 03/02/22 06:27 BASED) OF BREATH - SEE NOTES Home Medications Medication Instructions Recorded Confirmed Type furosemide 20 mg tablet 20 mg PO QAM 06/13/19 03/02/22 History sacubitril 24 mg-valsartan 26 mg 1 tab PO BID 06/13/19 03/02/22 History tablet (Entresto) nitroglycerin 0.4 mg sublingual 0.4 mg SL Q5M PRN 10/13/19 03/02/22 History tablet atorvastatin 80 mg tablet 40 mg PO HS tab 10/27/19 03/02/22 History ibuprofen 200 mg tablet (Advil) 200 mg PO Q6H PRN 09/01/20 03/02/22 History apixaban 5 mg tablet 5 mg PO BID #60 tab 03/14/21 03/02/22 Rx tadalafil 10 mg tablet (Cialis) 10 mg PO DAILY PRN #30 tab 04/22/21 03/02/22 Rx ipratropium bromide 21 mcg (0.03 2 spray INTRANASAL BID #30 ml 07/15/21 03/02/22 Rx %) nasal spray cholecalciferol (vitamin D3) 25 25 mcg PO QAM 08/17/21 03/02/22 History mcg (1,000 unit) capsule empagliflozin 10 mg tablet 10 mg PO QAM 08/17/21 03/02/22 History (Jardiance) budesonide-formoterol HFA 160 2 puff INHALATION BID 02/21/22 03/02/22 History mcg-4.5 mcg/actuation aerosol inhaler (Symbicort) B6 0.85 mg-folic 200 1 tab PO QAM 03/02/22 03/02/22 History [id number] oral chewable tablet (Neuriva Plus) aspirin 81 mg tablet,delayed 81 mg PO QAM 03/02/22 03/02/22 History release tamsulosin 0.4 mg capsule 0.4 mg PO HS 03/02/22 03/02/22 History folic acid 1 mg tablet 1 mg PO DAILY #30 tab 03/05/22 Rx metoprolol succinate 100 mg 100 mg PO DAILY 30 Days #30 tab 03/05/22 Rx tablet,extended release 24 hr thiamine HCl (vitamin B1) 100 mg 100 mg PO DAILY #30 tab 03/05/22 Rx tablet Personal History Beliefs That Will Affect Care: None Patient History Medical History Acute on chronic systolic CHF (congestive heart failure) Alcohol abuse CAD (coronary artery disease) Cardiac defibrillator in place Cardiomyopathy Cough Factor V Leiden diagnosed due to family history- no personal hx of blood clots/bleeding issues History of heart attack 1999 Hyperlipidemia Hyponatremia NE (myocardial infarction) Nasal congestion Pacemaker PPM/ICD- Implanted 2008/Medtronic/last check 06/2019 per patient Paroxysmal atrial fibrillation Prostate cancer Tobacco abuse Surgical History History of appendectomy History of cardiac cath 1999 History of colonoscopy History of tonsillectomy History of total right knee replacement Previous back surgery Lumbar spine surgery S/P coronary artery stent placement Family History Mother , in her 60s of unknown cause Alzheimer disease Father , in his 70s Prostate cancer Cardiac disease Glaucoma Alzheimer disease Brother Heart transplant recipient Brother No problems noted. Brother No problems noted. Brother No problems noted. Sister No problems noted. Sister No problems noted. Daughter No problems noted. Daughter No problems noted. 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 Feels Safe at Home: Yes Childhood Exposure to Second-Hand Smoke: Yes caffeine: Yes (3 mugs/day) during the past year weight has: remained stable Dental Care, Regularly: Yes Physical Activity Frequency: Does not Exercise Seatbelt Use: always Sunscreen Use: No Assistive Devices: Hearing Aid - Bilateral Physical Exam Psychiatric: Orientation: alert, oriented to person, oriented to place, oriented to time and cooperative Apperance: appropriately dressed and appropriately groomed Eye Contact: good eye contact Motor Behavior: no abnormal motor movements Speech: normal rate/rhythm/volume of speech Affect: + flat affect Mood: + irritable mood; no depressed mood and no anxious mood Thought Process: goal directed thought process Thought Content: reality based without delusions Suicidal Thoughts: denies suicidal thoughts Homicidal Thoughts: denies homicidal thoughts Hallucinations: no auditory hallucinations and no visual hallucinations Cognition: recent memory grossly intact, remote memory grossly intact and language grossly intact; + attention not intact Insight: + impaired insight Judgement: + limited judgement Vital Signs (Past 24 Hours): Last Vital Signs Temp 36.5 C 03/23/22 11:51 Pulse 103 H 03/23/22 11:51 Resp 18 03/23/22 11:51 BP 112/74 03/23/22 11:51 Pulse Ox 97 03/23/22 11:51 Review of Systems All systems reviewed & are unremarkable except as noted in HPI & below (tired) Results & Data (PSY) Medications Administered Amiodarone HCl (Amiodarone 200 Mg Tab) 400 mg PO BIDM [facility] Stop: 04/17/22 16:59 Last Admin: 03/23/22 08:21 Dose: 400 mg Documented by: [id number] Admin: 03/22/22 18:03 Dose: 400 mg Documented by: [id number] Admin: 03/22/22 08:05 Dose: 400 mg Documented by: [id number] Admin: 03/21/22 16:41 Dose: 400 mg Documented by: [id number] Admin: 03/21/22 07:27 Dose: 400 mg Documented by: [id number] Admin: 03/20/22 18:48 Dose: 400 mg Documented by: [id number] Admin: 03/20/22 08:11 Dose: 400 mg Documented by: [id number] Admin: 03/19/22 15:59 Dose: 400 mg Documented by: [id number] Admin: 03/19/22 09:46 Dose: 400 mg Documented by: [id number] Admin: 03/18/22 17:10 Dose: 400 mg Documented by: [id number] Aspirin (Aspirin 81 Mg Ectab) 81 mg PO QAM [facility]OL Stop: 04/16/22 08:59 Last Admin: 03/23/22 08:21 Dose: 81 mg Documented by: [id number] Admin: 03/22/22 08:05 Dose: 81 mg Documented by: [id number] Admin: 03/21/22 09:50 Dose: 81 mg Documented by: [id number] Admin: 03/20/22 08:11 Dose: 81 mg Documented by: [id number] Admin: 03/19/22 09:48 Dose: 81 mg Documented by: [id number] Admin: 03/18/22 08:21 Dose: 81 mg Documented by: [id number] Admin: 03/17/22 09:25 Dose: 81 mg Documented by: [id number] Benzonatate (Benzonatate 100 Mg Capsule) 100 mg PO TID [facility] Stop: 04/17/22 13:01 Last Admin: 03/23/22 13:19 Dose: Not Given Documented by: [id number] Admin: 03/23/22 08:22 Dose: 100 mg Documented by: [id number] Admin: 03/22/22 20:34 Dose: 100 mg Documented by: [id number] Admin: 03/22/22 14:27 Dose: 100 mg Documented by: [id number] Admin: 03/22/22 08:05 Dose: 100 mg Documented by: [id number] Admin: 03/21/22 20:45 Dose: 100 mg Documented by: [id number] Admin: 03/21/22 14:21 Dose: 100 mg Documented by: [id number] Admin: 03/21/22 09:50 Dose: 100 mg Documented by: [id number] Admin: 03/20/22 20:25 Dose: 100 mg Documented by: [id number] Admin: 03/20/22 15:11 Dose: 100 mg Documented by: [id number] Admin: 03/20/22 08:08 Dose: 100 mg Documented by: [id number] Admin: 03/19/22 22:15 Dose: 100 mg Documented by: [id number] Admin: 03/19/22 14:11 Dose: 100 mg Documented by: [id number] Admin: 03/19/22 09:49 Dose: 100 mg Documented by: [id number] Admin: 03/18/22 20:09 Dose: 100 mg Documented by: [id number] Admin: 03/18/22 13:08 Dose: 100 mg Documented by: [id number] Digoxin (Digoxin 0.125 Mg Tab) 0.125 mg PO DAILY [facility] Stop: 04/22/22 10:14 Last Admin: 03/23/22 11:25 Dose: 0.125 mg Documented by: [id number] Fluticasone/Vilanterol (Fluticasone/Vilanterol 200/25mcg 14 Puffs/Inhaler) 1 puffs INH DAILY [facility]OL Stop: 04/16/22 08:59 Last Admin: 03/23/22 08:22 Dose: 1 puffs Documented by: [id number] Admin: 03/22/22 10:46 Dose: 1 puffs Documented by: [id number] Admin: 03/21/22 09:51 Dose: 1 puffs Documented by: [id number] Admin: 03/20/22 08:12 Dose: 1 puffs Documented by: [id number] Admin: 03/19/22 09:50 Dose: 1 puffs Documented by: [id number] Admin: 03/18/22 08:22 Dose: 1 puffs Documented by: [id number] Admin: 03/17/22 09:27 Dose: 1 puffs Documented by: [id number] Folic Acid (Folic Acid 1 Mg Tab) 1 mg PO QAM CAROL Stop: 04/16/22 08:59 Last Admin: 03/23/22 08:23 Dose: 1 mg Documented by: [id number] Admin: 03/22/22 08:05 Dose: 1 mg Documented by: [id number] Admin: 03/21/22 09:51 Dose: 1 mg Documented by: [id number] Admin: 03/20/22 08:11 Dose: 1 mg Documented by: [id number] Admin: 03/19/22 09:51 Dose: 1 mg Documented by: [id number] Admin: 03/18/22 08:22 Dose: 1 mg Documented by: [id number] Admin: 03/17/22 09:27 Dose: 1 mg Documented by: [id number] Furosemide (Furosemide 40 Mg/4 Ml Vial) 40 mg IV TID [facility]OL Stop: 04/21/22 13:59 Last Admin: 03/23/22 13:19 Dose: 40 mg Documented by: [id number] Admin: 03/23/22 08:23 Dose: 40 mg Documented by: [id number] Admin: 03/22/22 20:37 Dose: 40 mg Documented by: [id number] Admin: 03/22/22 14:27 Dose: 40 mg Documented by: [id number] Guaifenesin (Guaifenesin 600 Mg Tabcr) 600 mg PO Q12 [facility] Stop: 04/19/22 20:59 Last Admin: 03/23/22 08:24 Dose: 600 mg Documented by: [id number] Admin: 03/22/22 20:36 Dose: 600 mg Documented by: [id number] Admin: 03/22/22 08:05 Dose: 600 mg Documented by: [id number] Admin: 03/21/22 20:46 Dose: 600 mg Documented by: [id number] Admin: 03/21/22 09:51 Dose: 600 mg Documented by: [id number] Admin: 03/20/22 20:26 Dose: 600 mg Documented by: [id number] Piperacillin Sod/Tazobactam (Sod 3.375 gm/ Dextrose) 115 mls @ 28.75 mls/hr IV Q8H CAROL; Protocol Stop: 03/28/22 00:00 Last Admin: 03/23/22 15:27 Dose: 28.8 mls/hr Documented by: [id number] Infusion: 03/23/22 12:42 Dose: 0 mls/hr Documented by: [id number] Admin: 03/23/22 08:14 Dose: 28.8 mls/hr Documented by: [id number] Infusion: 03/23/22 05:31 Dose: 0 mls/hr Documented by: [id number] Admin: 03/23/22 00:53 Dose: 28.8 mls/hr Documented by: [id number] Infusion: 03/22/22 22:19 Dose: 0 mls/hr Documented by: [id number] Admin: 03/22/22 18:02 Dose: 28.8 mls/hr Documented by: [id number] Infusion: 03/22/22 12:56 Dose: 0 mls/hr Documented by: [id number] Admin: 03/22/22 08:40 Dose: 28.8 mls/hr Documented by: [id number] Infusion: 03/22/22 04:34 Dose: 0 mls/hr Documented by: [id number] Admin: 03/21/22 23:57 Dose: 28.8 mls/hr Documented by: [id number] Infusion: 03/21/22 20:27 Dose: 0 mls/hr Documented by: [id number] Admin: 03/21/22 15:04 Dose: 28.8 mls/hr Documented by: [id number] Infusion: 03/21/22 11:29 Dose: 0 mls/hr Documented by: [id number] Admin: 03/21/22 07:26 Dose: 28.8 mls/hr Documented by: [id number] Infusion: 03/21/22 04:06 Dose: 0 mls/hr Documented by: [id number] Admin: 03/21/22 00:21 Dose: 28.8 mls/hr Documented by: [id number] Ipratropium [place] (Ipratropium [place] Neb Soln 0.02% 2.5 Ml Vial) 0.5 mg INH Q6R PRN PRN Reason: Wheezing Stop: 04/19/22 12:59 Last Admin: 03/22/22 05:42 Dose: 0.5 mg Documented by: [id number] Levalbuterol HCl (Levalbuterol Hcl 0.63 Mg/3 Ml Neb) 0.63 mg NEB Q6R PRN PRN Reason: Wheezing Stop: 04/19/22 12:59 Last Admin: 03/22/22 05:43 Dose: 0.63 mg Documented by: [id number] Metoprolol Succinate (Metoprolol Succ 50mg Ext Rel Tab) 100 mg PO QAM [facility]OL Stop: 04/16/22 08:59 Last Admin: 03/17/22 09:27 Dose: 100 mg Documented by: [id number] Metoprolol Tartrate (Metoprolol Tartrate 25 Mg Tab) 25 mg PO BID [facility]OL Stop: 04/19/22 20:59 Last Admin: 03/23/22 08:38 Dose: Not Given Documented by: [id number] Admin: 03/22/22 20:37 Dose: 25 mg Documented by: [id number] Admin: 03/22/22 08:05 Dose: 25 mg Documented by: [id number] Admin: 03/21/22 20:46 Dose: 25 mg Documented by: [id number] Admin: 03/21/22 09:52 Dose: 25 mg Documented by: [id number] Admin: 03/20/22 20:25 Dose: 25 mg Documented by: [id number] Miscellaneous (Remove Nicoderm Patch) 1 ea N/A [id number] [facility] Stop: 04/18/22 08:58 Last Admin: 03/23/22 08:25 Dose: Not Given Documented by: [id number] Admin: 03/22/22 08:05 Dose: 1 ea Documented by: [id number] Admin: 03/21/22 07:28 Dose: Not Given Documented by: [id number] Admin: 03/20/22 08:17 Dose: Not Given Documented by: [id number] Admin: 03/19/22 09:47 Dose: Not Given Documented by: [id number] Nicotine (Nicotine 21 Mg/24 Hr Tdsy) 21 mg TD QAM [facility] Stop: 04/17/22 13:29 Last Admin: 03/23/22 08:25 Dose: Not Given Documented by: [id number] Admin: 03/22/22 08:05 Dose: 21 mg Documented by: [id number] Admin: 03/21/22 09:53 Dose: Not Given Documented by: [id number] Admin: 03/20/22 08:17 Dose: Not Given Documented by: [id number] Admin: 03/19/22 09:51 Dose: Not Given Documented by: [id number] Admin: 03/18/22 15:34 Dose: Not Given Documented by: [id number] Non-Formulary Medication (Beer 1 Can) 1 can PO AC [facility] Stop: 04/15/22 22:29 Last Admin: 03/23/22 11:28 Dose: 1 can Documented by: [id number] Admin: 03/23/22 08:20 Dose: 1 can Documented by: [id number] Admin: 03/22/22 16:50 Dose: 1 can Documented by: [id number] Admin: 03/22/22 12:56 Dose: Not Given Documented by: [id number] Admin: 03/22/22 07:40 Dose: Not Given Documented by: [id number] Admin: 03/21/22 16:04 Dose: 1 can Documented by: [id number] Admin: 03/21/22 11:20 Dose: 1 can Documented by: [id number] Admin: 03/21/22 07:23 Dose: 1 can Documented by: [id number] Admin: 03/20/22 20:24 Dose: 1 can Documented by: [id number] Admin: 03/20/22 12:22 Dose: 1 can Documented by: [id number] Admin: 03/20/22 08:12 Dose: 1 can Documented by: [id number] Admin: 03/19/22 15:59 Dose: 1 can Documented by: [id number] Admin: 03/19/22 11:34 Dose: 1 can Documented by: [id number] Admin: 03/19/22 07:22 Dose: 1 can Documented by: [id number] Admin: 03/18/22 17:09 Dose: 1 can Documented by: [id number] Admin: 03/18/22 12:06 Dose: 1 can Documented by: [id number] Admin: 03/18/22 07:34 Dose: 1 can Documented by: [id number] Admin: 03/17/22 16:42 Dose: 1 can Documented by: [id number] Admin: 03/17/22 13:12 Dose: 1 can Documented by: [id number] Admin: 03/17/22 08:29 Dose: 1 can Documented by: [id number] Admin: 03/16/22 22:34 Dose: 1 can Documented by: [id number] Spironolactone (Spironolactone 25 Mg Tab) 25 mg PO QAM [facility] Stop: 04/16/22 08:59 Last Admin: 03/18/22 08:23 Dose: 25 mg Documented by: [id number] Admin: 03/17/22 09:28 Dose: 25 mg Documented by: [id number] Tamsulosin HCl (Tamsulosin Hcl 0.4 Mg Cap) 0.4 mg PO HS [facility] Stop: 04/15/22 20:59 Last Admin: 03/22/22 20:36 Dose: 0.4 mg Documented by: [id number] Admin: 03/21/22 20:45 Dose: 0.4 mg Documented by: [id number] Admin: 03/20/22 23:16 Dose: 0.4 mg Documented by: [id number] Admin: 03/17/22 21:37 Dose: 0.4 mg Documented by: [id number] Admin: 03/16/22 20:43 Dose: 0.4 mg Documented by: [id number] Thiamine HCl (Thiamine Hcl 100 Mg Tab) 100 mg PO QAM [facility] Stop: 04/16/22 08:59 Last Admin: 03/23/22 08:26 Dose: 100 mg Documented by: [id number] Admin: 03/22/22 08:05 Dose: 100 mg Documented by: [id number] Admin: 03/21/22 09:52 Dose: 100 mg Documented by: [id number] Admin: 03/20/22 08:11 Dose: 100 mg Documented by: [id number] Admin: 03/19/22 09:52 Dose: 100 mg Documented by: [id number] Admin: 03/18/22 08:23 Dose: 100 mg Documented by: [id number] Admin: 03/17/22 09:29 Dose: 100 mg Documented by: [id number] Coding Level of Care Code 59979 U Intl Hosp Care Lvl 2 Diagnoses Chronic congestive heart failure I50.9 Encounter for assessment of healthcare decision-making capacity Z02.79 Time Spent (min) 30
[2022-03-23] MEDS: TAMSULOSIN HCL 0.4 MG CAP PO SCH (20:31)
[2022-03-24 06:17] LABS: Eosinophils # (auto) 0.24 K/uL (0-0.5); Eosinophils % (auto) 3.2 %; Hematocrit (blood only) 37.9 % (42-52); Hemoglobin 13.6 g/dL (14.0-18.0); Immature Granulocytes # (auto) 0.04 K/uL (0.00-0.02); Immature Granulocytes % (auto) 0.5 %; Lymphocytes # (auto) 0.86 K/uL (1.2-3.4); Lymphocytes % (auto) 11.5 %; Mean Corpuscular Hemoglobin 36.4 pg (25-34); Mean Corpuscular Hgb Conc 35.9 g/dL (32-36); Mean Corpuscular Volume 101.3 fL (80-100); Mean Platelet Volume 8.6 fL (7.4-10.4); Monocytes # (auto) 0.64 K/uL (0.11-0.59); Monocytes % (auto) 8.6 %; Neutrophils # (auto) 5.68 K/uL (1.4-6.5); Neutrophils % (auto) 76.2 %; Platelet Count 252 K/uL (130-400); RDW Coefficient of Variation 12.3 % (11.5-14.5); RDW Standard Deviation 45.6 fL (36.4-46.3); Red Blood Count 3.74 M/uL (4.7-6.1); White Blood Count 7.46 K/uL (4.8-10.8)
[2022-03-24 06:41] LABS: Albumin Globulin Ratio 1.1 (0.9-2); Albumin Level 3.2 gm/dl (3.4-5.0); BUN Creatinine Ratio 23.8 (10-20); Bilirubin,Total 0.8 mg/dl (0.2-1.0); Calcium 8.5 mg/dl (8.5-10.1); Creatinine Clr Calc Pharmacy 61.1 ml/min; Est GFR (African American) 83.9 ml/min; Est GFR (Non-African American) 72.4 ml/min; Globulin 2.8 gm/dl (2.5-4.0); Magnesium 1.7 mg/dl (1.7-2.4); Potassium 3.3 mmol/L (3.5-5.1)
[2022-03-24] MEDS ORDERED: POTASSIUM CHLORIDE CRTAB 20 MEQ TABCR PO STA (07:23)
[2022-03-24] MEDS: BEER 1 CAN PO SCH ×4 (07:30→16:45)
[2022-03-24] MEDS: FOLIC ACID 1 MG TAB PO SCH (08:25)
[2022-03-24] MEDS: BENZONATATE 100 MG CAPSULE PO SCH ×3 (08:25→21:13)
[2022-03-24] MEDS: NICOTINE 21 MG/24 HR TDSY TD SCH (08:25)
[2022-03-24] MEDS: guaiFENesin 600 MG TABCR PO SCH ×2 (08:25→21:14)
[2022-03-24] MEDS: ASPIRIN 81 MG ECTAB PO SCH (08:26)
[2022-03-24] MEDS: THIAMINE HCL 100 MG TAB PO SCH (08:26)
[2022-03-24] MEDS: AMIODARONE 200 MG TAB PO SCH ×2 (08:26→16:45)
[2022-03-24] MEDS: METOPROLOL TARTRATE 25 MG TAB PO SCH ×2 (08:26→21:13)
[2022-03-24] MEDS: DIGOXIN 0.125 MG TAB PO SCH (08:26)
[2022-03-24] MEDS: PIPERACILLIN/TAZOBACTAM 3.375 GM in DEXTROSE 5% 100 ML IV SCH (08:27)
[2022-03-24] MEDS: FLUTICASONE/VILANTEROL 200/25MCG 14 PUFFS/INHALER INH SCH (08:27)
[2022-03-24] MEDS: FUROSEMIDE 40 MG/4 ML VIAL IV SCH (08:27)
[2022-03-24] MEDS ORDERED: LIDOCAINE 1% LOCAL 20 ML VIAL ONE (09:30)
--- NOTE | 2022-03-24 10:00 | Hospitalist Progress Note ---
Date of Service March 24, 2022 Assessment & Plan (1) Acute on chronic systolic CHF (congestive heart failure): Plan: - Pt initially hospitalized with afib w/ rvr and decompensated (a/c systolic CHF) and hypoxic respiratory failure d/t CHF - Treated with BiPAP, diuresed and transitioned from NC to room air - Fluid balance net -11.7 L to date and patient is down 10 pounds - Despite favorable response to diuresis, has had multiple ewns-nq-hzci rapid responses (flash pulmonary edema). Does not appear to have an exacerbation of COPD. Is being treated with antibiotic for secondary bacterial pneumonia - Uncertain if this recurrent decompensation is because his rate as remained variable (now on amiodarone and dig along with BB and HR improved) - troponin was elevated upfront (thought to be rate related ischemia but given recurrent flash pulmonary edema-- plan is for cardiac cath 03/24) Family was requesting transfer to [place] but patient favors to have this don e here. Family is agreeable. - continue beta-blockade, IV Lasix (with conversion to oral following this morning's dose) and now digoxin. BP intolerant to ANTHONY inhibitor/nitrates. - Plan is to diuresis to the point of REE given these continued episodes of flash pulmonary edema -Takes Lasix 20 mg prior to this hospitalization-- would D/C with 40mg daily and FU with Azra Salvador PA-C (CHF clinic) Patient was seen by psychiatry to help determine capacity in making medical decisions. Patient's mental status has been waxing and waning but for the most part, he does seem to answer questions appropriately. Psychiatry agrees that patient does have capacity to make decisions regarding having the cardiac catheterization performed here versus needing transfer. He is able to do note risks associated with transfer (which would be delay of the procedure and potential decompensation in the interim). In addition, he is able to do note if done here, can be done sooner and potentially facilitate his discharge to home sooner. Regarding his CODE STATUS, psychiatry does not feel that patient has capacity to make decisions surrounding his CODE STATUS. He does have an advanced directive that outlines he is a full code. He did discuss in great detail with the previous provider's wishes to not be intubated but "1 trial of CPR". His daughter and have since requested he be a full code. Psychiatry reports he could not speak to more specifics around his CODE STATUS so at this point, would need to rely on his surrogate decision-maker (2) Atrial fibrillation with RVR: Plan: - A.Fib NOT a new diagnosis - likely in RVR given underlying ETOH abuse and catecholamine release from recent covid + concern for secondary bacterial infection - potassium/mag levels WNL and TSH WNL - BP marginally low for which an amiodarone drip was started with conversion to oral amiodarone in addition to IV digoxin (dig load) with conversion to oral dig - Heart rates are much improved. Remains in atrial fibrillation with a current rate in the 80s. With added rate control, his blood pressure has improved - Has been continued on his beta-blockade (which needed to be held upfront given marginal hypotension (but has since been resumed - holding Entresto (given low BP). If BP improves (may given de-escalation of IV Lasix to oral Lasix), would consider resumption - Intolerance to ANTHONY inhibitor/nitrates given hypotension - Continue Eliquis (held in preparation for cardiac catheterization) - Echo updated: LVEF 40-45% - cardiology consulted, appreciate recommendations. Follows Dr. Delatorre routinely (3) Pneumonia: Plan: - Empirically started on Zosyn on 03/18 for possible PNA - Continue neb treatments and supplemental oxygen to maintain a pulse ox of 90 to 92% - Again, has had multiple xwls-fi-etwa rapid responses (that appear more related to flash pulmonary edemasee above as opposed to related to respiratory failure from pneumonia) - Convert IV to oral Levaquin (1 minimize IV medications given and volume overload). Was converted to cefdinir upfront but white count started to climb. Will continue antipseudomonal coverage at this point given his recent hospitalization (4) Leukocytosis: Plan: - WBC elevated since admission (with ongoing left shift) - CT on arrival showed bibasilar groundglass opacities. Likely consistent with pulmonary edema; however, underlying infectious process cannot be ruled out - Patient recently hospitalized with COVID. It is possible that he has a secondary bacterial infection at this point which may be contributing to his tachycardia - given recent hospitalization, covered for hospital-acquired pneumonia w/ Zosyn which was started on 03/18. Convert to Levaquin to complete full course (given need for continued antipseudomonal coverage) (5) Elevated troponin: Plan: - Peaked at 2418. - Suspect type II NSTEMI secondary to A. fib with RVR + hypoxia - Initially on heparin which has since been transitioned to Eliquis - Cardiology consulted, appreciate recommendations - Resumed ASA, and statin therapy - TTE: No regional wall motion abnormalities - Since back to back flash pulmonary edema, plan is for cardiac catheterization on 03/24 (6) COVID-19: Plan: - First positive 03/02, vaxx'd and boosted x2 - Does NOT need airborne isolation per infection control, but does need private room until he has been 21 days from date of first positive test * This was discussed with Kelsi Quiroga (7) Hyponatremia: Plan: - Chronic and within baseline range of 126-133, suspect could be related to his chronic ETOH use - Urine osmolality obtained in the past and elevated at 465 with a serum osmolality of 275 at that time. 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 Since symptomatic, will given Sodium Chloride tablet today with FU BMP this afternoon - NEED TO MAINTAIN FLUID RESTRICTED DIET (1200mL/Day). D/W patient and his - added boost supplement TID (8) AMS (altered mental status): Plan: - In speaking with patient's , started roughly around the time of his COVID diagnosis. COVID in addition to Decadron likely be contributing factor - Again, thought to have superimposed secondary bacterial infection. This could be contributing to his altered mental status - Patient answers all questions appropriately but admits to being confused. reports not back to baseline but showing favorable response -Has since been seen by psychiatry. As outlined above, does have some capacity in regards to making medical decisions. Unable to make decisions surrounding his CODE STATUS thus this would default to his Serge power of trial attorney but is able to make some decisions regarding his care (such as deciding to stay here to have his cardiac catheterization versus transfer. In addition, he is noting he would like to be discharged with his . His daughter would like him discharged with her given the fact that his is not vaccinated for COVID. Patient is able to outline that it is likely not safe for him to be discharged with his daughter as she still works and has a pet to take care of. He believes he would have more support being discharged with his . I did explain that her not being vaccinated does not pose any increased risk for him but increased risk for her should she get COVID). (9) Emphysema lung: Plan: - 1 dose of IV Solu-Medrol given on 03/20 with rapid response but none since. Does not appear to be in an acute exacerbation. - Would avoid from giving additional steroids as this can cause added fluid retention (10) Alcohol abuse: Plan: - Per , drinks 6-8 beers every night - Patient has no desire to quit drinking - using 3 beers/day when requires hospitalization to prevent Acute W/D (11) Transaminitis: Plan: - Likely due to ongoing alcohol abuse and in part passive venous congestion from CHF - in addition, recent COVID diagnosis may be contributing Plan: updated on 03/24. Plan is for cardiac catheterization today. Remove Thompson catheter following procedure and consult PT/OT to help determine need for rehab versus discharge to home Transition IV to p.o. Lasix today Patient discussed with (in great detail) and seen by Dr. Pond. Admission and Anticipated Discharge Date Admission Date: March 16, 2022 Subjective Patient seen on daily rounds today. Vocalizes no significant complaints or concerns. Denies fevers, chills, chest pain, shortness of breath, abdominal pain, nausea or vomiting. Nursing voices no complaints or concerns. Going for cardiac catheterization today at noon. Review of Systems Review of Systems: All systems reviewed and are unremarkable except as noted in HPI and below Denies fevers, chills, headache, nasal congestion, sore throat, cough, chest pain, shortness of breath, palpitations, orthopnea, PND, abdominal pain, nausea, vomiting, diarrhea, constipation, dysuria, hematuria, frequency, back pain, brayden nt pain or swelling, easy bruising or bleeding, skin lesions or rashes. Physical Exam Physical Exam: General: Resting comfortably in his hospital bed. Awake and alert. Answering all questions appropriately. NAD. HEENT: Head is AT/NC. Buccal mucosa is moist and pink Neck: No JVD today and negative hepatojugular reflex Cardiac: Irregular rhythm with controlled rate Lungs: CTA without W/R/R Abdomen: Normoactive X4. Soft and nontender in all quadrants. Extremities: No peripheral clubbing cyanosis or edema Neuro: Oriented to time, place, and somewhat situation. Cranial nerves II through XII are grossly intact. No focal neuro deficits Skin: No obvious skin lesions or rashes Psych: Easily annoyed but not agitated or combative. Results & Data Results & Data ([facility]) Vital Signs (Past 12 Hours) Vital Signs Temp Pulse Pulse Pulse Resp BP Pulse Ox 03/24/22 08:26 87 03/24/22 08:21 36.9 C 85 18 110/50 L 95 03/24/22 08:00 81 03/24/22 03:41 36.9 C 89 16 115/66 97 03/24/22 00:09 37.0 C 82 16 114/54 L 94 Laboratory Results 03/24/22 05:47 03/24/22 05:47 PG Care Time/CCT Total # of Minutes Spent Total Time Spent with Patient: Total time spent is greater than 50% in coordination of care (as documented) at patient's floor/unit and/or counseling patient: Coding Level of Care Code 24283 Subseq Hosp Care Lvl 2 Diagnoses Acute on chronic systolic CHF (congestive heart failure) I50.23 Atrial fibrillation with RVR I48.91 Pneumonia J18.9 Leukocytosis D72.829 Elevated troponin R77.8 COVID-19 U07.1 Hyponatremia E87.1 AMS (altered mental status) R41.82 Emphysema lung J43.9 Alcohol abuse F10.10 Transaminitis R74.01
[2022-03-24] MEDS ORDERED: niCARdipine HCL INJ 2.5 MG/ML 10 ML AMP ONE (11:40)
[2022-03-24] MEDS ORDERED: fentaNYL citrate 100 MCG/2 ML VIAL ONE ×2 (11:40→13:33)
[2022-03-24] MEDS ORDERED: HEPARIN (PORCINE) 1000 UNIT/ML 10 ML (CATH LAB USE ONLY) ONE ×2 (11:40→13:31)
[2022-03-24] MEDS ORDERED: MIDAZOLAM HCL 1 MG/ML 2ML VIAL ONE ×2 (11:40→13:30)
[2022-03-24] MEDS ORDERED: NITROGLYCERIN/D5W 100MCG/ML 20ML SYR ONE (11:41)
--- NOTE | 2022-03-24 12:19 | Pre Anesthesia Assessment ---
Date of Service March 24, 2022 Pre Sedation Assessment Vital Signs Temp Pulse Pulse Pulse Resp BP Pulse Ox 03/24/22 08:26 87 03/24/22 08:21 36.9 C 85 18 110/50 L 95 03/24/22 08:00 81 03/24/22 03:41 36.9 C 89 16 115/66 97 03/24/22 00:09 37.0 C 82 16 114/54 L 94 03/23/22 19:51 36.5 C 97 H 20 125/60 97 03/23/22 14:20 105 H Cardiovascular + irregularly irregular Respiratory + respiratory effort normal Pre-Sedation Airway Assessment Smoking Status: Current every day smoker Hx Sleep Apnea: No Hx Difficult Intubation: No Short, Thick Neck: No Thyromental Distance: > or= 3.5 Finger Breadths Oral Cavity: + WNL Mallampati Class: III ASA: ASA3 Procedure Planning Contraindications for Sedation: none Current Medications Reviewed: Yes Notes The planned sedation has been discussed with the patient. Informed Consent was obtained. I have identified the patient, determined the appropriateness of sedation and have assessed the patient immediately prior to the procedure. All medicine(s) and interventions are by my order.
--- NOTE | 2022-03-24 13:44 | Cardiac Catheterization ---
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 Cardiac Status Clinical evaluation leading to the procedure CAD Presenation: Unstable angina Diagnostic Physicians Name: Donato Mark MD Closure Device Recommendations: PCI without planned CABG Cardiac Cath Procedure Full Procedure Date March 24, 2022 Pre-Procedure Diagnosis Pre-Procedure Diagnosis: CHF and Cardiomyopathy AUC Score AUC Score: 7 Post-Procedure Diagnosis Post-Procedure Diagnosis: Severe CAD Procedure(s) Performed Procedure(s) Performed: Coronary Angiography and Left Heart Cath Teacher'S Aide Donato Mark MD Fusing Machine Tender(s) none Estimated Blood Loss Estimated Blood Loss: 7cc Medication(s) Medication(s): Fentanyl, Heparin, Lidocaine 1%, Nicardipine, Nitroglycerin and Versed Summary of Findings Procedure performed: Left heart catheterization, selective coronary angiography Staff broke handler: Donato Mark MD Indication: The patient is a 76-year-old gentleman with a history of coronary disease having previously undergone percutaneous intervention in the year 1999. He has been admitted with recurrent heart failure and flash pulmonary edema. There are concerns about transient ischemia. Procedure in detail: The patient was informed of the risks benefits and alternatives to the intended procedure, he understood such and wished to proceed. He was taken to the cardiac catheterization suite in a fasting state. Conscious sedation was administered per protocol and the patient was monitored electrocardiographically throughout today's procedure. The right wrist area was prepped and draped in usual sterile fashion. This area was anesthetized using subcutaneous administration of a lidocaine solution. The right radial artery was then accessed using Seldinger technique, and a arterial sheath was placed at this site over a guidewire. The sheath was used to facilitate passage of the cardiac catheter for coronary angiography and left heart catheterization. Coronary angiogram was then obtained in multiple orthogonal views prior to removal of the catheter. At the conclusion of the procedure the sheath was removed and hemostasis was achieved at the access site using manual pressure. The patient tolerated procedure well, there were no immediate complications. Equipment used: 5 Malay tiger 4 Findings: Coronary angiography Left main: Left main was normal in size and caliber and bifurcated normally into the left anterior descending left circumflex artery. No obstructive disease in this vessel. Left anterior descending: Left anterior descending was a large transapical vessel. It had prior stents placed in its proximal and midportion. There was a large, [id number] diagonal system with luminal irregularities no obstructive lesions. There was significant InStent restenoses with the most significant lesion in the distal portion. This was estimated at 90%. There is also some element of stenosis at the distal edge of the stented portion estimated at 60- 70%. Left circumflex: Left circumflex was a large dominant system. It produced a large 1st OM branch, a medium 2nd OM branch, large 3rd OM and a large left- sided PDA. There was a prior stent in the PDA. There did not appear to be any InStent restenoses. Approximately 50% lesion distal to the stent. There was a 90% lesion in the mid circumflex prior to the takeoff of the 2nd obtuse marginal. Right coronary artery: Nondominant. No obstructive disease Impression: Left dominant coronary system Obstructive coronary disease including InStent restenoses involving the LAD and mid left circumflex Normal left ventricular filling pressures No evidence of aortic stenosis Hemodynamics Rest Ao:: 87/51 mm of mercury Final Ao: 87/51 mm of mercury LV: 85/1 mm of mercury Left ventricular end-diastolic pressure 1 mm Hg Recommendations Recommendations: PCI without planned CABG Specimens Specimens: None Radiation Exposure (mGy) 666 Contrast (mls) 40 Procedural Complication(s) None Disposition PCU I attest to the content of the Intraoperative Record and any orders documented therein. Any exceptions are noted below. [facility] Card Cath Procedure Codes Cardiac Catheterization Procedure 1: Cardiovascular Cath Procedures: 42963 Coronaries and LHC (+/-LV) Moderate Sedation Procedure 1: Sedation/Anesthesia: 87446 Mod Sedation by the same physician;Init15 Min Child Age 5 & Up Procedure 2: Sedation/Anesthesia: 86723 Mod Sedation by the same physician; Ea [id number] Minutes PG Care Time/CCT Total # of Minutes Spent Total Time Spent with Patient: Total time spent is greater than 50% in coordination of care (as documented) at patient's floor/unit and/or counseling patient:
[2022-03-24] MEDS ORDERED: TICAGRELOR 90 MG TAB ONE (14:23)
--- NOTE | 2022-03-24 15:31 | Post Anesthesia Assessment ---
Date of Service March 24, 2022 Post Sedation Assessment Vital Signs Temp Pulse Pulse Pulse Resp BP BP 03/24/22 15:15 97.3 F L 63 16 111/62 03/24/22 14:48 75 16 111/53 L 03/24/22 14:34 90 16 104/50 L 03/24/22 08:26 87 03/24/22 08:21 98.4 F 85 18 110/50 L 03/24/22 08:00 81 03/24/22 03:41 98.4 F 89 16 115/66 03/24/22 00:09 98.6 F 82 16 114/54 L 03/23/22 19:51 97.7 F 97 H 20 125/60 Pulse Ox 03/24/22 15:15 96 03/24/22 14:48 95 03/24/22 14:34 94 03/24/22 08:26 03/24/22 08:21 95 03/24/22 08:00 03/24/22 03:41 97 03/24/22 00:09 94 03/23/22 19:51 97 Recovery Score Activity: Moves 4 extremities Respiration: Deep Breath/Cough Circulation: +/-20% PreAnes Value Consciousness: Fully Awake Oxygen Saturation: > 92% On Room Air Post Anesthesia Score: 10 Discharge Sedation Level of Care: Fast Track Phase II Post Sedation Plan On clinical assessment, the patient appears to have tolerated the sedation without complications. Patient is recovering as anticipated. Patient will continue to be monitored by nursing and may be discharged when sedation discharge criteria are met per below protocol. Upon Completions of procedure up to 15 minutes continue every 5 minute vital signs and the P.A.R. score; then discharge to a Phase I or Fast Track to Phase II per the following guidelines: * Discharge Patient to appropriate Phase II area if PAR is 8 or greater or return to pre- procedure baseline. The post - procedure orders will be as directed. * If PAR score is less than 8 or not return to pre-procedure baseline then patient will follow Phase I monitoring till PAR is reached for Phase II. The Phase I may be done in procedure room or may call to secure a Phase I area. * If naloxone or flumazenil are used for reversal, hold in Phase I for continued monitoring from when last reversal dose was given for a minimum of 60 minutes or longer pending the nurse and/or physician discretion of patient condition before discharge to Phase II. Please call the Sedation Physician to re-evaluate and complete post-note for discharge to Phase II area. Do NOT discharge from procedure sedation or Phase 1 until post- sedation evaluation note is complete by procedure /sedation MD Sedation Discharge Instructions to be given to the patient at discharge to home.
--- NOTE | 2022-03-24 15:53 | Cardiac Catheterization ---
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 Cardiac Status Clinical evaluation leading to the procedure CAD Presenation: Non STEMI Diagnostic Physicians Name: Donato Macario MD Closure Device Recommendations: PCI without planned CABG Cardiac Cath Procedure Full Procedure Date March 24, 2022 Pre-Procedure Diagnosis Pre-Procedure Diagnosis: Non STEMI and Cardiomyopathy AUC Score AUC Score: 7 Post-Procedure Diagnosis Post-Procedure Diagnosis: Severe CAD and Successful PCI Procedure(s) Performed Procedure(s) Performed: Coronary Angiography, PTCA, Drug Eluting Stent and IVUS Central Office Trouble Shooter Donato Macario MD Regulatory Affairs Specialist(s) Darrin Estimated Blood Loss Estimated Blood Loss: 10 Medication(s) Medication(s): Fentanyl, Heparin, Lidocaine 1%, Nicardipine, Nitroglycerin and Versed Summary of Findings Indication: Elevated troponin, cardiomyopathy, acute systolic heart failure Access: 6 Fr right radial artery Catheters: EBU 3.5 guide For full details of patient's coronary angiography please see cath report dictated by Dr. Mark. Briefly, patient found to have severe diffuse in-stent restenosis of proximal to mid LAD along with 95% mid dominant circumflex disease. Decision to proceed with PCI. -- PCI -- Antithrombotic therapy: Heparin, ticagrelor Procedure: Left main cannulated with EBU 3.5 guide Pre-procedure flow RENÉ 2 LAD General Sales Manager 50 wire passed across lesion into distal LAD Mid LAD in-stent restenosis dilated with 2.5 balloon Mid LAD disease expanded with 20% in-stent restenosis Attempt made to pass IVUS catheter across LAD stenosis unsuccessful due to ostial stenosis. With improved RENÉ-3 flow decision made to forego further attempts at stenting which would likely require intervention to calcified ostial LAD. Proceeded with PCI to circumflex. Second ems helicopter pilot 50 wire navigated across mid circumflex stenosis into distal vessel [place] IVUS revealed moderate eccentric, calcified proximal circumflex disease. Left main with mild circumferential calcified plaque. Mid circumflex dilated with 2.5 balloon Mid circumflex stented with 3.0 x 15 mm Fernie drug-eluting stent Second MOLLY placed to the mid segment overlapping proximal aspect of initial stent Stents postdilated with stent balloon to high atmospheres Post procedure RENÉ 3 flow, stents well expanded with minimal residual stenosis and no apparent cardiac complications. Arterial Closure: TR band Summary: 1. Severe multi-vessel coronary artery disease -Diffuse proximal to mid LAD in-stent restenosis up to 90+% at distal aspect of stents 95% mid circumflex stenosis 2. Successful PCI of mid circumflex with 2 overlapping drug-eluting stents (3.0 x 12, 3.0 x 15 mm Muse). 3. Angioplasty of mid LAD in-stent restenosis with 2.5 balloon with improved RENÉ-3 flow Residual calcified, moderate to severe ostial LAD stenosis and mild proximal to mid in-stent LAD restenosis Recommendations: To PCU for continued monitoring Loaded with ticagrelor 180 mg in Vegetable Washing Machine Operator due to clopidogrel allergy Continue dual therapy with ticagrelor, anticoagulation for at least 1 year Continue statin, and ASCVD risk factor modification Consult cardiac Rehab If recurrent symptoms in the future consider repeat stress test as an outpatient to evaluate for LAD distribution ischemia. If were to need additional LAD inter vention in the future consider tertiary center. Hemodynamics Rest Ao:: 96/47/66 Final Ao: 114/53/70 LV: -- Recommendations Recommendations: PCI without planned CABG Specimens Specimens: None Radiation Exposure (mGy) 3020 Contrast (mls) 130 Anesthesia Moderate 6053-4488 Procedural Complication(s) None Disposition PCU I attest to the content of the Intraoperative Record and any orders documented therein. Any exceptions are noted below. [facility] Card Cath Procedure Codes Therapeutic Services & Ancillary Proc Procedure 1: Cardiovascular Tx and Anc Procedures: 48579 IV Ultrasound (Coronary or Graft) Procedure 2: Cardiovascular Tx and Anc Procedures: 28954 IV Ultrasound Ea addl vessel Moderate Sedation Procedure 1: Sedation/Anesthesia: 71394 Mod Sedation by the same physician;Init15 Min Child Age 5 & Up Angioplasty Procedure 1: Cardiovascular Angioplasty Procedures: 94456 PTCA; Single mafor coronary artery or branch RC LC LD Stenting Procedure 1: Cardiovascular Stent Procedures: 88941 Perc transcatheter placement of intracoronary stent(s), with ang PG Care Time/CCT Total # of Minutes Spent Total Time Spent with Patient: Total time spent is greater than 50% in coordination of care (as documented) at patient's floor/unit and/or counseling patient:
[2022-03-24] MEDS ORDERED: SODIUM CHLORIDE 0.9% 1000ML 1,000 ML IV SCH (16:00)
[2022-03-24] MEDS: levoFLOXacin 750 MG TAB PO SCH (16:44)
--- NOTE | 2022-03-24 18:20 | Electrocardiogram Report ---
Test Reason : Blood Pressure : / mmHG Vent. Rate : 108 BPM Atrial Rate : 366 BPM P-R Int : 000 ms QRS Dur : 096 ms QT Int : 324 ms P-R-T Axes : 000 078 245 degrees QTc Int : 434 ms Atrial fibrillation with frequent ventricular ectopy versus aberrant conduction Abnormal ECG When compared with ECG of 18-MAR-2022 10:16, ST more depressed Inferior leads ST elevation now present in Anterior leads Nonspecific T wave abnormality, worse in Lateral leads Confirmed by Donato Mark ([id number]) on 03/24/2022 6:19:54 PM Referred By: REFERRED SELF Confirmed By:Ernie Mark
[2022-03-24] MEDS: TAMSULOSIN HCL 0.4 MG CAP PO SCH (21:14)
[2022-03-25 06:19] LABS: Eosinophils # (auto) 0.14 K/uL (0-0.5); Eosinophils % (auto) 1.9 %; Hematocrit (blood only) 37.8 % (42-52); Hemoglobin 13.5 g/dL (14.0-18.0); Immature Granulocytes # (auto) 0.05 K/uL (0.00-0.02); Immature Granulocytes % (auto) 0.7 %; Lymphocytes # (auto) 0.75 K/uL (1.2-3.4); Mean Corpuscular Hemoglobin 35.9 pg (25-34); Mean Corpuscular Hgb Conc 35.7 g/dL (32-36); Mean Corpuscular Volume 100.5 fL (80-100); Mean Platelet Volume 8.4 fL (7.4-10.4); Monocytes # (auto) 0.64 K/uL (0.11-0.59); Monocytes % (auto) 8.6 %; Neutrophils # (auto) 5.89 K/uL (1.4-6.5); Neutrophils % (auto) 78.8 %; Platelet Count 313 K/uL (130-400); RDW Coefficient of Variation 12.1 % (11.5-14.5); RDW Standard Deviation 44.6 fL (36.4-46.3); Red Blood Count 3.76 M/uL (4.7-6.1); White Blood Count 7.47 K/uL (4.8-10.8)
[2022-03-25 07:11] LABS: Albumin Globulin Ratio 1.1 (0.9-2); Albumin Level 3.2 gm/dl (3.4-5.0); BUN Creatinine Ratio 20.4 (10-20); Bilirubin,Total 0.8 mg/dl (0.2-1.0); Calcium 8.4 mg/dl (8.5-10.1); Creatinine Clr Calc Pharmacy 66.4 ml/min; Est GFR (African American) 92.7 ml/min; Globulin 2.8 gm/dl (2.5-4.0); Magnesium 1.7 mg/dl (1.7-2.4); Potassium 3.5 mmol/L (3.5-5.1)
[2022-03-25] MEDS: BEER 1 CAN PO SCH ×4 (07:30→16:41)
[2022-03-25] MEDS: ASPIRIN 81 MG ECTAB PO SCH (08:21)
[2022-03-25] MEDS: NICOTINE 21 MG/24 HR TDSY TD SCH (08:21)
[2022-03-25] MEDS: APIXABAN 5 MG TABLET PO SCH ×2 (08:21→20:05)
[2022-03-25] MEDS: FUROSEMIDE 40 MG TAB PO SCH (08:22)
[2022-03-25] MEDS: DIGOXIN 0.125 MG TAB PO SCH (08:22)
[2022-03-25] MEDS: METOPROLOL TARTRATE 25 MG TAB PO SCH ×2 (08:22→20:05)
[2022-03-25] MEDS: BENZONATATE 100 MG CAPSULE PO SCH ×3 (08:22→20:05)
[2022-03-25] MEDS: FOLIC ACID 1 MG TAB PO SCH (08:22)
[2022-03-25] MEDS: AMIODARONE 200 MG TAB PO SCH ×2 (08:23→16:41)
[2022-03-25] MEDS: POTASSIUM CHLORIDE CRTAB 20 MEQ TABCR PO SCH (08:23)
[2022-03-25] MEDS: FLUTICASONE/VILANTEROL 200/25MCG 14 PUFFS/INHALER INH SCH (08:23)
[2022-03-25] MEDS: guaiFENesin 600 MG TABCR PO SCH ×2 (08:23→20:05)
[2022-03-25] MEDS: THIAMINE HCL 100 MG TAB PO SCH (08:23)
[2022-03-25] MEDS: TICAGRELOR 90 MG TAB PO SCH ×2 (08:23→20:05)
[2022-03-25] MEDS: PANTOprazole 40 MG TAB PO SCH (09:33)
--- NOTE | 2022-03-25 09:49 | Hospitalist Progress Note ---
Date of Service March 25, 2022 Assessment & Plan (1) Acute on chronic systolic CHF (congestive heart failure): Plan: - Pt initially hospitalized with afib w/ rvr and decompensated (a/c systolic CHF) and hypoxic respiratory failure d/t CHF - Treated with BiPAP, diuresed and transitioned from NC to room air - Fluid balance net -12.8L to date and patient is down 10.7 pounds - Despite favorable response to diuresis, has had multiple [id number]-dz-[id number] rapid responses (flash pulmonary edema) Does not appear to have an exacerbation of COPD. Is being treated with antibiotic for secondary bacterial pneumonia - Uncertain if this recurrent decompensation is because his rate as remained variable (now on amiodarone and dig along with BB and HR improved) - troponin was elevated upfront (thought to be rate related ischemia but given recurrent flash pulmonary edema-- s/p cardiac cath 03/24) Family was requesting transfer to [place] but patient favors to have this done here. Family agreeable. - continue beta-blockade, IV Lasix has since been transitioned to oral (40mg as opposed to 20 as ELECTROME[employer]) and now digoxin. BP intolerant to ANTHONY inhibitor/nitrates. - would D/C with 40mg daily and FU with Azra Salvador PA-C (CHF clinic) - updated TTE during this stay with EF 40-45% Patient was seen by psychiatry to help determine capacity in making medical decisions. Patient's mental status has been waxing and waning but for the most part, he does seem to answer questions appropriately. Psychiatry agrees that patient does have capacity to make decisions regarding having the cardiac catheterization performed here versus needing transfer. He is able to do note risks associated with transfer (which would be delay of the procedure and potential decompensation in the interim). In addition, he is able to do note if done here, can be done sooner and potentially facilitate his discharge to home sooner. Regarding his CODE STATUS, psychiatry does not feel that patient has capacity to make decisions surrounding his CODE STATUS. He does have an advanced directive that outlines he is a full code. He did discuss in great detail with the previous provider's wishes to not be intubated but "1 trial of CPR". His daughter and have since requested he be a full code. Psychiatry reports he could not speak to more specifics around his CODE STATUS so at this point, would need to rely on his surrogate decision-maker (2) Atrial fibrillation with RVR: Plan: - A.Fib NOT a new diagnosis - likely in RVR given underlying ETOH abuse and catecholamine release from recent covid + concern for secondary bacterial infection - potassium/mag levels WNL and TSH WNL - BP marginally low for which an amiodarone drip was started with conversion to oral amiodarone - still with viable rates for which patient was dig loaded with conversion to oral dig - Heart rates are much improved. Remains in atrial fibrillation with a current rate in the 80s. With added rate control, his blood pressure has improved as had mentation - Has been continued on his beta-blockade (which needed to be held upfront given marginal hypotension but has since been resumed) - holding Entresto (given low BP). If BP improves (may given de-escalation of IV Lasix to oral Lasix), would consider resumption. Current BP today is 107/62 - Intolerance to ANTHONY inhibitor/nitrates given hypotension - Continue Eliquis (held in preparation for cardiac catheterization) - Echo updated: LVEF 40-45% - cardiology consulted, appreciate recommendations. Follows Dr. Delatorre routinely (3) CAD (coronary artery disease): Plan: - patient with h/o CAD and stenting in the past - upon admission this hospital stay, troponin was elevated-- suspected to be rate related ischemia as no CP or acute ST/T wave changes on EKG - had multiple code purple called despite diuresis (d/t flash pulmonary edema) for which cardiac cath done 03/24 - s/p stent of the circumflex and balloon angioplasty of in-stent to help impr ove flow - now on Brilinta (needed for at least 12 months). - already on statin/ASA - now on dual antiplatelet therapy in addition to chronic Eliquis. Add PPI for GI prophylaxis - cardiology recommend cardiac rehab (4) Pneumonia: Plan: - Empirically started on Zosyn on 03/18 for possible PNA - Continue neb treatments and supplemental oxygen to maintain a pulse ox of 90 to 92% - Again, has had multiple [id number]-tt-[id number] rapid responses (that appear more related to flash pulmonary edemasee above as opposed to related to respiratory failure from pneumonia) - Converted IV to oral Levaquin to complete full course -- Was converted to cefdinir upfront but white count started to climb. Will continue antipseudomonal coverage at this point given his recent hospitalization (5) Leukocytosis: Plan: - WBC elevated since admission (with ongoing left shift) - CT on arrival showed bibasilar groundglass opacities. Likely consistent with pulmonary edema; however, underlying infectious process cannot be ruled out - Patient recently hospitalized with COVID. It is possible that he has a secondary bacterial infection at this point which may be contributing to his tachycardia - given recent hospitalization, covered for hospital-acquired pneumonia w/ Zosyn which was started on 03/18. Convert to Levaquin to complete full course (given need for continued antipseudomonal coverage) (6) Elevated troponin: Plan: - Peaked at 2418. - Suspect type II NSTEMI secondary to A. fib with RVR + hypoxia - Initially on heparin which has since been transitioned to Eliquis - Cardiology consulted, appreciate recommendations - TTE: No regional wall motion abnormalities - Since back to back flash pulmonary edema, had cardiac cath on 03/24 showing multivessel dz. s/p PTCA and stenting. - Brillinta added (protonix started for GI prophylaxis) (7) COVID-19: Plan: - First positive 03/02, vaxx'd and boosted x2 - Does NOT need airborne isolation per infection control, but does need private room until he has been 21 days from date of first positive test * This was discussed with Kelsi Quiroga (8) Hyponatremia: Plan: - Chronic and within baseline range of 126-133, suspect could be related to his chronic ETOH use - Urine osmolality obtained in the past and elevated at 465 with a serum osmolality of 275 at that time. 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 - NEED TO MAINTAIN FLUID RESTRICTED DIET (1200mL/Day). D/W patient and his - added boost supplement TID for added solute intake (9) AMS (altered mental status): Plan: - In speaking with patient's , started roughly around the time of his COVID diagnosis. COVID in addition to Decadron likely be contributing factor - Again, thought to have superimposed secondary bacterial infection. This could be contributing to his altered mental status - Patient answers all questions appropriately but admits to being confused. reports not back to baseline but showing favorable response - continued improvement with rate control (tachycardia likely causes poor profusion and exacerbating confusion) -Has since been seen by psychiatry. As outlined above, does have some capacity in regards to making medical decisions. Unable to make decisions surrounding his CODE STATUS thus this would default to his Serge power of binder fixer but is able to make some decisions regarding his care (such as deciding to stay here to have his cardiac catheterization versus transfer. In addition, he is noting he would like to be discharged with his . His daughter would like him discharged with her given the fact that his is not vaccinated for COVID. Patient is able to outline that it is likely not safe for him to be discharged with his daughter as she still works and has a pet to take care of. He believes he would have more support being discharged with his . I did explain that her not being vaccinated does not pose any increased risk for him but increased risk for her should she get COVID). (10) Emphysema lung: Plan: - 1 dose of IV Solu-Medrol given on 03/20 with rapid response but none since. Does not appear to be in an acute exacerbation. - Would avoid from giving additional steroids as this can cause added fluid retention (11) Alcohol abuse: Plan: - Per , drinks 6-8 beers every night - Patient has no desire to quit drinking - using 3 beers/day when requires hospitalization to prevent Acute W/D (12) Transaminitis: Plan: - Likely due to ongoing alcohol abuse and in part passive venous congestion from CHF - in addition, recent COVID diagnosis may be contributing Plan: updated on 03/26. goal is PT/OT today (awaiting PT/OT eval and tx). Suspect short stay in rehab ([facility] for cardiac rehab) would be beneficial Admission and Anticipated Discharge Date Admission Date: March 16, 2022 Subjective Patient seen on daily rounds today. Voices no c/c. Denies F/C, CP, SOB, abd pa in, N/V Nursing voices no c/c. Review of Systems Review of Systems: All systems reviewed and are unremarkable except as noted in HPI and below Denies fevers, chills, headache, nasal congestion, sore throat, cough, chest pain, shortness of breath, palpitations, orthopnea, PND, abdominal pain, nausea, vomiting, diarrhea, constipation, dysuria, hematuria, frequency, back pain, joint pain or swelling, easy bruising or bleeding, skin lesions or rashes. Physical Exam Physical Exam: General: Resting comfortably in his hospital bed. Awake and alert. Answering all questions appropriately. NAD. HEENT: Head is AT/NC. Buccal mucosa is moist and pink Neck: No JVD today and negative hepatojugular reflex Cardiac: Irregular rhythm with controlled rate Lungs: CTA without W/R/R Abdomen: Normoactive X4. Soft and nontender in all quadrants. Extremities: No peripheral clubbing cyanosis or edema Neuro: Oriented to time, place, and somewhat situation. Cranial nerves II through XII are grossly intact. No focal neuro deficits Skin: No obvious skin lesions or rashes Psych: Easily annoyed but not agitated or combative. Results & Data Results & Data ([facility]) Vital Signs (Past 12 Hours) Vital Signs Temp Pulse Pulse Resp BP Pulse Ox 03/25/22 08:47 89 03/25/22 08:22 88 03/25/22 07:40 36.6 C 80 19 107/62 96 03/25/22 04:00 36.6 C 88 20 137/70 98 03/24/22 23:00 37.0 C 77 18 126/70 96 Laboratory Results 03/25/22 06:05 03/25/22 06:05 PG Care Time/CCT Total # of Minutes Spent Total Time Spent with Patient: Total time spent is greater than 50% in coordination of care (as documented) at patient's floor/unit and/or counseling patient: Coding Level of Care Code 10985 Subseq Hosp Care Lvl 3 Diagnoses Acute on chronic systolic CHF (congestive heart failure) I50.23 Atrial fibrillation with RVR I48.91 Pneumonia J18.9 Leukocytosis D72.829 Elevated troponin R77.8 COVID-19 U07.1 Hyponatremia E87.1 AMS (altered mental status) R41.82 Emphysema lung J43.9 Alcohol abuse F10.10 Transaminitis R74.01 CAD (coronary artery disease) I25.10
--- NOTE | 2022-03-25 12:19 | Cardiology Progress Note ---
Date of Service March 25, 2022 Assessment & Plan (1) Acute on chronic systolic CHF (congestive heart failure): Plan: -compensated at this time. -had 2 recent episodes of flash pulmonary edema. -cardiac catheterization revealed a 90% LAD in stent restenoses along with a 90% mid LCx stenosis. -MOLLY x2 in the LCx, PTCA of the LAD in stent restenosis. -continue metoprolol, Entresto, and spironolactone. -restart empagliflozin when able. (2) CAD (coronary artery disease): Plan: -interventions as described above performed yesterday. -if patient develops symptoms, may need a complex intervention of the LAD at a tertiary center. -s/p anterior IL, LAD stent, July 2000. (3) Atrial fibrillation with RVR: Plan: -rate now adequately controlled. -continue amiodarone, metoprolol succinate, and digoxin. -continue Eliquis. (4) Cardiomyopathy: Plan: -ejection fraction 40-45% on current echocardiogram. -multiple wall motion abnormalities. -continue medical management. Admission and Anticipated Discharge Date Admission Date: March 16, 2022 Subjective The patient is resting comfortably in bed without complaints of chest pain or dyspnea. Physical Exam Physical Exam: In general is well-developed well-nourished white male in no acute distress. HEENT exam is negative. Neck is supple with full carotid upstrokes. There are no carotid bruits. Jugular is pressure is flat at 90. There is no thyromegaly. Cardiovascular exam reveals an irregularly irregular rhythm with distant heart sounds. No obvious murmurs. Chest reveals a palpable device in the left subclavicular region. Lungs are clear without rales, rhonchi, or wheezes. Abdomen is soft and nontender without bruits. Extremities reveals a dry dressing over the right wrist. No bruits or thrills. There is no peripheral edema. 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 PG Care Time/CCT Total # of Minutes Spent Total Time Spent with Patient: Total time spent is greater than 50% in coordination of care (as documented) at patient's floor/unit and/or counseling patient: Coding Level of Care Code 91293 Subseq Hosp Care Lvl 3 Diagnoses Atrial fibrillation with RVR I48.91 Acute on chronic systolic CHF (congestive heart failure) I50.23 CAD (coronary artery disease) I25.10 Cardiomyopathy I42.9
[2022-03-25] MEDS ORDERED: DIPHENOXYLATE/ATROPINE 2.5/0.025MG TAB PO PRN (16:12)
[2022-03-25] MEDS ORDERED: DIPHENOXYLATE/ATROPINE 2.5/0.025MG TAB PO ONE (16:12)
--- NOTE | 2022-03-25 16:15 | Communication Note ---
Date of Service: March 25, 2022 Nurse denotes frequent loose stools. Stool assessed and negative for C.diff likely Antibiotic Associated Diarrhea add Lomotil prn
[2022-03-25] MEDS: levoFLOXacin 750 MG TAB PO SCH (16:41)
[2022-03-25] MEDS: TAMSULOSIN HCL 0.4 MG CAP PO SCH (20:05)
[2022-03-26 06:28] LABS: Eosinophils # (auto) 0.14 K/uL (0-0.5); Eosinophils % (auto) 1.7 %; Hematocrit (blood only) 35.5 % (42-52); Hemoglobin 12.7 g/dL (14.0-18.0); Immature Granulocytes # (auto) 0.08 K/uL (0.00-0.02); Immature Granulocytes % (auto) 0.9 %; Lymphocytes # (auto) 0.83 K/uL (1.2-3.4); Lymphocytes % (auto) 9.8 %; Mean Corpuscular Hemoglobin 36.3 pg (25-34); Mean Corpuscular Hgb Conc 35.8 g/dL (32-36); Mean Corpuscular Volume 101.4 fL (80-100); Mean Platelet Volume 8.4 fL (7.4-10.4); Monocytes # (auto) 0.73 K/uL (0.11-0.59); Monocytes % (auto) 8.6 %; Neutrophils # (auto) 6.66 K/uL (1.4-6.5); Platelet Count 335 K/uL (130-400); RDW Coefficient of Variation 12.4 % (11.5-14.5); RDW Standard Deviation 45.8 fL (36.4-46.3); White Blood Count 8.44 K/uL (4.8-10.8)
[2022-03-26 07:16] LABS: Calcium 8.5 mg/dl (8.5-10.1); Creatinine Clr Calc Pharmacy 73.5 ml/min; Est GFR (African American) 99.3 ml/min; Est GFR (Non-African American) 85.7 ml/min; Magnesium 1.8 mg/dl (1.7-2.4); Potassium 4.2 mmol/L (3.5-5.1)
[2022-03-26] MEDS: BEER 1 CAN PO SCH ×5 (07:30→16:20)
[2022-03-26] MEDS: NICOTINE 21 MG/24 HR TDSY TD SCH (07:37)
[2022-03-26] MEDS: METOPROLOL TARTRATE 25 MG TAB PO SCH ×2 (08:49→19:51)
[2022-03-26] MEDS: APIXABAN 5 MG TABLET PO SCH ×2 (08:49→19:51)
[2022-03-26] MEDS: guaiFENesin 600 MG TABCR PO SCH ×2 (08:49→19:50)
[2022-03-26] MEDS: AMIODARONE 200 MG TAB PO SCH ×2 (08:49→16:21)
[2022-03-26] MEDS: ASPIRIN 81 MG ECTAB PO SCH (08:50)
[2022-03-26] MEDS: PANTOprazole 40 MG TAB PO SCH (08:50)
[2022-03-26] MEDS: TICAGRELOR 90 MG TAB PO SCH ×2 (08:50→19:50)
[2022-03-26] MEDS: THIAMINE HCL 100 MG TAB PO SCH (08:50)
[2022-03-26] MEDS: BENZONATATE 100 MG CAPSULE PO SCH ×3 (08:50→19:50)
[2022-03-26] MEDS: FUROSEMIDE 40 MG TAB PO SCH (08:51)
[2022-03-26] MEDS: POTASSIUM CHLORIDE CRTAB 20 MEQ TABCR PO SCH (08:51)
[2022-03-26] MEDS: DIGOXIN 0.125 MG TAB PO SCH (08:51)
[2022-03-26] MEDS: FLUTICASONE/VILANTEROL 200/25MCG 14 PUFFS/INHALER INH SCH (08:52)
[2022-03-26] MEDS: FOLIC ACID 1 MG TAB PO SCH (08:52)
--- NOTE | 2022-03-26 09:55 | Hospitalist Progress Note ---
Date of Service March 26, 2022 Assessment & Plan (1) Acute on chronic systolic CHF (congestive heart failure): Plan: - Pt initially hospitalized with afib w/ rvr and decompensated (a/c systolic CHF) and hypoxic respiratory failure d/t CHF - Treated with BiPAP, diuresed and transitioned from NC to room air - Fluid balance net -12.8L to date and patient is down 10.7 pounds with IV diuresis - Despite favorable response to diuresis, had 2 ghid-fk-hgjz rapid responses (f lash pulmonary edema) (did not appear to have AECOPD and completed full course of abx for what was thought to be 2/2 PNA) - Uncertain if this recurrent decompensation was because his rate was still v ariable at the time (now on amiodarone and dig along with BB and HR improved) - troponin was elevated upfront (thought to be rate related ischemia but given recurrent flash pulmonary edema-- s/p cardiac cath 03/24) Family was requesting transfer to [facility] but patient favors to have this done here. Family agreeable. - continue beta-blockade, IV Lasix has since been transitioned to ora and now digoxin. BP intolerant to ANTHONY inhibitor/nitrates --Lasix was converted to 40 mg daily (as was on 20 mg prior to this hospitalization). With transition from IV to oral Lasix, his fluid balance is now slightly positive. Will add an additional 20 mg in the afternoon --In addition, cardiology wanted patient on Aldactone upfront. We were unable to give this given his low blood pressures; however, blood pressures have improved greatly. Will resume Aldactone - would D/C with 40mg in am/20mg in afternoon + Aldactone and FU with Azra Salvador PA-C (CHF clinic) - updated TTE during this stay with EF 40-45% - Maintain sodium/fluid restricted diet - Resume Jardiance upon discharge (nonformulary here) (2) Atrial fibrillation with RVR: Plan: - A.Fib NOT a new diagnosis - likely in RVR given underlying ETOH abuse and catecholamine release from recent covid + concern for secondary bacterial infection - potassium/mag levels WNL and TSH WNL - BP marginally low for which an amiodarone drip was started with conversion to oral amiodarone - still with viable rates for which patient was dig loaded with conversion to oral dig - Heart rates are much improved. Remains in atrial fibrillation with a current rate in the 80s. With added rate control, his blood pressure has improved as has his mentation - Has been continued on his beta-blockade (which needed to be held upfront given marginal hypotension but has since been resumed) - holding Entresto (given low BP). If BP remains stable (despite the additional lasix and resumption of aldactone), would consider resumption. Current BP today is 113/53 - Intolerance to ANTHONY inhibitor/nitrates given hypotension - Continue Eliquis (held in preparation for cardiac catheterization) - Echo updated: LVEF 40-45% - cardiology consulted, appreciate recommendations. Follows Dr. Delatorre routinely (3) NSTEMI (non-ST elevated myocardial infarction): Plan: Patient with known CAD and prior PTCA with cardiac stenting. - Peaked at 2418. - Suspect type II NSTEMI secondary to A. fib with RVR + hypoxia. No chest pain or acute ST/T wave changes on EKG - Initially on heparin which has since been transitioned to Eliquis - TTE: No regional wall motion abnormalities -had multiple code purples called despite diuresis (d/t flash pulmonary edema) - cardiac cath done 03/24: revealed a 90% LAD in stent restenoses along with a 90% mid LCx stenosis. -MOLLY x2 in the LCx, PTCA of the LAD in stent restenosis. - now on Brilinta (needed for at least 12 months). - already on statin/ASA and BB - now on dual antiplatelet therapy in addition to chronic Eliquis--> thus Added PPI for GI prophylaxis - cardiology recommend cardiac rehab. Awaiting PT/OT eval/tx to determine if can be done OP or IP stay is needed -If persistent symptoms develop, would need to transfer to a tertiary center for complex intervention of the LAD. Family requesting [facility] (4) Pneumonia: Plan: - Empirically started on Zosyn on 03/18 for possible PNA - Continue neb treatments and supplemental oxygen to maintain a pulse ox of 90 to 92% - Again, has had multiple dwzf-wi-lzbk rapid responses (that appear more related to flash pulmonary edemasee above as opposed to related to respiratory failure from pneumonia) - Converted IV to oral Levaquin to complete full course -- Was converted to cefdinir upfront but white count started to climb. Will continue antipseudomonal coverage at this point given his recent hospitalization (5) Leukocytosis: Plan: - WBC elevated since admission (with ongoing left shift) - CT on arrival showed bibasilar groundglass opacities. Likely consistent with pulmonary edema; however, underlying infectious process cannot be ruled out - Patient recently hospitalized with COVID. It is possible that he has a secondary bacterial infection at this point which may be contributing to his tachycardia - given recent hospitalization, covered for hospital-acquired pneumonia w/ Zosyn which was started on 03/18. Converted to Levaquin and has completed full course (given need for continued antipseudomonal coverage) (6) COVID-19: Plan: - First positive 03/02 (hospitalized 03/02 through 03/05). vaxx'd and boosted x2 - Does NOT need airborne isolation per infection control, but does need private room until he has been 21 days from date of first positive test * This was discussed with Kelsi Quiroga (7) Hyponatremia: Plan: - Chronic and within baseline range of 126-133, suspect could be related to his chronic ETOH use - Presented with a sodium of 124 - Urine osmolality obtained in the past and elevated at 465 with a serum o smolality of 275 at that time. 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 - NEED TO MAINTAIN FLUID RESTRICTED DIET (1200 free water mL/Day). D/W patient and his - added boost supplement TID for added solute intake (8) AMS (altered mental status): Plan: - I suspect this is likely multifactorial. Patient with recent COVID and steroid treatment, could have component of hospital-acquired delirium, in addition, patient does drink alcohol. Secondary bacterial infection could be contributing. Last, his uncontrolled heart rates could have been contributing. - Patient was seen by psychiatry to help determine capacity in making medical decisions. Patient's mental status has been waxing and waning but for the most part, he does seem to answer questions appropriately. Psychiatry agrees that patient does have capacity to make decisions regarding having the cardiac catheterization performed here versus needing transfer. He is able to do note risks associated with transfer (which would be delay of the procedure and potential decompensation in the interim). In addition, he is able to do note if done here, can be done sooner and potentially facilitate his discharge to home sooner. Regarding his CODE STATUS, psychiatry does not feel that patient has capacity to make decisions surrounding his CODE STATUS. He does have an advanced directive that outlines he is a full code. He did discuss in great detail with the previous provider, he wishes to not be intubated but "1 trial of CPR". His daughter and have since requested he be a full code despite him voices wishes to avoid intubation. Psychiatry reports he could not speak to more specifics around his CODE STATUS so at this point, would need to rely on his surrogate decision-maker In addition, he is noting he would like to be discharged with his . His daughter would like him discharged with her given the fact that his is not vaccinated for COVID. Patient is able to outline that it is likely not safe for him to be discharged with his daughter as she still works and has a pet to take care of. He believes he would have more support being discharged with his . I did explain that her not being vaccinated does not pose any increased risk for him but increased risk for her should she get COVID). - Patient has shown significant favorable response and his mentation since hosp italization (9) Emphysema lung: Plan: - 1 dose of IV Solu-Medrol given on 03/20 with rapid response but none since. Does not appear to be in an acute exacerbation. - Would avoid from giving additional steroids as this can cause added fluid retention (10) Alcohol abuse: Plan: - Per , drinks 6-8 beers every night - Patient has no desire to quit drinking - using 3 beers/day when requires hospitalization to prevent Acute W/D (11) Transaminitis: Plan: - Likely due to ongoing alcohol abuse and in part passive venous congestion from CHF - in addition, recent COVID diagnosis may be contributing - Bilirubin up to 2.0 but normalized on 03/20 with adequate diuresis (12) Diarrhea: Plan: Developed 03/25 Stool negative for C. difficile Likely antibiotic associated diarrhea as just completed Zosyn with conversion to Levaquin Continue to utilize Lomotil as needed Plan: updated on 03/25. Attempted to call on 03/26 but no answer. "Voicemail box has not yet been set up" goal is PT/OT today (awaiting PT/OT eval and tx). Suspect short stay in rehab ([facility] for cardiac rehab) would be beneficial Admission and Anticipated Discharge Date Admission Date: March 16, 2022 Subjective Patient seen on daily rounds today. Developed frequent loose stools yesterday. C. difficile toxin negative. Likely antibiotic associated diarrhea. Started on Lomotil and still with frequent stools but now semiformed/somewhat improved. Overall he reports that he is feeling significantly better compared to when he came into the hospital. Heart rate has been improved. Blood pressure also improved. mentioned yesterday that his mentation even seems significantly improved. He vocalizes no complaints or concerns. Denies fevers, chills, chest pain, shortness of breath, abdominal pain, nausea or vomiting. Nursing voices no complaints or concerns. Review of Systems Review of Systems: All systems reviewed and are unremarkable except as noted in HPI and below Denies fevers, chills, headache, nasal congestion, sore throat, cough, chest pain, shortness of breath, palpitations, orthopnea, PND, abdominal pain, nausea, vomiting, constipation, dysuria, hematuria, frequency, back pain, joint pain or swelling, easy bruising or bleeding, skin lesions or rashes. Physical Exam Physical Exam: General: Resting comfortably in his bedside. NAD. HEENT: Head is AT/NC. Buccal mucosa is moist and pink Neck: No JVD. Negative hepatojugular reflex Cardiac: Irregularly rhythm with controlled ventricular rate Lungs: Scattered rhonchi that clears with coughing Abdomen: Normoactive X4. Soft and nontender in all quadrants. Extremities: No peripheral clubbing cyanosis or edema Neuro: His mentation has improved greatly. He is awake and oriented to self/person, place, somewhat to situation. Does look at the [employer] board when asked what day/month but knows the year. Cranial nerves II through XII are grossly intact. No focal neuro deficits Skin: No obvious skin lesions or rashes Psych: Appropriate affect. Pleasant and cooperative Results & Data Results & Data ([facility]) Vital Signs (Past 12 Hours) Vital Signs Temp Pulse Pulse Resp BP Pulse Ox 03/26/22 08:51 70 03/26/22 07:23 36.8 C 71 18 113/53 L 96 03/26/22 03:00 36.8 C 69 16 133/67 94 03/25/22 23:36 63 03/25/22 23:00 36.8 C 70 18 112/60 96 Laboratory Results 03/26/22 05:41 03/26/22 05:41 PG Care Time/CCT Total # of Minutes Spent Total Time Spent with Patient: Total time spent is greater than 50% in coordination of care (as documented) at patient's floor/unit and/or counseling patient: Coding Level of Care Code 59759 Subseq Hosp Care Lvl 2 Diagnoses Acute on chronic systolic CHF (congestive heart failure) I50.23 Atrial fibrillation with RVR I48.91 Pneumonia J18.9 Leukocytosis D72.829 COVID-19 U07.1 Hyponatremia E87.1 AMS (altered mental status) R41.82 Emphysema lung J43.9 Alcohol abuse F10.10 Transaminitis R74.01 Diarrhea R19.7 NSTEMI (non-ST elevated myocardial infarction) I21.4
--- NOTE | 2022-03-26 15:05 | Electrocardiogram Report ---
Test Reason : Blood Pressure : / mmHG Vent. Rate : 061 BPM Atrial Rate : 250 BPM P-R Int : 000 ms QRS Dur : 092 ms QT Int : 490 ms P-R-T Axes : 000 104 -16 degrees QTc Int : 493 ms Atrial fibrillation Rightward axis Low voltage QRS Prolonged QT Abnormal ECG When compared with ECG of 20-MAR-2022 17:00, Significant changes have occurred Confirmed by Ricardo Delatorre ([id number]) on 03/26/2022 3:05:10 PM Referred By: REFERRED SELF Confirmed By:Ricardo Delatorre
[2022-03-26] MEDS: FUROSEMIDE 20 MG TAB PO SCH (16:20)
[2022-03-26] MEDS: TAMSULOSIN HCL 0.4 MG CAP PO SCH (19:52)
[2022-03-27 07:10] VITALS: TEMP 98.1
[2022-03-27] MEDS: NICOTINE 21 MG/24 HR TDSY TD SCH (08:28)
[2022-03-27] MEDS: METOPROLOL TARTRATE 25 MG TAB PO SCH (08:28)
[2022-03-27] MEDS: APIXABAN 5 MG TABLET PO SCH (08:28)
[2022-03-27] MEDS: PANTOprazole 40 MG TAB PO SCH (08:29)
[2022-03-27] MEDS: FUROSEMIDE 40 MG TAB PO SCH (08:29)
[2022-03-27] MEDS: guaiFENesin 600 MG TABCR PO SCH (08:29)
[2022-03-27] MEDS: TICAGRELOR 90 MG TAB PO SCH (08:29)
[2022-03-27] MEDS: DIGOXIN 0.125 MG TAB PO SCH (08:30)
[2022-03-27] MEDS: AMIODARONE 200 MG TAB PO SCH (08:30)
[2022-03-27] MEDS: POTASSIUM CHLORIDE CRTAB 20 MEQ TABCR PO SCH (08:30)
[2022-03-27] MEDS: ASPIRIN 81 MG ECTAB PO SCH (08:30)
[2022-03-27] MEDS: THIAMINE HCL 100 MG TAB PO SCH (08:30)
[2022-03-27] MEDS: FOLIC ACID 1 MG TAB PO SCH (08:31)
[2022-03-27] MEDS: BENZONATATE 100 MG CAPSULE PO SCH ×2 (08:31→13:42)
[2022-03-27] MEDS: FLUTICASONE/VILANTEROL 200/25MCG 14 PUFFS/INHALER INH SCH (08:31)
[2022-03-27] MEDS: SPIRONOLACTONE 25 MG TAB PO SCH (09:09)
[2022-03-27] MEDS: BEER 1 CAN PO SCH ×3 (10:11→15:32)
[2022-03-27] MEDS ORDERED: BEER 1 CAN PO SCH (11:30)
--- NOTE | 2022-03-27 11:34 | Cardiology Progress Note ---
Date of Service March 27, 2022 Assessment & Plan (1) Acute on chronic systolic CHF (congestive heart failure): Plan: -compensated at this time. -had 2 recent episodes of flash pulmonary edema during this hospitalization. -cardiac catheterization revealed a 90% LAD in stent restenoses along with a 90% mid LCx stenosis. -MOLLY x2 in the LCx, PTCA of the LAD in stent restenosis. -continue metoprolol, Entresto, and spironolactone. -restart empagliflozin on discharge as it is a non formulary medication. (2) CAD (coronary artery disease): Plan: -interventions as described above. -if patient develops symptoms, may need a complex intervention of the LAD at a tertiary center. -s/p anterior IN, LAD stent, July 2000. (3) Atrial fibrillation with RVR: Plan: -rate now adequately controlled. -continue amiodarone, metoprolol succinate, and digoxin. -continue Eliquis. (4) Cardiomyopathy: Plan: -ejection fraction 40-45% on current echocardiogram. -multiple wall motion abnormalities. -continue medical management. Admission and Anticipated Discharge Date Admission Date: March 16, 2022 Subjective The patient is resting comfortably in bed without complaints of chest pain or dyspnea. He is anxious for hospital discharge. Physical Exam Physical Exam: In general is well-developed well-nourished white male in no acute distress. HEENT exam is negative. Neck is supple with full carotid upstrokes. There are no carotid bruits. Jugular is pressure is flat at 90. There is no thyromegaly. Cardiovascular exam reveals an irregularly irregular rhythm with distant heart sounds. No obvious murmurs. Chest reveals a palpable device in the left subclavicular region. Lungs are clear without rales, rhonchi, or wheezes. Abdomen is soft and nontender without bruits. Extremities reveal no peripheral edema. Results & Data ([facility]) Vital Signs (Past 12 Hours) Vital Signs Temp Pulse Pulse Resp BP Pulse Ox 03/27/22 08:30 72 03/27/22 07:10 36.7 C 68 16 122/74 98 PG Care Time/CCT Total # of Minutes Spent Total Time Spent with Patient: Total time spent is greater than 50% in coordination of care (as documented) at patient's floor/unit and/or counseling patient: Coding Level of Care Code 73273 Subseq Hosp Care Lvl 3 Diagnoses Acute on chronic systolic CHF (congestive heart failure) I50.23 CAD (coronary artery disease) I25.10 Atrial fibrillation with RVR I48.91 Cardiomyopathy I42.9
[2022-03-27 15:00] VITALS: BP 107/57; PULSE 67; O2SAT 99
[2022-03-27] MEDS: FUROSEMIDE 20 MG TAB PO SCH (15:33)
--- NOTE | 2022-03-27 16:13 | Discharge Summary ---
Date of Service March 27, 2022 Admission HPI Per Admitting Provider Mr. 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 Onset of symptoms, per patient's , was around 0700 this morning when patient told his that he was confused and didn't know where he was. She subsequently immediately called EMS. Pt was recently hospitalized here at [facility] 03/02-03/05 for COVID pneumonia and respiratory failure. He returned home with his on 03/05 and completed a course of steroids as well as Zithromax. Pt had been doing well up until this morning. His has been frequently checking his pulse ox at home and it has been above 90%. Upon EMS arrival, pt was noted to have a pulse ox in the 80's. He was placed on supplemental O2 and was treated with Duoneb(s) prehospital. When he arrived in E [facility], pt was noted to be in rapid afib with HR in the 130s. BP 110s systolic. He was medicated with a dose of IV Lopressor 5mg x1 with a drop in HR into the 80s but also respective drop in systolic BP into the 90s. WBC elevated at 16 with neutrophil predominance. Na 129, of which he has a long standing history of chronic hyponatremia ranging 126-133. HR rebounded back up into the 120s, and ER ordered Diltiazem bolus and gtt. HS troponin also came back elevated at 537. Pt placed on BiPAP and dose of Lasix ordered. CTA chest and CT head ordered-- no PE or obvious evidence of PNA noted on chest. Findings c/w CHF. CT head w/o acute findings. COVID test is positive but date of first positive was 03/02 and pt has been fully vaccinated and boosted x2. Pt has been referred to hospitalists for admission for further evaluation and treatment. Principal Diagnosis 1. Atrial fibrillation with rapid ventricular responsecurrently rate controlled 2. Congestive heart failurecurrently compensated 3. NSTEMI s/p cardiac catheterization (cardiac stent and angioplasty) 4. Pneumoniacompleted full course of antibiotics 5. Hyponatremiaimproved and back to baseline 6. Altered mental statuslikely multifactorial and improved 7. Chronic alcohol abuse 8. Transaminitis (elevated LFTs)resolved. Likely due to passive venous congestion from CHF 9. Diarrhealikely antibiotic associated and improved Discharge Exam General: Resting comfortably in his bedside. NAD. HEENT: Head is AT/NC. Buccal mucosa is moist and pink Neck: No JVD. Negative hepatojugular reflex Cardiac: Irregularly rhythm with controlled ventricular rate Lungs: Scattered rhonchi that clears with coughing Abdomen: Normoactive X4. Soft and nontender in all quadrants. Extremities: No peripheral clubbing cyanosis or edema Neuro: His mentation has improved greatly. He is awake and oriented to self/person, place, somewhat to situation. Does look at the white board when asked what day/month but knows the year. Cranial nerves II through XII are grossly intact. No focal neuro deficits Skin: No obvious skin lesions or rashes Psych: Appropriate affect. 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 Severe SHORTNESS Uncoded 03/02/22 06:27 BASED) OF BREATH - SEE NOTES Consultations 03/16/22 10:16 ED Decision to Admit Stat 03/16/22 12:50 Consult Cardiology Routine 03/23/22 15:13 Consult Psychiatry Routine 03/24/22 15:54 Consult Cardiac Rehabilitation Routine 03/27/22 15:06 Consult Cardiac Rehabilitation Routine Procedures Performed Operation Date: 03/24/22 12:00 Actual Procedures p Cath, Left with Cors and Vent - Donato Mark MD s Cineradiography w/Routine Exam - Donato Mark MD s IVUS Coronary Single Vessel - Aldair Macario MD s IVUS Coronary each ADDL Vessel - Aldair Macario MD s POBA SGL Vessel - Aldair Macario MD s Ultrasound Vascular Access - Donato Mark MD s Drug Eluting Stent SGl Vessel - Aldair Macario MD Ordered Studies 03/16/22 07:47 CT angio chest PE protocol Stat IMPRESSION: 1. There is no evidence of pulmonary embolus in the main, lobar, or segmental pulmonary arteries. 2. Cardiomegaly and cardiac pacemaker with evidence of congestive failure. 3. Trace pleural effusions. 4. Mild patchy groundglass change likely represents pulmonary edema. Correlate clinically for evidence of a superimposed infectious/inflammatory pneumonitis. 5. 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 6. Mildly enlarged mediastinal and hilar nodes are nonspecific and may be reactive. 7. Additional findings as above. 03/16/22 09:29 CT head/brain wo con Stat IMPRESSION: 1. Interlobular septal thickening consistent with interstitial pulmonary edema. Groundglass opacity within the posterior segment of the right upper lobe and superior segment of the right lower lobe could reflect a superimposed infectious process or alveolar pulmonary edema. Trace bilateral pleural effusions. 2. Moderate emphysema. 3. Mildly enlarged mediastinal and right hilar lymph nodes. These are likely reactive or related to pulmonary edema. A follow-up chest CT in 6 months is recommended. 4. Subpleural left lower lobe opacity which is similar to prior exam. This represents round atelectasis. 5. 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 03/24/22 07:59 CL Cath Imgs for PACS use only Routine 03/24/22 11:42 CL Cath Imgs for PACS use only Routine 03/24/22 14:04 CL IVUS Coronary Single Vessel Routine Hospital Course (1) Acute on chronic systolic CHF (congestive heart failure): - Pt initially hospitalized with afib w/ rvr and decompensated (a/c systolic CHF) and hypoxic respiratory failure d/t CHF - Treated with BiPAP, diuresed and transitioned from NC to room air - Fluid balance net -12.8L to date and patient is down 10.7 pounds with IV diuresis - Despite favorable response to diuresis, had 2 [id number]-hb-[id number] rapid responses (flash pulmonary edema) (did not appear to have AECOPD and completed full course of abx for what was thought to be 2/2 PNA) - Uncertain if this recurrent decompensation was because his rate was still variable at the time (now on amiodarone and dig along with BB and HR improved) - troponin was elevated upfront (thought to be rate related ischemia but given recurrent flash pulmonary edema-- s/p cardiac cath 03/24) Family was requesting transfer to [place] but patient favors to have this done here. Family agreeable. - continue beta-blockade, IV Lasix has since been transitioned to ora and now digoxin. BP intolerant to ANTHONY inhibitor/nitrates --Lasix was converted to 40 mg daily (as was on 20 mg prior to this hospitalization). With transition from IV to oral Lasix, his fluid balance is now slightly positive thus additional 20mg in the afternoon started --In addition, cardiology wanted patient on Aldactone upfront. We were unable to give this given his low blood pressures; however, blood pressures have improved greatly and Aldactone resumed - D/C with 40mg in am/20mg in afternoon + Aldactone and FU with Azra Salvador PA-C (CHF clinic) --Discharge with supplemental potassium. Follow-up BMP ordered for Sunday prior to follow-up with cardiology - updated TTE during this stay with EF 40-45% - Maintain sodium/fluid restricted diet - Resume Jardiance upon discharge (nonformulary here) (2) Atrial fibrillation with RVR: - A.Fib NOT a new diagnosis - likely in RVR given underlying ETOH abuse and catecholamine release from recent covid + concern for secondary bacterial infection - potassium/mag levels WNL and TSH WNL - BP marginally low for which an amiodarone drip was started with conversion to oral amiodarone. --Has been on 400 mg twice daily. Will convert to 200 mg twice daily upon discharge - still with viable rates for which patient was dig loaded with conversion to oral dig --Dig level has been ordered for Sunday. Patient to obtain 1 hour prior to his follow-up appointment with cardiology - Heart rates are much improved. Remains in atrial fibrillation with a current rate in the 80s. With added rate control, his blood pressure has improved as has his mentation - Has been continued on his beta-blockade (which needed to be held upfront given marginal hypotension but has since been resumed) - holding Entresto (given low BP). BP remains stable (despite the additional lasix and resumption of aldactone). Can trial resumption of Entresto. FU with cardiology on Sunday as scheduled (uncertain if BP will allow) - Intolerance to ANTHONY inhibitor/nitrates given hypotension - Continue Eliquis (held in preparation for cardiac catheterization) - Echo updated: LVEF 40-45% - cardiology consulted, appreciate recommendations. Follows Dr. Delatorre routinely (3) NSTEMI (non-ST elevated myocardial infarction): Patient with known CAD and prior PTCA with cardiac stenting. - Peaked at 2418. - Suspect type II NSTEMI secondary to A. fib with RVR + hypoxia. No chest pain or acute ST/T wave changes on EKG - Initially on heparin which has since been transitioned to Eliquis - TTE: No regional wall motion abnormalities -had multiple code purples called despite diuresis (d/t flash pulmonary edema) - cardiac cath done 03/24: revealed a 90% LAD in stent restenoses along with a 90% mid LCx stenosis. -MOLLY x2 in the LCx, PTCA of the LAD in stent restenosis. - now on Brilinta (needed for at least 12 months). - already on statin/ASA and BB - now on dual antiplatelet therapy in addition to chronic Eliquis--> thus Added PPI for GI prophylaxis - cardiology recommend cardiac rehab. Awaiting PT/OT eval/tx to determine if can be done OP or IP stay is needed - Seen by PT/OT and patient independent. Walked 280 feet. Okay for discharge to home. Cardiology recommending cardiac rehab. Order placed (4) Pneumonia: - Empirically started on Zosyn on 03/18 for possible PNA - Continue neb treatments and supplemental oxygen to maintain a pulse ox of 90 to 92% - Again, has had multiple hfdf-vp-czrk rapid responses (that appear more related to flash pulmonary edemasee above as opposed to related to respiratory failure from pneumonia) - Converted IV to oral Levaquin-patient has since completed a full course -- Was converted to cefdinir upfront but white count started to climb. Will continue antipseudomonal coverage at this point given his recent hospitalization (5) Leukocytosis: - WBC elevated since admission (with ongoing left shift) - CT on arrival showed bibasilar groundglass opacities. Likely consistent with pulmonary edema; however, underlying infectious process cannot be ruled out - Patient recently hospitalized with COVID. It is possible that he has a secondary bacterial infection at this point which may be contributing to his tachycardia - given recent hospitalization, covered for hospital-acquired pneumonia w/ Zosyn which was started on 03/18. Converted to Levaquin and has completed full course (given need for continued antipseudomonal coverage) (6) COVID-19: - First positive 03/02 (hospitalized 03/02 through 03/05). vaxx'd and boosted x2 - Does NOT need airborne isolation per infection control, but does need private room until he has been 21 days from date of first positive test * This was discussed with Kelsi Quiroga (7) Hyponatremia: - Chronic and within baseline range of 126-133, suspect could be related to his chronic ETOH use - Presented with a sodium of 124 - Urine osmolality obtained in the past and elevated at 465 with a serum osmolality of 275 at that time. 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 - NEED TO MAINTAIN FLUID RESTRICTED DIET (1200 free water mL/Day). D/W patient and his - added boost supplement TID for added solute intake (8) AMS (altered mental status): - I suspect this is likely multifactorial. Patient with recent COVID and steroid treatment, could have component of hospital-acquired delirium, in addition, patient does drink alcohol. Secondary bacterial infection could be contributing. Last, his uncontrolled heart rates could have been contributing. - Patient was seen by psychiatry to help determine capacity in making medical decisions. Patient's mental status has been waxing and waning but for the most part, he does seem to answer questions appropriately. Psychiatry agrees that patient does have capacity to make decisions regarding having the cardiac catheterization performed here versus needing transfer. He is able to do note risks associated with transfer (which would be delay of the procedure and potential decompensation in the interim). In addition, he is able to do note if done here, can be done sooner and potentially facilitate his discharge to home sooner. Regarding his CODE STATUS, psychiatry does not feel that patient has capacity to make decisions surrounding his CODE STATUS. He does have an advanced directive that outlines he is a full code. He did discuss in great detail with the previous provider, he wishes to not be intubated but "1 trial of CPR". His daughter and have since requested he be a full code despite him voices wishes to avoid intubation. Psychiatry reports he could not speak to more specifics around his CODE STATUS so at this point, would need to rely on his surrogate decision-maker In addition, he is noting he would like to be discharged with his . His daughter would like him discharged with her given the fact that his is not vaccinated for COVID. Patient is able to outline that it is likely not safe for him to be discharged with his daughter as she still works and has a pet to take care of. He believes he would have more support being discharged with his . I did explain that her not being vaccinated does not pose any increased risk for him but increased risk for her should she get COVID). - Patient has shown significant favorable response and his mentation since hospitalization (9) Emphysema lung: - 1 dose of IV Solu-Medrol given on 03/20 with rapid response but none since. Does not appear to be in an acute exacerbation. - Would avoid from giving additional steroids as this can cause added fluid retention (10) Alcohol abuse: - Per , drinks 6-8 beers every night - Patient has no desire to quit drinking. Did not stop his ETOH and force involuntary detox - using 3 beers/day when requires hospitalization to prevent Acute W/D (11) Transaminitis: - Likely due to ongoing alcohol abuse and in part passive venous congestion from CHF - in addition, recent COVID diagnosis may be contributing - Bilirubin up to 2.0 but normalized on 03/20 with adequate diuresis (12) Diarrhea: Developed 03/25 Stool negative for C. difficile Likely antibiotic associated diarrhea as just completed Zosyn with conversion to Levaquin Utilized Lomotil as needed. Diarrhea improved. Would advise yogurt/cheese with live cultures Patient has been stable from a medical standpoint X days. Have been waiting for PT/OT eval Therapy has seen patient on 03/26 and 03/27 and patient is completely independent. His 6 clicks score is 23. He is ambulating independently 280 feet. His family is requesting rehab. Lengthy discussion with his (Violeta) that he does not qualify for inpatient rehabilitation given his independence. She voices unders tanding and is agreeable for discharge. It was brought to my attention that patient's daughter (whom is the power of engineer specialist) had wanted patient discharged with her given patient's 's lack of COVID vaccination. I had a lengthy discussion with both the patient and his regarding this. Her being unvaccinated does not pose any increased risk to Alfredo. The purpose of the vaccine is to provide individual protection to that person (whom is vaccinated) from getting severely ill from the virus. In addition, Alfredo was diagnosed with COVID 03/02/2022 and has a component of immunity. He is at risk of getting COVID from his who is unvaccinated as easily as if she were vaccinated as unvaccinated patients can contract and spread COVID. Alfredo wishes to be discharged with his despite his daughters recommendations for discharge with her. He is aware that his daughter works and is not available 28/05. He is aware that he would have additional support/help if discharged with his . Additionally, he is aware that cardiology is recommending cardiac rehab which can be done here and his can bring him to these appointments. Morena capacity has been questioned throughout this hospital stay. He was seen by psychiatry who deemed him to have capacity to make decisions surrounding certain medical conditions. The fact that he is able to voice benefits versus risks of discharge with his versus his daughter leads me to believe that he does have capacity to make decisions regarding this matter. Discharged with home health services. updated on 03/27 Total Time Total Time Spent Total Time Spent (In Minutes): 60 minutes including time spent with patient, calling his , discussion with case management, preparation of documentation and coordination of care Discharge Plan Discharge Items Patient Disposition: Home - Home Health Services Reason For Visit: SOB Discharge Diagnosis: 1. Atrial fibrillation with rapid ventricular responsecurrently rate controlled 2. Congestive heart failurecurrently compensated 3. NSTEMI s/p cardiac catheterization (cardiac stent and angioplasty) 4. Pneumoniacompleted full course of antibiotics 5. Hyponatremiaimproved and back to baseline 6. Altered mental statuslikely multifactorial and improved 7. Chronic alcohol abuse 8. Transaminitis (elevated LFTs)resolved. Likely due to passive venous congestion from CHF 9. Diarrhealikely antibiotic associated and improved Activity: Resume your previous activity Non-emergency contact: Primary Care Provider Call non-emergency contact if: you have any medication questions and your symptoms worsen Follow-up/Referrals: Aquilino Silver III, CRNP [Primary Care Provider] - 03/29/22 12:00 pm Azra Salvador PA-C [Physician Chip Bin Operator] - 03/31/22 9:00 am (Congestive Heart Failure Program Appointment Information Early follow up is essential to managing your heart failure. An appointment has been scheduled for you with the [facility] Heart [facility] Program within 7 days of discharge. Anticipate this visit to be 30-60 minutes long. Please expect a promotions coordinator phone call from one of our nurses approximately 48 hours from discharge. They will also be placing an order for lab work to be completed 1-2 days prior to your heart failure follow up appointment. Please be sure to have this done so we can go over the results when you come in. Office Location The cardiology office building is located in front of the hospital at [address] [facility] Bring the following with you to your follow-up doctor appointments: Please bring your daily weight log any discharge paperwork all of your medication bottles with you to this visit. ) Diet: Low Sodium (2gm) Fluids: 1000ml (4 cups) Ambulatory Orders: Basic Metabolic Panel (Routine) Timeframe: 20220331 Location: Determined by Patient Ordered By: Azra Dolan Digoxin (Routine) Timeframe: 20220331 Location: Determined by Patient Ordered By: Azra Dolan Addtl Attending Provider Instructions: You were hospitalized with atrial fibrillation (irregular heart rate) and rapid response. In addition, you were noted to be in congestive heart failure (likely a result of your fast heart rate and underlying heart disease). Note that your magnesium has been increased due to persistent low Your cardiac enzymes (troponin) were elevated during this hospital stay indicative of some injury to the heart muscle. Again, this was also likely a result of the rapid response in the setting of your underlying heart disease. Your heart failure was treated with IV diuretic medications and your heart rate improved with amiodarone and digoxin. You had a cardiac catheterization during this hospital stay that did show bl ockages in your heart for which you had a stent placed and balloon angioplasty ("Roto-Rooter" to the vessels of your heart to help open/improve flow). Take all of your medications as outlined. Please note that some medications were changed/added. It is important that you take all of them as outlined below. You were found to have superimposed pneumonia throughout this hospital stay and completed a full course of antibiotics. He developed diarrhea while on antibiotics. Your stool was tested and negative for C. difficile. I suspect this is likely due to what we call antibiotic associated diarrhea which is basically when the antibiotics wipeout not only the bad bacteria but also the good bacteria in the gut. Would advise yogurt/cheese with live cultures to help replenish this good bacteria. You were offered alcohol detox/rehab but declined. I do strongly suggest you continue to cut back your drinking with goal of stopping Your sodium level was low during this hospital stay. This was likely a result of your chronic alcohol abuse and poor solute intake. In addition, your volume overload (heart failure) was contributing to your low sodium as this excess fluid dilute your sodium. You should maintain a fluid restricted/sodium restricted diet. Would recommend continued boost supplements 3 times daily with your meals to help with solute intake. You are being set up with outpatient cardiac rehab. In addition, you are being set up with home PT/OT and visiting nurses You should follow-up with the heart failure clinic on Sunday (ERIN Vásquez) You should monitor your symptoms and your weight daily. If you notice a 3 pound weight in 2 days, you should contact her immediately. Return to the ED for any new or worsening symptoms Follow-up with your PCP within 7 to 10 days Note these medication changes/adjustments: -- Lasix increased to 40 mg in the morning and 20 mg in the afternoon (for added diuresis and prevention of CHF) -- Aldactone added (again for prevention of fluid retention/CHF) -- Metoprolol transition from 100 mg once a day to 25 mg twice a day (to avoid severe dropping of your blood pressure with the morning dose. We have split this) -- Amiodarone 200 mg twice daily (to help with your A. fib and rapid heart rate) -- Digoxin daily (to help with your A. fib and rapid heart rate) -- Brilinta added (you had a drug-eluting stent and it is imperative that you take this for at least a year) -- Because you are already on aspirin and Eliquis and now Brilinta, you are at risk for GI bleeding so Protonix was added to help protect your stomach -- Take potassium supplementation as all of the diuretic therapy can deplete your potassium -- Would avoid Cialis as this can dangerously drop your blood pressure -- Would avoid ibuprofen as this can be excessively hard in your stomach especially in the setting of Brilinta, aspirin and Eliquis You are to have follow-up labs drawn on Sunday. Get these at least 1 hour prior to your appointment with Azra Salvador PA-C Pending Studies at Discharge: No Stand-Alone Forms: My [facility], Smoking Cessation Medications and DC Order Prescriptions: New furosemide 40 mg Tablet 40 mg PO QAM Qty: 30 RF: 0 amiodarone 200 mg Tablet 200 mg PO BIDM Qty: 60 RF: 0 spironolactone 25 mg Tablet 25 mg PO QAM Qty: 30 RF: 0 potassium chloride 20 mEq Tablet,Er Particles/Crystals 20 meq PO QAM Qty: 30 RF: 0 pantoprazole 40 mg Tablet,Delayed Release (Dr/Ec) 40 mg PO QAM Qty: 30 RF: 0 folic acid 1 mg Tablet 1 mg PO QAM Qty: 30 RF: 0 digoxin [Digitek] 125 mcg (0.125 mg) Tablet 0.125 mg PO DAILY Qty: 30 RF: 0 furosemide 20 mg Tablet 20 mg PO DAILY@1600 Qty: 30 RF: 0 metoprolol tartrate 25 mg Tablet 25 mg PO BID Qty: 60 RF: 0 Brilinta 90 mg Tablet 90 mg PO BID Qty: 60 RF: 0 Continued nitroglycerin 0.4 mg tablet, sublingual 0.4 mg SL Q5M PRN (Reason: Chest Pain) RF: 0 apixaban 5 mg tablet 5 mg PO BID Qty: 60 RF: 2 ipratropium bromide 21 mcg (0.03 %) spray,non-aerosol 2 spray intranasal BID Qty: 30 RF: 5 budesonide-formoterol [Symbicort] 160-4.5 mcg/actuation HFA aerosol inhaler 2 puff inhalation BID RF: 0 atorvastatin 80 mg tablet 40 mg PO HS RF: 0 Entresto 24-26 mg tablet 1 tab PO BID RF: 0 Jardiance 10 mg tablet 10 mg PO QAM RF: 0 cholecalciferol (vitamin D3) 25 mcg (1,000 unit) capsule 25 mcg PO QAM RF: 0 aspirin 81 mg Tablet,Delayed Release (Dr/Ec) 81 mg PO QAM RF: 0 tamsulosin 0.4 mg capsule 0.4 mg PO HS RF: 0 Neuriva Plus 0.85 mg-200 mcg-1.2 mcg tablet,chewable 1 tab PO QAM RF: 0 thiamine HCl (vitamin B1) 100 mg tablet 100 mg PO DAILY Qty: 30 RF: 0 folic acid 1 mg tablet 1 mg PO DAILY Qty: 30 RF: 0 Discontinued tadalafil [Cialis] 10 mg tablet 10 mg PO DAILY PRN (Reason: sexual activity) Qty: 30 RF: 0 ibuprofen [Advil] 200 mg tablet 200 mg PO Q6H PRN (Reason: Pain) RF: 0 furosemide 20 mg tablet 20 mg PO QAM RF: 0 metoprolol succinate 100 mg tablet extended release 24 hr 100 mg PO DAILY 30 Days Qty: 30 RF: 0 Discharge Orders: Discharge Order (Routine); Ordered 03/27/22 Ordered By: Azra Dolan Admission Data Admit Date/Time: 03/16/22 11:18 Attending Provider: Julian Wiley Admit Provider: Que Hamilton Primary Care Provider: Aquilino Silver III Other Providers: Molina Luong ; [facility] ; [place] ; Que Hamilton ; Jorge A Mahmood ; Baylee Hopkins ; Ankita Villafana ; Shereen Gipson Other Interventions: Discharge Summary Assessment (RN) Last Done: 03/27/22 15:09 Coding Level of Care Code D/C DAY MANAGEMENT >30 MINS Diagnoses Acute on chronic systolic CHF (congestive heart failure) I50.23 Atrial fibrillation with RVR I48.91 NSTEMI (non-ST elevated myocardial infarction) I21.4 Pneumonia J18.9 Leukocytosis D72.829 COVID-19 U07.1 Hyponatremia E87.1 AMS (altered mental status) R41.82 Emphysema lung J43.9 Alcohol abuse F10.10 Transaminitis R74.01 Diarrhea R19.7
== END 2022-03-27 16:32 | disposition home health service (06) | DRG 246 ==
LOC: ED 07:17 → SUATTDRO 11:18 → 2E 11:18 → 3E 03-26 17:19

== ENCOUNTER 2022-04-05 23:56 | Inpatient (IN) ==
[2022-04-06] MEDS ORDERED: SODIUM CHLORIDE 0.9% 500 ML IV ONE ×2 (00:23→01:26)
[2022-04-06 01:02] LABS: Partial Thromboplastin Ratio 1.3; Partial Thromboplastin Time 34.5 Seconds (21.0-31.0); Prothrombin Time 11.1 Seconds (9.0-12.0)
[2022-04-06 01:13] LABS: Albumin Globulin Ratio 1.3 (0.9-2); Albumin Level 3.6 gm/dl (3.4-5.0); BUN Creatinine Ratio 13.9 (10-20); Bilirubin,Total 0.5 mg/dl (0.2-1.0); Calcium 8.6 mg/dl (8.5-10.1); Creatinine Clr Calc Pharmacy 55.5 ml/min; Est GFR (African American) 71.7 ml/min; Est GFR (Non-African American) 61.9 ml/min; Globulin 2.8 gm/dl (2.5-4.0); Magnesium 2.2 mg/dl (1.7-2.4); Potassium 4.4 mmol/L (3.5-5.1); Total Protein 6.4 gm/dl (6.0-8.3)
[2022-04-06 01:15] LABS: Troponin I High Sensitivity 11.9 pg/ml (0-20)
[2022-04-06 01:36] LABS: Basophils # (auto) 0.03 K/uL (0-0.2); Basophils % (auto) 0.3 %; Eosinophils # (auto) 0.14 K/uL (0-0.5); Eosinophils % (auto) 1.5 %; Hematocrit (blood only) 36.5 % (42-52); Immature Granulocytes # (auto) 0.14 K/uL (0.00-0.02); Immature Granulocytes % (auto) 1.5 %; Lymphocytes # (auto) 1.19 K/uL (1.2-3.4); Lymphocytes % (auto) 12.8 %; Mean Corpuscular Hemoglobin 35.1 pg (25-34); Mean Corpuscular Hgb Conc 35.6 g/dL (32-36); Mean Corpuscular Volume 98.6 fL (80-100); Mean Platelet Volume 8.1 fL (7.4-10.4); Monocytes # (auto) 1.18 K/uL (0.11-0.59); Monocytes % (auto) 12.7 %; Neutrophils # (auto) 6.59 K/uL (1.4-6.5); Neutrophils % (auto) 71.2 %; Platelet Count 506 K/uL (130-400); RDW Coefficient of Variation 12.7 % (11.5-14.5); RDW Standard Deviation 46.5 fL (36.4-46.3); White Blood Count 9.27 K/uL (4.8-10.8)
--- NOTE | 2022-04-06 02:02 | Emergency Department Note ---
Impression & Plan Acute hyponatremia, Acute alteration in mental status Admit to the [facility] service ED Provider Note NAME: SUSANNA ASKEW AGE: 76 SEX: M ARRIVES VIA: Walk-In INFORMANT: Patient and his ED PROVIDER(S): Ely Reinoso DO CHIEF COMPLAINT: Confusion PLAN: Disposition: Admit to the [facility] Condition: Guarded MEDICAL DECISION MAKING: This is a 76-year-old male patient who recently underwent cardiac stent placement who presents to the emergency department with confusion. The patient had been drinking some alcohol today but his blood alcohol level was only 114. CT scan of the brain was unremarkable. However, the patient has a significantly low sodium at 123. Patient was given IV normal saline here in the department. I discussed the case with the [facility] [place] Divisionist and they will evaluate for further management. Triage Nursing notes reviewed and agree with them. Additional history obtained from the who is at the bedside Prior medical records reviewed Vital Signs: reviewed and remarkable for hypotension Differential diagnosis: Acute kidney injury, electrolyte abnormality, alcohol intoxication, intracranial hemorrhage, acute CVA ER treatment provided: Normal saline hydration Diagnostics interpreted by me: ECG: Atrial flutter with variable AV block at a rate of 59 no ectopy and no signs of ischemia. Cardiac Monitoring: Atrial flutter with a slow ventricular response at a rate of 57 Laboratory studies: See below Imaging studies: As per stat rad CT HEAD: Moderate brain volume loss. Moderate chronic ischemic changes. Focal areas of encephalomalacia involving the posterior superior temporal lobe bilaterally likely old infarcts. 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 S inuses, mastoids and the bones are intact. Impression: No acute findings. HPI: 76/M arrives for evaluation of confusion. The patient's explains that she was asleep when he woke her up telling her that he was confused. The patient had been drinking some alcohol but this is not unusual for him. She tr ied to have a conversation with him but he was obviously confused. The patient had a recent VA and had 2 stents placed. Earlier in the evening, she had checked his blood pressure and found to be low. He was seen by his PCP earlier today and his blood pressure was low at that time and they had made some medication adjustments. ROS: See above HPI for pertinent positives & negatives. A total of 10 systems reviewed and were otherwise negative. PAST MEDICAL HISTORY:See Below PAST SURGICAL HISTORY:See Below FAMILY HISTORY:See Below SOCIAL HISTORY:See Below HOME MEDICATIONS:See list ALLERGIES:See list VITALS:See Below PHYSICAL EXAMINATION: HEENT: Head - normocephalic and atraumatic. pupils are equal, round, and reactive to light. Extraocular eye muscles are intact, and sclera are anicteric. Nose - moist nasal mucosa without discharge. Mouth -extremely dry buccal mucosa. Oropharynx is nonerythematous and there is no tonsillar exudate or edema noted. Neck: Supple; no JVD, nuchal rigidity, cervical lymphadenopathy, or auscultated bruits. Heart: Regular rate and rhythm. There is a normal S1 and S2 with no murmurs, clicks, or gallops appreciated. Lungs: Clear to auscultation bilaterally with no wheezes, rales, or rhonchi. Abdomen: Soft, completely nontender, nondistended, with good bowel sounds. There are no palpable pulsatile masses or hepatosplenomegaly. There is no guarding, rigidity, or rebound noted. Extremities: No evidence of cyanosis, clubbing, or edema. There are easily palpable peripheral pulses. Skin: warm and extremely dry with poor turgor and no rashes. ED COURSE: Times/Reassessments: 0005: The patient was evaluated in room B 12. A complete history and physical was performed. Previous electronic medical records were reviewed. An order was placed for continuous cardiac monitoring. Patient was in an atrial flutter at a rate of 57. Laboratory studies were drawn as above. A twelve-lead EKG was obtained. Patient was bolused with 500 cc of normal saline solution as he was hypotensive and appeared quite dehydrated on physical exam. He went for CT scan of the brain. Upon repeat evaluation, the patient was resting comfortably. I reviewed some of the laboratory studies with the patient's . He will receive a second normal saline bolus for his significant hyponatremia. I discussed the case with the [facility] Hospitalist and they will evaluate for further management. Ely Reinoso DO Past Med/Surg History Medical History (Updated 04/06/22 @ 05:16 by Ely Reinoso DO) Acute on chronic systolic CHF (congestive heart failure) Alcohol abuse CAD (coronary artery disease) Cardiac defibrillator in place Cardiomyopathy Factor V Leiden diagnosed due to family history- no personal hx of blood clots/bleeding issues History of heart attack 1999 Hyperlipidemia Hyponatremia VA (myocardial infarction) Pacemaker PPM/ICD- Implanted 2008/[employer]/last check 06/2019 per patient Paroxysmal atrial fibrillation Prostate cancer Tobacco abuse Surgical History (Updated 03/29/22 @ 12:15 by MEI Olvera) History of appendectomy History of cardiac cath 1999 History of colonoscopy History of tonsillectomy History of total right knee replacement Previous back surgery Lumbar spine surgery S/P angioplasty with stent S/P coronary artery stent placement Family History Mother of unknown cause Alzheimer disease Father Prostate cancer Cardiac disease Glaucoma Alzheimer disease Brother Heart transplant recipient Brother No problems noted. Brother No problems noted. Brother No problems noted. Sister No problems noted. Sister No problems noted. Daughter No problems noted. Daughter No problems noted. 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 Feels Safe at Home: Yes Childhood Exposure to Second-Hand Smoke: Yes caffeine: Yes (3 mugs/day) during the past year weight has: remained stable Dental Care, Regularly: Yes Physical Activity Frequency: Does not Exercise Seatbelt Use: always Sunscreen Use: No Assistive Devices: Hearing Aid - Bilateral Allergies Allergies Allergy/AdvReac Type Severity Reaction Status Date / Time morphine Allergy Intermediate Swelling Verified 04/06/22 00:44 clopidogrel Allergy Unknown Unknown Verified 04/06/22 00:44 reaction fluticasone furoate AdvReac Intermediate Pain Verified 04/06/22 00:44 [From Trelegy Ellipta] behind the eyes umeclidinium AdvReac Intermediate Pain Verified 04/06/22 00:44 [From Trelegy Ellipta] behind the eyes vilanterol AdvReac Intermediate Pain Verified 04/06/22 00:44 [From Trelegy Ellipta] behind the eyes HAND JAVA SDET (ALCOHOL Allergy Severe SHORTNESS Uncoded 04/06/22 00:44 BASED) OF BREATH - SEE NOTES Home Meds Home Medications Medication Instructions Recorded Confirmed sacubitril 24 mg-valsartan 26 mg 1 tab PO BID 06/13/19 04/06/22 tablet (Entresto) nitroglycerin 0.4 mg sublingual 0.4 mg SL Q5M PRN 10/13/19 04/06/22 tablet atorvastatin 80 mg tablet 40 mg PO HS tab 10/27/19 04/06/22 cholecalciferol (vitamin D3) 25 25 mcg PO QAM 08/17/21 04/06/22 mcg (1,000 unit) capsule empagliflozin 10 mg tablet 10 mg PO QAM 08/17/21 04/06/22 (Jardiance) B6 0.85 mg-folic 200 1 tab PO QAM 03/02/22 04/06/22 [id number] oral chewable tablet (Neuriva Plus) aspirin 81 mg tablet,delayed 81 mg PO QAM 03/02/22 04/06/22 release tamsulosin 0.4 mg capsule 0.4 mg PO HS 03/02/22 04/06/22 digoxin 125 mcg (0.125 mg) tablet 125 mcg PO Q OTHER DAY 04/06/22 04/06/22 (Digitek) metoprolol succinate 50 mg 50 mg PO QAM 04/06/22 04/06/22 tablet,extended release 24 hr Previous Rx's Medication Instructions Recorded apixaban 5 mg tablet 5 mg PO BID #60 tab 03/14/21 ipratropium bromide 21 mcg (0.03 2 spray INTRANASAL BID #30 ml 07/15/21 %) nasal spray amiodarone 200 mg tablet 200 mg PO BIDM #60 tab 03/27/22 folic acid 1 mg tablet 1 mg PO QAM #30 tab 03/27/22 furosemide 20 mg tablet 20 mg PO DAILY@1600 #30 tab 03/27/22 furosemide 40 mg tablet 40 mg PO QAM #30 tab 03/27/22 pantoprazole 40 mg tablet,delayed 40 mg PO QAM #30 tab 03/27/22 release potassium chloride 20 mEq 20 meq PO QAM #30 tab 03/27/22 tablet,extended release(part/cryst) spironolactone 25 mg tablet 25 mg PO QAM #30 tab 03/27/22 ticagrelor 90 mg tablet (Brilinta) 90 mg PO BID #60 tab 03/27/22 Results & Data (ED) Vital Signs Vital Signs - 24 hr 04/05/22 23:59 04/06/22 00:30 04/06/22 00:35 Temperature 36.1 C L 36.5 C Temperature Source Temporal Artery Scan Oral Pulse Rate 59 L Pulse Rate [Apical] 57 L Pulse Rhythm [Apical] Regular Pulse Strength [Apical] Normal Respiratory Rate 18 18 Respiratory Effort / Characteristics Non-Labored Non-Labored Spontaneous Respiratory Depth Normal Normal Respiratory Pattern Regular Blood Pressure 96/54 L Blood Pressure [Left Arm] 92/50 L Blood Pressure Mean 68 Blood Pressure Mean [Left Arm] 64 Blood Pressure Position [Left Arm] Lying Pulse Oximetry 98 97 98 Oxygen Delivery Method Room Air Room Air Room Air Oxygen Flow Rate 0 Sepsis Recent Fever Within 48 Hours No Sepsis New/Unexplained Change in Mental Status No Sepsis Action Taken by Nursing No Action Required 04/06/22 02:00 Temperature Temperature Source Pulse Rate Pulse Rate [Apical] 74 Pulse Rhythm [Apical] Regular Pulse Strength [Apical] Normal Respiratory Rate 18 Respiratory Effort / Characteristics Non-Labored Spontaneous Respiratory Depth Normal Respiratory Pattern Regular Blood Pressure Blood Pressure [Left Arm] 112/53 L Blood Pressure Mean Blood Pressure Mean [Left Arm] 72 Blood Pressure Position [Left Arm] Semi-fowlers Pulse Oximetry 99 Oxygen Delivery Method Room Air Oxygen Flow Rate Sepsis Recent Fever Within 48 Hours Sepsis New/Unexplained Change in Mental Status Sepsis Action Taken by Nursing Laboratory Data Result diagrams: 04/06/22 00:15 04/06/22 00:15 Lab Results 04/06/22 04/06/22 04/06/22 Range/Units 00:15 00:15 00:15 WBC 9.27 (4.8-10.8) K/uL RBC 3.70 L (4.7-6.1) M/uL Hgb 13.0 L (14.0-18.0) g/dL Hct 36.5 L (42-52) % MCV 98.6 (80-100) fL MCH 35.1 H (25-34) pg MCHC 35.6 (32-36) g/dL RDW Std Deviation 46.5 H (36.4-46.3) fL RDW Coeff of Marlyn 12.7 (11.5-14.5) % Plt Count 506 H (130-400) K/uL MPV 8.1 (7.4-10.4) fL Immature Gran % (Auto) 1.5 % Neut % (Auto) 71.2 % Lymph % (Auto) 12.8 % [place] % (Auto) 12.7 % Eos % (Auto) 1.5 % Baso % (Auto) 0.3 % Neut # (Auto) 6.59 H (1.4-6.5) K/uL Lymph # (Auto) 1.19 L (1.2-3.4) K/uL [place] # (Auto) 1.18 H (0.11-0.59) K/uL Eos # (Auto) 0.14 (0-0.5) K/uL Baso # (Auto) 0.03 (0-0.2) K/uL Immature Gran # (Auto) 0.14 H (0.00-0.02) K/uL Absolute Nucleated RBC 0.00 (0-0) K/uL Nucleated RBC % (auto) 0.0 % PT 11.1 (9.0-12.0) Seconds INR 1.0 (0.9-1.1) APTT 34.5 H (21.0-31.0) Seconds PTT Ratio 1.3 Sodium 123 L (136-145) mmol/L Potassium 4.4 (3.5-5.1) mmol/L Chloride 92 L (98-107) mmol/L Carbon Dioxide 20 L (21-32) mmol/L Anion Gap 11 (3-11) BUN 16 (6-23) mg/dl Creatinine 1.15 (0.6-1.4) mg/dl Est Cr Clr Drug Dosing 55.5 ml/min Est GFR ( Amer) 71.7 ml/min Est GFR (Non-Af Amer) 61.9 ml/min BUN/Creatinine Ratio 13.9 (10-20) Glucose 86 (70-99(Fasting)) mg/dl POC Glucose (70-99) mg/dl Calcium 8.6 (8.5-10.1) mg/dl Magnesium 2.2 (1.7-2.4) mg/dl Total Bilirubin 0.5 (0.2-1.0) mg/dl AST 19 (13-39) U/L ALT 20 (7-52) U/L Alkaline Phosphatase 76 (34-104) U/L Troponin I High Sens 11.9 (0-20) pg/ml Total Protein 6.4 (6.0-8.3) gm/dl Albumin 3.6 (3.4-5.0) gm/dl Globulin 2.8 (2.5-4.0) gm/dl Albumin/Globulin Ratio 1.3 (0.9-2) Ethyl Alcohol mg/dL (<10.0) mg/dl SARS-CoV-2, RNA, NAAT (NEGATIVE) Blood Type Antibody Screen 04/06/22 04/06/22 04/06/22 Range/Units 00:29 00:39 00:39 WBC (4.8-10.8) K/uL RBC (4.7-6.1) M/uL Hgb (14.0-18.0) g/dL Hct (42-52) % MCV (80-100) fL MCH (25-34) pg MCHC (32-36) g/dL RDW Std Deviation (36.4-46.3) fL RDW Coeff of Marlyn (11.5-14.5) % Plt Count (130-400) K/uL MPV (7.4-10.4) fL Immature Gran % (Auto) % Neut % (Auto) % Lymph % (Auto) % [place] % (Auto) % Eos % (Auto) % Baso % (Auto) % Neut # (Auto) (1.4-6.5) K/uL Lymph # (Auto) (1.2-3.4) K/uL [place] # (Auto) (0.11-0.59) K/uL Eos # (Auto) (0-0.5) K/uL Baso # (Auto) (0-0.2) K/uL Immature Gran # (Auto) (0.00-0.02) K/uL Absolute Nucleated RBC (0-0) K/uL Nucleated RBC % (auto) % PT (9.0-12.0) Seconds INR (0.9-1.1) APTT (21.0-31.0) Seconds PTT Ratio Sodium (136-145) mmol/L Potassium (3.5-5.1) mmol/L Chloride (98-107) mmol/L Carbon Dioxide (21-32) mmol/L Anion Gap (3-11) BUN (6-23) mg/dl Creatinine (0.6-1.4) mg/dl Est Cr Clr Drug Dosing ml/min Est GFR ( Amer) ml/min Est GFR (Non-Af Amer) ml/min BUN/Creatinine Ratio (10-20) Glucose (70-99(Fasting)) mg/dl POC Glucose 99 (70-99) mg/dl Calcium (8.5-10.1) mg/dl Magnesium (1.7-2.4) mg/dl Total Bilirubin (0.2-1.0) mg/dl AST (13-39) U/L ALT (7-52) U/L Alkaline Phosphatase (34-104) U/L Troponin I High Sens (0-20) pg/ml Total Protein (6.0-8.3) gm/dl Albumin (3.4-5.0) gm/dl Globulin (2.5-4.0) gm/dl Albumin/Globulin Ratio (0.9-2) Ethyl Alcohol mg/dL 114.9 H (<10.0) mg/dl SARS-CoV-2, RNA, NAAT (NEGATIVE) Blood Type A Positive Antibody Screen NEGATIVE 04/06/22 Range/Units 02:20 WBC (4.8-10.8) K/uL RBC (4.7-6.1) M/uL Hgb (14.0-18.0) g/dL Hct (42-52) % MCV (80-100) fL MCH (25-34) pg MCHC (32-36) g/dL RDW Std Deviation (36.4-46.3) fL RDW Coeff of Marlyn (11.5-14.5) % Plt Count (130-400) K/uL MPV (7.4-10.4) fL Immature Gran % (Auto) % Neut % (Auto) % Lymph % (Auto) % [place] % (Auto) % Eos % (Auto) % Baso % (Auto) % Neut # (Auto) (1.4-6.5) K/uL Lymph # (Auto) (1.2-3.4) K/uL [place] # (Auto) (0.11-0.59) K/uL Eos # (Auto) (0-0.5) K/uL Baso # (Auto) (0-0.2) K/uL Immature Gran # (Auto) (0.00-0.02) K/uL Absolute Nucleated RBC (0-0) K/uL Nucleated RBC % (auto) % PT (9.0-12.0) Seconds INR (0.9-1.1) APTT (21.0-31.0) Seconds PTT Ratio Sodium (136-145) mmol/L Potassium (3.5-5.1) mmol/L Chloride (98-107) mmol/L Carbon Dioxide (21-32) mmol/L Anion Gap (3-11) BUN (6-23) mg/dl Creatinine (0.6-1.4) mg/dl Est Cr Clr Drug Dosing ml/min Est GFR ( Amer) ml/min Est GFR (Non-Af Amer) ml/min BUN/Creatinine Ratio (10-20) Glucose (70-99(Fasting)) mg/dl POC Glucose (70-99) mg/dl Calcium (8.5-10.1) mg/dl Magnesium (1.7-2.4) mg/dl Total Bilirubin (0.2-1.0) mg/dl AST (13-39) U/L ALT (7-52) U/L Alkaline Phosphatase (34-104) U/L Troponin I High Sens (0-20) pg/ml Total Protein (6.0-8.3) gm/dl Albumin (3.4-5.0) gm/dl Globulin (2.5-4.0) gm/dl Albumin/Globulin Ratio (0.9-2) Ethyl Alcohol mg/dL (<10.0) mg/dl SARS-CoV-2, RNA, NAAT NEGATIVE (NEGATIVE) Blood Type Antibody Screen Administered Medications Discontinued Medications Sodium Chloride (Nss) 500 mls @ 999 mls/hr IV .Q31M ONE Stop: 04/06/22 00:53 Last Infusion: 04/06/22 01:28 Dose: 0 mls/hr Documented by: [id number] Admin: 04/06/22 00:27 Dose: 999 mls/hr Documented by: [id number] Sodium Chloride (Nss) 500 mls @ 999 mls/hr IV .Q31M ONE Stop: 04/06/22 01:56 Last Infusion: 04/06/22 02:07 Dose: 0 mls/hr Documented by: [id number] Admin: 04/06/22 01:28 Dose: 999 mls/hr Documented by: [id number] Discharge Plan Visit Data Chief Complaint: Confusion Stated Complaint: CONFUSION ED Provider: Ely Reinoso Discharge Problem: Acute hyponatremia, Acute alteration in mental status Patient Disposition: Admitted As Inpatient Discharge Instructions Interventions: ED Discharge Assessment Last Done: 04/06/22 04:47
--- NOTE | 2022-04-06 03:02 | History & Physical Report ---
Date of Service April 06, 2022 Assessment & Plan (1) Confusion: Plan: Suspect largely secondary to hyponatremia. Na of 123. EtOH use could also be contributing No seizure. -Frequent orientation -Na correction (2) Hyponatremia: Plan: [id number] with confusion, altered mental status. No seizure. Suspect multifactorial - secondary to chronic EtOH use, low solute intake. Patient appears dry on exam -NSS 500mL bolus given -Will initiate 3% saline - 50mL bolus and at 15mL/hr -Check BMP q 4 hours -Goal correction of 6mEq/L daily - patient with chronic, longstanding hyponatremia - slow correction to avoid ODS -Closely monitor UOP for auto-diuresis -Fluid restriction 1200mL/d -Continue boost (3) Chronic congestive heart failure: Plan: Appears compensated. -Continue Empagliflozin -Lasix qAM -Continue metoprolol and Entresto (4) CAD (coronary artery disease): Plan: CAD s/p catheterization on 03/24/22 with MOLLY x 2 to LCx -Continue ASA and Brillinta -Continue Atorvastatin -Continue Metoprolol (5) COPD, moderate: Plan: Chronic -Albuterol PRN -Combivent (6) Hyperlipemia: Plan: Chronic -Continue Atorvastatin (7) Atrial fibrillation: Plan: Rate controlled. On Apixaban anticoagulation -Continue Amiodarone 200mg po BID -Continue Digoxin -Continue Apixaban History of Present Illness Chief Complaint: confusion Primary Care Provider: Aquilino Silver III, SIA Alfredo Almeida is a 76yo male with history of CAD s/p MOLLY x 2 to LCx, HTN, CHF, PAF on Eliquis anticoagulation and daily EtOH use. Patient was recently hospitalized 03/16 - 03/27/22 after presenting with confusion. He was found to be in AF with RVR, acute decompensated CHF and hyponatremic. Patient had NSTEMI during that hospital stay and had catheterization on 03/24 wthi 90% LAD in-stent restenosis and 90% mid-LCx stenosis. He had MOLLY x 2 placed to the LCx and PTCA of the LAD. Patient was also treated for PNA during that hospital stay. He had Covid-19 -first positive test on 03/02. He has tested positive on subsequent occasions. He does not need airborne isolation per infection control during last admission. Patient returns to the ER tonight with confusion. He woke his at 23:30 stating that he felt confused and didn't know what pills to take. states that he was a "little off" since this afternoon - mildly confused, poor appetite and decreased intake No report of fever, chills, chest pain, cough, abdominal pain, nausea, vomiting, diarrhea or constipation Patient does report feeling SOB ER Course: 500mL nSS Allergies Allergy/AdvReac Type Severity Reaction Status Date / Time morphine Allergy Intermediate Swelling Verified 04/06/22 00:44 clopidogrel Allergy Unknown Unknown Verified 04/06/22 00:44 reaction fluticasone furoate AdvReac Intermediate Pain Verified 04/06/22 00:44 [From Trelegy Ellipta] behind the eyes umeclidinium AdvReac Intermediate Pain Verified 04/06/22 00:44 [From Trelegy Ellipta] behind the eyes vilanterol AdvReac Intermediate Pain Verified 04/06/22 00:44 [From Trelegy Ellipta] behind the eyes 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 Severe SHORTNESS Uncoded 04/06/22 00:44 BASED) OF BREATH - SEE NOTES Home Medications Medication Instructions Recorded Confirmed Type sacubitril 24 mg-valsartan 26 mg 1 tab PO BID 06/13/19 04/06/22 History tablet (Entresto) nitroglycerin 0.4 mg sublingual 0.4 mg SL Q5M PRN 10/13/19 04/06/22 History tablet atorvastatin 80 mg tablet 40 mg PO HS tab 10/27/19 04/06/22 History apixaban 5 mg tablet 5 mg PO BID #60 tab 03/14/21 04/06/22 Rx ipratropium bromide 21 mcg (0.03 2 spray INTRANASAL BID #30 ml 07/15/21 04/06/22 Rx %) nasal spray cholecalciferol (vitamin D3) 25 25 mcg PO QAM 08/17/21 04/06/22 History mcg (1,000 unit) capsule empagliflozin 10 mg tablet 10 mg PO QAM 08/17/21 04/06/22 History (Jardiance) B6 0.85 mg-folic 200 1 tab PO QAM 03/02/22 04/06/22 History [id number] oral chewable tablet (Neuriva Plus) aspirin 81 mg tablet,delayed 81 mg PO QAM 03/02/22 04/06/22 History release tamsulosin 0.4 mg capsule 0.4 mg PO HS 03/02/22 04/06/22 History amiodarone 200 mg tablet 200 mg PO BIDM #60 tab 03/27/22 04/06/22 Rx folic acid 1 mg tablet 1 mg PO QAM #30 tab 03/27/22 04/06/22 Rx furosemide 20 mg tablet 20 mg PO DAILY@1600 #30 tab 03/27/22 04/06/22 Rx furosemide 40 mg tablet 40 mg PO QAM #30 tab 03/27/22 04/06/22 Rx pantoprazole 40 mg tablet,delayed 40 mg PO QAM #30 tab 03/27/22 04/06/22 Rx release potassium chloride 20 mEq 20 meq PO QAM #30 tab 03/27/22 04/06/22 Rx tablet,extended release(part/cryst) spironolactone 25 mg tablet 25 mg PO QAM #30 tab 03/27/22 04/06/22 Rx ticagrelor 90 mg tablet (Brilinta) 90 mg PO BID #60 tab 03/27/22 04/06/22 Rx digoxin 125 mcg (0.125 mg) tablet 125 mcg PO Q OTHER DAY 04/06/22 04/06/22 History (Digitek) metoprolol succinate 50 mg 50 mg PO QAM 04/06/22 04/06/22 History tablet,extended release 24 hr Past Med/Surg History Medical History (Updated 04/06/22 @ 02:57 by Ghislaine Vila DO) Acute on chronic systolic CHF (congestive heart failure) Alcohol abuse CAD (coronary artery disease) Cardiac defibrillator in place Cardiomyopathy Factor V Leiden diagnosed due to family history- no personal hx of blood clots/bleeding issues History of heart attack 1999 Hyperlipidemia Hyponatremia [place] (myocardial infarction) Pacemaker PPM/ICD- Implanted 2008/Medtronic/last check 06/2019 per patient Paroxysmal atrial fibrillation Prostate cancer Tobacco abuse Surgical History (Updated 03/29/22 @ 12:15 by MEI Olvera) History of appendectomy History of cardiac cath 1999 History of colonoscopy History of tonsillectomy History of total right knee replacement Previous back surgery Lumbar spine surgery S/P angioplasty with stent S/P coronary artery stent placement Family History Mother of unknown cause Alzheimer disease Father Prostate cancer Cardiac disease Glaucoma Alzheimer disease Brother Heart transplant recipient Brother No problems noted. Brother No problems noted. Brother No problems noted. Sister No problems noted. Sister No problems noted. Daughter No problems noted. Daughter No problems noted. 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 Feels Safe at Home: Yes Childhood Exposure to Second-Hand Smoke: Yes caffeine: Yes (3 mugs/day) during the past year weight has: remained stable Dental Care, Regularly: Yes Physical Activity Frequency: Does not Exercise Seatbelt Use: always Sunscreen Use: No Assistive Devices: Hearing Aid - Bilateral Review of Systems Review of Systems: All systems reviewed & are unremarkable except as noted in HPI & below Physical Exam Physical Exam: General: patient resting comfortably, NAD, non-toxic in appearance, AA&O to self and location, hard of hearing Skin: warm, dry, intact, no rashes or lesions HEENT: NC/AT, PERRL, EOMI, anicteric sclera, conjunctiva without injection, external ear normal to inspection and nontender, nares patent, dry mucus membranes, dentition intact, no oropharyngeal lesions, neck supple, trachea midline, no LAD, no thyromegaly, no JVD Heart: +S1/S2, regular, no m/r/g Lungs: equal air entry bilaterally, +wheeze Abd: +BS, soft, NT/ND, no masses/organomegaly/ascites Ext: warm, 2+ pulses in UE/LE bilaterally, no clubbing/cyanosis or edema Neuro: nonfocal, patient AA&O x 2, speech intact, no facial droop, moving all extremities on command with equal strength 5/5 Results & Data Results & Data ([facility]) Vital Signs (Past 12 Hours) Vital Signs Temp Pulse Pulse Resp BP BP Pulse Ox 04/06/22 02:00 74 18 112/53 L 99 04/06/22 00:35 98 04/06/22 00:30 36.5 C 57 L 18 92/50 L 97 04/05/22 23:59 36.1 C L 59 L 18 96/54 L 98 Laboratory Results Laboratory Results WBC 9.27 K/uL (4.8-10.8) 04/06/22 00:15 RBC 3.70 M/uL (4.7-6.1) L 04/06/22 00:15 Hgb 13.0 g/dL (14.0-18.0) L 04/06/22 00:15 Hct 36.5 % (42-52) L 04/06/22 00:15 MCV 98.6 fL (80-100) 04/06/22 00:15 MCH 35.1 pg (25-34) H 04/06/22 00:15 MCHC 35.6 g/dL (32-36) 04/06/22 00:15 RDW Std Deviation 46.5 fL (36.4-46.3) H 04/06/22 00:15 RDW Coeff of Marlyn 12.7 % (11.5-14.5) 04/06/22 00:15 Plt Count 506 K/uL (130-400) H 04/06/22 00:15 MPV 8.1 fL (7.4-10.4) 04/06/22 00:15 Immature Gran % (Auto) 1.5 % 04/06/22 00:15 Neut % (Auto) 71.2 % 04/06/22 00:15 Lymph % (Auto) 12.8 % 04/06/22 00:15 [place] % (Auto) 12.7 % 04/06/22 00:15 Eos % (Auto) 1.5 % 04/06/22 00:15 Baso % (Auto) 0.3 % 04/06/22 00:15 Neut # (Auto) 6.59 K/uL (1.4-6.5) H 04/06/22 00:15 Lymph # (Auto) 1.19 K/uL (1.2-3.4) L 04/06/22 00:15 [place] # (Auto) 1.18 K/uL (0.11-0.59) H 04/06/22 00:15 Eos # (Auto) 0.14 K/uL (0-0.5) 04/06/22 00:15 Baso # (Auto) 0.03 K/uL (0-0.2) 04/06/22 00:15 Immature Gran # (Auto) 0.14 K/uL (0.00-0.02) H 04/06/22 00:15 Absolute Nucleated RBC 0.00 K/uL (0-0) 04/06/22 00:15 Nucleated RBC % (auto) 0.0 % 04/06/22 00:15 PT 11.1 Seconds (9.0-12.0) 04/06/22 00:15 INR 1.0 (0.9-1.1) 04/06/22 00:15 APTT 34.5 Seconds (21.0-31.0) H 04/06/22 00:15 PTT Ratio 1.3 04/06/22 00:15 Sodium 123 mmol/L (136-145) L 04/06/22 00:15 Potassium 4.4 mmol/L (3.5-5.1) 04/06/22 00:15 Chloride 92 mmol/L (98-107) L 04/06/22 00:15 Carbon Dioxide 20 mmol/L (21-32) L 04/06/22 00:15 Anion Gap 11 (3-11) 04/06/22 00:15 BUN 16 mg/dl (6-23) 04/06/22 00:15 Creatinine 1.15 mg/dl (0.6-1.4) 04/06/22 00:15 Est Cr Clr Drug Dosing 55.5 ml/min 04/06/22 00:15 Est GFR ( Amer) 71.7 ml/min 04/06/22 00:15 Est GFR (Non-Af Amer) 61.9 ml/min 04/06/22 00:15 BUN/Creatinine Ratio 13.9 (10-20) 04/06/22 00:15 Glucose 86 mg/dl (70-99(Fasting)) 04/06/22 00:15 POC Glucose 99 mg/dl (70-99) 04/06/22 00:29 Calcium 8.6 mg/dl (8.5-10.1) 04/06/22 00:15 Magnesium 2.2 mg/dl (1.7-2.4) 04/06/22 00:15 Total Bilirubin 0.5 mg/dl (0.2-1.0) 04/06/22 00:15 AST 19 U/L (13-39) 04/06/22 00:15 ALT 20 U/L (7-52) 04/06/22 00:15 Alkaline Phosphatase 76 U/L (34-104) 04/06/22 00:15 Troponin I High Sens 11.9 pg/ml (0-20) 04/06/22 00:15 Total Protein 6.4 gm/dl (6.0-8.3) 04/06/22 00:15 Albumin 3.6 gm/dl (3.4-5.0) 04/06/22 00:15 Globulin 2.8 gm/dl (2.5-4.0) 04/06/22 00:15 Albumin/Globulin Ratio 1.3 (0.9-2) 04/06/22 00:15 Ethyl Alcohol mg/dL 114.9 mg/dl (<10.0) H 04/06/22 00:39 SARS-CoV-2, RNA, NAAT NEGATIVE (NEGATIVE) 04/06/22 02:20 Blood Type A Positive 04/06/22 00:39 Antibody Screen NEGATIVE 04/06/22 00:39 Code Status & VTE Plan VTE Prophylaxis Plan VTE Prophylaxis will be ordered: Yes PG Care Time/CCT Total # of Minutes Spent Total Time Spent with Patient: Total time spent is greater than 50% in coordination of care (as documented) at patient's floor/unit and/or counseling patient: Coding Level of Care Code 96358 Initial Inpt Care Lvl 3 Diagnoses Chronic congestive heart failure I50.9 Hyponatremia E87.1 CAD (coronary artery disease) I25.10 COPD, moderate J44.9 Hyperlipemia E78.5 Confusion R41.0 Atrial fibrillation I48.91
[2022-04-06] MEDS ORDERED: ONDANSETRON INJ 2 MG/ML 2 ML VIAL IV PRN (05:12)
[2022-04-06] MEDS ORDERED: ACETAMINOPHEN 325 MG TAB PO PRN (05:12)
[2022-04-06] MEDS ORDERED: ALBUTEROL HFA 8 GM INHALER INH PRN (05:12)
[2022-04-06] MEDS ORDERED: SODIUM CHLORIDE 3 % 50 ML IV ONE (05:30)
[2022-04-06] MEDS ORDERED: SODIUM CHLORIDE 3 % 500 ML IV SCH (05:45)
[2022-04-06 06:26] LABS: BUN Creatinine Ratio 11.5 (10-20); Calcium 8.3 mg/dl (8.5-10.1); Creatinine Clr Calc Pharmacy 61.4 ml/min; Est GFR (Non-African American) 69.9 ml/min; Potassium 4.3 mmol/L (3.5-5.1)
--- NOTE | 2022-04-06 06:28 | CT Scan Report ---
CT OF THE HEAD WITHOUT CONTRAST CLINICAL HISTORY: Stroke Like Symptoms COMPARISON STUDY: Head CT March 16, 2022. CT DOSE: 691.05 mGy.cm TECHNIQUE: Helical axial images of the head were obtained without IV contrast. Automated exposure con trol was utilized for the study. A dose lowering technique was utilized adhering to the principles o f ALARA. FINDINGS: No acute intracranial hemorrhage, midline shift or mass effect is present. The ventricular system is stable. 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 The appearance of the brain is unchanged. The basal cisterns are patent. No extra-axial collections are present. There are no findings to suggest acute dural sinus thrombosis or acute territorial infar ct. No significant calvarial abnormalities are present. Visualized portions of the sinuses and mastoi d air cells are clear. IMPRESSION: No acute intracranial findings. No change in appearance of the brain. Several old infarc ts. ACT 112: Negative or not required by law. Electronically signed by: Bandar Jules M.D. 04/06/2022 6:26 AM
--- NOTE | 2022-04-06 07:39 | Hospitalist Progress Note ---
Date of Service April 06, 2022 Assessment & Plan (1) Confusion: Plan: metabolic encephalopathy secondary to hyponatremia. admission Na of 123. beer potomania No seizure. -Na correction hypertonic saline given, moving in the right direction, now 128, gtt stopped holding diuretics and fluid restriction, caution with known HFrEF (2) Hyponatremia: Plan: [id number]=007 with confusion, altered mental status. No seizure. Suspect multifactorial - secondary to chronic EtOH use, low solute intake. Patient appears dry on exam -despite confusion family requiests the pt has beer daily, will give one and use prn ativan and gabapentin, if progresses to more fulminant withdrawal will initiate AWSS orders -Fluid restriction 1200mL/d -Continue boost (3) Chronic congestive heart failure: Plan: Appears compensated. -Continue Empagliflozin -will hold lasix given compensation and hyponatremia -Continue metoprolol and Entresto (4) CAD (coronary artery disease): Plan: CAD s/p catheterization on 03/24/22 with MOLLY x 2 to LCx -Continue ASA and Brillinta -Continue Atorvastatin -Continue Metoprolol (5) COPD, moderate: Plan: Chronic, stable -Albuterol PRN -Combivent (6) Hyperlipemia: Plan: Chronic -Continue Atorvastatin (7) Atrial fibrillation: Plan: Rate controlled. On Apixaban anticoagulation -Continue Amiodarone 200mg po BID -Continue Digoxin, check level -Continue Apixaban Admission and Anticipated Discharge Date Admission Date: April 06, 2022 Subjective pt is mildly confused and lethargic c/o feeling sob, has intact oxymetry and clear lungs to exam, wonder if could be anxiety or withdrawal request beer will give one a day have Ativan and Neurontin Review of Systems Review of Systems: Mild distress and moderate fatigue no headache, no visual changes no speech or swallowing issues no chest pain, pressure or palpitations subjective shortness of breath, cough or wheezes no abdominal pain, nausea or vomiting, diarrhea or constipation no dysuria, hematuria or frequency no focal joint pain or swelling no back pain, CVA tenderness or radicular pain no bruising, bleeding or rashes no focal signs of weakness or numbness or altered sensation no complaints of anxiety or depression.. Physical Exam Physical Exam: The patient appeared stable but fatigued Vital signs as documented. Head exam is normocephalic atraumatic Neck is without JVD, thyromegaly, or carotid bruits. Lungs are clear to auscultation, no focal loss of breath sounds Cardiac exam, Rhythm is regular.. No murmurs, rubs or gallops. Abdominal exam reveals normal bowel sounds, soft non tender, no masses Extremities are nonedematous and both pedal pulses are present Neurologic exam is alert and oriented x2, no focal loss of strength or sensation Skin is without bruises or rashes Psychologically is without concerns for anxiety or depression.. Results & Data Results & Data ([facility]) Vital Signs (Past 12 Hours) Vital Signs Temp Pulse Pulse Resp BP BP Pulse Ox 04/06/22 07:30 97.7 F 67 18 99/48 L 96 04/06/22 05:13 97.6 F 71 18 110/52 L 96 04/06/22 05:12 97.7 F 71 18 110/74 96 04/06/22 04:47 68 18 130/47 L 95 04/06/22 04:00 65 16 118/53 L 97 04/06/22 02:00 74 18 112/53 L 99 04/06/22 00:35 98 04/06/22 00:30 97.7 F 57 L 18 92/50 L 97 04/05/22 23:59 97.0 F L 59 L 18 96/54 L 98 Pulse Ox 04/06/22 07:30 04/06/22 05:13 04/06/22 05:12 96 04/06/22 04:47 04/06/22 04:00 04/06/22 02:00 04/06/22 00:35 04/06/22 00:30 04/05/22 23:59 PG Care Time/CCT Total # of Minutes Spent Total Time Spent with Patient: Total time spent is greater than 50% in coordination of care (as documented) at patient's floor/unit and/or counseling patient: Coding Level of Care Code 44294 Subseq Hosp Care Lvl 3 Diagnoses Confusion R41.0 Hyponatremia E87.1 Chronic congestive heart failure I50.9 CAD (coronary artery disease) I25.10 COPD, moderate J44.9 Hyperlipemia E78.5 Atrial fibrillation I48.91
[2022-04-06] MEDS: IPRATROPIUM BROMIDE HFA INHALER INH SCH ×4 (07:57→21:07)
[2022-04-06] MEDS: ALBUTEROL HFA 8 GM INHALER INH SCH ×4 (07:57→21:07)
[2022-04-06] MEDS: AMIODARONE 200 MG TAB PO SCH ×2 (08:27→17:02)
[2022-04-06] MEDS: PANTOprazole 40 MG TAB PO SCH (08:28)
[2022-04-06] MEDS: TICAGRELOR 90 MG TAB PO SCH ×2 (08:28→20:28)
[2022-04-06] MEDS: SPIRONOLACTONE 25 MG TAB PO SCH (08:28)
[2022-04-06] MEDS: VALSARTAN/SACUBITRIL 26/24MG TAB PO SCH ×2 (08:28→20:29)
[2022-04-06] MEDS: APIXABAN 5 MG TABLET PO SCH ×2 (08:28→20:27)
[2022-04-06] MEDS: ASPIRIN 81 MG ECTAB PO SCH (08:28)
[2022-04-06] MEDS: METOPROLOL SUCC 50MG EXT REL TAB PO SCH (08:29)
[2022-04-06] MEDS ORDERED: FUROSEMIDE 40 MG TAB PO SCH (09:00)
[2022-04-06] MEDS ORDERED: IPRATROPIUM BROMIDE/ALBUTEROL respimat INH INH SCH (09:00)
[2022-04-06 10:19] LABS: BUN Creatinine Ratio 12.1 (10-20); Calcium 8.3 mg/dl (8.5-10.1); Creatinine Clr Calc Pharmacy 59.7 ml/min; Est GFR (African American) 78.3 ml/min; Est GFR (Non-African American) 67.5 ml/min; Potassium 4.6 mmol/L (3.5-5.1)
[2022-04-06] MEDS ORDERED: LORazepam 2 MG/1 ML VIAL IV PRN (12:02)
[2022-04-06 13:51] LABS: BUN Creatinine Ratio 12.6 (10-20); Calcium 8.5 mg/dl (8.5-10.1); Est GFR (Non-African American) 70.7 ml/min; Potassium 4.6 mmol/L (3.5-5.1)
--- NOTE | 2022-04-06 16:16 | Electrocardiogram Report ---
Test Reason : Blood Pressure : / mmHG Vent. Rate : 059 BPM Atrial Rate : 300 BPM P-R Int : 000 ms QRS Dur : 100 ms QT Int : 444 ms P-R-T Axes : 000 009 -15 degrees QTc Int : 439 ms Atrial flutter with variable A-V block with occasional ventricular-paced complexes Low voltage QRS Abnormal ECG When compared with ECG of 26-MAR-2022 05:43, Electronic ventricular pacemaker now present Confirmed by Kareem Nunez ([id number]) on 04/06/2022 4:16:34 PM Referred By: REFERRED SELF Confirmed By:Kareem Nunez
[2022-04-06] MEDS: BEER 1 CAN PO SCH (17:02)
[2022-04-06 17:27] LABS: BUN Creatinine Ratio 14.3 (10-20); Calcium 8.6 mg/dl (8.5-10.1); Creatinine Clr Calc Pharmacy 70.1 ml/min; Est GFR (African American) 95.2 ml/min; Est GFR (Non-African American) 82.2 ml/min; Potassium 4.5 mmol/L (3.5-5.1)
[2022-04-06] MEDS: GABAPENTIN 100 MG CAP PO SCH (20:27)
[2022-04-06] MEDS: ATORVASTATIN 40 MG TAB PO SCH (20:27)
[2022-04-06] MEDS: TAMSULOSIN HCL 0.4 MG CAP PO SCH (21:10)
[2022-04-06 21:20] LABS: BUN Creatinine Ratio 13.7 (10-20); Calcium 8.5 mg/dl (8.5-10.1); Creatinine Clr Calc Pharmacy 62.6 ml/min; Est GFR (African American) 82.9 ml/min; Est GFR (Non-African American) 71.6 ml/min; Potassium 4.8 mmol/L (3.5-5.1)
[2022-04-07 06:38] LABS: Hematocrit (blood only) 34.8 % (42-52); Hemoglobin 12.1 g/dL (14.0-18.0); Mean Corpuscular Hemoglobin 34.7 pg (25-34); Mean Corpuscular Hgb Conc 34.8 g/dL (32-36); Mean Corpuscular Volume 99.7 fL (80-100); Platelet Count 437 K/uL (130-400); RDW Coefficient of Variation 12.8 % (11.5-14.5); RDW Standard Deviation 46.6 fL (36.4-46.3); Red Blood Count 3.49 M/uL (4.7-6.1); White Blood Count 9.27 K/uL (4.8-10.8)
[2022-04-07] MEDS: ALBUTEROL HFA 8 GM INHALER INH SCH ×4 (07:02→19:24)
[2022-04-07] MEDS: IPRATROPIUM BROMIDE HFA INHALER INH SCH ×4 (07:02→19:23)
[2022-04-07 07:11] LABS: BUN Creatinine Ratio 11.9 (10-20); Calcium 8.6 mg/dl (8.5-10.1); Est GFR (African American) 99.3 ml/min; Est GFR (Non-African American) 85.7 ml/min; Magnesium 2.2 mg/dl (1.7-2.4); Potassium 4.5 mmol/L (3.5-5.1)
[2022-04-07] MEDS: FUROSEMIDE 40 MG TAB PO SCH (07:52)
[2022-04-07] MEDS: TICAGRELOR 90 MG TAB PO SCH ×2 (07:52→20:32)
[2022-04-07] MEDS: SPIRONOLACTONE 25 MG TAB PO SCH (07:52)
[2022-04-07] MEDS: VALSARTAN/SACUBITRIL 26/24MG TAB PO SCH ×2 (07:52→21:38)
[2022-04-07] MEDS: METOPROLOL SUCC 50MG EXT REL TAB PO SCH (07:52)
[2022-04-07] MEDS: PANTOprazole 40 MG TAB PO SCH (07:53)
[2022-04-07] MEDS: GABAPENTIN 100 MG CAP PO SCH ×3 (07:53→20:32)
[2022-04-07] MEDS: APIXABAN 5 MG TABLET PO SCH ×2 (07:53→20:29)
[2022-04-07] MEDS: ASPIRIN 81 MG ECTAB PO SCH (07:53)
[2022-04-07] MEDS: AMIODARONE 200 MG TAB PO SCH ×2 (09:05→17:12)
[2022-04-07] MEDS: BEER 1 CAN PO SCH (13:28)
--- NOTE | 2022-04-07 13:31 | Hospitalist Progress Note ---
Date of Service April 07, 2022 Assessment & Plan (1) Confusion: Plan: metabolic encephalopathy secondary to hyponatremia. admission Na of 123. beer potomania No seizure. -Na correction hypertonic saline given, moving in the right direction, continued infusion stopped, sodium improving on lasix daiy and fluid restriction, caution with known HFrEF (2) Hyponatremia: Plan: Wi=451 with confusion, altered mental status. No seizure. Suspect multifactorial - secondary to chronic EtOH use, low solute intake. Patient appears dry on exam -despite confusion family requiests the pt has beer daily, will give one and use prn ativan and gabapentin, if progresses to more fulminant withdrawal will initiate AWSS orders -Fluid restriction 1200mL/d -Continue boost (3) Chronic congestive heart failure: Plan: Appears compensated. -Continue Empagliflozin -Continue fursosemide metoprolol and Entresto (4) CAD (coronary artery disease): Plan: CAD s/p catheterization on 03/24/22 with MOLLY x 2 to LCx -Continue ASA and Brillinta -Continue Atorvastatin -Continue Metoprolol (5) COPD, moderate: Plan: Chronic, stable -Albuterol PRN -Combivent (6) Hyperlipemia: Plan: Chronic -Continue Atorvastatin (7) Atrial fibrillation: Plan: Rate controlled. On Apixaban anticoagulation -Continue Amiodarone 200mg po BID -Continue Digoxin, check level is therapeutic -Continue Apixaban Admission and Anticipated Discharge Date Admission Date: April 06, 2022 Subjective pt is mildly confused more alert and appropriate no continued complaints of sob since sodium is improving will have some laxity in beer administration to 2 beers a day Review of Systems Review of Systems: Mild distress and moderate fatigue no headache, no visual changes no speech or swallowing issues no chest pain, pressure or palpitations subjective shortness of breath, cough or wheezes no abdominal pain, nausea or vomiting, diarrhea or constipation no dysuria, hematuria or frequency no focal joint pain or swelling no back pain, CVA tenderness or radicular pain no bruising, bleeding or rashes no focal signs of weakness or numbness or altered sensation no complaints of anxiety or depression.. Physical Exam Physical Exam: The patient appeared stable but fatigued Vital signs as documented. Head exam is normocephalic atraumatic Neck is without JVD, thyromegaly, or carotid bruits. Lungs are clear to auscultation, no focal loss of breath sounds Cardiac exam, Rhythm is regular.. No murmurs, rubs or gallops. Abdominal exam reveals normal bowel sounds, soft non tender, no masses Extremities are nonedematous and both pedal pulses are present Neurologic exam is alert and oriented x2, no focal loss of strength or sensation Skin is without bruises or rashes Psychologically is without concerns for anxiety or depression.. Results & Data Results & Data ([facility]) Vital Signs (Past 12 Hours) Vital Signs Temp Pulse Resp BP BP Pulse Ox 04/07/22 11:58 97.9 F 61 18 97/52 L 97 04/07/22 11:05 82 18 95 04/07/22 08:03 97.3 F L 64 22 101/48 L 95/37 L 97 04/07/22 07:09 77 18 97 04/07/22 04:22 97.7 F 74 16 108/54 L 95 PG Care Time/CCT Total # of Minutes Spent Total Time Spent with Patient: Total time spent is greater than 50% in coordination of care (as documented) at patient's floor/unit and/or counseling patient: Coding Level of Care Code 65867 Subseq Hosp Care Lvl 3 Diagnoses Confusion R41.0 Hyponatremia E87.1 Chronic congestive heart failure I50.9 CAD (coronary artery disease) I25.10 COPD, moderate J44.9 Hyperlipemia E78.5 Atrial fibrillation I48.91
[2022-04-07] MEDS ORDERED: DIGOXIN 0.125 MG TAB PO SCH (16:00)
[2022-04-07] MEDS: TAMSULOSIN HCL 0.4 MG CAP PO SCH (20:30)
[2022-04-07] MEDS: ATORVASTATIN 40 MG TAB PO SCH (20:31)
[2022-04-08 00:59] VITALS: TEMP 97.5
[2022-04-08 06:24] LABS: Hematocrit (blood only) 34.9 % (42-52); Hemoglobin 12.4 g/dL (14.0-18.0); Mean Corpuscular Hemoglobin 35.1 pg (25-34); Mean Corpuscular Hgb Conc 35.5 g/dL (32-36); Mean Corpuscular Volume 98.9 fL (80-100); Mean Platelet Volume 8.1 fL (7.4-10.4); Platelet Count 381 K/uL (130-400); RDW Coefficient of Variation 12.9 % (11.5-14.5); RDW Standard Deviation 46.6 fL (36.4-46.3); Red Blood Count 3.53 M/uL (4.7-6.1); White Blood Count 8.38 K/uL (4.8-10.8)
[2022-04-08 06:45] LABS: BUN Creatinine Ratio 15.2 (10-20); Calcium 8.8 mg/dl (8.5-10.1); Creatinine Clr Calc Pharmacy 64.5 ml/min; Est GFR (Non-African American) 74.2 ml/min; Magnesium 2.1 mg/dl (1.7-2.4); Potassium 4.4 mmol/L (3.5-5.1)
[2022-04-08] MEDS: ASPIRIN 81 MG ECTAB PO SCH (07:50)
[2022-04-08] MEDS: APIXABAN 5 MG TABLET PO SCH (07:51)
[2022-04-08] MEDS: SPIRONOLACTONE 25 MG TAB PO SCH (07:51)
[2022-04-08] MEDS: FUROSEMIDE 40 MG TAB PO SCH (07:51)
[2022-04-08] MEDS: GABAPENTIN 100 MG CAP PO SCH ×2 (07:51→13:01)
[2022-04-08] MEDS: PANTOprazole 40 MG TAB PO SCH (07:51)
[2022-04-08] MEDS: AMIODARONE 200 MG TAB PO SCH (07:52)
[2022-04-08] MEDS: TICAGRELOR 90 MG TAB PO SCH (07:52)
[2022-04-08] MEDS: VALSARTAN/SACUBITRIL 26/24MG TAB PO SCH (08:44)
[2022-04-08] MEDS: METOPROLOL SUCC 50MG EXT REL TAB PO SCH (08:44)
[2022-04-08] MEDS ORDERED: BEER 1 CAN PO SCH (09:00)
[2022-04-08] MEDS: ALBUTEROL HFA 8 GM INHALER INH SCH ×2 (09:18→11:07)
[2022-04-08] MEDS: IPRATROPIUM BROMIDE HFA INHALER INH SCH ×2 (09:18→11:08)
[2022-04-08 11:09] VITALS: PULSE 73
[2022-04-08 11:31] VITALS: O2SAT 98
--- NOTE | 2022-04-08 12:25 | Discharge Summary ---
Date of Service April 08, 2022 Admission HPI Per Admitting Provider Alfredo Almeida is a 76yo male with history of CAD s/p MOLLY x 2 to LCx, HTN, CHF, PAF on Eliquis anticoagulation and daily EtOH use. Patient was recently hospitalized 03/16 - 03/27/22 after presenting with confusion. He was found to be in AF with RVR, acute decompensated CHF and hyponatremic. Patient had NSTEMI during that hospital stay and had catheterization on 03/24 wthi 90% LAD in-stent restenosis and 90% mid-LCx stenosis. He had MOLLY x 2 placed to the LCx and PTCA of the LAD. Patient was also treated for PNA during that hospital stay. He had Covid-19 -first positive test on 03/02. He has tested positive on s ubsequent occasions. He does not need airborne isolation per infection control during last admission. Patient returns to the ER tonight with confusion. He woke his at 23:30 stating that he felt confused and didn't know what pills to take. states that he was a "little off" since this afternoon - mildly confused, poor appetite and decreased intake No report of fever, chills, chest pain, cough, abdominal pain, nausea, vomiting, diarrhea or constipation Patient does report feeling SOB ER Course: 500mL nSS Principal Diagnosis Hyponatremia weakness Discharge Exam The patient appeared stable Vital signs as documented. Lungs are clear to auscultation and appear unlabored Cardiac exam, Rhythm is regular.. Abdominal exam reveals normal bowel sounds, soft non tender, no masses Extremities are nonedematous and both pedal pulses are normal. 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 CT DOSE: 691.05 mGy.cm TECHNIQUE: Helical axial images of the head were obtained without IV contrast. Automated exposure control was utilized for the study. A dose lowering technique was utilized adhering to the principles of ALARA. FINDINGS: No acute intracranial hemorrhage, midline shift or mass effect is present. The ventricular system is stable. 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 The appearance of the brain is unchanged. The basal cisterns are patent. No extra-axial collections are present. There are no findings to suggest acute dural sinus thrombosis or acute territorial infarct. No significant calvarial abnormalities are present. Visualized portions of the sinuses and mastoid air cells are clear. IMPRESSION: No acute intracranial findings. No change in appearance of the brain. Several old infarcts. ACT 112: Negative or not required by law. Electronically signed by: Bandar Jules M.D. 04/06/2022 6:26 AM Hospital Course (1) Confusion: REsolved metabolic encephalopathy secondary to hyponatremia. admission Na of 123. beer potomania No seizure. (2) Hyponatremia: [id number] with confusion, altered mental status. No seizure. Suspect multifactorial - secondary to chronic EtOH use, low solute intake. (3) Chronic congestive heart failure: Appears compensated. -Continue Empagliflozin -Continue spironolactone metoprolol and Entresto (4) CAD (coronary artery disease): CAD s/p catheterization on 03/24/22 with MOLLY x 2 to LCx -Continue ASA and Brillinta -Continue Atorvastatin -Continue Metoprolol (5) COPD, moderate: Chronic, stable -Albuterol PRN -Combivent (6) Hyperlipemia: Chronic -Continue Atorvastatin (7) Atrial fibrillation: Rate controlled. On Apixaban anticoagulation -Continue Amiodarone 200mg po BID -Continue Digoxin, check level is therapeutic -Continue Apixaban pt was seen by PT recommends home walker and will have home health visits I certify that this patient is under my care and that I, or a physicians critical care physician assistant working with me, had a face to-face encounter that meets the home health [id number] encounter requirements with this patient. The encounter with the patient was in whole, or in part, for the following medical condition, which is the primary reason for home health care (list medical condition): weakness and hyponatremia Nursing/PT I certify that, based on my findings, the following services are medically necessary home health services: My clinical findings support the need for the above services because: Caregiver Instruct Med Mgmt, Safety, Disease Process, Signs to Report Daily Weights Home Safety Assessment Hydration / Nutrition Medication Compliance and Monitoring Effective of New Medications PT Eval for Safety and Mobility Skilled Nsg Assess Pt Illness, Disease and Sx Monitoring S/S to Report to Provider Teach on Disease Management and Interventions Vital Signs Weekly Labs Further, I certify that my clinical findings support that this patient is homebound (i.e. absences from home require considerable and taxing effort and are for medical reasons or rastafari services or infrequently or of short duration when for other reasons) because: Supportive Aid - Walker Certification for Home Health Services: Based on the above findings, I certify that this patient is confined to the home and needs intermittent shelter care, physical therapy and/or speech therapy or continues to need occupational therapy. The patient is under my care, and I have initiated the establishment of the plan of care. This patient will be followed by a physician who will periodically review the plan of care. Total Time Total Time Spent Total Time Spent (In Minutes): It required greater than 30 minutes to prepare this patient for discharge Discharge Plan Discharge Items Patient Disposition: Home - Home Health Services Reason For Visit: CONFUSION, HYPONATREMIA Discharge Diagnosis: Low blood sodium Confusion secondary to low blood sodium Chronic systolic heart failure Activity: Per Instructions section Activity Comment: Please use a walker until instructed not to by home health or home PT Non-emergency contact: Primary Care Provider, Shop Clerk and [employer] Mixer Call non-emergency contact if: your symptoms worsen and you have a fever Follow-up/Referrals: Aquilino Silver III, CRNP [Primary Care Provider] - Diet: Regular Ambulatory Orders: Basic Metabolic Panel (Routine) Timeframe: 3 Days Location: Determined by Patient Ordered By: Gregg Anderson Attending Provider Instructions: You were diagnosed with hyponatremia, which means your blood level of sodium (salt) is too low. Salt is needed for the body and brain to work. Very low blood levels of sodium can be fatal. Symptoms can include headache, confusion, fatigue, muscle cramps, hallucinations, seizures, and coma.You have been treated to raise your blood levels of sodium. These instructions will help you care for yourself at home as you have been instructed. low salt levels are typically not from low salt but excess total body water diluting the salt you have. Home care * Limit your intake of fluids. Drink only if you are thirsty and try to drink thinks other than plain water. * have outpatient blood work checked if recommended-> once weekly for one month * Keep all follow-up appointments. Your provider needs to watch your condition closely. To help prevent hyponatremia: * Take all medicines exactly as directed. Certain medicines can lower blood sodium levels. * If you have done something that makes you sweat a lot, drink fluids that contain salt and other electrolytes. * Tell all healthcare providers what medicines you take. Mention all prescription and [id number] drugs and herbs. * Have your sodium levels checked often. This is vital if you take a diuretic (medicine that helps your body get rid of water). * Avoid alcohol Call 911 and go to the Emergency Room if: * You have tightness or pain in your chest that does not go away with rest or Nitroglycerin * You are very short of breath even with rest Call your doctor if any of the following symptoms or problems start or get worse: * Shortness of breath or difficulty breathing * Wake up at night short of breath * Chest pain * Cough * Swelling of your hands, fee, or legs * More fatigued or tired with your normal activity * Palpitations - sudden fast heart beats WEIGHT * Weigh yourself every morning after using the bathroom. * Use the same scale. * Wear the same amount of clothing. * Write your weight down on your chart. * Call your doctor if you gain more than 2-3 pounds in 1-2 days. MEDICATIONS * Use this discharge instruction sheet for instructions. * Take your medications at the time your doctor ordered. * Do not skip a dose of your medicines. * If you miss a dose of medicine, take as soon as possible, but DO NOT DOUBLE A DOSE. * Read your medicine information when you get home. * Know all of the side effects of your medicine. * Call your doctor's office if you have any side effects. * Be sure all of your doctors know what medicine and herbs you take (including cold, flu, and herbal medicine). * Pain Medicine: If you do not get relief from your pain, please call your doctor for help. Take the following with you to your follow-up doctor appointments: * Weight Chart * Medication List * List of questions Do not drink excessive alcohol, beer or wine. Pending Studies at Discharge: No Stand-Alone Forms: My [id number], Smoking Cessation Medications and DC Order Prescriptions: Continued nitroglycerin 0.4 mg tablet, sublingual 0.4 mg SL Q5M PRN (Reason: Chest Pain) RF: 0 apixaban 5 mg tablet 5 mg PO BID Qty: 60 RF: 2 ipratropium bromide 21 mcg (0.03 %) spray,non-aerosol 2 spray intranasal BID Qty: 30 RF: 5 atorvastatin 80 mg tablet 40 mg PO HS RF: 0 Entresto 24-26 mg tablet 1 tab PO BID RF: 0 Jardiance 10 mg tablet 10 mg PO QAM RF: 0 cholecalciferol (vitamin D3) 25 mcg (1,000 unit) capsule 25 mcg PO QAM RF: 0 aspirin 81 mg Tablet,Delayed Release (Dr/Ec) 81 mg PO QAM RF: 0 tamsulosin 0.4 mg capsule 0.4 mg PO HS RF: 0 Neuriva Plus 0.85 mg-200 mcg-1.2 mcg tablet,chewable 1 tab PO QAM RF: 0 amiodarone 200 mg Tablet 200 mg PO BIDM Qty: 60 RF: 0 potassium chloride 20 mEq Tablet,Er Particles/Crystals 20 meq PO QAM Qty: 30 RF: 0 pantoprazole 40 mg Tablet,Delayed Release (Dr/Ec) 40 mg PO QAM Qty: 30 RF: 0 folic acid 1 mg Tablet 1 mg PO QAM Qty: 30 RF: 0 Brilinta 90 mg Tablet 90 mg PO BID Qty: 60 RF: 0 metoprolol succinate 50 mg tablet extended release 24 hr 50 mg PO QAM RF: 0 digoxin [Digitek] 125 mcg (0.125 mg) tablet 125 mcg PO Q OTHER DAY RF: 0 Changed spironolactone 25 mg Tablet 50 mg PO QAM Qty: 60 RF: 0 Discontinued furosemide 40 mg Tablet 40 mg PO QAM Qty: 30 RF: 0 furosemide 20 mg Tablet 20 mg PO DAILY@1600 Qty: 30 RF: 0 Admission Data Admit Date/Time: 04/06/22 02:37 Attending Provider: Gregg Pond Admit Provider: Ghislaine Vila Primary Care Provider: Aquilino Silver III Other Providers: Ghislaine Vila Coding Level of Care Code D/C DAY MANAGEMENT >30 MINS Diagnoses Confusion R41.0 Hyponatremia E87.1 Chronic congestive heart failure I50.9 CAD (coronary artery disease) I25.10 COPD, moderate J44.9 Hyperlipemia E78.5 Atrial fibrillation I48.91
[2022-04-08 14:19] VITALS: BP 91/52
== END 2022-04-08 14:50 | disposition home health service (06) | DRG 640 ==
LOC: ED 23:56 → 2E 04-06 02:37 → SUATTDRO 04-06 02:37 → 2E 04-06 04:47

== ENCOUNTER 2023-03-08 08:18 | Inpatient (IN) ==
--- NOTE | 2023-03-08 09:11 | Emergency Department Note ---
Impression & Plan Dyspnea, Hypoxia, COPD (chronic obstructive pulmonary disease), Permanent atrial fibrillation, Hyponatremia, Pulmonary edema ED Provider Note ED Provider Note NAME: SUSANNA ASKEW AGE:77 SEX: Male : 1945 ARRIVES VIA: Private vehicle INFORMANT: Patient ED PROVIDER(s): Brina Todd DO CHIEF COMPLAINT: Shortness of breath HPI: This is a 77-year-old male presents emergency department due to concern for increased shortness of breath. Patient states he had began feeling a little more short of breath compared to normal over the last several days however this morning at 5 AM it was profoundly worse. He states he took 3 treatments of his inhaler without any significant relief. Family at bedside states they put the pulse oximeter on his finger and still read 80%. Patient denies any coming chest pain, dizziness, or nausea but states he did become slightly sweaty. He denies any recent illness, fevers or chills, or change in sputum. Patient does have a history of COPD but does not wear home oxygen. Patient does have extensive cardiac history. Family bedside states patient does drink alcohol nightly, typically 6-8 beers, however last night they saw 9 cans. She states recent outpatient labs had showed that his sodium was lower compared to prior levels. Patient does have a pacemaker/defibrillator additionally. He follows with Dr. Delatorre of cardiology locally, as well as a Dr. Witt in [place]. PAST MEDICAL HISTORY:See Below PAST SURGICAL HISTORY:See Below FAMILY HISTORY:See Below SOCIAL HISTORY:See Below HOME MEDICATIONS:See Below ALLERGIES:See Below VITALS:See Below PHYSICAL EXAMINATION: GENERAL: alert, well appearing, well nourished, no distress, non-toxic, 87% on RA. EYE EXAM: normal conjunctiva, PERRL and EOM's grossly intact OROPHARYNX: no exudate, no erythema, lips, buccal mucosa, and tongue normal and mucous membranes are moist NECK: supple, no nuchal rigidity, no adenopathy, non-tender LUNGS: Decreased b/l to auscultation. Normal chest wall mechanics, no w/r/r, no incr WOB, no retractions HEART: no murmurs, S1 normal and S2 normal ABDOMEN: abdomen soft, non-tender, normo-active bowel sounds, no masses, no rebound or guarding. BACK: Back is symmetrical on inspection and there is no deformity, no midline tenderness, no CVA tenderness. SKIN: no rashes, petechiae, orbruising UPPER EXTREMITIES: upper extremities are grossly normal. FROM, nml pulses b/l. LOWER EXTREMITIES: No pitting edema. FROM, nml pulses b/l. NEURO EXAM: Normal sensorium, cranial nerves II-XII grossly intact, normal speech, no facial droop,nogross weakness of arms, no gross weakness of legs. Gross sensation intact. No ataxia. Vital Signs: reviewed and remarkable Differential Diagnosis: COPD exacerbation, pneumonia, URI, CHF, ACS, electrolyte abnormality, dysrhythmia, medication ADR, pericarditis/myocarditis, as well as others were considered MEDICAL DECISION MAKING: THis is a 77 yo male who presents with increased SOB. Patient cardiac and pulmonary hx. He is anticoagulated. Family at bedside helps with history. Patient to be hypoxic on my exam. Labs drawn and sent, IV established, EKG and CXR performed and interpreted at bedside, and patient placed on telemetry. He declined neb treatment and was placed on oxygen via NC. I reviewed cardiac hx. Labs and imaging reviewed. He was given lasix additionally. Family states he uses that prn not daily. No evidence of acute URI. Hyponatremia noted and chronic, likely from beer potomania. Patient on chronic anticoagulation so I do not suspect PE. CXR with evidence of evolving pulmonary edema. Troponin negative and BNP elevated. EKG without acute changes. All results discussed with pt and family. Case discussed with hospitalist team. Consultation(s): 1020: Discussed with JULIA Lane with [facility] hospitalist team. ER Treatment Provided: See below 1002: Patient and family updated at bedside. Patient did not take any of his home medications. He declined additional breathing treatment here stating he feels well at rest. It was noted by nursing staff the patient became hypoxic again and dropped his oxygen sat to the mid to upper 80s. Diagnostics Interpreted By Me: -ECG: Atrial fibrillation at 110, normal axis, normal intervals, nonspecific ST/T wave changes, PVCs noted -Cardiac Monitoring: An order was placed for continuous cardiac monitoring. The monitor shows a rate of 102 with atrial fibrillation rhythm. -Laboratory studies: As stated above and show below. -Imaging studies: X-ray Chest: A single view study of the chest was reviewed and was negative for focal infiltrate, effusion, or wide mediastinum. Appearance of CM, pulmonary edema, and pacemaker noted. Triage Nursing Note Reviewed Prior/Outside Records Reviewed - prior echo reviewed Procedures: [] Critical Care: [] Past Med/Surg History Medical History Acute on chronic systolic CHF (congestive heart failure) Alcohol abuse Atrial fibrillation Atrial fibrillation with rapid ventricular response Atrial flutter CAD (coronary artery disease) Cardiac defibrillator in place Cardiomyopathy Factor V Leiden diagnosed due to family history- no personal hx of blood clots/bleeding issues Factor V Leiden Heart attack 1999 History of heart attack 1999 Hyperlipidemia Malignant neoplasm of prostate IA (myocardial infarction) NSTEMI (non-ST elevated myocardial infarction) Pacemaker PPM/ICD- Implanted 2008/[employer]/last check 06/2019 per patient Paroxysmal atrial fibrillation Prostate cancer Prostate cancer Respiratory failure with hypoxia Tobacco abuse Surgical History History of appendectomy History of cardiac cath 1999 History of colonoscopy History of tonsillectomy History of total right knee replacement Previous back surgery Lumbar spine surgery S/P angioplasty with stent S/P coronary artery stent placement Family History Mother , in her 60s of unknown cause Alzheimer disease Father , in his 70s Prostate cancer Cardiac disease Glaucoma Alzheimer disease Brother Heart transplant recipient Brother No problems noted. Brother No problems noted. Brother No problems noted. Sister No problems noted. Sister No problems noted. Daughter No problems noted. Daughter No problems noted. Social History Smoking Status: Current every day smoker Tobacco Type: Cigars Age Started Using Tobacco: 21; Cigarettes Per Day: pack/day; Second Hand Exposure: No; Do You Dip or Chew Tobacco: No; Tobacco Cessation Education Requested by Patient: No Hx Alcohol Use: Yes Alcohol type: beer Alcohol Intake Frequency: 4 or More x per/Week Hx Substance Use: No Preferred Language: Bengali Communication Ability: Effective Communication Ability Comment: difficult to hear Visual Impairment: No Limitations Hearing Ability: Normal Media Strategist Required: No Beliefs That Will Affect Care: None marital status: Current Living Situation: Spouse current occupational status: retired current occupation: retired Other Information That Helps Us Care for You: No Feels Safe at Home: Yes Safety Concerns: Feels Safe At This Time Childhood Exposure to Second-Hand Smoke: Yes Diet: regular caffeine: Yes (3 mugs/day) during the past year weight has: remained stable Dental Care, Regularly: Yes Physical Activity Frequency: Does not Exercise Seatbelt Use: always Sunscreen Use: No Assistive Devices: Cane Allergies Allergies Allergy/AdvReac Type Severity Reaction Status Date / Time morphine Allergy Intermediate Swelling Verified 03/02/23 14:46 clopidogrel Allergy Unknown Unknown Verified 03/02/23 14:46 reaction fluticasone furoate AdvReac Intermediate Pain Verified 03/02/23 14:46 [From Trelegy Ellipta] behind the eyes umeclidinium AdvReac Intermediate Pain Verified 03/02/23 14:46 [From Trelegy Ellipta] behind the eyes vilanterol AdvReac Intermediate Pain Verified 03/02/23 14:46 [From Trelegy Ellipta] behind the eyes HAND DIRECT[employer] OF EM[employer] (ALCOHOL Allergy Severe SHORTNESS Uncoded 03/02/23 14:46 BASED) OF BREATH - SEE NOTES Home Meds Home Medications Medication Instructions Recorded Confirmed nitroglycerin 0.4 mg sublingual 0.4 mg sublingual Q5M PRN Chest 10/13/19 03/08/23 tablet Pain atorvastatin 80 mg tablet 40 mg PO HS 10/27/19 03/08/23 cholecalciferol (vitamin D3) 25 25 mcg PO QAM 08/17/21 03/08/23 mcg (1,000 unit) capsule empagliflozin 10 mg tablet 10 mg PO QAM 08/17/21 03/08/23 (Jardiance) B6 0.85 mg-folic 200 1 tab PO QAM 03/02/22 03/08/23 [id number] oral chewable tablet (Neuriva Plus) tamsulosin 0.4 mg capsule 0.4 mg PO HS 03/02/22 03/08/23 metoprolol succinate 50 mg 50 mg PO QAM 04/06/22 03/08/23 tablet,extended release 24 hr furosemide 20 mg tablet 20 mg PO DAILY PRN Fluid Retention 05/26/22 03/08/23 thiamine HCl (vitamin B1) 100 mg 100 mg PO DAILY 07/25/22 03/08/23 tablet aspirin 81 mg tablet,delayed 81 mg PO DAILY 02/22/23 03/08/23 release Previous Rx's Medication Instructions Recorded apixaban 5 mg tablet 5 mg PO BID #60 tabs 03/14/21 ipratropium bromide 21 mcg (0.03 2 spray intranasal BID #30 mL 07/15/21 %) nasal spray folic acid 1 mg tablet 1 mg PO QAM #30 tabs 03/27/22 mometasone-formoterol HFA 200 2 puff inhalation BID #13 grams 06/29/22 mcg-5 mcg/actuation aerosol inhaler (Dulera) pantoprazole 40 mg tablet,delayed 40 mg PO DAILY #30 tabs 06/29/22 release sacubitril 49 mg-valsartan 51 mg 1 tab PO BID #60 tabs 06/29/22 tablet (Entresto) levalbuterol tartrate 45 See Rx Instructions inhalation 08/28/22 mcg/actuation aerosol inhaler .COMPLEX PRN shortness of breath (Xopenex HFA) or wheezing #15 grams Results & Data (ED) Vital Signs Vital Signs - 24 hr 03/08/23 08:23 03/08/23 08:45 03/08/23 09:05 Temperature 36.7 C Temperature Source Oral Pulse Rate 115 H 100 H Pulse Rate from SpO2 Sensor Pulse Rhythm Regular Pulse Strength Normal Respiratory Rate 16 Respiratory Effort / Characteristics Non-Labored Spontaneous Respiratory Depth Normal Respiratory Pattern Regular Blood Pressure 126/78 Blood Pressure Mean 94 Blood Pressure Position Sitting Pulse Oximetry 90 88 L Oxygen Delivery Method Room Air Room Air Nasal Cannula Oxygen Flow Rate 0 Sepsis Recent Fever Within 48 Hours No Sepsis New/Unexplained Change in Mental Status No Sepsis Action Taken by Nursing No Action Required Oxygen Flow Rate - Titration 2 Pulse Oximetry Post Tiitration 94 03/08/23 09:00 03/08/23 09:00 03/08/23 10:00 Temperature Temperature Source Pulse Rate 104 H Pulse Rate from SpO2 Sensor 108 H Pulse Rhythm Pulse Strength Respiratory Rate 24 Respiratory Effort / Characteristics Respiratory Depth Respiratory Pattern Blood Pressure 132/68 141/90 H Blood Pressure Mean 89 107 Blood Pressure Position Pulse Oximetry 96 Oxygen Delivery Method Oxygen Flow Rate Sepsis Recent Fever Within 48 Hours Sepsis New/Unexplained Change in Mental Status Sepsis Action Taken by Nursing Oxygen Flow Rate - Titration Pulse Oximetry Post Tiitration 03/08/23 10:00 Temperature Temperature Source Pulse Rate 99 H Pulse Rate from SpO2 Sensor 105 H Pulse Rhythm Pulse Strength Respiratory Rate 22 Respiratory Effort / Characteristics Respiratory Depth Respiratory Pattern Blood Pressure Blood Pressure Mean Blood Pressure Position Pulse Oximetry 97 Oxygen Delivery Method Oxygen Flow Rate Sepsis Recent Fever Within 48 Hours Sepsis New/Unexplained Change in Mental Status Sepsis Action Taken by Nursing Oxygen Flow Rate - Titration Pulse Oximetry Post Tiitration Laboratory Data 03/08/23 08:47 03/08/23 08:47 Lab Results 03/08/23 03/08/23 03/08/23 Range/Units 08:47 08:47 08:47 WBC 7.23 (4.8-10.8) K/ul RBC 4.15 L (4.70-6.10) M/uL Hgb 14.4 (14.0-18.0) g/dl Hct 39.8 L (42.0-52.0) % MCV 95.9 (80.0-100.0) fL MCH 34.7 H (25.0-34.0) pg MCHC 36.2 H (32.0-36.0) g/dL RDW Std Deviation 46.3 (36.4-46.3) fL RDW Coeff of Marlyn 12.9 (11.5-14.5) % Plt Count 299 (130-400) K/uL MPV 8.3 L (9.4-12.4) fL Immature Gran % (Auto) 0.4 % Neut % (Auto) 79.6 % Lymph % (Auto) 8.7 % Mclean % (Auto) 9.8 % Eos % (Auto) 1.1 % Baso % (Auto) 0.4 % Neut # (Auto) 5.75 (1.40-6.50) K/uL Lymph # (Auto) 0.63 L (1.2-3.4) K/uL Mclean # (Auto) 0.71 H (0.11-0.59) K/uL Eos # (Auto) 0.08 (0-0.50) K/uL Baso # (Auto) 0.03 (0-0.2) K/uL Immature Gran # (Auto) 0.03 (0.01-0.20) K/uL Sodium 129 L (136-145) mmol/L Potassium 4.2 (3.5-5.1) mmol/L Chloride 98 (98-107) mmol/L Carbon Dioxide 23 (21-32) mmol/L Anion Gap 8 (3-11) BUN 9 (6-23) mg/dl Creatinine 0.78 (0.6-1.4) mg/dl Est Cr Clr Drug Dosing 67.5 ml/min Est GFR ( Amer) 101.6 ml/min Est GFR (Non-Af Amer) 87.7 ml/min BUN/Creatinine Ratio 11.5 (10-20) Glucose 96 (70-99(Fasting)) mg/dl Calcium 9.0 (8.6-10.3) mg/dl Magnesium 1.8 (1.7-2.4) mg/dl Total Bilirubin 1.0 (0.2-1.0) mg/dl AST 18 (13-39) U/L ALT 13 (7-52) U/L Alkaline Phosphatase 102 (34-104) U/L Troponin I High Sens 10.1 (0-20) pg/ml B-Natriuretic Peptide (0-100) pg/ml Total Protein 6.6 (6.0-8.3) gm/dl Albumin 3.8 (3.4-5.0) gm/dl Globulin 2.8 (2.5-4.0) gm/dl Albumin/Globulin Ratio 1.4 (0.9-2) TSH 1.618 (0.300-4.500) uIu/ml Adenovirus (PCR) (NotDetected) B. pertussis DNA (PCR) (NotDetected) B.parapertussis DNA PCR (NotDetected) C. pneumoniae DNA (PCR) (NotDetected) Coronavirus OC43 (PCR) (NotDetected) Coronavirus HKU1 (PCR) (NotDetected) Coronavirus 229E (PCR) (NotDetected) SARS-CoV-2 (PCR) (NotDetected) Coronavirus NL63 (PCR) (NotDetected) Human Metapneumovir PCR (NotDetected) Influenza Type A (PCR) (NotDetected) Influenza Type B (PCR) (NotDetected) M. pneumoniae (PCR) (NotDetected) Parainfluenza 1 (PCR) (NotDetected) Parainfluenza 2 (PCR) (NotDetected) Parainfluenza 3 (PCR) (NotDetected) Parainfluenza 4 (PCR) (NotDetected) RSV (PCR) (NotDetected) Entero/Rhino (PCR) (NotDetected) 03/08/23 03/08/23 Range/Units 09:35 10:25 WBC (4.8-10.8) K/ul RBC (4.70-6.10) M/uL Hgb (14.0-18.0) g/dl Hct (42.0-52.0) % MCV (80.0-100.0) fL MCH (25.0-34.0) pg MCHC (32.0-36.0) g/dL RDW Std Deviation (36.4-46.3) fL RDW Coeff of Marlyn (11.5-14.5) % Plt Count (130-400) K/uL MPV (9.4-12.4) fL Immature Gran % (Auto) % Neut % (Auto) % Lymph % (Auto) % Mclean % (Auto) % Eos % (Auto) % Baso % (Auto) % Neut # (Auto) (1.40-6.50) K/uL Lymph # (Auto) (1.2-3.4) K/uL Mclean # (Auto) (0.11-0.59) K/uL Eos # (Auto) (0-0.50) K/uL Baso # (Auto) (0-0.2) K/uL Immature Gran # (Auto) (0.01-0.20) K/uL Sodium (136-145) mmol/L Potassium (3.5-5.1) mmol/L Chloride (98-107) mmol/L Carbon Dioxide (21-32) mmol/L Anion Gap (3-11) BUN (6-23) mg/dl Creatinine (0.6-1.4) mg/dl Est Cr Clr Drug Dosing ml/min Est GFR ( Amer) ml/min Est GFR (Non-Af Amer) ml/min BUN/Creatinine Ratio (10-20) Glucose (70-99(Fasting)) mg/dl Calcium (8.6-10.3) mg/dl Magnesium (1.7-2.4) mg/dl Total Bilirubin (0.2-1.0) mg/dl AST (13-39) U/L ALT (7-52) U/L Alkaline Phosphatase (34-104) U/L Troponin I High Sens (0-20) pg/ml B-Natriuretic Peptide 531 H (0-100) pg/ml Total Protein (6.0-8.3) gm/dl Albumin (3.4-5.0) gm/dl Globulin (2.5-4.0) gm/dl Albumin/Globulin Ratio (0.9-2) TSH (0.300-4.500) uIu/ml Adenovirus (PCR) Not Detected (NotDetected) B. pertussis DNA (PCR) Not Detected (NotDetected) B.parapertussis DNA PCR Not Detected (NotDetected) C. pneumoniae DNA (PCR) Not Detected (NotDetected) Coronavirus OC43 (PCR) Not Detected (NotDetected) Coronavirus HKU1 (PCR) Not Detected (NotDetected) Coronavirus 229E (PCR) Not Detected (NotDetected) SARS-CoV-2 (PCR) Not Detected (NotDetected) Coronavirus NL63 (PCR) Not Detected (NotDetected) Human Metapneumovir PCR Not Detected (NotDetected) Influenza Type A (PCR) Not Detected (NotDetected) Influenza Type B (PCR) Not Detected (NotDetected) M. pneumoniae (PCR) Not Detected (NotDetected) Parainfluenza 1 (PCR) Not Detected (NotDetected) Parainfluenza 2 (PCR) Not Detected (NotDetected) Parainfluenza 3 (PCR) Not Detected (NotDetected) Parainfluenza 4 (PCR) Not Detected (NotDetected) RSV (PCR) Not Detected (NotDetected) Entero/Rhino (PCR) Not Detected (NotDetected) Administered Medications Fluticasone/Vilanterol (Fluticasone/Vilanterol 100/25mcg 14 Puffs/Inhaler) 1 puffs INH DAILY CAROL Stop: 04/07/23 12:14 Last Admin: 03/08/23 13:25 Dose: 1 puffs Documented By: FATOUMATA Furosemide (Furosemide Inj 20 Mg/2 Ml Vial) 20 mg IV [id number] [facility] Stop: 04/07/23 16:59 Last Admin: 03/08/23 18:19 Dose: Not Given Documented By: HERMILA Nicotine (Nicotine 21 Mg/24 Hr Tdsy) 21 mg TD QAM CAROL Stop: 04/07/23 11:44 Last Admin: 03/08/23 11:44 Dose: 21 mg Documented By: NICKY Non-Formulary Medication (Beer 1 Can) 1 can PO UD PRN; Protocol PRN Reason: PATIENT REQUEST/AW PREVENTION Stop: 04/07/23 14:59 Last Admin: 03/08/23 18:36 Dose: 1 can Documented By: HERMILA Discontinued Medications Apixaban (Apixaban 5 Mg Tablet) 5 mg PO NOW STA Stop: 03/08/23 10:05 Last Admin: 03/08/23 10:42 Dose: 5 mg Documented By: FATOUMATA Aspirin (Aspirin 81 Mg Ectab) 81 mg PO NOW STA Stop: 03/08/23 11:00 Last Admin: 03/08/23 11:44 Dose: 81 mg Documented By: NICKY Furosemide (Furosemide Inj 20 Mg/2 Ml Vial) 20 mg IV ONE ONE Stop: 03/08/23 10:05 Last Admin: 03/08/23 10:23 Dose: 20 mg Documented By: FATOUMATA Thiamine HCl 300 mg/ Sodium (Chloride) 53 mls @ 210 mls/hr IV NOW STA Stop: 03/08/23 11:39 Last Infusion: 03/08/23 13:18 Dose: 0 mls/hr Documented By: Admin: 03/08/23 12:36 Dose: 210 mls/hr Documented By: FATOUMATA Metoprolol Succinate (Metoprolol Succ 50mg Ext Rel Tab) 50 mg PO NOW STA Stop: 03/08/23 10:05 Last Admin: 03/08/23 10:42 Dose: 50 mg Documented By: FATOUMATA Nicotine (Nicotine 21 Mg/24 Hr Tdsy) Confirm Administered Dose 21 mg TD .STK-MED ONE Stop: 03/08/23 11:43 Last Admin: 03/08/23 11:44 Dose: Not Given Documented By: NICKY Sacubitril/Valsartan (Valsartan/Sacubitril 51/49 Mg Tab) 1 tab PO NOW STA Stop: 03/08/23 11:01 Last Admin: 03/08/23 11:44 Dose: 1 tab Documented By: NA Imaging Data Radiologist's Impression: Chest X-Ray 03/08/23 09:04 SINGLE VIEW CHEST CLINICAL HISTORY: Dyspnea. FINDINGS: An AP, portable, upright chest radiograph is compared to study dated 03/22/2012 and correlated with chest CT dated 08/04/2022. A single-lead cardiac AICD is unchanged in position and partially obscures the left upper chest. The heart is enlarged and noting atherosclerotic calcification of the thoracic aorta. There is pulmonary vascular congestion. There is edematous change is again noted. Interstitial thickening may represent mild pulmonary edema. There are small pleural effusions with bibasilar scarring/atelectasis. No pneumothorax is seen. The skeletal structures are osteopenic. The bony thorax is grossly in tact. IMPRESSION: 1. Cardiomegaly and AICD with evidence of congestive failure. 2. Emphysema. 3. Small pleural effusions. ACT 112: Negative or not required by law. Electronically signed by: Curt Foy M.D. 03/08/2023 9:38 AM Discharge Plan Visit Data Chief Complaint: Shortness of Breath/Dyspnea Stated Complaint: LOW OXYGEN LEVELS, SOB, HIGH HEART RATE ED Provider: Brina Todd Discharge Problem: Dyspnea, Hypoxia, COPD (chronic obstructive pulmonary disease), Permanent atrial fibrillation, Hyponatremia, Pulmonary edema Patient Disposition: Admitted As Inpatient Discharge Instructions Interventions: ED Discharge Assessment Last Done: 03/08/23 11:53
[2023-03-08 09:28] LABS: Basophils # (auto) 0.03 K/uL (0-0.2); Basophils % (auto) 0.4 %; Eosinophils # (auto) 0.08 K/uL (0-0.50); Eosinophils % (auto) 1.1 %; Hematocrit (blood only) 39.8 % (42.0-52.0); Hemoglobin 14.4 g/dl (14.0-18.0); Immature Granulocytes # (auto) 0.03 K/uL (0.01-0.20); Immature Granulocytes % (auto) 0.4 %; Lymphocytes # (auto) 0.63 K/uL (1.2-3.4); Lymphocytes % (auto) 8.7 %; Mean Corpuscular Hemoglobin 34.7 pg (25.0-34.0); Mean Corpuscular Hgb Conc 36.2 g/dL (32.0-36.0); Mean Corpuscular Volume 95.9 fL (80.0-100.0); Mean Platelet Volume 8.3 fL (9.4-12.4); Monocytes # (auto) 0.71 K/uL (0.11-0.59); Monocytes % (auto) 9.8 %; Neutrophils # (auto) 5.75 K/uL (1.40-6.50); Neutrophils % (auto) 79.6 %; Platelet Count 299 K/uL (130-400); RDW Coefficient of Variation 12.9 % (11.5-14.5); RDW Standard Deviation 46.3 fL (36.4-46.3); Red Blood Count 4.15 M/uL (4.70-6.10); White Blood Count 7.23 K/ul (4.8-10.8)
--- NOTE | 2023-03-08 09:39 | XRay Report ---
SINGLE VIEW CHEST CLINICAL HISTORY: Dyspnea. FINDINGS: An AP, portable, upright chest radiograph is compared to study dated 03/22/2012 and correlat ed with chest CT dated 08/04/2022. A single-lead cardiac AICD is unchanged in position and partially o bscures the left upper chest. The heart is enlarged and noting atherosclerotic calcification of the t horacic aorta. There is pulmonary vascular congestion. There is edematous change is again noted. Inte rstitial thickening may represent mild pulmonary edema. There are small pleural effusions with bibasi lar scarring/atelectasis. No pneumothorax is seen. The skeletal structures are osteopenic. The bony t horax is grossly intact. IMPRESSION: 1. Cardiomegaly and AICD with evidence of congestive failure. 2. Emphysema. 3. Small pleural effusions. ACT 112: Negative or not required by law. Electronically signed by: Curt Foy M.D. 03/08/2023 9:38 AM
[2023-03-08 09:50] LABS: Albumin Globulin Ratio 1.4 (0.9-2); Albumin Level 3.8 gm/dl (3.4-5.0); BUN Creatinine Ratio 11.5 (10-20); Creatinine Clr Calc Pharmacy 67.5 ml/min; Est GFR (African American) 101.6 ml/min; Est GFR (Non-African American) 87.7 ml/min; Globulin 2.8 gm/dl (2.5-4.0); Magnesium 1.8 mg/dl (1.7-2.4); Potassium 4.2 mmol/L (3.5-5.1); Total Protein 6.6 gm/dl (6.0-8.3)
[2023-03-08 09:53] LABS: Troponin I High Sensitivity 10.1 pg/ml (0-20)
[2023-03-08] MEDS ORDERED: METOPROLOL SUCC 50MG EXT REL TAB PO STA (10:04)
[2023-03-08] MEDS ORDERED: APIXABAN 5 MG TABLET PO STA (10:04)
[2023-03-08] MEDS ORDERED: FUROSEMIDE INJ 20 MG/2 ML VIAL IV ONE (10:04)
--- NOTE | 2023-03-08 10:29 | History & Physical Report ---
Date of Service March 08, 2023 Assessment & Plan (1) Acute respiratory failure with hypoxia: Plan: -Admit to med/tele -Currently stable on 2L NC, not on O2 at home -At this time his AHRF appears more associated with an acute CHF exacerbation as opposed to COPD exacerbation -Weight has been up as high as 177 lbs since last week, was not taking prn PO lasix over the past week -SOB not improved significantly with levalbuterol treatments this am, signs of congestive failure on CXR -BNP and full respiratory biofire are in process -Prn O2 to keep SpO2 between 88-92%, incentive spirometry, flutter therapy -BL SCD's and home Eliquis for DVT PPX -AM CBC, BMP, Mag, PT/INR (2) Acute on chronic HFrEF (heart failure with reduced ejection fraction): Plan: -Will FU with BNP when resulted - states his ideal dry weight is 167 lbs, was up to 177 as of last week -S/P 20 mg IV lasix in the ED, will continue with 20 mg IV BID for now -Will obtain TTE as his last was approximately 1 year ago -Continue to monitor on tele and pulse oximetry -Only uses prn PO lasix at home for weight gain, not on a daily regimen at this time -Heart healthy diet with 1500 mL fluid restriction to start (3) Alcohol abuse: Plan: -Drinks 6-8 beers daily, typically starts around 3pm and ends around 10:30 -Patient has no interest in quitting -For now will order 3 beers daily, staring at 3 pm, patient can drinking them at his leisure -Monitor for signs of withdrawal and start AWSS protocol if needed - confirms he takes daily thiamine and folic acid, will continue with PO for now (4) Hyponatremia: Plan: -Chronically hyponatremic with baseline between 127-130, currently at 129 today -Likely due to Beer Drinker's potomania and poor solute intake -Continue to monitor sodium with initiation of IV lasix -Continue beer for now (5) COPD (chronic obstructive pulmonary disease): Plan: -Continue home levalbuterol, will order BID formoterol and mometasone as we do not have his Dulera on formulary -Incentive spirometry, flutter therapy, wean off O2 as able -Will hold systemic steroids and atypical coverage for now as it does not appear that he is in a COPD exacerbation (6) Permanent atrial fibrillation: Plan: -Initially in RVR on arrival with HR in the 110's, now currently stable -RVR was likely due to acute hypoxia and not taking am PO meds -Was given home am metoprolol in the ED, continue daily -Continue BID Eliquis -Monitor on tele (7) Tobacco abuse: Plan: -No interest in quitting -Nicotine patch while admitted (8) CAD (coronary artery disease): Plan: -Continue aspirin (9) Hyperlipemia: Plan: -Continue statin Plan The patient was discussed with Dr. Sanchez at the time of the admission History of Present Illness Chief Complaint: SOB Primary Care Provider: Aquilino Silver III, CRNP Alfredo is a 77 year old male with a PMH significant for COPD, current tobacco abuse, CAD s/p MOLLY x 2 to LCx in 2021, HTN, HFrEF (LVEF of 40-45% as of 03/2022) S/P ICD placement, PAF on Eliquis, daily EtOH use, and chronic hyponatremia who presented to the [facility] ED on 03/08/23 with a chief complaint of SOB. In the ED the patient was noted to be saturating at 88% on RA and tachycardic at 115. Labs were significant for a lymphocyte count of 0.63, sodium of 129 (appears to be his chronic baseline). Chest xray was read as 1. Cardiomegaly and AICD with evidence of congestive failure. 2. Emphysema. 3. Small pleural effusions.. Prior to admission the patient was given his am dose of metoprolol, am dose of Eliquis, and and 20 mg IV Lasix. At the time of the exam the patient was sitting in bed in no acute distress with his sitting bedside, history was obtained from both. They state that he has baseline SOB with his COPD but does not typically have a productive cough. He started to become more SOB approximately 4 days ago per his . She states that his weight was up to 177 lbs last week, a good dry weight for him is around 167. She gave him his prn 20 mg PO lasix daily for a few days last week but then the patient didn't want to take it anymore this week. He woke up this am around 0530 acutely more SOB. He used 2 of his levalbuterol nebulizer treatments without relief, leading him to come to the ED. His has a pulse oximetry meter at home and states that his initial O2 was 80% this am and only improved to 85% after his levalbuterol treatments. He has not missed any doses of Eliquis recently. The patient states that his breathing feels somewhat improved compared to arrival but is still on 2L NC. He states that he feels a litte confused, his states that he has some confusion at baseline and only seems a little more confused now compared to his baseline. He is currently smo mirta a pack of "small cigars" daily and is drinking approximately 6-8 beers from 3 pm to approximately 10:30 pm The patient has no interest in stopping. On previous admissions he was ordered beer. He is a full code and wishes for his to make medical decisions for him if he cannot make them himself. Please refer to Dr. Sanchez's attestation for any changes to the treatment plan Allergies Allergy/AdvReac Type Severity Reaction Status Date / Time morphine Allergy Intermediate Swelling Verified 03/02/23 14:46 clopidogrel Allergy Unknown Unknown Verified 03/02/23 14:46 reaction fluticasone furoate AdvReac Intermediate Pain Verified 03/02/23 14:46 [From Trelegy Ellipta] behind the eyes umeclidinium AdvReac Intermediate Pain Verified 03/02/23 14:46 [From Trelegy Ellipta] behind the eyes vilanterol AdvReac Intermediate Pain Verified 03/02/23 14:46 [From Trelegy Ellipta] behind the eyes HAND [employer]ENG[employer]ING [employer]ER (ALCOHOL Allergy Severe SHORTNESS Uncoded 03/02/23 14:46 BASED) OF BREATH - SEE NOTES Home Medications Medication Instructions Recorded Confirmed Type nitroglycerin 0.4 mg sublingual 0.4 mg sublingual Q5M PRN Chest 10/13/19 03/08/23 History tablet Pain atorvastatin 80 mg tablet 40 mg PO HS 10/27/19 03/08/23 History apixaban 5 mg tablet 5 mg PO BID #60 tabs 03/14/21 03/08/23 Rx ipratropium bromide 21 mcg (0.03 2 spray intranasal BID #30 mL 07/15/21 03/08/23 Rx %) nasal spray cholecalciferol (vitamin D3) 25 25 mcg PO QAM 08/17/21 03/08/23 History mcg (1,000 unit) capsule empagliflozin 10 mg tablet 10 mg PO QAM 08/17/21 03/08/23 History (Jardiance) B6 0.85 mg-folic 200 1 tab PO QAM 03/02/22 03/08/23 History [id number] oral chewable tablet (Neuriva Plus) tamsulosin 0.4 mg capsule 0.4 mg PO HS 03/02/22 03/08/23 History folic acid 1 mg tablet 1 mg PO QAM #30 tabs 03/27/22 03/08/23 Rx metoprolol succinate 50 mg 50 mg PO QAM 04/06/22 03/08/23 History tablet,extended release 24 hr furosemide 20 mg tablet 20 mg PO DAILY PRN Fluid Retention 05/26/22 03/08/23 History mometasone-formoterol HFA 200 2 puff inhalation BID #13 grams 06/29/22 03/08/23 Rx mcg-5 mcg/actuation aerosol inhaler (Dulera) pantoprazole 40 mg tablet,delayed 40 mg PO DAILY #30 tabs 06/29/22 03/08/23 Rx release sacubitril 49 mg-valsartan 51 mg 1 tab PO BID #60 tabs 06/29/22 03/08/23 Rx tablet (Entresto) thiamine HCl (vitamin B1) 100 mg 100 mg PO DAILY 07/25/22 03/08/23 History tablet levalbuterol tartrate 45 See Rx Instructions inhalation 08/28/22 03/02/23 Rx mcg/actuation aerosol inhaler .COMPLEX PRN shortness of breath (Xopenex HFA) or wheezing #15 grams aspirin 81 mg tablet,delayed 81 mg PO DAILY 02/22/23 03/08/23 History release Past Med/Surg History Medical History (Updated 03/08/23 @ 16:34 by Masood Sanchez MD) Acute on chronic systolic CHF (congestive heart failure) Alcohol abuse Atrial fibrillation Atrial fibrillation with rapid ventricular response Atrial flutter CAD (coronary artery disease) Cardiac defibrillator in place Cardiomyopathy Factor V Leiden diagnosed due to family history- no personal hx of blood clots/bleeding issues Factor V Leiden Heart attack 1999 History of heart attack 1999 Hyperlipidemia Malignant neoplasm of prostate PR (myocardial infarction) NSTEMI (non-ST elevated myocardial infarction) Pacemaker PPM/ICD- Implanted 2008/[employer]/last check 06/2019 per patient Paroxysmal atrial fibrillation Prostate cancer Prostate cancer Respiratory failure with hypoxia Tobacco abuse Surgical History History of appendectomy History of cardiac cath 1999 History of colonoscopy History of tonsillectomy History of total right knee replacement Previous back surgery Lumbar spine surgery S/P angioplasty with stent S/P coronary artery stent placement Family History Mother of unknown cause Alzheimer disease Father Prostate cancer Cardiac disease Glaucoma Alzheimer disease Brother Heart transplant recipient Brother No problems noted. Brother No problems noted. Brother No problems noted. Sister No problems noted. Sister No problems noted. Daughter No problems noted. Daughter No problems noted. Social History Smoking Status: Current every day smoker Tobacco Type: Cigars Age Started Using Tobacco: 21; Cigarettes Per Day: 8; Second Hand Exposure: No; Do You Dip or Chew Tobacco: No; Hx Alcohol Use: Yes Alcohol type: beer Alcohol Intake Frequency: 4 or More x per/Week Hx Substance Use: No Preferred Language: [place] Communication Ability: Effective Communication Ability Comment: difficult to hear Visual Impairment: No Limitations Hearing Ability: Normal Area Secretary Required: No Beliefs That Will Affect Care: None marital status: Current Living Situation: Spouse current occupational status: retired current occupation: retired Feels Safe at Home: Yes Childhood Exposure to Second-Hand Smoke: Yes Diet: regular caffeine: Yes (3 mugs/day) during the past year weight has: remained stable Dental Care, Regularly: Yes Physical Activity Frequency: Does not Exercise Seatbelt Use: always Sunscreen Use: No Assistive Devices: Hearing Aid - Bilateral Physical Exam Physical Exam: Physical Exam: General: In no acute distress, stated age, chronically ill-appearing, poor hygiene HEENT: Normocephalic, atraumatic, no scleral icterus, pupils around round, symmetrical, and reactive to light, telangiectasias noted on the tip of the nose, moist mucus membranes, trachea midline, no thyromegaly Chest/Pulm: ICD noted in the left upper chest without signs of infection, No respiratory distress, symmetrical chest expansion, decreased breath sounds in the BL lower lung funk with mild wheezing noted in the middle and upper lung funk Cardiac: irregular rate and rhythm, systolic murmurs noted Abdomen: Negative for ascites and bruising, normoactive bowel sounds, soft, non-tender to palpation throughout Musculoskeletal: Symmetrical and without signs of acute trauma, upper and lower extremities with full ROM, no atrophy, spasticity, or flaccidity Extremities: Radial, dorsalis pedis, and posterior tibial pulses are intact and symmetrical, 1+ pitting edema noted in the BL LE's Skin: As described above Neuro: Alert and oriented to person, place, month, year, no focal defects, CN II-XII tested and intact, no tremors noted Psych: No acute distress, calm and cooperative during the exam Results & Data Results & Data Vital Signs (Past 12 Hours) Vital Signs Temp Pulse Resp BP Pulse Ox O2 Del Method O2 Flow Rate 03/08/23 09:00 104 H 24 96 03/08/23 09:00 132/68 03/08/23 09:05 88 L Room Air, Nasal Cannula 0 03/08/23 08:45 100 H 03/08/23 08:23 36.7 C 115 H 16 126/78 90 Room Air Laboratory Results Abnormal lab results 03/08/23 03/08/23 Range/Units 08:47 08:47 RBC 4.15 L (4.70-6.10) M/uL Hct 39.8 L (42.0-52.0) % MCH 34.7 H (25.0-34.0) pg MCHC 36.2 H (32.0-36.0) g/dL MPV 8.3 L (9.4-12.4) fL Lymph # (Auto) 0.63 L (1.2-3.4) K/uL Posey # (Auto) 0.71 H (0.11-0.59) K/uL Sodium 129 L (136-145) mmol/L Diagnostic Findings Chest X-Ray 03/08/23 09:04 SINGLE VIEW CHEST CLINICAL HISTORY: Dyspnea. FINDINGS: An AP, portable, upright chest radiograph is compared to study dated 03/22/2012 and correlated with chest CT dated 08/04/2022. A single-lead cardiac AICD is unchanged in position and partially obscures the left upper chest. The heart is enlarged and noting atherosclerotic calcification of the thoracic aorta. There is pulmonary vascular congestion. There is edematous change is again noted. Interstitial thickening may represent mild pulmonary edema. There are small pleural effusions with bibasilar scarring/atelectasis. No pneumothorax is seen. The skeletal structures are osteopenic. The bony thorax is grossly intact. IMPRESSION: 1. Cardiomegaly and AICD with evidence of congestive failure. 2. Emphysema. 3. Small pleural effusions. ACT 112: Negative or not required by law. Electronically signed by: Curt Foy M.D. 03/08/2023 9:38 AM ECG Additional Comments: Atrial fibrillation with rapid ventricular response with premature ventricular or aberrantly conducted complexes Abnormal ECG When compared with ECG of 06-APR-2022 00:15, Atrial fibrillation has replaced Electronic ventricular pacemaker Vent. rate has increased BY 51 BPM Code Status & VTE Plan Code Status Full code VTE Prophylaxis Plan VTE Prophylaxis will be ordered: Yes Supervising Physician Co-Signing Physician Notes I personally saw and examined the patient. I verified all mathis points and agree with Domingo Johnson PA-C with the following exceptions and/or additions: 77 year old male presents to the ER with shortness of breath getting progressively worse over the last 4 days. Associated increased leg swelling and weight gain. O/E A&Ox3, HS irregularly irregular rhythm, no murmurs, Chest bibasal crackles, no wheezes, Abdo SNT, 1+ pitting edema b/l equal A/P Acute heart failure with borderline/reduced ejection fracture - repeat TTE as previously > 6 months ago. Lasix 20mg IV BID, Strict I&Os, daily weights, Low Na, heart health, fluid restrict 1500ml Atrial fibrillation with RVR - secondary to missing his metoprolol this morning, monitor on telemetry after getting this PG Care Time/CCT Total # of Minutes Spent Total Time Spent with Patient: Total time spent is greater than 50% in coordination of care (as documented) at patient's floor/unit and/or counseling patient: Coding [place] [address] INT INP/OBS CARE 3/75MIN Patient Type Established Medical Decision Making High Complexity Diagnoses Acute respiratory failure with hypoxia J96.01 Acute on chronic HFrEF (heart failure with reduced ejection fraction) I50.23 Alcohol abuse F10.10 Hyponatremia E87.1 COPD (chronic obstructive pulmonary disease) J44.9 Permanent atrial fibrillation I48.21 Tobacco abuse Z72.0 CAD (coronary artery disease) I25.10 Hyperlipemia E78.5
[2023-03-08 10:50] LABS: Adenovirus PCR Not Detected (NotDetected); Bordetella parapertussis PCR Not Detected (NotDetected); Bordetella pertussis PCR Not Detected (NotDetected); Chlamydia pneumoniae PCR Not Detected (NotDetected); Coronavirus 229E PCR Not Detected (NotDetected); Coronavirus CoV-2 (COVID19)PCR Not Detected (NotDetected); Coronavirus HKU1 PCR Not Detected (NotDetected); Coronavirus NL63 PCR Not Detected (NotDetected); Coronavirus OC43PCR Not Detected (NotDetected); Human Metapneumovirus PCR Not Detected (NotDetected); Influenza A PCR Not Detected (NotDetected); Influenza B PCR Not Detected (NotDetected); Mycoplasma pneumoniae PCR Not Detected (NotDetected); Parainfluenza Virus 1 PCR Not Detected (NotDetected); Parainfluenza Virus 2 PCR Not Detected (NotDetected); Parainfluenza Virus 3 PCR Not Detected (NotDetected); Parainfluenza Virus 4 PCR Not Detected (NotDetected); Respiratory Syncytial VirusPCR Not Detected (NotDetected); Rhinovirus/Enterovirus PCR Not Detected (NotDetected)
[2023-03-08] MEDS ORDERED: ASPIRIN 81 MG ECTAB PO STA (10:59)
[2023-03-08] MEDS ORDERED: VALSARTAN/SACUBITRIL 51/49 MG TAB PO STA (11:00)
[2023-03-08] MEDS ORDERED: MOMETASONE FUROATE 14 PUFF/1 INHALER INH STA (11:22)
[2023-03-08] MEDS ORDERED: THIAMINE HCL 300 MG in SODIUM CHLORIDE 0.9% 50 ML IV STA (11:25)
[2023-03-08] MEDS ORDERED: NICOTINE 21 MG/24 HR TDSY TD ONE (11:42)
[2023-03-08] MEDS: NICOTINE 21 MG/24 HR TDSY TD SCH (11:44)
[2023-03-08] MEDS ORDERED: ACETAMINOPHEN 325 MG TAB PO PRN (11:56)
[2023-03-08] MEDS ORDERED: LEVALBUTEROL TARTRATE 15 GM HFA.AER.AD INH PRN (11:56)
[2023-03-08] MEDS: FLUTICASONE/VILANTEROL 100/25MCG 14 PUFFS/INHALER INH SCH (13:25)
[2023-03-08] MEDS ORDERED: BEER 1 CAN PO SCH (15:00)
[2023-03-08] MEDS: FUROSEMIDE INJ 20 MG/2 ML VIAL IV SCH (18:19)
[2023-03-08] MEDS: BEER 1 CAN PO PRN (18:36)
--- NOTE | 2023-03-08 18:47 | XCELERA ---
[id number] \\[email or web address]\[id number]
[2023-03-08] MEDS: VALSARTAN/SACUBITRIL 51/49 MG TAB PO SCH (20:41)
[2023-03-08] MEDS: APIXABAN 5 MG TABLET PO SCH (20:42)
[2023-03-08] MEDS ORDERED: FORMOTEROL 20 MCG/2 ML VIAL NEB SCH (21:00)
[2023-03-08] MEDS: TAMSULOSIN HCL 0.4 MG CAP PO SCH (21:25)
[2023-03-08] MEDS: ATORVASTATIN 40 MG TAB PO SCH (21:25)
--- NOTE | 2023-03-09 06:55 | Hospitalist Progress Note ---
Date of Service March 09, 2023 Assessment & Plan (1) Acute on chronic HFrEF (heart failure with reduced ejection fraction): Plan: Acute on Chronic HFmrEF Several days worsening dyspnea with elevated BNP and CXR with pulmonary edema and mild effusions --> most likely due to dietary sodium intake indiscretion (patient eats store-bought Rotisserie chicken at home). Symptoms improving with Lasix, although still not at baseline. - repeat TTE unchanged from previous in 03/2022: EF 40-45% with decreased LV/RV function - continue with Lasix 20mg IV BID for now; plan to discharge on daily Lasix until re-evaluated by PCP and/or Chain Saw Mechanic, to go back on PRN regimen - wean supplemental O2 as necessary to maintain SpO2 88-92% (COPD) - daily weights, strict I/Os, heart-healthy diet with 1500cc fluid restriction and sodium restriction - may need 2-step before discharge A-fib with RVR, RVR resolved Initially in a-fib RVR with [id number] on presentation, likely due to acute CHF and missing AM home Metoprolol. RVR resolved after regular Metoprolol PO dose. Now rate-controlled. - continue home Eliquis 5mg PO BID and Metoprolol 50mg PO QAM Acute on Chronic Hyponatremia, Acute Exacerbation resolved Na 129 --> 131 after Lasix yesterday, and currently at chronic baseline. Suspect chronic baseline due to beer potomania and exacerbation due to acute CHF, which is improving. - monitor daily, plan as above - encouraged alcohol use cessation, pre-contemplative as stated below Severe Alcohol Use Disorder, Active 6-8 beers per day. No symptoms of withdrawal currently, and patient is pre- contemplative in regards to cessation. - Continue 3 beers daily PRN while here, and AWSS protocol in place - Continue home thiamine/folic acid PO COPD, GOLD2; Tobacco Use Disorder Last PFTs in 06/2022 with FEV1 63% predicted. With multi-factorial dyspnea and related symptoms, of which COPD contributes. - Continue home levalbuterol, will order BID formoterol and mometasone as we do not have his Dulera on formulary - Incentive spirometry, flutter therapy, wean off O2 as able (as stated above) - patient pre-contemplative in regards to smoking cessation - patch ordered while here - Continue regular f/u with [facility] CAD; HLD - continue home Aspirin and Atorvastatin - continue Jardiance, although unclear why patient is on this as no history of T2DM and A1c 6.1 last month - defer further treatment to PCP GERD - continue home Protonix BPH - continue home Flomax FEN/GI: heart-healthy diet with 1500cc fluid restriction and sodium restriction DVT Prophylaxis: Eliquis Code Status: full code Disposition: med/tele (2) Alcohol abuse: (3) Hyponatremia: (4) COPD (chronic obstructive pulmonary disease): (5) Permanent atrial fibrillation: Plan: -Monitor on tele (6) Tobacco abuse: (7) CAD (coronary artery disease): Plan: -Continue aspirin (8) Hyperlipemia: Plan The patient was discussed with Dr. Sanchez at the time of the admission Admission and Anticipated Discharge Date Admission Date: March 08, 2023 Supervising Physician Co-Signing Physician Notes Resident Physician Supervision Note: I independently interviewed and examined the patient and verified the mathis history and physical, reviewed labs and image studies and agree with resident findings and care plan. Subjective Patient reports that breathing has improved with Lasix x2 doses yesterday. Reports that he was having worsening dyspnea over the course of several days. No recent infections or URI symptoms. Only took home dose Lasix on two occasions but without improvement. Confirms that Levalbuterol nebs at home did not help him with breathing. Review of Systems Review of Systems: All systems reviewed & are unremarkable except as noted in HPI & below Physical Exam Physical Exam: General: A&Ox3. NAD. Cooperative. HEENT: Atraumatic, normocephalic. Pulm: CTAB A&P. -wheezes, -rales, -rhonchi. Symmetrical chest rise. No increase work of breathing. No respiratory distress. Cardiac: RRR, -mrg. Radial pulses intact and symmetrical. No JVD. No LE edema. Abdominal: soft, non-tender, non-distended, BS x 4 Skin: warm, dry, no rash Results & Data Results & Data Vital Signs (Past 12 Hours) Vital Signs Temp Pulse Pulse Resp BP Pulse Ox O2 Del Method 03/09/23 04:10 36.6 C 97 H 18 115/74 97 Nasal Cannula 03/09/23 00:53 74 03/09/23 00:52 67 03/08/23 23:46 Nasal Cannula 03/08/23 23:10 36.7 C 72 16 99/62 L 95 Room Air 03/08/23 20:02 36.3 C L 85 18 113/70 97 Nasal Cannula O2 Flow Rate 03/09/23 04:10 2 03/09/23 00:53 03/09/23 00:52 03/08/23 23:46 2 03/08/23 23:10 03/08/23 20:02 2 Resident Activity Tracking Resident Involvement: Resident Care Provided Care Provided: Adult Hospital Medicine
[2023-03-09 07:46] LABS: Basophils # (auto) 0.03 K/uL (0-0.2); Basophils % (auto) 0.6 %; Eosinophils # (auto) 0.11 K/uL (0-0.50); Hemoglobin 13.3 g/dl (14.0-18.0); Immature Granulocytes # (auto) 0.04 K/uL (0.01-0.20); Immature Granulocytes % (auto) 0.7 %; Lymphocytes % (auto) 12.9 %; Mean Corpuscular Hemoglobin 34.1 pg (25.0-34.0); Mean Corpuscular Volume 97.4 fL (80.0-100.0); Mean Platelet Volume 8.3 fL (9.4-12.4); Monocytes # (auto) 0.84 K/uL (0.11-0.59); Monocytes % (auto) 15.5 %; Neutrophils # (auto) 3.71 K/uL (1.40-6.50); Neutrophils % (auto) 68.3 %; Platelet Count 267 K/uL (130-400); RDW Coefficient of Variation 13.2 % (11.5-14.5); RDW Standard Deviation 47.2 fL (36.4-46.3); White Blood Count 5.43 K/ul (4.8-10.8)
[2023-03-09 07:55] LABS: INR 1.2 (0.9-1.1); Prothrombin Time 12.5 Seconds (9.0-12.0)
[2023-03-09 08:16] LABS: Calcium 8.4 mg/dl (8.6-10.3); Magnesium 1.9 mg/dl (1.7-2.4); Potassium 4.2 mmol/L (3.5-5.1)
[2023-03-09 08:22] LABS: BUN Creatinine Ratio 14.4 (10-20); Creatinine Clr Calc Pharmacy 58.5 ml/min; Est GFR (African American) 95.8 ml/min; Est GFR (Non-African American) 82.7 ml/min
[2023-03-09] MEDS: APIXABAN 5 MG TABLET PO SCH ×2 (08:58→21:18)
[2023-03-09] MEDS: EMPAGLIFLOZIN 10 MG TAB PO SCH (08:58)
[2023-03-09] MEDS: FLUTICASONE/VILANTEROL 100/25MCG 14 PUFFS/INHALER INH SCH (08:59)
[2023-03-09] MEDS: FOLIC ACID 1 MG TAB PO SCH (09:01)
[2023-03-09] MEDS: FUROSEMIDE INJ 20 MG/2 ML VIAL IV SCH ×2 (09:01→16:21)
[2023-03-09] MEDS: PANTOprazole 40 MG TAB PO SCH (09:02)
[2023-03-09] MEDS: METOPROLOL SUCC 50MG EXT REL TAB PO SCH (09:02)
[2023-03-09] MEDS: THIAMINE HCL 100 MG TAB PO SCH (09:03)
[2023-03-09] MEDS: NICOTINE 21 MG/24 HR TDSY TD SCH (10:29)
[2023-03-09] MEDS: ASPIRIN 81 MG ECTAB PO SCH (10:30)
[2023-03-09] MEDS: VALSARTAN/SACUBITRIL 51/49 MG TAB PO SCH ×2 (10:30→20:14)
[2023-03-09] MEDS: TAMSULOSIN HCL 0.4 MG CAP PO SCH (20:02)
--- NOTE | 2023-03-09 20:47 | Electrocardiogram Report ---
Test Reason : Blood Pressure : / mmHG Vent. Rate : 110 BPM Atrial Rate : 000 BPM P-R Int : 000 ms QRS Dur : 084 ms QT Int : 294 ms P-R-T Axes : 000 006 077 degrees QTc Int : 397 ms Atrial fibrillation with rapid ventricular response with premature ventricular or aberrantly conducte d complexes Abnormal ECG When compared with ECG of 06-APR-2022 00:15, Vent. rate has increased BY 51 BPM Confirmed by Tyler Rascon ([id number]) on 03/09/2023 8:47:23 PM Referred By: REFERRED SELF Confirmed By:Tyler Rascon
[2023-03-09] MEDS: BEER 1 CAN PO PRN ×3 (21:00→22:00)
[2023-03-09] MEDS: ATORVASTATIN 40 MG TAB PO SCH (21:17)
--- NOTE | 2023-03-10 05:57 | Hospitalist Progress Note ---
Date of Service March 10, 2023 Assessment & Plan (1) Acute on chronic HFrEF (heart failure with reduced ejection fraction): Plan: Acute on Chronic HFmrEF Several days worsening dyspnea with elevated BNP and CXR with pulmonary edema and mild effusions --> most likely due to dietary sodium intake indiscretion (patient eats store-bought Rotisserie chicken at home). Symptoms improving with Lasix, although still not at baseline. - repeat TTE unchanged from previous in 03/2022: EF 40-45% with decreased LV/RV function - continue with Lasix 20mg IV BID for now; plan to discharge on 20-40mg PO daily with BMP checks and close PCP/cardiology f/u - wean supplemental O2 as necessary to maintain SpO2 88-92% (COPD) - daily weights, strict I/Os, heart-healthy diet with 1500cc fluid restriction and sodium restriction - Check 2-step, ordered (thankfully on RA at rest) A-fib with RVR, RVR resolved Initially in a-fib RVR with [id number] on presentation, likely due to acute CHF and missing AM home Metoprolol. RVR resolved after regular Metoprolol PO dose. Now rate-controlled. - continue home Eliquis 5mg PO BID and Metoprolol 50mg PO QAM Acute on Chronic Hyponatremia (resolved- back to baseline) Back to baseline. Initially presented at 129, has improved to baseline low-130s following diuresis. Suspect chronic baseline due to beer potomania with superimposed effect from acute CHF - monitor daily, plan as above - encouraged alcohol use cessation, pre-contemplative as stated below Severe Alcohol Use Disorder, Active 6-8 beers per day. No symptoms of withdrawal currently, and patient is pre- contemplative in regards to cessation. - Continue 3 beers daily PRN while here, and AWSS protocol in place - Continue home thiamine/folic acid PO COPD, GOLD2; Tobacco Use Disorder Last PFTs in 06/2022 with FEV1 63% predicted. With multi-factorial dyspnea and related symptoms, of which COPD contributes. - Continue home levalbuterol, will order BID formoterol and mometasone as we do not have his Dulera on formulary - Incentive spirometry, flutter therapy, wean off O2 as able (as stated above) - patient pre-contemplative in regards to smoking cessation - patch ordered while here - Continue regular f/u with [facility] CAD; HLD - continue home Aspirin and Atorvastatin - continue Jardiance (from review of records, patient does not have h/o T2DM and last A1c was 6.1 in 02/2023; clarification for medication use will be required following d/c, appreciate PCP review) GERD - continue home Protonix BPH - continue home Flomax FEN/GI: heart-healthy diet with 1500cc fluid restriction and sodium restriction DVT Prophylaxis: Eliquis Code Status: full code Disposition: med/tele (2) Alcohol abuse: (3) Hyponatremia: (4) COPD (chronic obstructive pulmonary disease): (5) Permanent atrial fibrillation: Plan: -Monitor on tele (6) Tobacco abuse: (7) CAD (coronary artery disease): Plan: -Continue aspirin (8) Hyperlipemia: Plan The patient was discussed with Dr. Sanchez at the time of the admission Admission and Anticipated Discharge Date Admission Date: March 08, 2023 Subjective NAEO. Ready to get out of here. No SOB, palpitations, or CP. Walking to BR fine without lightheadedness. No leg pain. --- VSS overnight - SpO2 92% on RA, no supplemental O2 requirements. Weight 73.8kg (?from 71.6kg). 24-hour I/O at 275/1455 = net -1180 Review of Systems Review of Systems: as per HPI Physical Exam Physical Exam: General: Tired appearing 77-year-old male in NAD. HEENT: NCAT. - Eyes - Sclera are white, anicteric, and without injection. - Mouth - MMM - Neck - supple, no appreciable JVD Cardiac: Normal rate and regular rhythm; S1 and S2 present with no murmur detected Pulmonary: Good respiratory effort with symmetric expansion of the chest. No use of accessory muscles. Lungs were CTAB Abdominal: Normoactive bowel sounds. Abdomen was soft, nondistended, and non- tender to palpation. Extremities: Upper and lower extremities are warm and well perfused. No peripheral edema in the lower extremities bilaterally Results & Data Results & Data Vital Signs (Past 12 Hours) Vital Signs Temp Pulse Resp BP BP Pulse Ox O2 Del Method 03/10/23 04:47 36.5 C 93 H 20 113/72 92 Room Air 03/10/23 02:06 Room Air 03/09/23 23:02 36.4 C L 80 20 108/65 94 Room Air 03/09/23 19:54 36.6 C 80 20 97/61 L 92 Room Air Resident Activity Tracking Resident Involvement: Resident Care Provided Care Provided: Adult Hospital Medicine
[2023-03-10 06:25] LABS: Basophils # (auto) 0.03 K/uL (0-0.2); Basophils % (auto) 0.5 %; Eosinophils # (auto) 0.15 K/uL (0-0.50); Eosinophils % (auto) 2.7 %; Hematocrit (blood only) 39.3 % (42.0-52.0); Hemoglobin 13.9 g/dl (14.0-18.0); Immature Granulocytes # (auto) 0.02 K/uL (0.01-0.20); Immature Granulocytes % (auto) 0.4 %; Lymphocytes # (auto) 0.88 K/uL (1.2-3.4); Lymphocytes % (auto) 15.7 %; Mean Corpuscular Hemoglobin 34.4 pg (25.0-34.0); Mean Corpuscular Hgb Conc 35.4 g/dL (32.0-36.0); Mean Corpuscular Volume 97.3 fL (80.0-100.0); Mean Platelet Volume 8.3 fL (9.4-12.4); Monocytes # (auto) 0.74 K/uL (0.11-0.59); Monocytes % (auto) 13.2 %; Neutrophils # (auto) 3.78 K/uL (1.40-6.50); Neutrophils % (auto) 67.5 %; Platelet Count 294 K/uL (130-400); RDW Standard Deviation 46.5 fL (36.4-46.3); Red Blood Count 4.04 M/uL (4.70-6.10)
[2023-03-10 06:27] LABS: BUN Creatinine Ratio 19.8 (10-20); Calcium 8.7 mg/dl (8.6-10.3); Creatinine Clr Calc Pharmacy 62.7 ml/min; Est GFR (African American) 94.5 ml/min; Est GFR (Non-African American) 81.6 ml/min; Magnesium 1.9 mg/dl (1.7-2.4); Potassium 3.9 mmol/L (3.5-5.1)
[2023-03-10 06:34] LABS: INR 1.1 (0.9-1.1)
[2023-03-10 07:44] VITALS: TEMP 97.8
[2023-03-10] MEDS ORDERED: DOCUSATE SODIUM 100 MG CAP PO SCH (09:00)
[2023-03-10] MEDS: ASPIRIN 81 MG ECTAB PO SCH (09:07)
[2023-03-10] MEDS: APIXABAN 5 MG TABLET PO SCH (09:07)
[2023-03-10] MEDS: FLUTICASONE/VILANTEROL 100/25MCG 14 PUFFS/INHALER INH SCH (09:08)
[2023-03-10] MEDS: EMPAGLIFLOZIN 10 MG TAB PO SCH (09:08)
[2023-03-10] MEDS: FOLIC ACID 1 MG TAB PO SCH (09:09)
[2023-03-10] MEDS: FUROSEMIDE INJ 20 MG/2 ML VIAL IV SCH (09:09)
[2023-03-10] MEDS: NICOTINE 21 MG/24 HR TDSY TD SCH (09:10)
[2023-03-10] MEDS: METOPROLOL SUCC 50MG EXT REL TAB PO SCH (09:10)
[2023-03-10] MEDS: THIAMINE HCL 100 MG TAB PO SCH (09:11)
[2023-03-10] MEDS: PANTOprazole 40 MG TAB PO SCH (09:11)
[2023-03-10] MEDS: VALSARTAN/SACUBITRIL 51/49 MG TAB PO SCH (09:11)
--- NOTE | 2023-03-10 11:13 | Discharge Summary ---
Date of Service March 10, 2023 Admission HPI Per Admitting Provider Alfredo is a 77 year old male with a PMH significant for COPD, current tobacco abuse, CAD s/p MOLLY x 2 to LCx in 2021, HTN, HFrEF (LVEF of 40-45% as of 03/2022) S/P ICD placement, PAF on Eliquis, daily EtOH use, and chronic hyponatremia who presented to the [facility] ED on 03/08/23 with a chief complaint of SOB. In the ED the patient was noted to be saturating at 88% on RA and tachycardic at 115. Labs were significant for a lymphocyte count of 0.63, sodium of 129 (appears to be his chronic baseline). Chest xray was read as 1. Cardiomegaly and AICD with evidence of congestive failure. 2. Emphysema. 3. Small pleural effusions.. Prior to admission the patient was given his am dose of metoprolol, am dose of Eliquis, and and 20 mg IV Lasix. At the time of the exam the patient was sitting in bed in no acute distress with his sitting bedside, history was obtained from both. They state that he has baseline SOB with his COPD but does not typically have a productive cough. He started to become more SOB approximately 4 days ago per his . She states that his weight was up to 177 lbs last week, a good dry weight for him is around 167. She gave him his prn 20 mg PO lasix daily for a few days last week but then the patient didn't want to take it anymore this week. He woke up this am around 0530 acutely more SOB. He used 2 of his levalbuterol nebulizer treatments without relief, leading him to come to the ED. His has a pulse oximetry meter at home and states that his initial O2 was 80% this am and only improved to 85% after his levalbuterol treatments. He has not missed any doses of Eliquis recently. The patient states that his breathing feels somewhat improved compared to arrival but is still on 2L NC. He states that he feels a litte confused, his states that he has some confusion at baseline and only seems a little more confused now compared to his baseline. He is currently smoking a pack of "small cigars" daily and is drinking approximately 6-8 beers from 3 pm to approximately 10:30 pm The patient has no interest in stopping. On previous admissions he was ordered beer. He is a full code and wishes for his to make medical decisions for him if he cannot make them himself. Please refer to Dr. Sanchez's attestation for any changes to the treatment plan Admission Exam Per Admitting Provider General:In no acute distress, stated age, chronically ill-appearing, poor hygiene HEENT:Normocephalic, atraumatic, no scleral icterus, pupils around round, symmetrical, and reactive to light, telangiectasias noted on the tip of the nose, moist mucus membranes, trachea midline, no thyromegaly Chest/Pulm:ICD noted in the left upper chest without signs of infection,No respiratory distress, symmetrical chest expansion, decreased breath sounds in the BL lower lung funk with mild wheezing noted in the middle and upper lung funk Cardiac:irregular rate and rhythm, systolic murmurs noted Abdomen:Negative for ascites and bruising, normoactive bowel sounds, soft, non-tender to palpation throughout Musculoskeletal:Symmetrical and without signs of acute trauma, upper and lower extremities with full ROM, no atrophy, spasticity, or flaccidity Extremities:Radial, dorsalis pedis, and posterior tibial pulses are intact and symmetrical, 1+ pitting edema noted in the BL LE's Skin:As described above Neuro:Alert and oriented to person, place, month, year, no focal defects, CN II-XII tested and intact, no tremors noted Psych:No acute distress, calm and cooperative during the exam Principal Diagnosis acute CHF Discharge Exam General: Tired but otherwise well appearing 77yoM in NAD. HEENT: NCAT. - Eyes - Sclera are white, anicteric, and without injection. - Mouth - MMM - Neck - supple, no appreciable JVD Cardiac: Normal rate and regular rhythm; S1 and S2 present with no murmur detected Pulmonary: Good respiratory effort with symmetric expansion of the chest. No use of accessory muscles. Lungs were CTAB Abdominal: Normoactive bowel sounds. Abdomen was soft, nondistended, and non- tender to palpation. Extremities: Upper and lower extremities are warm and well perfused. No peripheral edema in the lower extremities bilaterally Discharge Data Allergies Allergy/AdvReac Type Severity Reaction Status Date / Time morphine Allergy Intermediate Swelling Verified 03/02/23 14:46 clopidogrel Allergy Unknown Unknown Verified 03/02/23 14:46 reaction fluticasone furoate AdvReac Intermediate Pain Verified 03/02/23 14:46 [From Trelegy Ellipta] behind the eyes umeclidinium AdvReac Intermediate Pain Verified 03/02/23 14:46 [From Trelegy Ellipta] behind the eyes vilanterol AdvReac Intermediate Pain Verified 03/02/23 14:46 [From Trelegy Ellipta] behind the eyes [employer] (ALCOHOL Allergy Severe SHORTNESS Uncoded 03/02/23 14:46 BASED) OF BREATH - SEE NOTES Consultations 03/08/23 10:24 ED Decision to Admit Stat Hospital Course (1) Acute on chronic HFrEF (heart failure with reduced ejection fraction): Acute on Chronic HFmrEF Several days worsening dyspnea in context of elevated BNP and CXR with pulmonary edema and mild effusions. Acute CHF most likely due to dietary sodium intake indiscretion (patient eats store-bought Rotisserie chicken at home). Symptoms improved with aggressive diuresis while here. - repeat TTE unchanged from previous in 03/2022: EF 40-45% with decreased LV/RV function - Required Lasix 20mg IV b.i.d. while here --> transitioned to 40mg PO every other day upon discharge (given Cr bump 0.6 -> 0.9 day of discharge). Titrate/discontinue PRN. --> f/u BMP ordered for 2-3 days post-discharge - No O2 requirement on 2-step completed prior to discharge - Continue home RX/GDMT managed by CHF clinic: [email or web address], Entresto, metoprolol - Education provided re: daily weights, 2000cc fluid and 2000mg salt restriction A-fib with RVR, RVR resolved Initially in a-fib RVR with [id number] on presentation, likely due to acute CHF and missing AM home metoprolol. RVR resolved after regular Metoprolol PO dose. Rate controlled prior to discharge - continue home Eliquis 5mg PO BID and Metoprolol 50mg PO QAM Acute on Chronic Hyponatremia, Acute Exacerbation resolved Known baseline in low 130s, likely secondary to beer potomania. On admission, at Na 129 secondary to hypervolemia. Improved back to baseline following diuresis. - F/U BMP, as above Severe Alcohol Use Disorder, Active 6-8 beers per day. No symptoms of withdrawal currently, and patient is pre- contemplative in regards to cessation. - Patient utilized PRN beer while here, AWSS protocol - no BZDs required - Continue home thiamine/folic acid PO COPD, GOLD2; Tobacco Use Disorder Last PFTs in 06/2022 with FEV1 63% predicted. With multi-factorial dyspnea and related symptoms, of which COPD contributes. - Stable while here. Precontemplative with tobacco cessation, utilized patch while in-house. Continue home inhalers (Dulera, PRN levalbuterol) at d/c - Continue home levalbuterol, will order BID formoterol and mometasone as we do not have his Dulera on formulary - Continue regular f/[facility] with [facility] Pul[facility] CAD; HLD - continue home Aspirin and Atorvastatin GERD - continue home Protonix BPH - continue home Flomax Identified as FULL CODE while here (2) Alcohol abuse: (3) Hyponatremia: (4) COPD (chronic obstructive pulmonary disease): (5) Permanent atrial fibrillation: (6) Tobacco abuse: (7) CAD (coronary artery disease): (8) Hyperlipemia: Total Time Total Time Spent Total Time Spent (In Minutes): 30 Discharge Plan Discharge Items Patient Disposition: Home - Self-Care Reason For Visit: SOB Discharge Diagnosis: acute CHF Activity: Per Instructions section Non-emergency contact: Primary Care Provider Call non-emergency contact if: you have any medication questions, your symptoms worsen and your temperature is above 101.5 Follow-up/Referrals: Aquilino Silver III, CRNP [Primary Care Provider] - 03/19/23 4:00 pm Diet: Heart Healthy and Low Sodium (2gm) Fluids: 1800ml (7 cups) Ambulatory Orders: Basic Metabolic Panel (Routine) Timeframe: 3 Days Location: Determined by Patient Ordered By: Kranthi Anderson Attending Provider Instructions: You were seen and evaluated at [facility] for shortness of breath. Upon your arrival, you underwent extensive evaluation to determine the cause of your symptoms. You were found to have fluid in your lungs. This is likely from "congestive heart failure," or an inability of the heart to efficiently pump blood with the same strength it did in the past. As a result, fluid backs up like a traffic jam in places it shouldn't be -- like the lungs, and for some people, the legs. One of the biggest things we can do to prevent an episode of heart failure is to minimize fluid and salt intake. Having extra fluid in the system can stress out the heart and cause a traffic jam (fluid building up in the lungs, other places). Most people do not get too much salt from using a salt shaker -- it's from foods they consume. Avoiding or consuming in moderation foods like pre- packaged meals, deli meats, rotisserie chicken, chips, and other salty foods is mathis. You want to shoot for at/under 2000mg of sodium a day; reviewing food labelling can help you achieve this. Further, maintaining a total liquid intake of less than 2L/day will be important, too -- especially during this acute period where your heart is recovering. You will be started on a medication called furosemide (Lasix), 40mg EVERY OTHER DAY, until seen by your PCP to remove excess fluid. This is an oral (pill) version of what you received in the hospital. Please monitor your weights daily and record them for your doctor. Take them at the same time every day. Please also have your kidney function (a blood test) checked within the next 2-3 days to ensure stability -- your doctor will review this and tell you if there's anything you need to do with the Lasix. We also discussed alcohol consumption during this visit. Excess alcohol can put stress on the heart. No more than 2 drinks maximum is recommended for men daily to prevent this, and other health problems. Please continue ongoing discussions with your primary care doctor regarding this and any questions you may have. We live in an age where there are medication that can help reduce consumption, if desired. Please follow-up with your PCP within 1 week to review this visit. In the interim, if you experience worsening shortness of breath, trouble lying flat, chest pain, palpitations, significant weight gain, nausea, vomiting, fevers, or other worrisome symptoms, please report back to the ER immediately for evaluation. ---- Call 911 and go to the Emergency Room if: * You have tightness or pain in your chest that does not go away with rest or Nitroglycerin * You are very short of breath even with rest Call your doctor if any of the following symptoms or problems start or get worse: * Shortness of breath or difficulty breathing * Wake up at night short of breath * Chest pain * Cough * Swelling of your hands, fee, or legs * More fatigued or tired with your normal activity * Palpitations - sudden fast heart beats WEIGHT * Weigh yourself every morning after using the bathroom. * Use the same scale. * Wear the same amount of clothing. * Write your weight down on your chart. * Call your doctor if you gain more than 2-3 pounds in 1-2 days. MEDICATIONS * Use this discharge instruction sheet for instructions. * Take your medications at the time your doctor ordered. * Do not skip a dose of your medicines. * If you miss a dose of medicine, take as soon as possible, but DO NOT DOUBLE A DOSE. * Read your medicine information when you get home. * Know all of the side effects of your medicine. * Call your doctor's office if you have any side effects. * Be sure all of your doctors know what medicine and herbs you take (including cold, flu, and herbal medicine). * Pain Medicine: If you do not get relief from your pain, please call your doctor for help. Take the following with you to your follow-up doctor appointments: * Weight Chart * Medication List * List of questions Do not drink excessive alcohol, beer or wine. Pending Studies at Discharge: No Stand-Alone Forms: My [facility] [place], Smoking Cessation Medications and DC Order Prescriptions: New furosemide 40 mg tablet 40 mg PO Q OTHER DAY 30 Days Qty: 15 0RF Continued nitroglycerin 0.4 mg tablet, sublingual 0.4 mg SL Q5M PRN (Reason: Chest Pain) Patient Comments: Has had prescription for awhile but pt says he's not used it in awhile. apixaban 5 mg tablet 5 mg PO BID Qty: 60 2RF ipratropium bromide 21 mcg (0.03 %) spray,non-aerosol 2 spray intranasal BID Qty: 30 5RF Rx Instructions: administer into each nostril thiamine HCl (vitamin B1) 100 mg tablet 100 mg PO DAILY levalbuterol tartrate [Xopenex HFA] 45 mcg/actuation HFA aerosol inhaler See Rx Instructions inhalation .COMPLEX PRN (Reason: shortness of breath or wheezing) Qty: 15 2RF Rx Instructions: 1-2 INH 4-6 hrs PRN; aspirin 81 mg tablet,delayed release (DR/EC) 81 mg PO DAILY atorvastatin 80 mg tablet 40 mg PO HS Jardiance 10 mg tablet 10 mg PO QAM cholecalciferol (vitamin D3) 25 mcg (1,000 unit) capsule 25 mcg PO QAM Entresto 49-51 mg tablet 1 tab PO BID Qty: 60 2RF Dulera 200-5 mcg/actuation HFA aerosol inhaler 2 puff inhalation BID Qty: 13 2RF pantoprazole 40 mg tablet,delayed release (DR/EC) 40 mg PO DAILY Qty: 30 2RF tamsulosin 0.4 mg capsule 0.4 mg PO HS Neuriva Plus 0.85 mg-200 mcg-1.2 mcg tablet,chewable 1 tab PO QAM folic acid 1 mg Tablet 1 mg PO QAM Qty: 30 0RF metoprolol succinate 50 mg tablet extended release 24 hr 50 mg PO QAM Discontinued furosemide 20 mg tablet 20 mg PO DAILY PRN (Reason: Fluid Retention) Discharge Orders: Discharge Order- CHF (Routine); Ordered 03/10/23 Ordered By: Kranthi Bonilla/Other Patient Handouts: Heart Failure Flare Up Signs, Heart Failure: Tracking Your Weight, Heart Failure Make Changes Diet, Heart Failure Dc Admission Data Admit Date/Time: 03/08/23 10:26 Attending Provider: Stella Rowe Admit Provider: Masood Sanchez Primary Care Provider: Aquilino Silver III Other Providers: Masood Sanchez ; [facility] Supervising Physician Co-Signing Physician Notes Resident Physician Supervision Note: I independently interviewed and examined the patient and verified the mathis history and physical, reviewed labs and image studies and agree with resident findings and care plan.
[2023-03-10 11:46] VITALS: BP 100/48; PULSE 87; O2SAT 97
== END 2023-03-10 14:02 | disposition home or self-care (01) | DRG 291 ==
LOC: ED 08:18 → SUATTDRO 10:26 → EDINP 10:26 → 2N 11:53